=== PATIENT | male | born 1950 | race Caucasian/White ===

== ENCOUNTER 2016-04-27 12:30 | Inpatient (IN) | payer OTHER ==
[~2016-04-27] VITALS: Ht 167.6 cm; Wt 64.9 kg
[~2016-04-27 12:30] MED LIST: B COCAP10 PO; BSP15 PO; DIPH50CA PO; DOCU100T7 PO; FLM4 PO; FOLI1TAB7 PO; LBR25 PO; METO25TA3 PO; ROPI5TAB9 PO; THM100 PO; ZNTT/150 PO
[2016-04-27] MEDS ORDERED: LORAZEPAM 2 MG/ML 1 ML VIAL IV STA (13:16)
[2016-04-27] MEDS ORDERED: SODIUM CHLORIDE 0.9% 500ML 500 ML IV STA (13:16)
[2016-04-27 13:23] LABS: HEMATOCRIT 40.9 % (42-52); MEAN CELL VOLUME 100.7 fL (80-100); MEAN CORPUSCULAR HGB CONC 34.7 g/dl (32-36); RED BLOOD COUNT 4.06 M/uL (4.7-6.1); WHITE BLOOD COUNT 4.15 K/uL (4.8-10.8)
[2016-04-27 13:29] LABS: MEAN PLATELET VOLUME 10.8 fL (7.4-10.4); PLATELET COUNT 72 K/uL (130-400)
[2016-04-27] MEDS ORDERED: MULTI-VITAMIN INFUSION INJ 10 ML, THIAMINE HCL INJ 100 MG, FoLIC ACID INJ 1 MG in SODIU... IV ONE (13:30)
[2016-04-27 13:41] LABS: BUN/CREATININE RATIO 10.8 (10-20); CALCIUM 9.8 mg/dl (8.5-10.1); CREATININE 1.7 mg/dl (0.60-1.40); POTASSIUM 3.4 mmol/L (3.5-5.1)
[2016-04-27 13:47] LABS: ALB/GLOB RATIO 1.2 (0.9-2)
[2016-04-27 13:55] LABS: BETA-HYDROXYBUTYRATE 1.11 mg/dL (0.2-2.81); THYROID STIMULATING HORMONE 1.58 uIu/ml (0.300-4.500)
[2016-04-27 13:58] LABS: ACETAMINOPHEN < 2 ug/ml (10-30)
[2016-04-27 14:06] LABS: BASO % 0.5 %; BASO ABS # 0.02 K/uL (0-0.2); COMPLETE YES; EOS % 1.4 %; IG% 0.2 %; LYMPH % 29.6 %; LYMPH ABS # 1.23 K/uL (1.2-3.4); MONO % 5.3 %; PLT ESTIMATE DECREASED; STOMATOCYTE 1+
[2016-04-27 14:16] LABS: URINE APPEARANCE CLEAR (CLEAR); URINE BILIRUBIN NEG (NEG); URINE COLOR DK YELLOW; URINE NITRITE NEG (NEG); URINE PH 7.5 (4.5-7.5); URINE SPECIFIC GRAVITY 1.017 (1.000-1.030); UROBILINOGEN NEG (NEG); ZZUR CULT IF INDIC CLEAN CATCH NO
[2016-04-27 14:23] LABS: MANUAL MICROSCOPIC REQUIRED? NO; REVIEW REQ? NO
--- NOTE | 2016-04-27 14:28 | DIAGNOSTIC IMAGING REPORT ---
HEAD CT NONCONTRAST CT DOSE: 823.94 mGycm HISTORY: HEADACHE TECHNIQUE: Multiaxial CT images of the head were performed without the use of intravenous contrast. Automated exposure control was utilized for this study. Comparison: Head CT 04/10/2016. Findings: There are stable retention cysts within the bilateral maxilla sinuses. The mastoid air cells are clear. The calvarium and skull base are intact. There is no mass, hematoma, midline shift, acute infarct. White matter hypodensity is nonspecific but suggestive of microvascular ischemic change. The ventricles and sulci demonstrate mild age-related involutional changes. Impression: No significant change compared to the prior study. No acute intracranial abnormality. Electronically signed by: Ruben Waller M.D. 04/27/2016 2:26 PM Dictated Date/Time: 04/27/2016 2:20 PM
[2016-04-27 14:48] LABS: BENZODIAZEPINE, URINE NEG (NEG); COCAINE,URINE NEG (NEG); PHENCYCLIDINE, URINE NEG (NEG)
--- NOTE | 2016-04-27 15:42 | History and Physical ---
History & Physical Date & Time of Service: Apr 27, 2016 at 15:06 Chief Complaint: hallucinating Primary Care Physician: Doug Aguirre D.O.Int.Med. History of Present Illness Source: patient, friend (Vern (echocardiograph technician)) Mr Kahn is a 65 year old male with multiple admissions for alcohol intoxication and withdrawal with hallucinations. He came to the ER today by taxi on advice of his as he was having visual hallucination after stopping alcohol since Saturday (day 5 sober). He usually drinks 30-40oz vodka/day. He has tried giving up multiple times previously unsuccessfully and gone through withdrawal. Sometimes he will go back to drinking the following day, sometimes he remains sober for weeks. He has been drinking large quantities of alcohol since at least his 's. x2 inpatient rehab stays previously. No current outpatient treatment for alcohol. Previous AA meetings but not or many years. No current outpatient treatment or counselling. He reports compliance with outpatient medications (although the vitamins taste bad). This week after quitting alcohol he has felt more hyperactive, heart racing, muscles deyanira and shaking. Visual hallucinations started 2 days previously including spaghetti coming at him from the refrigerator, pears and other fruit moving up an down and while passenger in a car the road appeared to be swaying. He denies any acute vision problems but needs thick lenses on his right eye because his vision is deteriorating. He notes his short and chcf memory are getting much worse. He is orientated to place, person but not time. By permission from the patient I discussed with Vern his business integration manager. He confirms the patient's longstanding problems with alcohol. Mr Kahn was working up until 1.5 weeks ago. 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 He notes the patient has had balance issues over the last year but it has been especially noticeable in the last few weeks. 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 History of Pneumococcal: No History of Hepatitis B Vaccine: No Multi-Drug Resistant Organisms History of MDRO: No Allergies Coded Allergies: Cephalosporins (Verified Allergy, Unknown, SUPRAX, 04/27/16) Penicillins (Verified Allergy, Unknown, RASH, 04/27/16) Sulfa Antibiotics (Verified Allergy, Unknown, RASH, 04/27/16) Home Medications Scheduled B Complex W/ C (Super B With C), 1 CAP PO DAILY Buspirone HCl (Buspirone HCl), 30 MG PO HS Folic Acid (Folvite), 1 MG PO QPM Metoprolol Succinate (Toprol Xl), 1 TAB PO DAILY Ranitidine (Zantac), 150 MG PO UD Tamsulosin HCl (Tamsulosin HCl), 0.4 MG PO HS Thiamine HCl (Vitamin B-1), 100 MG PO DAILY Scheduled PRN Chlordiazepoxide (Chlordiazepoxide HCl), 25 MG PO BID PRN for Anxiety/Agitation Diphenhydramine Hcl (Diphenhydramine Hcl), 1 CAP PO HS PRN for Sleep Ropinirole HCl (Ropinirole HCl), 5-10 MG PO HS PRN for Restless Legs Review of Systems Constitutional: No chills, No fever Eyes: + worsening of vision Respiratory: + cough (chronically), + shortness of breath (chronically at rest and on exertion, stable for years), + sputum (chronically, little worse), No hemoptysis Cardiovascular: + chest pain (heartburn helped with tums, chronic, none at present), + claudication (sometimes), No PND, No edema, No orthopnea, No palpitations Abdomen: + pain (sometimes after eatin, chronic), No GI bleeding, No constipation, No diarrhea, No nausea, No vomiting Musculoskeletal: No joint pain, No muscle pain Genitourinary - Male: No dysuria, No hematuria, No urinary frequency, No urinary urgency Neurologic: + balance problems, + memory loss (short term and solomon term memory loss), No numbness/tingling Psychiatric: + substance abuse (alcohol), No anxiety, No depression symptoms Endocrine: No excessive thirst, No excessive urination, No fatigue Hematologic / Lymphatic: No abnormal bleeding/bruising Integumentary: No itch, No rash Physical Exam Vital Signs Date Time Temp Pulse Resp B/P Pulse Ox O2 Delivery O2 Flow Rate FiO2 04/27/16 14:15 82 14 121/85 97 Room Air 04/27/16 13:00 85 04/27/16 12:41 37.0 98 17 147/95 100 Room Air General Appearance: no apparent distress, + pertinent finding (malnourished) Head: normocephalic, atraumatic Eyes: normal inspection, PERRL, EOMI (no double vision) ENT: hearing grossly normal, pharynx normal Neck: no adenopathy, trachea midline Respiratory/Chest: chest non-tender, lungs clear, normal breath sounds, no respiratory distress, no accessory muscle use Cardiovascular: regular rate, rhythm, no murmur, normal peripheral pulses Abdomen/GI: normal bowel sounds, non tender, soft Back: no CVA tenderness Extremities/Musculoskelatal: no calf tenderness, normal capillary refill ( fingers), no pedal edema Neurologic/Psych: supervisor paste mixing II-XII nml as tested, no motor/sensory deficits (lower and upper limb power and sensation intact, no numbness or pain noted), alert, oriented x 3, + pertinent finding (wide based gait ataxic gait, intention tremor and past pointing, no resting tremor, confused multiple times throughout H&P trying to get up from bed and leave and not understanding questions) Skin: normal color, warm/dry, no rash Diagnostics Laboratory Results Results Past 24 Hours Test 04/27/16 12:42 04/27/16 13:28 Range/Units White Blood Count 4.15 4.8-10.8 K/uL Red Blood Count 4.06 4.7-6.1 M/uL Hemoglobin 14.2 14.0-18.0 g/dL Hematocrit 40.9 42-52 % Mean Corpuscular Volume 100.7 80-100 fL Mean Corpuscular Hemoglobin 35.0 25-34 pg Mean Corpuscular Hemoglobin Concent 34.7 32-36 g/dl Platelet Count 72 130-400 K/uL Mean Platelet Volume 10.8 7.4-10.4 fL Neutrophils (%) (Auto) 63.0 % Lymphocytes (%) (Auto) 29.6 % Monocytes (%) (Auto) 5.3 % Eosinophils (%) (Auto) 1.4 % Basophils (%) (Auto) 0.5 % Neutrophils # (Auto) 2.61 1.4-6.5 K/uL Lymphocytes # (Auto) 1.23 1.2-3.4 K/uL Monocytes # (Auto) 0.22 0.11-0.59 K/uL Eosinophils # (Auto) 0.06 0-0.5 K/uL Basophils # (Auto) 0.02 0-0.2 K/uL RDW Standard Deviation 49.0 36.4-46.3 fL RDW Coefficient of Variation 13.2 11.5-14.5 % Immature Granulocyte % (Auto) 0.2 % Immature Granulocyte # (Auto) 0.01 0.00-0.02 K/uL Platelet Estimate DECREASED Stomatocytes 1+ Sodium Level 140 136-145 mmol/L Potassium Level 3.4 3.5-5.1 mmol/L Chloride Level 98 98-107 mmol/L Carbon Dioxide Level 28 21-32 mmol/L Anion Gap 14.0 3-11 mmol/L Blood Urea Nitrogen 18 7-18 mg/dl Creatinine 1.70 0.60-1.40 mg/dl Est Creatinine Clear Calc Drug Dose 39.6 ml/min Estimated GFR () 48.3 Estimated GFR (Non- 41.7 BUN/Creatinine Ratio 10.8 10-20 Random Glucose 323 70-99 mg/dl Calcium Level 9.8 8.5-10.1 mg/dl Total Bilirubin 1.2 0.2-1 mg/dl Aspartate Amino Transf (AST/SGOT) 80 15-37 U/L Alanine Aminotransferase (ALT/SGPT) 65 12-78 U/L Alkaline Phosphatase 66 45-117 U/L Total Protein 7.1 6.4-8.2 gm/dl Albumin 3.9 3.4-5.0 gm/dl Globulin 3.2 2.5-4.0 gm/dl Albumin/Globulin Ratio 1.2 0.9-2 Beta-Hydroxybutyric Acid 1.11 0.2-2.81 mg/dL Thyroid Stimulating Hormone (TSH) 1.580 0.300-4.500 uIu/ml Salicylates Level < 1.7 2.8-20 mg/dl Acetaminophen Level < 2 10-30 ug/ml Ethyl Alcohol mg/dL < 3.0 0-3 mg/dl Urine Color DK YELLOW Urine Appearance CLEAR CLEAR Urine pH 7.5 4.5-7.5 Urine Specific [place] 1.017 1.000-1.030 Urine Protein NEG NEG Urine Glucose (UA) 3+ NEG Urine Ketones NEG NEG Urine Occult Blood NEG NEG Urine Nitrite NEG NEG Urine Bilirubin NEG NEG Urine Urobilinogen NEG NEG Urine Leukocyte Esterase NEG NEG Urine Opiates Screen NEG NEG Urine Methadone, Qualitative NEG NEG Urine Barbiturates NEG NEG Urine Phencyclidine (PCP) Level NEG NEG Ur Amphetamine/Methamphetamine NEG NEG MDMA (Ecstasy) Screen NEG NEG Urine Benzodiazepines Screen NEG NEG Urine Cocaine Metabolite NEG NEG Urine Marijuana (THC) NEG NEG Diagnostic Radiology HEAD CT NONCONTRAST CT DOSE: 823.94 mGycm HISTORY: HEADACHE TECHNIQUE: Multiaxial CT images of the head were performed without the use of intravenous contrast. Automated exposure control was utilized for this study. Comparison: Head CT 04/10/2016. Findings: There are stable retention cysts within the bilateral maxilla sinuses. The mastoid air cells are clear. The calvarium and skull base are intact. There is no mass, hematoma, midline shift, acute infarct. White matter hypodensity is nonspecific but suggestive of microvascular ischemic change. The ventricles and sulci demonstrate mild age-related involutional changes. Impression: No significant change compared to the prior study. No acute intracranial abnormality. Electronically signed by: Ruben Waller M.D. 04/27/2016 2:26 PM Dictated Date/Time: 04/27/2016 2:20 PM Impression Assessment and Plan 65 yo male with longstanding alcohol and tobacco abuse admission through ER for alcohol withdrawal with hallucinations. Encephalopathy and gait ataxia concerning for Wernicke's encephalopathy. Alcohol hallucinosis / delirium tremens - hallucinations with possible fever and tachycardia at home (by history from patient). Delirium, agitation with hallucinations in ER suggestive of DT - GIGI scale - Chlordiazepoxide reducing regimen Suspected Wernicke's encephalopathy - gait ataxia + encephalopathy - Thiamine level - Thiamine IV 500 mg TID for 2 days then 250mg IV daily for 5 days Alcohol abuse - PTINR and PTT to assess for liver dysfunction Macrocytosis - secondary to alcohol abuse - B12 and folate levels - continue O/P folic acid pending level Hyperglycemia - possible diabetes with pancreatic damage secondary to alcohol. Will also be causing some osmotic diuresis contributing towards JAMES and dehydration. - add HbA1C - Lipase to assess acute pancreatic damage - BSG ACHS, if continues to be raised will treat with insulin - previous admissions the random glucose has also been raised Acute Kidney Injury - likely pre-renal with dehydration - 1L NSS given in ER. Addition 1L LR bolus now. NSS with 40 meq KCl - Cr with morning labs Hypokalemia - IVF - LR and NSS+40KCl as above Tobacco abuse - 1pack/day - nicotine replacement Restless leg syndrome - continue PRN ropinirole VTE Prophylaxis - Chronically low Plt around 70. Chemical prophylaxis with Lovenox currently but will need to be reassessed if Plt drop tomorrow. - No mechanical prophylaxis as falls risk with gait ataxia Code - Full as per patient wishes Disposition - admission to med/surg. No acute cardiac problems to warrant telemetry. I agree with resident assessment and plan and have personally seen and examined pt myself Agree with ROS and PE findings GEN NAD, Alert and oriented x 3 Pt presents with alcohol withdrawal with hallucinations Pt will be admitted for CW protocol Will utilize scheduled librium Monitor for DTs Level of Care Med/Surg Resuscitation Status FULL RESUSCITATION VTE Prophylaxis Given or contraindicated: Enoxaparin (Lovenox)SQ Additional Copies To Doug Aguirre D.O.Int.Med.
--- NOTE | 2016-04-27 15:52 | EMERGENCY ROOM VISIT NOTE ---
History Report prepared by Anna: Bambi Avina Under the Supervision of: Dr. George Devlin M.D. First contact with patient: 13:12 Chief Complaint: OTHER COMPLAINT Stated Complaint: hallucinating History of Present Illness The patient is a 65 year old male who presents to the Emergency Room with complaints of resolved visual hallucinations occurring this morning. 5 days ago , the patient started self-detox for alcohol use. His last alcoholic drink was 5 days ago. He used to drink "about half or a third of a fifth" of vodka every day. About 2 days ago, he had nausea and vomiting. The patient currently denies any pain. He has a history of alcohol detox and denies any issues. He denies any history of seizures. Today, he thought that he saw about 100-200 people at his house. He called 911 but there was no one found at his house. He denies any suicidal or homicidal ideation. He does not have any history of mental health issues or suicide attempts. He denies any recent fall or injuries. He is a current smoker. Source of History: patient Onset: this morning Position: other (global) Symptom Intensity: No pain currently Quality: other (visual hallucinations) Timing: resolved Associated Symptoms: + nausea, + vomiting Review of Systems See HPI for pertinent positives & negatives. A total of 10 systems reviewed and were otherwise negative. Past Medical & Surgical Medical Problems: (1) Acute alcoholic hallucinosis (2) Alcohol withdrawal (3) Altered mental state (4) Benign hypertension (5) Orthostatic dizziness (6) TIA (transient ischemic attack) (7) Wernickes encephalopathy Family History Diabetes mellitus FHx: gallbladder disease Hypertension Kidney disease Kidney stones Social History Smoking Status: Current Every Day Smoker Alcohol Use: heavy Drug Use: none Marital Status: Housing Status: lives with significant other Occupation Status: employed Current/Historical Medications Scheduled B Complex W/ C (Super B With C), 1 CAP PO DAILY Buspirone HCl (Buspirone HCl), 30 MG PO HS Folic Acid (Folvite), 1 MG PO QPM Metoprolol Succinate (Toprol Xl), 1 TAB PO DAILY Ranitidine (Zantac), 150 MG PO UD Tamsulosin HCl (Tamsulosin HCl), 0.4 MG PO HS Thiamine HCl (Vitamin B-1), 100 MG PO DAILY Scheduled PRN Chlordiazepoxide (Chlordiazepoxide HCl), 25 MG PO BID PRN for Anxiety/Agitation Diphenhydramine Hcl (Diphenhydramine Hcl), 1 CAP PO HS PRN for Sleep Ropinirole HCl (Ropinirole HCl), 5-10 MG PO HS PRN for Restless Legs Allergies Coded Allergies: Cephalosporins (Verified Allergy, Unknown, SUPRAX, 04/27/16) Penicillins (Verified Allergy, Unknown, RASH, 04/27/16) Sulfa Antibiotics (Verified Allergy, Unknown, RASH, 04/27/16) Physical Exam Vital Signs Date Time Temp Pulse Resp B/P Pulse Ox O2 Delivery O2 Flow Rate FiO2 04/27/16 16:05 86 18 117/77 96 Room Air 04/27/16 14:15 82 14 121/85 97 Room Air 04/27/16 13:00 85 04/27/16 12:41 37.0 98 17 147/95 100 Room Air Physical Exam GENERAL: Patient is in no acute distress. HEENT: No acute trauma, normocephalic atraumatic, mucous membranes moist, no nasal congestion, no scleral icterus. NECK: No stridor, no adenopathy, no meningismus, trachea is midline. LUNGS: Clear to auscultation bilaterally, no wheeze, no rhonchi, breath sounds equal. HEART: Without murmurs gallops or rubs, regular rate and rhythm. ABDOMEN: Soft, nontender, bowel sounds positive, no hernias, no peritonitis. EXTREMITIES: No cyanosis or edema, full range of motion of all the joints without pain or difficulty, no signs for acute trauma. NEUROLOGIC: Oriented x 3, no acute motor or sensory deficits, no focal weakness. PSYCHIATRIC: Cooperative, admits to earlier hallucinations, voluntary, not suicidal. SKIN: No rash, no jaundice, no diaphoresis. Medical Decision & Procedures ER Provider Diagnostic Interpretation: CT results as stated below per my review and radiologist interpretation: HEAD CT NONCONTRAST CT DOSE: 823.94 mGycm HISTORY: HEADACHE TECHNIQUE: Multiaxial CT images of the head were performed without the use of intravenous contrast. Automated exposure control was utilized for this study. Comparison: Head CT 04/10/2016. Findings: There are stable retention cysts within the bilateral maxilla sinuses. The mastoid air cells are clear. The calvarium and skull base are intact. There is no mass, hematoma, midline shift, acute infarct. White matter hypodensity is nonspecific but suggestive of microvascular ischemic change. The ventricles and sulci demonstrate mild age-related involutional changes. Impression: No significant change compared to the prior study. No acute intracranial abnormality. Electronically signed by: Ruben Waller M.D. 04/27/2016 2:26 PM Dictated Date/Time: 04/27/2016 2:20 PM Laboratory Results 04/27/16 12:42 Red Blood Count 4.06, Mean Corpuscular Volume 100.7, Mean Corpuscular Hemoglobin 35.0, Mean Corpuscular Hemoglobin Concent 34.7, Mean Platelet Volume 10.8, Neutrophils (%) (Auto) 63.0, Lymphocytes (%) (Auto) 29.6, Monocytes (%) ( Auto) 5.3, Eosinophils (%) (Auto) 1.4, Basophils (%) (Auto) 0.5, Neutrophils # ( Auto) 2.61, Lymphocytes # (Auto) 1.23, Monocytes # (Auto) 0.22, Eosinophils # ( Auto) 0.06, Basophils # (Auto) 0.02 04/27/16 12:42 Test 04/27/16 12:42 04/27/16 13:28 04/27/16 16:34 04/27/16 16:49 White Blood Count 4.15 K/uL (4.8-10.8) Red Blood Count 4.06 M/uL (4.7-6.1) Hemoglobin 14.2 g/dL (14.0-18.0) Hematocrit 40.9 % (42-52) Mean Corpuscular Volume 100.7 fL (80-100) Mean Corpuscular Hemoglobin 35.0 pg (25-34) Mean Corpuscular Hemoglobin Concent 34.7 g/dl (32-36) Platelet Count 72 K/uL (130-400) Mean Platelet Volume 10.8 fL (7.4-10.4) Neutrophils (%) (Auto) 63.0 % Lymphocytes (%) (Auto) 29.6 % Monocytes (%) (Auto) 5.3 % Eosinophils (%) (Auto) 1.4 % Basophils (%) (Auto) 0.5 % Neutrophils # (Auto) 2.61 K/uL (1.4-6.5) Lymphocytes # (Auto) 1.23 K/uL (1.2-3.4) Monocytes # (Auto) 0.22 K/uL (0.11-0.59) Eosinophils # (Auto) 0.06 K/uL (0-0.5) Basophils # (Auto) 0.02 K/uL (0-0.2) RDW Standard Deviation 49.0 fL (36.4-46.3) RDW Coefficient of Variation 13.2 % (11.5-14.5) Immature Granulocyte % (Auto) 0.2 % Immature Granulocyte # (Auto) 0.01 K/uL (0.00-0.02) Platelet Estimate DECREASED Stomatocytes 1+ Prothrombin Time 10.4 SECONDS (9.0-12.0) Prothromb Time International Ratio 1.0 (0.9-1.1) Activated Partial Thromboplast Time 24.5 SECONDS (21.0-31.0) Partial Thromboplastin Ratio 0.9 Anion Gap 14.0 mmol/L (3-11) Est Creatinine Clear Calc Drug Dose 39.6 ml/min Estimated GFR () 48.3 Estimated GFR (Non- 41.7 BUN/Creatinine Ratio 10.8 (10-20) Calcium Level 9.8 mg/dl (8.5-10.1) Total Bilirubin 1.2 mg/dl (0.2-1) Aspartate Amino Transf (AST/SGOT) 80 U/L (15-37) Alanine Aminotransferase (ALT/SGPT) 65 U/L (12-78) Alkaline Phosphatase 66 U/L (45-117) Total Protein 7.1 gm/dl (6.4-8.2) Albumin 3.9 gm/dl (3.4-5.0) Globulin 3.2 gm/dl (2.5-4.0) Albumin/Globulin Ratio 1.2 (0.9-2) Lipase 251 U/L (73-393) Beta-Hydroxybutyric Acid 1.11 mg/dL (0.2-2.81) Thyroid Stimulating Hormone (TSH) 1.580 uIu/ml (0.300-4.500) Salicylates Level < 1.7 mg/dl (2.8-20) Acetaminophen Level < 2 ug/ml (10-30) Ethyl Alcohol mg/dL < 3.0 mg/dl (0-3) Urine Color DK YELLOW Urine Appearance CLEAR (CLEAR) Urine pH 7.5 (4.5-7.5) Urine Specific [place] 1.017 (1.000-1.030) Urine Protein NEG (NEG) Urine Glucose (UA) 3+ (NEG) Urine Ketones NEG (NEG) Urine Occult Blood NEG (NEG) Urine Nitrite NEG (NEG) Urine Bilirubin NEG (NEG) Urine Urobilinogen NEG (NEG) Urine Leukocyte Esterase NEG (NEG) Urine Opiates Screen NEG (NEG) Urine Methadone, Qualitative NEG (NEG) Urine Barbiturates NEG (NEG) Urine Phencyclidine (PCP) Level NEG (NEG) Ur Amphetamine/Methamphetamine NEG (NEG) MDMA (Ecstasy) Screen NEG (NEG) Urine Benzodiazepines Screen NEG (NEG) Urine Cocaine Metabolite NEG (NEG) Urine Marijuana (THC) NEG (NEG) Bedside Glucose 217 mg/dl (70-99) Laboratory results reviewed by me. Medications Administered Medications (Trade) Dose Ordered Sig/Sameer Route Start Time Stop Time Status Last Admin Dose Admin Sodium Chloride 500 ml @ 999 mls/hr Q31M STAT IV 04/27/16 13:16 04/27/16 13:46 DC 04/27/16 13:44 999 MLS/HR Multivitamins/ Thiamine HCl/ Folic Acid/Sodium Chloride (Mvi Infusion Inj/Vitamin B-1 Inj/Folvite Inj/ Nss 1000ml) 1,011.2 ml @ 500 mls/ hr Q2H2M ONCE IV 04/27/16 13:30 04/27/16 15:31 DC 04/27/16 13:44 500 MLS/HR Lorazepam 1 mg 1 mg NOW STAT IV 04/27/16 13:16 04/27/16 13:21 DC 04/27/16 13:43 1 MG Thiamine HCl 500 mg/Sodium Chloride 55 ml @ 110 mls/hr 1615 ONCE IV 04/27/16 16:15 04/27/16 16:44 DC 04/27/16 16:37 110 MLS/HR Lactated Ringer's (Lr 1000ml) 1,000 ml @ 999 mls/hr Q1H1M STAT IV 04/27/16 16:05 04/27/16 17:05 DC 04/27/16 16:37 999 MLS/HR ECG Indication: other (Hallucinations) Rate (beats per minute): 85 Rhythm: normal sinus Findings: no acute ischemic change, no ectopy ED Course 1312: The patient was evaluated in room A08. A complete history and physical exam was performed. 1316: Ativan Inj 1 mg IV, Sodium Chloride 500 ml @ 999 mls/hr IV 1330: Multivitamins 10 ml/Thiamine HCl 100 mg/Folic Acid 1 mg/Sodium Chloride 1, 011.2 ml @ 500 mls/hr IV 1450: I discussed the patient's case with Dr. Liao, from [facility]. 1458: Upon reexamination the patient is doing well. He is eating a meal. I discussed results and treatment plan with the patient. He verbalizes agreement and understanding. The patient will be evaluated for further management. Medical Decision Differential diagnosis includes but is not limited to alcohol withdrawal, hallucinations, delirium, electrolyte imbalance, anemia, drug abuse, alcohol abuse, intracranial bleed. The patient's white count and platelet count are slightly low, this appears chronic looking back at previous testing. No anemia. Sugar is elevated at over 300, creatinine slightly elevated, no hepatitis. The patient appears to be in a euthyroid state. There is no coagulopathy. Urinalysis does not show infection, glucose was seen. Urine tox is negative. Aspirin and Tylenol levels are undetectable, alcohol level is undetectable. EKG shows a normal sinus rhythm, no acute ischemia. Brain CT shows no acute bleed or mass effect. The patient received IV saline, IV Ativan. He was given IV saline with multivitamins, thiamine and folate. The patient seems to be doing well. I think his hallucinations are secondary to alcohol withdrawal. He does seem somewhat dehydrated by exam and workup. I do think admission/observation is warranted. I spoke to the patient and case fitter. The on-call hospitalist was consulted. Consults Time Called: 1445 Consulting Physician: Dr. Liao, from [facility] Returned Call: 1450 I discussed the patient's case with Dr. Liao, from [facility]. Impression Primary Impression: Hallucinations Additional Impressions: Alcohol withdrawal Dehydration Scribe Attestation The scribe's documentation has been prepared under my direction and personally reviewed by me in its entirety. I confirm that the note above accurately reflects all work, treatment, procedures, and medical decision making performed by me. Departure Information Dispostion Being Evaluated By Hospitalist Referrals Doug Aguirre D.Kiley.Int.Med. (PCP) Patient Instructions My [facility] Problem Qualifiers
[2016-04-27] MEDS ORDERED: MAGNESIUM HYDROXIDE SUSP 30 ML UDC PO PRN (16:00)
[2016-04-27] MEDS ORDERED: ROPINIROLE HCL 5 MG TAB PO PRN (16:00)
[2016-04-27] MEDS ORDERED: ACETAMINOPHEN 325 MG TAB PO PRN (16:00)
[2016-04-27] MEDS ORDERED: ALUMINUM/MAGNESIUM/SIMETH (MAALOX MAX) 30 ML UDC PO PRN (16:00)
[2016-04-27] MEDS ORDERED: POLYETHYLENE (MIRALAX) 17 GM PACK PO PRN (16:00)
[2016-04-27] MEDS ORDERED: ONDANSETRON INJ 2 MG/ML 2 ML VIAL IV PRN (16:00)
[2016-04-27] MEDS ORDERED: LACTATED RINGER'S 1000ML 1,000 ML IV STA (16:05)
[2016-04-27] MEDS ORDERED: THIAMINE HCL INJ 500 MG in SODIUM CHLORIDE 0.9% 50ML 50 ML IV ONE (16:15)
[2016-04-27] MEDS ORDERED: CHLORDIAZEPOXIDE 25 MG CAP PO SCH (16:15)
[2016-04-27] MEDS ORDERED: NICOTINE 21 MG/24 HR TDSY TD ONE (16:34)
[2016-04-27 16:42] LABS: PARTIAL THROMBOPLASTIN RATIO 0.9; PROTHROMBIN TIME (PATIENT) 10.4 SECONDS (9.0-12.0)
[2016-04-27] MEDS ORDERED: LORAZEPAM 2 MG/ML 1 ML VIAL ONE (17:44)
[2016-04-27 18:00] VITALS: BP 102/100; PULSE 90; TEMP 36.9; O2SAT 97
[2016-04-27 19:03] LABS: ESTIMATED AVERAGE GLUCOSE 100 mg/dl; HA1C FLAG Normal (Normal)
[2016-04-27] MEDS: CHLORDIAZEPOXIDE 25MG 1ST DOSE PO SCH (19:11)
[2016-04-27] MEDS: POTASSIUM CHLORIDE INJ 40 MEQ in SODIUM CHLORIDE 0.9% 1000ML 1,000 ML IV SCH (19:12)
[2016-04-27 20:19] VITALS: BP 102/100; PULSE 90; TEMP 36.9; O2SAT 97; Ht 167.6 cm; Wt 64.9 kg
[2016-04-27 21:12] VITALS: BP 148/91; PULSE 78; TEMP 37.2; O2SAT 97
[2016-04-27] MEDS: THIAMINE HCL INJ 500 MG in SODIUM CHLORIDE 0.9% 50ML 50 ML IV SCH (21:18)
[2016-04-27] MEDS: BusPIRone 15 MG TAB PO SCH (21:21)
[2016-04-27] MEDS: TAMSULOSIN HCL 0.4 MG CAP PO SCH (21:21)
[2016-04-27] MEDS: RANITIDINE HCL 150 MG TAB PO SCH (21:22)
[2016-04-28] MEDS: POTASSIUM CHLORIDE INJ 40 MEQ in SODIUM CHLORIDE 0.9% 1000ML 1,000 ML IV SCH ×5 (01:24→21:15)
[2016-04-28 01:42] VITALS: BP 162/88; PULSE 82; TEMP 37; O2SAT 97
[2016-04-28] MEDS ORDERED: NURSING VERBAL MED ORDER ONE (04:00)
[2016-04-28] MEDS ORDERED: LORAZEPAM INJ 1 MG in SYRINGE 0.5 ML IV STA (04:03)
[2016-04-28] MEDS: CHLORDIAZEPOXIDE 25MG 1ST DOSE PO SCH ×3 (06:12→17:21)
[2016-04-28 06:57] VITALS: BP 134/88; PULSE 87; TEMP 36.4; O2SAT 95
[2016-04-28] MEDS: METOPROLOL SUCC 25MG EXT REL TAB PO SCH (07:54)
[2016-04-28] MEDS: RANITIDINE HCL 150 MG TAB PO SCH ×2 (07:54→21:19)
[2016-04-28] MEDS: NICOTINE 21 MG/24 HR TDSY TD SCH (07:55)
[2016-04-28 08:00] VITALS: O2SAT 95
[2016-04-28] MEDS ORDERED: THIAMINE HCL INJ 500 MG in SODIUM CHLORIDE 0.9% 50ML 50 ML IV SCH (09:00)
[2016-04-28] MEDS: THIAMINE HCL INJ 500 MG in SODIUM CHLORIDE 0.9% 50ML 50 ML IV SCH ×3 (09:14→21:15)
--- NOTE | 2016-04-28 12:15 | Progress Note ---
Subjective Date of Service: Apr 28, 2016. Subjective pt has had no further hallucinations, still shaky, is not interested in in patient rehab and states AA is not for him, I told him he needs to find something that is for him as he has a problem with alcohol abuse Problem List Medical Problems: (1) Acute renal failure Status: Acute (2) Alcohol abuse Status: Acute (3) Alcohol withdrawal Status: Acute (4) Altered mental status Status: Acute (5) Altered mental status Status: Acute (6) Altered mental status Status: Acute (7) Dehydration Status: Acute (8) Hallucinations Status: Acute (9) Hyperbilirubinemia Status: Acute (10) Hyperglycemia Status: Acute (11) Orthostatic hypotension Status: Acute (12) Sinusitis Status: Acute (13) Syncope Status: Acute (14) Thrombocytopenia Status: Acute Review of Systems Constitutional: + fatigue, + weakness, No chills, No fever Respiratory: No cough, No shortness of breath Cardiac: No chest pain, No edema Abdomen: No nausea, No pain Neurologic: + problem reported (tremor), + weakness Objective Vital Signs Date Time Temp Pulse Resp B/P Pulse Ox O2 Delivery O2 Flow Rate FiO2 04/28/16 06:57 36.4 87 18 134/88 95 Room Air 04/28/16 01:42 37.0 82 18 162/88 97 Room Air 04/28/16 01:00 Room Air 04/27/16 21:12 37.2 78 18 148/91 97 Room Air 04/27/16 20:19 36.9 90 20 102/100 97 Room Air 04/27/16 18:00 36.9 90 20 102/100 97 Room Air 04/27/16 17:57 94 20 113/74 96 04/27/16 16:05 86 18 117/77 96 Room Air 04/27/16 14:15 82 14 121/85 97 Room Air 04/27/16 13:00 85 04/27/16 12:41 37.0 98 17 147/95 100 Room Air Physical Exam General Appearance: WD/WN, + mild distress Neck: supple, no JVD Respiratory/Chest: chest non-tender, lungs clear, normal breath sounds Cardiovascular: regular rate, rhythm, no murmur Abdomen: normal bowel sounds, non tender, soft Extremities: no pedal edema, no calf tenderness Neurologic/Psychiatric: alert, + disoriented, + pertinent finding (anxious) Laboratory Results Last 24 Hours Test 04/27/16 12:42 04/27/16 13:28 04/27/16 16:34 04/27/16 16:49 White Blood Count 4.15 K/uL Red Blood Count 4.06 M/uL Hemoglobin 14.2 g/dL Hematocrit 40.9 % Mean Corpuscular Volume 100.7 fL Mean Corpuscular Hemoglobin 35.0 pg Mean Corpuscular Hemoglobin Concent 34.7 g/dl Platelet Count 72 K/uL Mean Platelet Volume 10.8 fL Neutrophils (%) (Auto) 63.0 % Lymphocytes (%) (Auto) 29.6 % Monocytes (%) (Auto) 5.3 % Eosinophils (%) (Auto) 1.4 % Basophils (%) (Auto) 0.5 % Neutrophils # (Auto) 2.61 K/uL Lymphocytes # (Auto) 1.23 K/uL Monocytes # (Auto) 0.22 K/uL Eosinophils # (Auto) 0.06 K/uL Basophils # (Auto) 0.02 K/uL RDW Standard Deviation 49.0 fL RDW Coefficient of Variation 13.2 % Immature Granulocyte % (Auto) 0.2 % Immature Granulocyte # (Auto) 0.01 K/uL Platelet Estimate DECREASED Stomatocytes 1+ Prothrombin Time 10.4 SECONDS Prothromb Time International Ratio 1.0 Activated Partial Thromboplast Time 24.5 SECONDS Partial Thromboplastin Ratio 0.9 Sodium Level 140 mmol/L Potassium Level 3.4 mmol/L Chloride Level 98 mmol/L Carbon Dioxide Level 28 mmol/L Anion Gap 14.0 mmol/L Blood Urea Nitrogen 18 mg/dl Creatinine 1.70 mg/dl Est Creatinine Clear Calc Drug Dose 39.6 ml/min Estimated GFR () 48.3 Estimated GFR (Non- 41.7 BUN/Creatinine Ratio 10.8 Random Glucose 323 mg/dl Estimated Average Glucose 100 mg/dl Hemoglobin A1c 5.1 % Calcium Level 9.8 mg/dl Total Bilirubin 1.2 mg/dl Aspartate Amino Transf (AST/SGOT) 80 U/L Alanine Aminotransferase (ALT/SGPT) 65 U/L Alkaline Phosphatase 66 U/L Total Protein 7.1 gm/dl Albumin 3.9 gm/dl Globulin 3.2 gm/dl Albumin/Globulin Ratio 1.2 Lipase 251 U/L Beta-Hydroxybutyric Acid 1.11 mg/dL Thyroid Stimulating Hormone (TSH) 1.580 uIu/ml Salicylates Level < 1.7 mg/dl Acetaminophen Level < 2 ug/ml Ethyl Alcohol mg/dL < 3.0 mg/dl Urine Color DK YELLOW Urine Appearance CLEAR Urine pH 7.5 Urine Specific [place] 1.017 Urine Protein NEG Urine Glucose (UA) 3+ Urine Ketones NEG Urine Occult Blood NEG Urine Nitrite NEG Urine Bilirubin NEG Urine Urobilinogen NEG Urine Leukocyte Esterase NEG Urine Opiates Screen NEG Urine Methadone, Qualitative NEG Urine Barbiturates NEG Urine Phencyclidine (PCP) Level NEG Ur Amphetamine/Methamphetamine NEG MDMA (Ecstasy) Screen NEG Urine Benzodiazepines Screen NEG Urine Cocaine Metabolite NEG Urine Marijuana (THC) NEG Vitamin B12 Level 667 pg/mL Folate > 24.00 ng/mL Bedside Glucose 217 mg/dl Test 04/27/16 20:03 04/28/16 07:00 04/28/16 07:47 Bedside Glucose 145 mg/dl 225 mg/dl Assessment and Plan 65 yo male with longstanding alcohol and tobacco abuse admission through ER for alcohol withdrawal with hallucinations. Encephalopathy and gait ataxia concerning for Wernicke's encephalopathy. Alcohol hallucinosis / delirium tremens - thiamine, dextrose - Chlordiazepoxide reducing regimen Suspected Wernicke's encephalopathy - gait ataxia + encephalopathy - Thiamine level - Thiamine IV 500 mg TID for 2 days then 250mg IV daily for 5 days Macrocytosis - secondary to alcohol abuse - Acute Kidney Injury - likely pre-renal with dehydration - 1L NSS given in ER. Addition 1L LR bolus now. NSS with 40 meq KCl Tobacco abuse- nicotine replacement VTE Prophylaxis low Plt around 70. Lovenox with platelet surveilence Full code
[2016-04-28 15:16] VITALS: BP 116/78; PULSE 79; TEMP 37; O2SAT 98
[2016-04-28] MEDS: BusPIRone 15 MG TAB PO SCH (21:18)
[2016-04-28] MEDS: TAMSULOSIN HCL 0.4 MG CAP PO SCH (21:19)
[2016-04-28 23:07] VITALS: BP 102/69; PULSE 78; TEMP 37; O2SAT 96
[2016-04-28] MEDS: CHLORDIAZEPOXIDE 25MG Q8H DOSE PO SCH (23:55)
[2016-04-29] MEDS: POTASSIUM CHLORIDE INJ 40 MEQ in SODIUM CHLORIDE 0.9% 1000ML 1,000 ML IV SCH ×2 (01:48→08:45)
[2016-04-29 07:28] LABS: HEMATOCRIT 35.1 % (42-52); MEAN CELL VOLUME 100.9 fL (80-100); MEAN CORPUSCULAR HEMOGLOBIN 34.8 pg (25-34); MEAN CORPUSCULAR HGB CONC 34.5 g/dl (32-36); RED BLOOD COUNT 3.48 M/uL (4.7-6.1); WHITE BLOOD COUNT 3.36 K/uL (4.8-10.8)
[2016-04-29 07:57] LABS: MEAN PLATELET VOLUME 10.3 fL (7.4-10.4); PLATELET COUNT 61 K/uL (130-400)
[2016-04-29 07:59] VITALS: BP 129/76; PULSE 65; TEMP 36.9; O2SAT 94
[2016-04-29 08:07] LABS: BUN/CREATININE RATIO 9.4 (10-20); CALCIUM 8.5 mg/dl (8.5-10.1); CREATININE 1.2 mg/dl (0.60-1.40); POTASSIUM 5.1 mmol/L (3.5-5.1)
[2016-04-29] MEDS: CHLORDIAZEPOXIDE 25MG Q8H DOSE PO SCH (08:45)
[2016-04-29] MEDS: RANITIDINE HCL 150 MG TAB PO SCH ×2 (08:47→20:16)
[2016-04-29] MEDS: METOPROLOL SUCC 25MG EXT REL TAB PO SCH (08:47)
[2016-04-29] MEDS: THIAMINE HCL INJ 500 MG in SODIUM CHLORIDE 0.9% 50ML 50 ML IV SCH (08:47)
--- NOTE | 2016-04-29 10:56 | Progress Note ---
Subjective Date of Service: Apr 29, 2016. Subjective pt is clearing from withdrawal but seems to need increased doses of librium Problem List Medical Problems: (1) Acute renal failure Status: Acute (2) Alcohol abuse Status: Acute (3) Alcohol withdrawal Status: Acute (4) Altered mental status Status: Acute (5) Altered mental status Status: Acute (6) Altered mental status Status: Acute (7) Dehydration Status: Acute (8) Hallucinations Status: Acute (9) Hyperbilirubinemia Status: Acute (10) Hyperglycemia Status: Acute (11) Orthostatic hypotension Status: Acute (12) Sinusitis Status: Acute (13) Syncope Status: Acute (14) Thrombocytopenia Status: Acute Review of Systems Constitutional: No chills, No fever Respiratory: No cough, No sputum Cardiac: No chest pain, No orthopnea Abdomen: No nausea, No pain Psychiatric: + anxiety, + depression symptoms Objective Vital Signs Date Time Temp Pulse Resp B/P Pulse Ox O2 Delivery O2 Flow Rate FiO2 04/29/16 07:59 36.9 65 16 129/76 94 04/28/16 23:07 37.0 78 18 102/69 96 Room Air 04/28/16 19:40 Room Air 04/28/16 16:00 Room Air 04/28/16 15:16 37.0 79 18 116/78 98 Room Air Physical Exam General Appearance: WD/WN, + mild distress Eyes: PERRL, EOMI Respiratory/Chest: chest non-tender, lungs clear, normal breath sounds Cardiovascular: regular rate, rhythm, no murmur Abdomen: normal bowel sounds, non tender, soft Extremities: + pertinent finding (tremulous) Neurologic/Psychiatric: alert, oriented x 3 Laboratory Results Last 24 Hours Test 04/28/16 16:08 04/28/16 20:20 04/29/16 06:30 04/29/16 07:33 Bedside Glucose 120 mg/dl 184 mg/dl 116 mg/dl White Blood Count 3.36 K/uL Red Blood Count 3.48 M/uL Hemoglobin 12.1 g/dL Hematocrit 35.1 % Mean Corpuscular Volume 100.9 fL Mean Corpuscular Hemoglobin 34.8 pg Mean Corpuscular Hemoglobin Concent 34.5 g/dl RDW Standard Deviation 48.4 fL RDW Coefficient of Variation 13.3 % Platelet Count 61 K/uL Mean Platelet Volume 10.3 fL Sodium Level 144 mmol/L Potassium Level 5.1 mmol/L Chloride Level 117 mmol/L Carbon Dioxide Level 20 mmol/L Anion Gap 7.0 mmol/L Blood Urea Nitrogen 11 mg/dl Creatinine 1.20 mg/dl Est Creatinine Clear Calc Drug Dose 56.1 ml/min Estimated GFR () 73.6 Estimated GFR (Non- 63.5 BUN/Creatinine Ratio 9.4 Random Glucose 107 mg/dl Calcium Level 8.5 mg/dl Assessment and Plan 65 yo male with longstanding alcohol and tobacco abuse admission through ER for alcohol withdrawal with hallucinations. Encephalopathy and gait ataxia concerning for Wernicke's encephalopathy. Alcohol hallucinosis / delirium tremens - thiamine, dextrose - Chlordiazepoxide increase to qid 04/29 Suspected Wernicke's encephalopathy - gait ataxia + encephalopathy - Thiamine replacement Macrocytosis - secondary to alcohol abuse - Acute Kidney Injury - likely pre-renal with dehydration, improved Tobacco abuse- nicotine replacement VTE Prophylaxis low Plt around 70. Lovenox with platelet surveilence Full code
[2016-04-29] MEDS: CHLORDIAZEPOXIDE 10 MG CAP PO SCH ×2 (12:12→17:53)
[2016-04-29] MEDS: NICOTINE 21 MG/24 HR TDSY TD SCH (12:24)
[2016-04-29 15:39] VITALS: BP 121/83; PULSE 74; TEMP 36.6; O2SAT 98
[2016-04-29] MEDS: TAMSULOSIN HCL 0.4 MG CAP PO SCH (20:16)
[2016-04-29] MEDS: BusPIRone 15 MG TAB PO SCH (20:17)
[2016-04-29 23:04] VITALS: BP 123/81; PULSE 66; TEMP 36.3; O2SAT 95
[2016-04-30] MEDS ORDERED: CHLORDIAZEPOXIDE 10MG Q8H DOSE PO SCH
[2016-04-30] MEDS: CHLORDIAZEPOXIDE 10 MG CAP PO SCH ×4 (00:05→20:17)
[2016-04-30 07:46] VITALS: BP 114/57; PULSE 70; TEMP 36.4; O2SAT 97
[2016-04-30] MEDS: THIAMINE HCL INJ 250 MG in SODIUM CHLORIDE 0.9% 50ML 50 ML IV SCH (09:06)
[2016-04-30] MEDS: RANITIDINE HCL 150 MG TAB PO SCH ×2 (09:07→20:14)
[2016-04-30] MEDS: METOPROLOL SUCC 25MG EXT REL TAB PO SCH (09:07)
[2016-04-30] MEDS: NICOTINE 21 MG/24 HR TDSY TD SCH (09:07)
--- NOTE | 2016-04-30 15:02 | Hospitalist Progress Note ---
Hospitalist Progress Note Date of Service Apr 30, 2016. (Brii Pulliam ., PAHaydenC) Subjective Pt evaluation today including: conversation w/ patient, physical exam, chart review, lab review, review of inpatient medication list Voiding: no voiding problems, no incontinence Patient states he is feeling OK. +anxiousness, but improving. No hallucinations or visual changes. He is eating and drinking OK. Patient denies any fever, chills, sweats, lightheadedness, dizziness, vision changes, CP, palpitations, edema, SOB, wheezing, cough, abdominal pain, nausea, vomiting, diarrhea, urinary symptoms, melena, numbness/tingling, weakness, muscle/joint pain, depression, active bleeding, or new skin discoloration/changes. (Brii Pulliam ., MAULIKC) Medications Current Inpatient Medications Medications (Trade) Dose Ordered Sig/Sameer Route Start Time Stop Time Status Last Admin Dose Admin Acetaminophen (Tylenol Tab) 650 mg Q4H PRN PO 04/27/16 16:00 05/27/16 15:59 Al Hydrox/Mg Hydrox/Simethicone (Maalox Max Susp) 15 ml Q4H PRN PO 04/27/16 16:00 05/27/16 15:59 Magnesium Hydroxide (Milk Of Magnesia Susp) 30 ml Q6H PRN PO 04/27/16 16:00 05/27/16 15:59 Polyethylene (Miralax Powder Packet) 17 gm DAILY PRN PO 04/27/16 16:00 05/27/16 15:59 Ondansetron HCl (Zofran Inj) 4 mg Q6H PRN IV 04/27/16 16:00 05/27/16 15:59 Buspirone HCl (BusPAR TAB) 30 mg HS PO 04/27/16 21:00 05/27/16 20:59 04/29/16 20:17 30 MG Folic Acid (Folvite Tab) 1 mg QPM PO 04/27/16 21:00 05/27/16 20:59 04/29/16 20:16 1 MG Metoprolol Succinate (Toprol Xl Tab) 25 mg DAILY PO 04/28/16 09:00 05/28/16 08:59 04/30/16 09:07 25 MG Ranitidine HCl (zANTac TAB) 150 mg BID PO 04/27/16 21:00 05/27/16 20:59 04/30/16 09:07 150 MG Ropinirole HCl (Requip Tab) 5 mg HS PRN PO 04/27/16 16:00 05/27/16 15:59 Tamsulosin HCl (Flomax Cap) 0.4 mg HS PO 04/27/16 21:00 05/27/16 20:59 04/29/16 20:16 0.4 MG Diphenhydramine HCl (Benadryl Cap) 25 mg HS PRN PO 04/27/16 16:00 05/27/16 15:59 Nicotine (Nicoderm Cq 21MG Patch) 1 patch QAM TD 04/28/16 09:00 05/28/16 08:59 04/30/16 09:07 1 PATCH Miscellaneous 1 ea 1 ea HS N/A 04/28/16 21:00 05/28/16 20:59 04/29/16 20:16 1 EA Thiamine HCl/ Sodium Chloride (Vitamin B-1 Inj/ Nss 50ml) 52.5 ml @ 210 mls/hr DAILY@0900 IV 04/30/16 09:00 05/04/16 09:14 04/30/16 09:06 210 MLS/HR Chlordiazepoxide (Librium Cap) 10 mg Q8H PO 04/30/16 20:00 05/30/16 19:59 (Brii Pulliam ., PA-C) Objective Vital Signs Date Time Temp Pulse Resp B/P Pulse Ox O2 Delivery O2 Flow Rate FiO2 04/30/16 07:46 36.4 70 18 114/57 97 Room Air 04/30/16 07:40 Room Air 04/30/16 00:14 Room Air 04/29/16 23:04 36.3 66 21 123/81 95 Room Air 04/29/16 20:15 Room Air 04/29/16 16:00 Room Air 04/29/16 15:39 36.6 74 16 121/83 98 Room Air (Brii Pulliam ., PA-C) Physical Exam General Appearance: + mild distress Eyes: PERRL ENT: hearing grossly normal Neck: supple Respiratory/Chest: lungs clear, no respiratory distress, no accessory muscle use Cardiovascular: regular rate, rhythm, no edema Abdomen: normal bowel sounds, non tender, soft Extremities: normal range of motion, no pedal edema, no calf tenderness Neurologic/Psychiatric: alert, oriented x 3 Skin: normal color, warm/dry, no rash (Brii Pulliam PA-C) Laboratory Results Last 24 Hours Test 04/29/16 16:01 04/29/16 20:03 04/30/16 07:32 04/30/16 11:20 Bedside Glucose 128 mg/dl 192 mg/dl 155 mg/dl 133 mg/dl (Brii Pulliam PA-C) Assessment and Plan 65 yo male with longstanding alcohol and tobacco abuse admission through ER for alcohol withdrawal with hallucinations. Encephalopathy and gait ataxia concerning for Wernicke's encephalopathy. Alcohol hallucinosis / delirium tremens - hallucinations with possible fever and tachycardia at home (by history from patient). Delirium, agitation with hallucinations in ER suggestive of DT - GIGI scale - Chlordiazepoxide decreased from 10 mg q6 hrs to q8 hrs on 04/30 Thrombocytopenia: - ?Lovenox vs bone marrow suppression from alcohol abuse vs cirrhosis from alcohol abuse - d/c Lovenox. Monitor. - Follow CBC Suspected Wernicke's encephalopathy - gait ataxia + encephalopathy - Thiamine level - Thiamine IV 500 mg TID for 2 days then 250mg IV daily for 5 days Alcohol abuse - PT, INR and PTT to assess for liver dysfunction, unremarkable Macrocytosis - secondary to alcohol abuse - B12 and folate levels, WNL Hyperglycemia - HbA1C of 5.1 - Lipase unremarkable - BSG ACHS Acute Kidney Injury - likely pre-renal with dehydration, resolved - Treated with 1L NSS given in ER. Addition 1L LR bolus now. NSS with 40 meq KCl - Follow PRP Hypokalemia, resolved - Treated with IVF - LR and NSS+40KCl as above Tobacco abuse - 1pack/day - nicotine replacement Restless leg syndrome - continue PRN ropinirole DVT prophylaxis: - Lovenox 40 mg SQ q24 hrs- d/c on 04/30 due to thrombocytopenia - CORAZON and SCDs Code - LEVEL I, FULL Disposition - Encouraged patient to consider inpatient rehab or set-up outpatient meetings- he is considering- social media community manager on case - PT/OT evaluations (Brii Pulliam PA-C) Attending Attestation: Pt seen/examined, chart reviewed, and care plan d/w TRESA Pulliam. I agree w/ the white components of her documentation. Pt feeling much better. Denies tremor. Some generalized weakness only. Eating is better. VSS, afebrile gen - NAD eyes - 1 beat of horizontal nystagmus only, o/w EOMI mouth - MMM heart - RRR, s1, s2 lungs - CTA b/l abd - soft, NT ext - no edema neuro - no tremors psych - a/o x 3 A/P: 1. DTs - resolved 2. etoh withdrawal - appears resolved; wean librium 3. ?wernicke's encephalopathy - no clinical evidence of such on exam today but agree w/ continuing thiamine replacement thiamine level is pending we had lengthy discussion re: options for Rx of his alcoholism he is not interested in inpatient rehab prefers outpatient treatment PT, OT consults to ensure he is strong enough to go home and to ensure safety/ normal gait Arti BOWLING MD (Patric Bowling MD)
[2016-04-30 15:39] VITALS: BP 109/73; PULSE 59; TEMP 36.6; O2SAT 98
[2016-04-30 16:02] VITALS: O2SAT 98
[2016-04-30] MEDS: TAMSULOSIN HCL 0.4 MG CAP PO SCH (20:14)
[2016-04-30] MEDS: BusPIRone 15 MG TAB PO SCH (20:15)
[2016-04-30 23:16] VITALS: BP 111/72; PULSE 65; TEMP 36.6; O2SAT 94
[2016-05-01] MEDS: CHLORDIAZEPOXIDE 10 MG CAP PO SCH ×2 (03:31→12:35)
[2016-05-01 05:38] LABS: HEMATOCRIT 33.4 % (42-52); MEAN CELL VOLUME 98.8 fL (80-100); MEAN CORPUSCULAR HEMOGLOBIN 34.9 pg (25-34); MEAN CORPUSCULAR HGB CONC 35.3 g/dl (32-36); RED BLOOD COUNT 3.38 M/uL (4.7-6.1); WHITE BLOOD COUNT 3.65 K/uL (4.8-10.8)
[2016-05-01 05:45] LABS: MEAN PLATELET VOLUME 10.2 fL (7.4-10.4); PLATELET COUNT 88 K/uL (130-400)
[2016-05-01] MEDS ORDERED: CHLORDIAZEPOXIDE 5MG Q12H DOSE PO SCH (06:00)
[2016-05-01 06:30] LABS: BUN/CREATININE RATIO 13.7 (10-20); CALCIUM 8.9 mg/dl (8.5-10.1); CREATININE 1.3 mg/dl (0.60-1.40); MAGNESIUM 1.8 mg/dl (1.8-2.4)
[2016-05-01 06:47] VITALS: BP 119/78; PULSE 72; TEMP 36.3; O2SAT 95
[2016-05-01] MEDS: RANITIDINE HCL 150 MG TAB PO SCH (08:13)
[2016-05-01] MEDS: METOPROLOL SUCC 25MG EXT REL TAB PO SCH (08:13)
[2016-05-01] MEDS: NICOTINE 21 MG/24 HR TDSY TD SCH (08:13)
[2016-05-01] MEDS: THIAMINE HCL INJ 250 MG in SODIUM CHLORIDE 0.9% 50ML 50 ML IV SCH (08:20)
[2016-05-01 15:57] VITALS: BP 105/68; PULSE 66; TEMP 36.7; O2SAT 94
[2016-05-01] MEDS ORDERED: ZNTT/150 PO (16:41)
[2016-05-01] MEDS ORDERED: THM100 PO (16:41)
[2016-05-01] MEDS ORDERED: CHLO10CA7 PO (16:41)
--- NOTE | 2016-05-01 16:45 | Discharge Instructions ---
Discharge Instructions Admission Reason for Admission: Acute Alcoholic Hallucinosis, Alcohol Withdrawl Discharge Discharge Diagnosis / Problem: alcohol withdrawal - resolved. Discharge Goals Goal(s): Learn about illness, Diagnostic testing, Therapeutic intervention Activity Recommendations Activity Limitations: as noted below Driving or Machine Use: may resume driving after your follow-up appointment with your family doctor Recommend "light" activity for the next 3-4 days (walks at home are fine, short trips in the car with your family, etc) then can resume normal activity thereafter. . Instructions / Follow-Up Instructions / Follow-Up From Dr. Amin - 1. Physical therapy is recommending that you use a walker at your home. 2. Physical therapy is also recommending that you continue with outpatient physical therapy. This can be arranged so it takes place at your house. We will set this up for you. 3. Please abstain from ALL ALCOHOL. 4. Take librium taper for the next few days. First dose is TONIGHT. DO NOT DRINK ALCOHOL WHILE TAKING LIBRIUM. 5. Take thiamine for 1 month. Take 2 tablets every morning and 2 tablets every evening during that time period. 6. Keep your appointment with Dr. Aguirre as scheduled. At your next appointment please speak with Dr. Aguirre about having a "glucose tolerance test" to exclude diabetes. Current Hospital Diet Patient's current hospital diet: Regular Diet Discharge Diet Recommended Diet: Regular Diet Procedures Procedures Performed: CAT scan of the brain - normal in appearance. Pending Studies Studies pending at discharge: no Laboratory Results Hemoglobin A1c Test 04/27/16 12:42 Range/Units Estimated Average Glucose 100 mg/dl Hemoglobin A1c 5.1 4.5-5.6 % Lipid Panel Test 03/06/16 05:59 Range/Units Triglycerides Level 159 H 0-150 mg/dl Cholesterol Level 196 0-200 mg/dl HDL Cholesterol 76 mg/dl Cholesterol/HDL Ratio 2.6 LDL Cholesterol, Calculated 88 mg/dl Medical Emergencies . Who to Call and When: Medical Emergencies: If at any time you feel your situation is an emergency, please call 911 immediately. . Non-Emergent Contact Non-Emergency issues call your: Primary Care Provider Call Non-Emergent contact if: temperature is above 100.5, you have any medication questions . . "Provider Documentation" section prepared by Patric Amin. VTE Core Measure Inpt VTE Proph given/why not?: Enoxaparin (Lovenox)SQ
[2016-05-01] MEDS ORDERED: MISC-573 (16:48)
[2016-05-01 17:08] VITALS: BP 105/68; PULSE 66; TEMP 36.7; O2SAT 94
[2016-05-03 13:33] LABS: SYNTHETIC CANNABINOIDS QL URIN NEGATIVE (Negative)
--- NOTE | 2016-05-07 23:51 | Discharge Summary ---
Discharge Summary Admission Date: Apr 27, 2016 at 16:01 Discharge Date: May 01, 2016 Discharge Disposition: Home with services Principal Diagnosis: alcohol withdrawal / delirium tremens - resolved Problems/Secondary Diagnoses: 1. pancytopenia likely 2nd to heavy alcohol abuse 2. hypokalemia - resolved 3. chronic gait disturbance / ambulatory dysfunction - suspect cerebellar damage from alcoholism 4. acute kidney injury - resolved 5. HTN 6. restless legs syndrome Immunizations: Have You Had Influenza Vaccine: No History of Tetanus Vaccine?: Very long ago. History of Pneumococcal: No History of Hepatitis B Vaccine: No Procedures: CT head negative for ICH or stroke Consultations: PT, OT Medication Reconciliation New Medications: Misc. Devices (Roller Walker) 1 Mis Mis EA, #1 Changed Medications: Chlordiazepoxide (Librium) 10 Mg Cap 10 MG PO DIRECTED, #7 CAP 0 Refills (Changed from: Chlordiazepoxide ( Chlordiazepoxide HCl) 25 Mg Cap 25 Mg PO BID PRN Anxiety/Agitation #20 TABS) 05/01/16 - take 1 tablet at bedtime 05/02/16 and 05/03/16 - take 1 tablet twice daily 05/04/16 and 05/05/16 - take 1 tablet daily Ranitidine (Zantac) 150 Mg Tab 150 MG PO BID, #60 TAB 1 Refill (Changed from: UD; Refills: ) Thiamine HCl (Vitamin B-1) 100 Mg Tab 200 MG PO BID, #120 TABS 0 Refills (Changed from: 100 MG; DAILY; 90; Refills: 3) Continued Medications: B Complex W/ C (Super B With C) 1 Cap Cap 1 CAP PO DAILY Buspirone HCl (Buspirone HCl) 15 Mg Tab 30 MG PO HS Diphenhydramine Hcl (Diphenhydramine Hcl) 50 Mg Cap 1 CAP PO HS PRN for Sleep, CAP Folic Acid (Folvite) 1 Mg Tab 1 MG PO QPM, TAB Metoprolol Succinate (Toprol Xl) 25 Mg Tabcr 1 TAB PO DAILY for 30 Days, #30 TAB 0 Refills Ropinirole HCl (Ropinirole HCl) 5 Mg Tab 5-10 MG PO HS PRN for Restless Legs Tamsulosin HCl (Tamsulosin HCl) 0.4 Mg Cap 0.4 MG PO HS, #30 CAP Discharge Exam Physical Exam: General Appearance: no apparent distress Eyes: + pertinent finding (no nystagmus) ENT: pharynx normal Neck: no JVD Respiratory/Chest: lungs clear, no respiratory distress, no accessory muscle use Cardiovascular: regular rate, rhythm, no gallop, no murmur, normal peripheral pulses Abdomen / GI: normal bowel sounds, non tender, soft, no organomegaly Extremities: no pedal edema Neurologic/Psychiatric: alert, normal reflexes, oriented x 3 Hospital Course HISTORY OF PRESENT ILLNESS: Mr Kahn is a 65 year old male with multiple admissions for alcohol intoxication and withdrawal with hallucinations. He came to the ER today by taxi on advice of his as he was having visual hallucination after stopping alcohol since Saturday (day 5 sober). He usually drinks 30-40oz vodka/day. He has tried giving up multiple times previously unsuccessfully and gone through withdrawal. Sometimes he will go back to drinking the following day, sometimes he remains sober for weeks. He has been drinking large quantities of alcohol since at least his 20's. x2 inpatient rehab stays previously. No current outpatient treatment for alcohol. Previous AA meetings but not or many years. No current outpatient treatment or counselling. He reports compliance with outpatient medications (although the vitamins taste bad). This week after quitting alcohol he has felt more hyperactive, heart racing, muscles deyanira and shaking. Visual hallucinations started 2 days previously including spaghetti coming at him from the refrigerator, pears and other fruit moving up an down and while passenger in a car the road appeared to be swaying. He denies any acute vision problems but needs thick lenses on his right eye because his vision is deteriorating. 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 He is orientated to place, person but not time. By permission from the patient I discussed with Vern his business center representative. He confirms the patient's longstanding problems with alcohol. Mr Kahn was working up until 1.5 weeks ago. 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 He notes the patient has had balance issues over the last year but it has been especially noticeable in the last few weeks. HOSPITAL COURSE: The patient was treated for alcohol withdrawal / delirium tremens with traditional measures including benzodiazepines, IVF, vitamin supplementation, and other supportive care. His mentation improved over the course of several days. Labs and vitals remained stable while here. There was some concern for Wernicke's encephalopathy early on in his hospitalization but ultimately there was no clinical evidence of such on exam. Furthermore his thiamine level returned normal. For the 48 hours prior to discharge the patient was awake, alert, and oriented x 3. Multiple discussions were held with the patient regarding his wishes for alcohol rehabilitation as well as help with abstinence. He declined any inpatient treatment option, instead desiring to return home and secure outpatient services. He was provided a list of outpatient treatment centers. Finally, he was seen in consult by PT/OT who felt he could return home. However , a rolling walker was recommended as well as home PT/OT by the therapy department. At discharge he will complete a librium taper and continue with thiamine supplementation. Total Time Spent: Greater than 30 minutes This includes examination of the patient, discharge planning, medication reconciliation, and communication with other providers. Discharge Instructions Please refer to the electronic Patient Visit Report (Discharge Instructions) for additional information. Follow-Up see Dr. Doug Aguirre, PCP, within 1 week Additional Copies To Doug Aguirre, D.O.Int.Med.
--- NOTE | 2016-05-11 10:20 | EDITING REQUIRED CODING QUERY ---
CODING QUERY Dear Dr. Amin, To promote full compliance with coding requirements relating to patient care, provider participation is requested in all cases of home stager uncertainty. Please assist us with the question(s) below: In responding to this query, please exercise your independent professional judgement. The fact that a question is asked does not imply that any particular answer is desired or expected. We appreciate your clarification on this issue. Coding Question(s Possible Diabetes ( ) Possible Diabetes due to alcohol ( x ) Diabetes was ruled out ( ) Hyperglycemia - Diabetes ruled out ( ) Other: Please explain Medical documentation Hyperglycemia - possible diabetes with pancreatic damage secondary to alcohol. Will also be causing some osmotic diuresis contributing towards JAMES and dehydration. - add HbA1C - Lipase to assess acute pancreatic damage - BSG ACHS, if continues to be raised will treat with insulin - previous admissions the random glucose has also been raised Physician's Response(s): Thank you for your time. Mary Shaikh [facility] Principal Diagnosis: "_that condition established after study, to be chiefly responsible for occasioning the admission of the patient to the hospital for care." Co-Existing Principal Diagnosis: "_when two or more diagnoses equally meet the criteria for principal diagnosis as determined by the circumstances of admission, diagnostic work up, and/or therapy provided, and the Alphabetic Index, Tabular List, or another coding guideline does not provide sequencing direction, any one of the diagnoses may be sequenced first." "When the physician has documented what appears to be a current diagnosis in the body of the record, but has not included the diagnosis in the final diagnostic statement, the physician should be asked whether the diagnosis should be added." (Source Coding [facility] 2 QTR90. p3-4)
== END 2016-05-01 17:42 | disposition home health service (06) | DRG 897 ==
LOC: ENRESERVTM → ENRESERVDT → C.EDA 12:30 → EDBD 12:30 → C.MS2W 16:01
PROVIDERS: ADMIT Hospitalist; ATTEND Internal Medicine
DX: F10.231 Alcohol dependence with withdrawal delirium (principal); E51.2 Wernicke's encephalopathy; N17.9 Acute kidney failure, unspecified; D61.818 Other pancytopenia; F10.151 Alcohol abuse with alcohol-induced psychotic disorder with hallucinations; R26.0 Ataxic gait; E86.0 Dehydration; E87.6 Hypokalemia; I10 Essential (primary) hypertension; G25.81 Restless legs syndrome; F17.210 Nicotine dependence, cigarettes, uncomplicated; D69.6 Thrombocytopenia, unspecified; R00.0 Tachycardia, unspecified; R50.9 Fever, unspecified; D75.89 Other specified diseases of blood and blood-forming organs; K74.60 Unspecified cirrhosis of liver; T45.515A Adverse effect of anticoagulants, initial encounter; Y92.239 Unspecified place in hospital as the place of occurrence of the external cause; R73.9 Hyperglycemia, unspecified; Z86.73 Personal history of transient ischemic attack (TIA), and cerebral infarction without residual deficits; Z79.899 Other long term (current) drug therapy; Z53.29 Procedure and treatment not carried out because of patient's decision for other reasons

== ENCOUNTER → 2016-05-29 | Outpatient (CLI) | payer OTHER ==
[~2016-05-29] MED LIST changes: +ATOR-22 PO; +CHLO10CA7 PO; -DOCU100T7 PO; +DOXE50CA3 PO; -LBR25 PO; +LORA-741 PO; +MISC-573; +TPRSR25 PO
--- NOTE | 2016-05-29 14:15 | DIAGNOSTIC IMAGING REPORT ---
LUMBAR SPINE 5 VIEWS HISTORY: Pain GAIT INSTABILITY COMPARISON: None. FINDINGS: There is no fracture. No subluxation. Moderate degenerative disc changes throughout. No evidence for subluxation. IMPRESSION: Moderate degenerative disc change. No acute process. Electronically signed by: Francois Rahman M.D. 05/29/2016 2:14 PM Dictated Date/Time: 05/29/2016 2:13 PM
== END | disposition home or self-care (01) ==
LOC: C.RADBC 13:49
PROVIDERS: ATTEND Family Medicine
DX: R26.81 Unsteadiness on feet (principal); M51.36 Other intervertebral disc degeneration, lumbar region

== ENCOUNTER → 2016-07-26 | Outpatient (CLI) | payer OTHER ==
--- NOTE | 2016-07-26 11:35 | DIAGNOSTIC IMAGING REPORT ---
TWO VIEW CHEST CLINICAL HISTORY: Weight loss. FINDINGS: PA and lateral chest radiographs are compared to study dated 04/10/2016. The cardiomediastinal silhouette is unremarkable. Atherosclerotic calcification is noted in the thoracic aorta. The lungs appear hyperinflated and hyperlucent with flattening the diaphragm suggesting obstructive physiology. Chronic interstitial thickening is similar to previous. There is no airspace consolidation, pleural effusion, or pneumothorax. Nipple shadows project over the lower lobes. The bony thorax appears intact. IMPRESSION: 1. Findings suggest emphysema. There is no acute cardiopulmonary abnormality 2. Note that chest x-ray is insensitive in screening for lung cancer. If there is clinical concern for pulmonary neoplasm then a chest CT should be obtained. Electronically signed by: George Stroud M.D. 07/26/2016 11:33 AM Dictated Date/Time: 07/26/2016 11:30 AM
[2016-07-26 13:30] LABS: BASO % 0.7 %; BASO ABS # 0.06 K/uL (0-0.2); COMPLETE YES; EOS % 0.8 %; HEMATOCRIT 47.3 % (42-52); IG% 0.1 %; LYMPH % 23.2 %; LYMPH ABS # 1.99 K/uL (1.2-3.4); MEAN CELL VOLUME 95.9 fL (80-100); MEAN CORPUSCULAR HEMOGLOBIN 34.5 pg (25-34); MEAN CORPUSCULAR HGB CONC 35.9 g/dl (32-36); MEAN PLATELET VOLUME 11.2 fL (7.4-10.4); MONO % 7.9 %; NEUT % 67.3 %; PLATELET COUNT 305 K/uL (130-400); RED BLOOD COUNT 4.93 M/uL (4.7-6.1); WHITE BLOOD COUNT 8.56 K/uL (4.8-10.8)
[2016-07-26 13:59] LABS: ESTIMATED AVERAGE GLUCOSE 128 mg/dl; HA1C FLAG Normal (Normal)
[2016-07-26 14:49] LABS: ALT/SGPT 27 U/L (12-78); AST/SGOT 14 U/L (15-37); BLOOD UREA NITROGEN 37 mg/dl (7-18); BUN/CREATININE RATIO 18.3 (10-20); CARBON DIOXIDE 34 mmol/L (21-32); CHLORIDE 96 mmol/L (98-107); GLUCOSE 180 mg/dl (70-99); POTASSIUM 3.4 mmol/L (3.5-5.1); SODIUM 138 mmol/L (136-145)
[2016-07-26 14:53] LABS: ALB/GLOB RATIO 1.1 (0.9-2); ALKALINE PHOSPHATASE 82 U/L (45-117); FERRITIN 569.5 ng/ml (8.0-388.0); TOTAL IRON BINDING CAPACITY 244 mcg/dl (250-450)
== END | disposition home or self-care (01) ==
LOC: C.LABBC 10:42
PROVIDERS: ATTEND Family Medicine
DX: R42 Dizziness and giddiness (principal); R63.4 Abnormal weight loss; Z00.00 Encounter for general adult medical examination without abnormal findings; N40.1 Benign prostatic hyperplasia with lower urinary tract symptoms; D64.9 Anemia, unspecified

== ENCOUNTER → 2016-09-27 | Outpatient (CLI) | payer OTHER, BC ==
[2016-09-27 14:06] LABS: BLOOD UREA NITROGEN 11 mg/dl (7-18); BUN/CREATININE RATIO 11.4 (10-20); CALCIUM 9.2 mg/dl (8.5-10.1); CARBON DIOXIDE 25 mmol/L (21-32); CHLORIDE 113 mmol/L (98-107); CREATININE 0.98 mg/dl (0.60-1.40); GLUCOSE 137 mg/dl (70-99); SODIUM 145 mmol/L (136-145)
== END | disposition home or self-care (01) ==
LOC: C.LABBC 10:13
PROVIDERS: ATTEND Physician Assistant Medical
DX: I10 Essential (primary) hypertension (principal)

== ENCOUNTER 2016-10-24 11:53 | Emergency (ER) | payer OTHER, BC ==
[~2016-10-24 11:53] MED LIST changes: -ATOR-22 PO; -DOXE50CA3 PO; -LORA-741 PO; -TPRSR25 PO
[2016-10-24 12:00] VITALS: TEMP 36.7; Ht 172.7 cm
[2016-10-24] MEDS ORDERED: ONDANSETRON INJ 2 MG/ML 2 ML VIAL IV STA (12:28)
[2016-10-24] MEDS ORDERED: SODIUM CHLORIDE 0.9% 500ML 500 ML IV STA ×2 (12:28→21:03)
[2016-10-24] MEDS ORDERED: MULTI-VITAMIN INFUSION INJ 10 ML, THIAMINE HCL INJ 100 MG, FoLIC ACID INJ 1 MG in SODIU... IV ONE (12:30)
[2016-10-24] MEDS ORDERED: LORA-741 PO (12:58)
[2016-10-24] MEDS ORDERED: DOXE50CA3 PO (12:58)
[2016-10-24] MEDS ORDERED: TPRSR25 PO (12:58)
[2016-10-24] MEDS ORDERED: ATOR-22 PO (12:58)
--- NOTE | 2016-10-24 13:02 | EMERGENCY ROOM VISIT NOTE ---
History Report prepared by Anna: Bambi Avina Under the Supervision of: Dr. George Devlin M.D. First contact with patient: 12:19 Chief Complaint: ALCOHOL OVERDOSE Stated Complaint: CONFUSION History of Present Illness The patient is a 66 year old male who presents to the Emergency Room with complaints of alcohol overdose occurring today. 3 days ago, the patient discovered that his is not going to get any better and will need to be transferred to a shelter. As per friend, the patient is being weaned off of alcohol by the web design specialist. He is now allowed a small amount of alcohol every day. His friend suspects that the patient accessed alcohol at some point in the past 3 days and drank more than he is supposed to. He admits to drinking a large amount of vodka today. He drinks alcohol every day. As per friend, the patient has been despondent for the past few days. He would not get up off of the couch. This morning, he had some labored breathing, rapid pulse, confusion, and vomiting. He told his friend that he "just wants to end this." The patient currently denies any suicidal ideation but reports some suicidal thoughts. He states that he is unsure if he can deal with his 's problems. He denies any history of suicide attempts. The patient took Lorazepam this morning as prescribed but had a vomiting episode soon after. The patient denies any recreational drug abuse. He is a current smoker. He is pre-diabetic and denies any other medical problems. Source of History: patient Onset: today Position: other (global) Quality: other (alcohol overdose) Associated Symptoms: + vomiting Review of Systems See HPI for pertinent positives & negatives. A total of 10 systems reviewed and were otherwise negative. Past Medical & Surgical Medical Problems: (1) Acute alcoholic hallucinosis (2) Alcohol withdrawal (3) Altered mental state (4) Benign hypertension (5) Orthostatic dizziness (6) TIA (transient ischemic attack) (7) Wernickes encephalopathy Family History Diabetes mellitus FHx: gallbladder disease Hypertension Kidney disease Kidney stones Social History Smoking Status: Current Every Day Smoker Alcohol Use: heavy Drug Use: none Marital Status: Housing Status: lives with significant other Occupation Status: employed Current/Historical Medications Scheduled Atorvastatin (Lipitor), 20 MG PO DAILY B Complex W/ C (Super B With C), 1 CAP PO DAILY Doxepin (Sinequan), 50-100 MG PO HS Lorazepam (Ativan), 0.5-1 MG PO DAILY Metoprolol Succinate (Metoprolol Succinate ER), 12.5 MG PO DAILY Scheduled PRN Ropinirole HCl (Ropinirole HCl), 5-10 MG PO HS PRN for Restless Legs Allergies Coded Allergies: Cephalosporins (Verified Allergy, Unknown, SUPRAX, 10/24/16) Penicillins (Verified Allergy, Unknown, RASH, 10/24/16) Sulfa Antibiotics (Verified Allergy, Unknown, RASH, 10/24/16) Physical Exam Vital Signs Date Time Temp Pulse Resp B/P (MAP) Pulse Ox O2 Delivery O2 Flow Rate FiO2 10/24/16 19:53 88 18 151/97 94 Room Air 10/24/16 15:00 92 20 130/82 93 10/24/16 14:55 94 18 140/80 95 Room Air 10/24/16 13:10 81 18 126/79 93 Room Air 10/24/16 12:45 84 10/24/16 12:00 36.7 58 17 145/87 96 Room Air Physical Exam GENERAL: Patient is in no acute distress. Alcohol on his breath. HEENT: No acute trauma, normocephalic atraumatic, mucous membranes moist, no nasal congestion, no scleral icterus. NECK: No stridor, no adenopathy, no meningismus, trachea is midline. LUNGS: Clear to auscultation bilaterally, no wheeze, no rhonchi, breath sounds equal. HEART: Without murmurs gallops or rubs, regular rate and rhythm. ABDOMEN: Soft, nontender, bowel sounds positive, no hernias, no peritonitis. EXTREMITIES: No cyanosis or edema, full range of motion of all the joints without pain or difficulty, no signs for acute trauma. NEUROLOGIC: Oriented x 3, no acute motor or sensory deficits, no focal weakness. Appears intoxicated with alcohol, slightly slurring words. PSYCHIATRIC: Intoxicated with alcohol, denies active suicidal intent but admits to thoughts of his life ending, voluntary. SKIN: No rash, no jaundice, no diaphoresis. Medical Decision & Procedures Laboratory Results 10/24/16 12:34 10/24/16 12:34 Test 10/24/16 12:34 10/24/16 15:10 10/24/16 18:11 Red Blood Count 4.55 M/uL (4.7-6.1) Mean Corpuscular Volume 99.6 fL (80-100) Mean Corpuscular Hemoglobin 33.8 pg (25-34) Mean Corpuscular Hemoglobin Concent 34.0 g/dl (32-36) RDW Standard Deviation 53.1 fL (36.4-46.3) RDW Coefficient of Variation 14.6 % (11.5-14.5) Mean Platelet Volume 8.9 fL (7.4-10.4) Anion Gap 16.0 mmol/L (3-11) Estimated GFR () 81.2 Estimated GFR (Non- 70.1 BUN/Creatinine Ratio 22.2 (10-20) Calcium Level 8.7 mg/dl (8.5-10.1) Magnesium Level 2.1 mg/dl (1.8-2.4) Total Bilirubin 0.8 mg/dl (0.2-1) Aspartate Amino Transf (AST/SGOT) 22 U/L (15-37) Alanine Aminotransferase (ALT/SGPT) 20 U/L (12-78) Alkaline Phosphatase 66 U/L (45-117) Total Protein 6.9 gm/dl (6.4-8.2) Albumin 3.8 gm/dl (3.4-5.0) Globulin 3.1 gm/dl (2.5-4.0) Albumin/Globulin Ratio 1.2 (0.9-2) Thyroid Stimulating Hormone (TSH) 0.299 uIu/ml (0.300-4.500) Free Thyroxine 0.87 ng/dl (0.80-1.60) Salicylates Level 2.1 mg/dl (2.8-20) Acetaminophen Level < 2 ug/ml (10-30) Urine Color DK YELLOW Urine Appearance CLEAR (CLEAR) Urine pH 5.5 (4.5-7.5) Urine Specific [place] 1.019 (1.000-1.030) Urine Protein TRACE (NEG) Urine Glucose (UA) NEG (NEG) Urine Ketones 1+ (NEG) Urine Occult Blood NEG (NEG) Urine Nitrite NEG (NEG) Urine Bilirubin NEG (NEG) Urine Urobilinogen NEG (NEG) Urine Leukocyte Esterase NEG (NEG) Urine WBC (Auto) 1-5 /hpf (0-5) Urine RBC (Auto) 0-4 /hpf (0-4) Urine Hyaline Casts (Auto) 1-5 /lpf (0-5) Urine Epithelial Cells (Auto) 5-10 /lpf (0-5) Urine Bacteria (Auto) NEG (NEG) Urine Opiates Screen NEG (NEG) Urine Methadone, Qualitative NEG (NEG) Urine Barbiturates NEG (NEG) Urine Phencyclidine (PCP) Level NEG (NEG) Ur Amphetamine/Methamphetamine NEG (NEG) MDMA (Ecstasy) Screen NEG (NEG) Urine Benzodiazepines Screen NEG (NEG) Urine Cocaine Metabolite NEG (NEG) Urine Marijuana (THC) NEG (NEG) Ethyl Alcohol mg/dL 176.0 mg/dl (0-3) Laboratory results reviewed by me. Medications Administered Medications (Trade) Dose Ordered Sig/Sameer Route Start Time Stop Time Status Last Admin Dose Admin Ondansetron HCl (Zofran Inj) 4 mg NOW STAT IV 10/24/16 12:28 10/24/16 12:30 DC 10/24/16 12:42 4 MG Multivitamins 10 ml/Thiamine HCl 100 mg/Folic Acid 1 mg/Sodium Chloride 1,011.2 ml @ 500 mls/ hr Q2H2M ONCE IV 10/24/16 12:30 10/24/16 14:31 DC 10/24/16 12:50 500 MLS/HR Sodium Chloride 500 ml @ 999 mls/hr Q31M STAT IV 10/24/16 12:28 10/24/16 12:58 DC 10/24/16 12:42 999 MLS/HR ECG Indication: other (Alcohol overdose) Rate (beats per minute): 86 Rhythm: normal sinus Findings: no acute ischemic change, no ectopy ED Course 1219: The patient was evaluated in room A11B. A complete history and physical exam was performed. 1228: Sodium Chloride 500 ml @ 999 mls/hr IV, Zofran Inj 4 mg IV 1230: Multivitamins 10 ml/Thiamine HCl 100 mg/Folic Acid 1 mg/Sodium Chloride 1, 011.2 ml @ 500 mls/hr IV 1425: I discussed the patient's case with the psych case liner, who will evaluate the patient once he becomes sober. 1443: I updated the patient and his friend. They are in agreement with the treatment plan. The patient is doing well upon reevaluation. 2030: The patient is signed out to Dr. Rachel at [id number]. Medical Decision Medication Reconciliation: I attest that I have personally reviewed the patient' s current medication list. Blood pressure screening: Patient was found to have a slightly elevated blood pressure due to circumstances. I do not believe that the patient requires hypertension monitoring. Differential diagnosis includes but is not limited to drug and alcohol abuse, suicidal ideation, electrolyte imbalance, anemia, cardiac ischemia, liver failure, situational depression/anxiety. There is no leukocytosis or concerning anemia. No significant electrolyte abnormality, kidney failure or hepatitis. TSH is low but the T4 level is normal. EKG shows a normal sinus rhythm, no acute ischemia. Alcohol level is elevated at just over 300 consistent with his alcohol abuse. Aspirin and Tylenol levels are basically undetectable, urine tox is negative. Urinalysis does not show infection. Patient received IV Zofran, IV saline and IV saline with multivitamins, thiamine and folate. He has done well. A repeat alcohol level shows him clearing at about 25 points per hour. Based on this, he should be around 100 or less at around 9 PM. He will then be seen by the psychiatric case liner. The patient denies being suicidal but is overwhelmed and would like to talk to psychiatry. He has thought about dying but does not want to kill himself. He is willing to talk with someone about his problems. He is voluntary. At this point, his care is being assumed by Dr. Rachel, please see her notes for the final disposition and plan. Impression Primary Impression: Alcohol overdose Additional Impression: Suicidal ideation Scribe Attestation The scribe's documentation has been prepared under my direction and personally reviewed by me in its entirety. I confirm that the note above accurately reflects all work, treatment, procedures, and medical decision making performed by me. Departure Information Dispostion Being Evaluated By Hospitalist Doug Brown D.O.Int.Med. (PCP) Patient Instructions My [facility] Problem Qualifiers
[2016-10-24 13:14] LABS: HEMATOCRIT 45.3 % (42-52); MEAN CELL VOLUME 99.6 fL (80-100); MEAN CORPUSCULAR HEMOGLOBIN 33.8 pg (25-34); MEAN PLATELET VOLUME 8.9 fL (7.4-10.4); PLATELET COUNT 101 K/uL (130-400); RED BLOOD COUNT 4.55 M/uL (4.7-6.1); WHITE BLOOD COUNT 4.76 K/uL (4.8-10.8)
[2016-10-24 13:37] LABS: ALT/SGPT 20 U/L (12-78); AST/SGOT 22 U/L (15-37); BLOOD UREA NITROGEN 24 mg/dl (7-18); BUN/CREATININE RATIO 22.2 (10-20); CALCIUM 8.7 mg/dl (8.5-10.1); CARBON DIOXIDE 23 mmol/L (21-32); CHLORIDE 106 mmol/L (98-107); GLUCOSE 91 mg/dl (70-99); MAGNESIUM 2.1 mg/dl (1.8-2.4); POTASSIUM 4.1 mmol/L (3.5-5.1); SODIUM 145 mmol/L (136-145)
[2016-10-24 13:48] LABS: ALB/GLOB RATIO 1.2 (0.9-2); ALKALINE PHOSPHATASE 66 U/L (45-117); THYROID STIMULATING HORMONE 0.299 uIu/ml (0.300-4.500)
[2016-10-24 13:54] LABS: ACETAMINOPHEN < 2 ug/ml (10-30)
[2016-10-24 16:18] LABS: URINE APPEARANCE CLEAR (CLEAR); URINE BILIRUBIN NEG (NEG); URINE COLOR DK YELLOW; URINE NITRITE NEG (NEG); URINE PH 5.5 (4.5-7.5); URINE SPECIFIC GRAVITY 1.019 (1.000-1.030); UROBILINOGEN NEG (NEG); ZZUR CULT IF INDIC CLEAN CATCH NO
[2016-10-24 16:19] LABS: MANUAL MICROSCOPIC REQUIRED? NO; REVIEW REQ? NO
[2016-10-24 16:39] LABS: BENZODIAZEPINE, URINE NEG (NEG); COCAINE,URINE NEG (NEG); PHENCYCLIDINE, URINE NEG (NEG)
[2016-10-24] MEDS ORDERED: PROMETHAZINE HCL INJ 12.5 MG in SODIUM CHLORIDE 0.9% 50ML 50 ML IV STA (21:03)
[2016-10-24 22:27] VITALS: BP 156/93; PULSE 93; O2SAT 95
[2016-10-24] MEDS ORDERED: ONDANSETRON 4MG OD TAB PO STA (22:33)
--- NOTE | 2016-10-24 22:36 | EMERGENCY ROOM VISIT NOTE ---
ED Visit Note First contact with patient: 22:30 Pt signed out to me by Dr. Devlin. Pt now sober and was evaluated by psych caseworker. Pt denies SI/HI, no hallucinations, no evidence of active etoh withdrawal/ DT's. Pt with sober ride home, was agreeable to outpt resources/referrals provided by the caseworker.
== END 2016-10-24 23:04 | disposition home or self-care (01) ==
LOC: C.EDB 11:54 → C.EDA 23:04
DX: T51.91XA Toxic effect of unspecified alcohol, accidental (unintentional), initial encounter (principal); R41.0 Disorientation, unspecified; F17.210 Nicotine dependence, cigarettes, uncomplicated; I10 Essential (primary) hypertension; Z79.899 Other long term (current) drug therapy; R45.851 Suicidal ideations

== ENCOUNTER → 2016-12-10 | Outpatient (CLI) | payer OTHER, BC ==
[~2016-12-10] MED LIST changes: +ATOR-22 PO; -BSP15 PO; -CHLO10CA7 PO; -DIPH50CA PO; +DOXE50CA3 PO; -FLM4 PO; -FOLI1TAB7 PO; +LORA-741 PO; -METO25TA3 PO; -MISC-573; -THM100 PO; +TPRSR25 PO; -ZNTT/150 PO
[2016-12-10 14:02] LABS: MEAN CELL VOLUME 96.3 fL (80-100); MEAN CORPUSCULAR HEMOGLOBIN 34.4 pg (25-34); MEAN CORPUSCULAR HGB CONC 35.7 g/dl (32-36); MEAN PLATELET VOLUME 10.9 fL (7.4-10.4); PLATELET COUNT 195 K/uL (130-400); RED BLOOD COUNT 4.57 M/uL (4.7-6.1)
[2016-12-10 14:23] LABS: ALT/SGPT 18 U/L (12-78); AST/SGOT 11 U/L (15-37); BLOOD UREA NITROGEN 14 mg/dl (7-18); CARBON DIOXIDE 24 mmol/L (21-32); CHLORIDE 110 mmol/L (98-107); POTASSIUM 3.9 mmol/L (3.5-5.1); SODIUM 141 mmol/L (136-145)
== END | disposition home or self-care (01) ==
LOC: C.LABBC 12:03
PROVIDERS: ATTEND Emergency Medicine Emergency Medical Services
DX: R97.20 Elevated prostate specific antigen [PSA] (principal); F10.20 Alcohol dependence, uncomplicated; Z51.81 Encounter for therapeutic drug level monitoring

== ENCOUNTER → 2017-09-04 | Outpatient (CLI) | payer OTHER, BC ==
[2017-09-04 16:52] LABS: BASO % 0.3 %; BASO ABS # 0.02 K/uL (0-0.2); EOS % 1.9 %; EOS ABS # 0.13 K/uL (0-0.5); HEMATOCRIT 42.9 % (42-52); HEMOGLOBIN 15.3 g/dL (14.0-18.0); IG# 0.01 K/uL (0.00-0.02); LYMPH % 22.5 %; LYMPH ABS # 1.54 K/uL (1.2-3.4); MEAN CELL VOLUME 91.5 fL (80-100); MEAN CORPUSCULAR HEMOGLOBIN 32.6 pg (25-34); MEAN CORPUSCULAR HGB CONC 35.7 g/dl (32-36); MEAN PLATELET VOLUME 10.3 fL (7.4-10.4); MONO % 5.4 %; MONO ABS # 0.37 K/uL (0.11-0.59); NEUT % 69.8 %; NEUT ABS # 4.78 K/uL (1.4-6.5); PLATELET COUNT 173 K/uL (130-400); RED CELL DISTRIBUTION WIDTH CV 12.6 % (11.5-14.5); RED CELL DISTRIBUTION WIDTH SD 41.8 fL (36.4-46.3); WHITE BLOOD COUNT 6.85 K/uL (4.8-10.8)
[2017-09-04 17:15] LABS: ALBUMIN 3.5 gm/dl (3.4-5.0); ALKALINE PHOSPHATASE 98 U/L (45-117); ALT/SGPT 28 U/L (12-78); AST/SGOT 16 U/L (15-37); BLOOD UREA NITROGEN 14 mg/dl (7-18); CALCIUM 8.9 mg/dl (8.5-10.1); CARBON DIOXIDE 21 mmol/L (21-32); CHOLESTEROL 144 mg/dl (0-200); CREATININE 1.29 mg/dl (0.60-1.40); GLUCOSE 214 mg/dl (70-99); LDL CHOLESTEROL CALCULATED 40 mg/dl; POTASSIUM 3.8 mmol/L (3.5-5.1); SODIUM 143 mmol/L (136-145); TOTAL PROTEIN 7.3 gm/dl (6.4-8.2)
[2017-09-05 08:19] LABS: HEMOGLOBIN A1C 6.1 % (4.5-5.6)
== END | disposition home or self-care (01) ==
LOC: C.LABBC 15:27
PROVIDERS: ATTEND Physician Assistant Medical
DX: Z00.00 Encounter for general adult medical examination without abnormal findings (principal); I10 Essential (primary) hypertension; E78.5 Hyperlipidemia, unspecified; D64.9 Anemia, unspecified; R73.03 Prediabetes

== ENCOUNTER 2018-07-30 13:52 | Inpatient (IN) ==
[2018-07-30] MEDS ORDERED: SODIUM CHLORIDE 0.9% 1000ML 1,000 ML IV ONE ×2 (15:02→18:17)
--- NOTE | 2018-07-30 15:04 | XRay Report ---
XR chest 1V portable CLINICAL HISTORY: Altered mental status. COMPARISON STUDY: Chest radiograph April 10, 2016. FINDINGS: Lung volumes are normal. There is no pneumothorax or pleural effusion. There is no consolid ation or evidence for pulmonary edema. Cardiac size is normal. Mediastinal contours are normal. IMPRESSION: No acute cardiopulmonary findings. Electronically signed by: Robert Cruz M.D. 07/30/2018 3:03 PM
[2018-07-30 15:56] LABS: Basophils # (auto) 0.02 K/uL (0-0.2); Basophils % (auto) 0.2 %; Hematocrit (blood only) 45.9 % (42-52); Hemoglobin 16.4 g/dL (14.0-18.0); Immature Granulocytes # (auto) 0.02 K/uL (0.00-0.02); Immature Granulocytes % (auto) 0.2 %; Lymphocytes # (auto) 0.91 K/uL (1.2-3.4); Lymphocytes % (auto) 8.3 %; Mean Corpuscular Hgb Conc 35.7 g/dL (32-36); Mean Corpuscular Volume 92.9 fL (80-100); Mean Platelet Volume 9.8 fL (7.4-10.4); Monocytes # (auto) 1.03 K/uL (0.11-0.59); Monocytes % (auto) 9.4 %; Neutrophils # (auto) 8.92 K/uL (1.4-6.5); Neutrophils % (auto) 81.9 %; Platelet Count 170 K/uL (130-400); RDW Standard Deviation 47.5 fL (36.4-46.3); Red Blood Count 4.94 M/uL (4.7-6.1)
[2018-07-30 16:13] LABS: Alanine Aminotransferase 18 U/L (12-78); Aspartate Aminotransferase 14 U/L (15-37); BUN Creatinine Ratio 12.7 (10-20); Bilirubin Direct 0.2 mg/dl (0-0.2); Blood Urea Nitrogen 39 mg/dl (7-18); Calcium 9.6 mg/dl (8.5-10.1); Carbon Dioxide 25 mmol/L (21-32); Chloride 106 mmol/L (98-107); Creatinine Clr Calc Pharmacy 21.9 ml/min; Est GFR (African American) 23.2; Est GFR (Non-African American) 20.1; Glucose 268 mg/dl (70-99); Magnesium 2.6 mg/dl (1.8-2.4); Partial Thromboplastin Ratio 0.9; Partial Thromboplastin Time 25.1 Seconds (21.0-31.0); Potassium 3.9 mmol/L (3.5-5.1); Prothrombin Time 10.5 Seconds (9.0-12.0); Sodium 139 mmol/L (136-145)
[2018-07-30 16:18] LABS: Alkaline Phosphatase 74 U/L (45-117); Bilirubin,Total 0.6 mg/dl (0.2-1); Total Protein 7.7 gm/dl (6.4-8.2); Troponin I < 0.015 ng/ml (0-0.045)
--- NOTE | 2018-07-30 17:33 | CT Scan Report ---
CT head/brain wo con CT DOSE: 614.27 mGy.cm HISTORY: Mental status change alcoholic ams TECHNIQUE: Multiaxial CT images of the head were performed without the use of intravenous contrast. A dose lowering technique was utilized adhering to the principles of ALARA. Comparison: 04/27/2016 Findings: Minimal mucosal thickening of the maxillary sinuses. The calvarium and skull base are intac t. The ventricles and sulci are within normal limits. There is no mass, hematoma, midline shift, or a cute infarct. Impression: No acute intracranial abnormality. The above report was generated using voice recognition software. It may contain grammatical, syntax or spelling errors. Electronically signed by: Francois Rahman M.D. 07/30/2018 5:31 PM
[2018-07-30 17:51] LABS: Appearance Urine Clear (Clear); Bacteria Urine Automated Negative (Negative); Bilirubin Urine Negative (Negative); Blood Urine 1+ (Negative); Color Urine Yellow; Glucose Urine UA 2+ (Negative); Ketones Urine Trace (Negative); Leukocyte Esterase Urine Negative (Negative); Nitrite Urine Negative (Negative); RBC Urine Automated 0-4 /hpf (0-4); Specific Gravity Urine 1.018 (1.000-1.030); Urobilinogen Urine Negative (Negative)
[2018-07-30 18:09] LABS: Protein Urine 1+ (Negative)
[2018-07-30] MEDS ORDERED: ONDANSETRON INJ 2 MG/ML 2 ML VIAL IV STA (18:40)
--- NOTE | 2018-07-30 19:35 | History & Physical Report ---
Date of Service July 30, 2018 Assessment & Plan (1) Toxic metabolic encephalopathy: With encephalopathy secondary to isopropyl alcohol ingestion-patient is not forthcoming with the exact amount that he ingested. He reports he drank it as he did not have any alcohol in the house and did not intend self-harm. His osmolal gap is elevated at 31. His creatinine is elevated at 3, BUN mildly elevated at 39, pH is not acidotic, his ethanol level is 0, and he does not have metabolic acidosis or anion gap. His laboratory findings do not suggest a massive ingestion as his osmolal gap is not greater than 100. Urine with ketones present ECG without QT or QRS prolongation Head CT negative Blood pressures are actually significantly elevated at this time as opposed to the vasodilatation that can be seen with isopropyl alcohol poisoning He is not hypoglycemic and in fact is hyperglycemic -Admit to PCU/telemetry -Supportive care to be given-his airway is completely protected at this time and he is mentating well enough that he does not need intubation -Continue copious IV fluids with normal saline-he already received 2 and half liters in the ER -Follow serum chemistry, osmolality now and again in the morning to ensure no development of high anion gap metabolic acidosis which would be more consistent with methanol or ethylene glycol intoxication -Should expect rapid improvement-he seemed to improve throughout our 25-minute interview actually -Keep n.p.o. for now given nausea and vomiting (2) Isopropyl alcohol poisoning: As above -For nausea and vomiting, give IV Zofran as needed (3) JAMES (acute kidney injury): Creatinine elevated to 3.0 on admission, could be falsely elevated level due to isopropyl alcohol intoxication -Follow BMP -Consult nephrology for further input -Continue IV fluids (4) Alcohol dependence: Has a history of drinking 30-40 ounces of vodka daily, denies recent drinking in the last 2 weeks, however his power of employment law attorney told me that he thinks he was drinking as recently as within the last week. -AWSS protocol in place -IV Ativan as needed -will give thiamine 200 mg IV twice daily, folic acid 1 mg IV daily -Check B1, B12, folate levels -Monitor on telemetry (5) Anxiety and depression: Normally on Lexapro but admits to significant noncompliance -Hold Lexapro for now -Hold doxepin (6) HTN (hypertension), benign: Blood pressure significantly elevated here in the ER likely due to anxiety and possibly ethanol withdrawal -Caution in the setting of isopropyl ingestion but will give IV hydralazine if needed for blood pressure greater than 185/110 -Follow closely (7) Diabetes mellitus: Type II, on no medications at home for this, diet controlled? Does not follow routinely with his PCP for this With hyperglycemia here in the 250 range -Sliding scale insulin, Accu-Cheks every 4 hours -Check hemoglobin A1c in the morning (8) Medical non-compliance: History of not following up with physicians and not taking his medications -Would benefit from regular visits with his PCP (9) Restless leg syndrome: Hold ropinirole from home (10) Hyperlipidemia: Continue statin from home (11) GERD (gastroesophageal reflux disease): With chest burning currently after nausea and vomiting, could be eso phagitis or gastritis Also is noted to have history of Dove's esophagus in his outpatient record although I cannot find a report of an EGD -Start Pepcid 20 mg IV twice daily -We will follow (12) DVT prophylaxis: Heparin SQ Disposition-admit to PCU History of Present Illness Chief Complaint: Confusion Primary Care Provider: Mara Rosas PA-C This patient is a 68-year-old male with a history of DM 2, HTN, BPH, anxiety/depression, RLS, GERD with history of Dove's esophagus, hyperlipidemia, medical noncompliance, and alcohol dependence with multiple hospitalizations for alcohol withdrawal who presents to the ER with confusion. His was found to be very sick and confused as well as himself by his niece today. His was brought in by ambulance and then the patient's friend and employee drove the patient into the ER because of altered mental status that they noticed. Eventually in the ER, the patient admitted to drinking rubbing alcohol but only quantified it as "a few swigs." His ethanol level was 0, but his serum osmolality was significantly elevated at 338. Fortunately, he was not acidotic and did not have an anion gap. His asthma low gap was elevated at 31. After this workup, he then admitted to drinking rubbing alcohol. The patient tells me that he has been trying to quit drinking ethanol, and thinks his last drink was about 2 weeks ago. He denies any withdrawal symptoms, hallucinations, or seizures. He reports today, he is quite confused and keeps apologizing, saying "I am not normally like this." He reports that he had a lot of nausea and vomiting today, and is currently feeling a burning sensation in his lower chest in the midline. Denies any shortness of breath or abdominal pain. He is moving his bowels regularly. Denies joint pains or skin rashes. He denies a headache or lightheadedness. He will be admitted for isopropyl alcohol intoxication. Allergies Allergy/AdvReac Type Severity Reaction Status Date / Time Cephalosporins Allergy Unknown SUPRAX Verified 07/30/18 16:23 Penicillins Allergy Unknown RASH Verified 07/30/18 16:23 Sulfa (Sulfonamide Allergy Unknown RASH Verified 07/30/18 16:23 Antibiotics) Home Medications Home Medications Medication Instructions Recorded Confirmed Type atorvastatin 20 mg PO DAILY 07/30/18 07/30/18 History buspirone 15 mg PO BID PRN 07/30/18 07/30/18 History doxepin 1 - 2 cap PO HS PRN 07/30/18 07/30/18 History escitalopram oxalate 10 mg PO DAILY 07/30/18 07/30/18 History folic acid 1 mg PO DAILY 07/30/18 07/30/18 History lisinopril 5 mg PO DAILY 07/30/18 07/30/18 History lorazepam 0.5 mg PO BID PRN 07/30/18 07/30/18 History melatonin 5 mg PO HS 07/30/18 07/30/18 History metoprolol succinate 25 mg PO DAILY 07/30/18 07/30/18 History ranitidine HCl 150 mg PO Q12 07/30/18 07/30/18 History ropinirole 1 - 2 tab PO HS PRN 07/30/18 07/30/18 History tamsulosin 0.4 mg PO HS 07/30/18 07/30/18 History vit B1 [id number] [B 1 tab PO DAILY 07/30/18 07/30/18 History Complex w-Vit C] Past Med/Surg History Medical History Acute alcoholic hallucinosis (Resolved) TIA (transient ischemic attack) Wernickes encephalopathy (Resolved) Alcohol dependence Anxiety and depression Diabetes mellitus GERD (gastroesophageal reflux disease) HTN (hypertension), benign Hyperlipidemia Medical non-compliance Restless leg syndrome Surgical History No significant past surgical history Social History Preferred Language: Irish Communication Ability: Effective Big Data Engineer Required: No Beliefs That Will Affect Care: None marital status: Current Living Situation: Spouse current occupational status: employed 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 [employer] Other Information That Helps Us Care for You: No Feels Safe at Home: Yes Safety Concerns: Feels Safe At This Time Smoking Status: Current every day smoker Tobacco Type: cigarettes Years Smoked: 50 Cigarettes Per Day: 20 Do You Dip or Chew Tobacco: No Second Hand Exposure: No Tobacco Cessation Education Requested by Patient: No Hx Alcohol Use: Yes Alcohol type: hard liquor Hx Substance Use: No Review of Systems Review of Systems: All systems reviewed & are unremarkable except as noted in HPI & below Physical Exam Vital Signs (Past 24 Hours): Last Vital Signs Temp 36.8 C 07/30/18 14:12 Pulse 93 H 07/30/18 18:56 Resp 18 07/30/18 18:56 BP 179/104 H 07/30/18 18:56 Pulse Ox 97 07/30/18 18:56 Constitutional: + intoxicated appearing, + thin (Appears very anxious, tremulous at times), + altered mental status, + disheveled and cooperative; no acute distress Eyes: PERRL, conjunctivae normal, anicteric sclerae EOM intact bilaterally (No nystagmus) ENMT: external ear and nose normal, oropharynx normal Neck: trachea midline, no thyromegaly Respiratory: normal respiratory effort, lungs clear to auscultation Cardiovascular: RRR, no murmur, no edema Gastrointestinal (Abdomen): normal bowel sounds, soft, nontender, no hepatosplenomegaly Musculoskeletal: Extremities: extremities normal to inspection; no cyanosis and no clubbing Skin: no rashes, warm and dry Neurologic: normal touch/pain/proprioception, CN's II-XI intact bilaterally, moves all extremities, awake and + confused; no focal motor deficits and no meningeal signs Speech / Cognition: normal speech and no expressive aphasia Motor/Sensory: + abnormal movement (With some mild psychomotor agitation at times); no tremor Psychiatric: Orientation: alert, oriented to person, oriented to place and cooperative; + not oriented to time Eye Contact: good eye contact Speech: normal rate/rhythm/volume of speech Affect: euthymic affect Results & Data Laboratory Results 07/30/18 07/30/18 07/30/18 Range/Units 22:13 22:13 17:10 WBC (4.8-10.8) K/uL RBC (4.7-6.1) M/uL Hgb (14.0-18.0) g/dL Hct (42-52) % MCV (80-100) fL MCH (25-34) pg MCHC (32-36) g/dL RDW Std Deviation (36.4-46.3) fL RDW Coeff of Nadege (11.5-14.5) % Plt Count (130-400) K/uL MPV (7.4-10.4) fL Immature Gran % (Auto) % Neut % (Auto) % Lymph % (Auto) % [place] % (Auto) % Eos % (Auto) % Baso % (Auto) % Immature Gran # (Auto) (0.00-0.02) K/uL Neut # (Auto) (1.4-6.5) K/uL Lymph # (Auto) (1.2-3.4) K/uL [place] # (Auto) (0.11-0.59) K/uL Eos # (Auto) (0-0.5) K/uL Baso # (Auto) (0-0.2) K/uL PT (9.0-12.0) Seconds INR (0.9-1.1) APTT (21.0-31.0) Seconds PTT Ratio ABG pH 7.49 H (7.35-7.45) ABG pCO2 29 L (35-46) mmHg ABG pO2 87 (80-95) mm/Hg ABG HCO3 22 (19-24) mmol/L ABG O2 Saturation 97.2 H (90-95) % ABG Base Excess -0.2 (-9-1.8) mEq/L Marc Test POS (Pos) Barometric Pressure 732.9 mm/Hg Oxygen Given ROOM AIR Sodium (136-145) mmol/L Potassium (3.5-5.1) mmol/L Chloride (98-107) mmol/L Carbon Dioxide (21-32) mmol/L Anion Gap (3-11) BUN (7-18) mg/dl Creatinine (0.6-1.4) mg/dl Est Cr Clr Drug Dosing ml/min Est GFR ( Amer) Est GFR (Non-Af Amer) BUN/Creatinine Ratio (10-20) Glucose (70-99) mg/dl Osmolality (280-300) mOsm/kg Lactate (0.4-2.0) mmol/L Calcium (8.5-10.1) mg/dl Magnesium (1.8-2.4) mg/dl Total Bilirubin (0.2-1) mg/dl Direct Bilirubin (0-0.2) mg/dl AST (15-37) U/L ALT (12-78) U/L Alkaline Phosphatase (45-117) U/L Ammonia (11-32) umol/L Troponin I < 0.015 (0-0.045) ng/ml Total Protein (6.4-8.2) gm/dl Albumin (3.4-5.0) gm/dl Lipase (73-393) U/L Urine Color Yellow Urine Appearance Clear (Clear) Urine pH 8.0 H (4.5-7.5) Ur Specific [place] 1.018 (1.000-1.030) Urine Protein 1+ H (Negative) Urine Glucose (UA) 2+ H (Negative) Urine Ketones Trace H (Negative) Urine Blood 1+ H (Negative) Urine Nitrite Negative (Negative) Urine Bilirubin Negative (Negative) Urine Urobilinogen Negative (Negative) Ur Leukocyte Esterase Negative (Negative) Urine WBC (Auto) 1-5 (0-5) /hpf Urine RBC (Auto) 0-4 (0-4) /hpf U Hyaline Cast (Auto) 1-5 (0-5) /lpf U Epithel Cells (Auto) 5-10 H (0-5) /lpf Urine Bacteria (Auto) Negative (Negative) Ethyl Alcohol mg/dL (0-3) mg/dl 07/30/18 07/30/18 07/30/18 Range/Units 16:54 15:40 15:40 WBC (4.8-10.8) K/uL RBC (4.7-6.1) M/uL Hgb (14.0-18.0) g/dL Hct (42-52) % MCV (80-100) fL MCH (25-34) pg MCHC (32-36) g/dL RDW Std Deviation (36.4-46.3) fL RDW Coeff of Nadege (11.5-14.5) % Plt Count (130-400) K/uL MPV (7.4-10.4) fL Immature Gran % (Auto) % Neut % (Auto) % Lymph % (Auto) % [place] % (Auto) % Eos % (Auto) % Baso % (Auto) % Immature Gran # (Auto) (0.00-0.02) K/uL Neut # (Auto) (1.4-6.5) K/uL Lymph # (Auto) (1.2-3.4) K/uL [place] # (Auto) (0.11-0.59) K/uL Eos # (Auto) (0-0.5) K/uL Baso # (Auto) (0-0.2) K/uL PT (9.0-12.0) Seconds INR (0.9-1.1) APTT (21.0-31.0) Seconds PTT Ratio ABG pH (7.35-7.45) ABG pCO2 (35-46) mmHg ABG pO2 (80-95) mm/Hg ABG HCO3 (19-24) mmol/L ABG O2 Saturation (90-95) % ABG Base Excess (-9-1.8) mEq/L Marc Test (Pos) Barometric Pressure mm/Hg Oxygen Given Sodium (136-145) mmol/L Potassium (3.5-5.1) mmol/L Chloride (98-107) mmol/L Carbon Dioxide (21-32) mmol/L Anion Gap (3-11) BUN (7-18) mg/dl Creatinine (0.6-1.4) mg/dl Est Cr Clr Drug Dosing ml/min Est GFR ( Amer) Est GFR (Non-Af Amer) BUN/Creatinine Ratio (10-20) Glucose (70-99) mg/dl Osmolality 338 H (280-300) mOsm/kg Lactate (0.4-2.0) mmol/L Calcium (8.5-10.1) mg/dl Magnesium (1.8-2.4) mg/dl Total Bilirubin (0.2-1) mg/dl Direct Bilirubin (0-0.2) mg/dl AST (15-37) U/L ALT (12-78) U/L Alkaline Phosphatase (45-117) U/L Ammonia 18.5 (11-32) umol/L Troponin I (0-0.045) ng/ml Total Protein (6.4-8.2) gm/dl Albumin (3.4-5.0) gm/dl Lipase (73-393) U/L Urine Color Urine Appearance (Clear) Urine pH (4.5-7.5) Ur Specific [place] (1.000-1.030) Urine Protein (Negative) Urine Glucose (UA) (Negative) Urine Ketones (Negative) Urine Blood (Negative) Urine Nitrite (Negative) Urine Bilirubin (Negative) Urine Urobilinogen (Negative) Ur Leukocyte Esterase (Negative) Urine WBC (Auto) (0-5) /hpf Urine RBC (Auto) (0-4) /hpf U Hyaline Cast (Auto) (0-5) /lpf U Epithel Cells (Auto) (0-5) /lpf Urine Bacteria (Auto) (Negative) Ethyl Alcohol mg/dL < 3.0 (0-3) mg/dl 07/30/18 07/30/18 07/30/18 Range/Units 15:40 15:40 15:40 WBC (4.8-10.8) K/uL RBC (4.7-6.1) M/uL Hgb (14.0-18.0) g/dL Hct (42-52) % MCV (80-100) fL MCH (25-34) pg MCHC (32-36) g/dL RDW Std Deviation (36.4-46.3) fL RDW Coeff of Nadege (11.5-14.5) % Plt Count (130-400) K/uL MPV (7.4-10.4) fL Immature Gran % (Auto) % Neut % (Auto) % Lymph % (Auto) % [place] % (Auto) % Eos % (Auto) % Baso % (Auto) % Immature Gran # (Auto) (0.00-0.02) K/uL Neut # (Auto) (1.4-6.5) K/uL Lymph # (Auto) (1.2-3.4) K/uL [place] # (Auto) (0.11-0.59) K/uL Eos # (Auto) (0-0.5) K/uL Baso # (Auto) (0-0.2) K/uL PT 10.5 (9.0-12.0) Seconds INR 1.0 (0.9-1.1) APTT 25.1 (21.0-31.0) Seconds PTT Ratio 0.9 ABG pH (7.35-7.45) ABG pCO2 (35-46) mmHg ABG pO2 (80-95) mm/Hg ABG HCO3 (19-24) mmol/L ABG O2 Saturation (90-95) % ABG Base Excess (-9-1.8) mEq/L Marc Test (Pos) Barometric Pressure mm/Hg Oxygen Given Sodium 139 (136-145) mmol/L Potassium 3.9 (3.5-5.1) mmol/L Chloride 106 (98-107) mmol/L Carbon Dioxide 25 (21-32) mmol/L Anion Gap 8.0 (3-11) BUN 39 H (7-18) mg/dl Creatinine 3.06 H (0.6-1.4) mg/dl Est Cr Clr Drug Dosing 21.9 ml/min Est GFR ( Amer) 23.2 Est GFR (Non-Af Amer) 20.1 BUN/Creatinine Ratio 12.7 (10-20) Glucose 268 H (70-99) mg/dl Osmolality (280-300) mOsm/kg Lactate 1.4 (0.4-2.0) mmol/L Calcium 9.6 (8.5-10.1) mg/dl Magnesium 2.6 H (1.8-2.4) mg/dl Total Bilirubin 0.6 (0.2-1) mg/dl Direct Bilirubin 0.2 (0-0.2) mg/dl AST 14 L (15-37) U/L ALT 18 (12-78) U/L Alkaline Phosphatase 74 (45-117) U/L Ammonia (11-32) umol/L Troponin I < 0.015 (0-0.045) ng/ml Total Protein 7.7 (6.4-8.2) gm/dl Albumin 4.0 (3.4-5.0) gm/dl Lipase 415 H (73-393) U/L Urine Color Urine Appearance (Clear) Urine pH (4.5-7.5) Ur Specific [place] (1.000-1.030) Urine Protein (Negative) Urine Glucose (UA) (Negative) Urine Ketones (Negative) Urine Blood (Negative) Urine Nitrite (Negative) Urine Bilirubin (Negative) Urine Urobilinogen (Negative) Ur Leukocyte Esterase (Negative) Urine WBC (Auto) (0-5) /hpf Urine RBC (Auto) (0-4) /hpf U Hyaline Cast (Auto) (0-5) /lpf U Epithel Cells (Auto) (0-5) /lpf Urine Bacteria (Auto) (Negative) Ethyl Alcohol mg/dL (0-3) mg/dl 07/30/18 Range/Units 15:40 WBC 10.90 H (4.8-10.8) K/uL RBC 4.94 (4.7-6.1) M/uL Hgb 16.4 (14.0-18.0) g/dL Hct 45.9 (42-52) % MCV 92.9 (80-100) fL MCH 33.2 (25-34) pg MCHC 35.7 (32-36) g/dL RDW Std Deviation 47.5 H (36.4-46.3) fL RDW Coeff of Nadege 14.0 (11.5-14.5) % Plt Count 170 (130-400) K/uL MPV 9.8 (7.4-10.4) fL Immature Gran % (Auto) 0.2 % Neut % (Auto) 81.9 % Lymph % (Auto) 8.3 % [place] % (Auto) 9.4 % Eos % (Auto) 0.0 % Baso % (Auto) 0.2 % Immature Gran # (Auto) 0.02 (0.00-0.02) K/uL Neut # (Auto) 8.92 H (1.4-6.5) K/uL Lymph # (Auto) 0.91 L (1.2-3.4) K/uL [place] # (Auto) 1.03 H (0.11-0.59) K/uL Eos # (Auto) 0.00 (0-0.5) K/uL Baso # (Auto) 0.02 (0-0.2) K/uL PT (9.0-12.0) Seconds INR (0.9-1.1) APTT (21.0-31.0) Seconds PTT Ratio ABG pH (7.35-7.45) ABG pCO2 (35-46) mmHg ABG pO2 (80-95) mm/Hg ABG HCO3 (19-24) mmol/L ABG O2 Saturation (90-95) % ABG Base Excess (-9-1.8) mEq/L Marc Test (Pos) Barometric Pressure mm/Hg Oxygen Given Sodium (136-145) mmol/L Potassium (3.5-5.1) mmol/L Chloride (98-107) mmol/L Carbon Dioxide (21-32) mmol/L Anion Gap (3-11) BUN (7-18) mg/dl Creatinine (0.6-1.4) mg/dl Est Cr Clr Drug Dosing ml/min Est GFR ( Amer) Est GFR (Non-Af Amer) BUN/Creatinine Ratio (10-20) Glucose (70-99) mg/dl Osmolality (280-300) mOsm/kg Lactate (0.4-2.0) mmol/L Calcium (8.5-10.1) mg/dl Magnesium (1.8-2.4) mg/dl Total Bilirubin (0.2-1) mg/dl Direct Bilirubin (0-0.2) mg/dl AST (15-37) U/L ALT (12-78) U/L Alkaline Phosphatase (45-117) U/L Ammonia (11-32) umol/L Troponin I (0-0.045) ng/ml Total Protein (6.4-8.2) gm/dl Albumin (3.4-5.0) gm/dl Lipase (73-393) U/L Urine Color Urine Appearance (Clear) Urine pH (4.5-7.5) Ur Specific [place] (1.000-1.030) Urine Protein (Negative) Urine Glucose (UA) (Negative) Urine Ketones (Negative) Urine Blood (Negative) Urine Nitrite (Negative) Urine Bilirubin (Negative) Urine Urobilinogen (Negative) Ur Leukocyte Esterase (Negative) Urine WBC (Auto) (0-5) /hpf Urine RBC (Auto) (0-4) /hpf U Hyaline Cast (Auto) (0-5) /lpf U Epithel Cells (Auto) (0-5) /lpf Urine Bacteria (Auto) (Negative) Ethyl Alcohol mg/dL (0-3) mg/dl Diagnostic Findings Chest x-ray image personally reviewed by me and agree with the following report: XR chest 1V portable CLINICAL HISTORY: Altered mental status. COMPARISON STUDY: Chest radiograph April 10, 2016. FINDINGS: Lung volumes are normal. There is no pneumothorax or pleural effusion. There is no consolidation or evidence for pulmonary edema. Cardiac size is normal. Mediastinal contours are normal. IMPRESSION: No acute cardiopulmonary findings. CT head/brain wo con CT DOSE: 614.27 mGy.cm HISTORY: Mental status change alcoholic ams TECHNIQUE: Multiaxial CT images of the head were performed without the use of intravenous contrast. A dose lowering technique was utilized adhering to the principles of ALARA. Comparison: 04/27/2016 Findings: Minimal mucosal thickening of the maxillary sinuses. The calvarium and skull base are intact. The ventricles and sulci are within normal limits. There is no mass, hematoma, midline shift, or acute infarct. Impression: No acute intracranial abnormality. ECG Additional Comments: Initial ECG with a lot of interference Second ECG with normal sinus rhythm, rate 86, normal axis and intervals, no ischemic changes Code Status & VTE Plan Code Status When asked about CODE STATUS, patient says "yeah, just let me go; is that right?" Discussed his care with his power of employment law attorney and business mail entry clerk on the phone- he reports that he and the patient had not had a discussion about his wishes for resuscitation in the past, but does suspect that the patient has a long history of depression and mentions that there have been times in the past were the melisa escobar questioned if he would be better off . Power of employment law attorney in agreement that the patient is certainly altered in his mentation today and would like him to continue to be a full code Full code
[2018-07-30] MEDS ORDERED: FAMOTIDINE 20MG/5ML IV PUSH ONE (20:03)
[2018-07-30] MEDS ORDERED: LORazepam 1 MG/2 ML VIAL IV PRN (21:44)
[2018-07-30] MEDS ORDERED: ONDANSETRON INJ 2 MG/ML 2 ML VIAL IV PRN (21:44)
[2018-07-30] MEDS ORDERED: HydrALAZINE HCL 20 MG/ML VIAL IV PRN (21:44)
[2018-07-30] MEDS ORDERED: FOLIC ACID 1 MG in SYRINGE 9.8 ML IV SCH (21:45)
[2018-07-30] MEDS: FAMOTIDINE 20 MG in SYRINGE 3 ML IV SCH (22:02)
[2018-07-30] MEDS: THIAMINE HCL 200 MG in SODIUM CHLORIDE 0.9% 50 ML IV SCH (22:19)
[2018-07-30] MEDS: SODIUM CHLORIDE 0.9% 1000ML 1,000 ML IV SCH (22:19)
[2018-07-30 22:29] LABS: HCO3 ABG 22 mmol/L (19-24); Oxygen Saturation ABG 97.2 % (90-95); PCO2 ABG 29 mmHg (35-46); PO2 ABG 87 mm/Hg (80-95); pH ABG 7.49 (7.35-7.45)
[2018-07-30 22:31] LABS: Allen Test POS (Pos)
[2018-07-30] MEDS ORDERED: CARBOHYDRATES FOR HYPOGLYCEMIA PO PRN (22:43)
[2018-07-30] MEDS ORDERED: GLUCOSE 40% GEL 15 GM TUBE PO PRN (22:43)
[2018-07-30] MEDS ORDERED: GLUCAGON FOR INJ 1 MG VIAL SQ PRN (22:43)
[2018-07-30] MEDS ORDERED: DEXTROSE 50% 50 ML SYRINGE IV PRN (22:43)
[2018-07-30] MEDS ORDERED: GLUCOSE 10 TABS/TUBE PO PRN (22:43)
[2018-07-30] MEDS: HEPARIN SOD 5,000 UNIT/0.5 ML VIAL SQ SCH (22:58)
[2018-07-30 23:49] LABS: BUN Creatinine Ratio 14.4 (10-20); Calcium 8.6 mg/dl (8.5-10.1); Creatinine Clr Calc Pharmacy 30.4 ml/min; Est GFR (African American) 33.7; Est GFR (Non-African American) 29.1
--- NOTE | 2018-07-31 00:02 | Emergency Department Note ---
Entered by Steven Sanchez acting as a scribe for Andrey Mathews History of Present Illness General Chief complaint: Confusion Stated complaint: VERY CONFUSED,NOT EATING Time Seen by Provider: 07/30/18 14:34 Source: patient and family Limitations: altered mental status History of Present Illness Provider complaint: Confusion Location: head (Confusion) Quality: + other (Altered Mental Status) Associated symptoms: + denies other symptoms Treatments prior to arrival: none The patient is a 68 year old male who presents to the Emergency Room with complaints of worsening confusion. The patient's niece is at bedside and notes that the patient is an alcoholic, but insists that he has not been drinking. He adds that his last drink was "a while ago." He denies any recent falls. The niece adds that she does not believe that the patient has been taking his daily medications, and notes that he is a diabetic but he does not take Insulin. When she went to see the patient today he seemed more confused than usual and did not know what day it was. Nursing staff states that when EMS arrived to the patient's house, it was full of dog feces. The patient was covered in dog feces as well. It appeared as though the patient was not taking care of herself. Of note the patient's was brought to the ED by EMS as well and is currently in the next room. She is also covered in dog feces and does not appear to be taking care of herself as well. She is also being evaluated for altered mental status. Home Medications Home Medications Medication Instructions Recorded Confirmed Type atorvastatin 20 mg PO DAILY 07/30/18 07/30/18 History buspirone 15 mg PO BID PRN 07/30/18 07/30/18 History doxepin 1 - 2 cap PO HS PRN 07/30/18 07/30/18 History escitalopram oxalate 10 mg PO DAILY 07/30/18 07/30/18 History folic acid 1 mg PO DAILY 07/30/18 07/30/18 History lisinopril 5 mg PO DAILY 07/30/18 07/30/18 History lorazepam 0.5 mg PO BID PRN 07/30/18 07/30/18 History melatonin 5 mg PO HS 07/30/18 07/30/18 History metoprolol succinate 25 mg PO DAILY 07/30/18 07/30/18 History ranitidine HCl 150 mg PO Q12 07/30/18 07/30/18 History ropinirole 1 - 2 tab PO HS PRN 07/30/18 07/30/18 History tamsulosin 0.4 mg PO HS 07/30/18 07/30/18 History vit B1 [id number] [B 1 tab PO DAILY 07/30/18 07/30/18 History Complex w-Vit C] Allergies Allergy/AdvReac Type Severity Reaction Status Date / Time Cephalosporins Allergy Unknown SUPRAX Verified 07/30/18 16:23 Penicillins Allergy Unknown RASH Verified 07/30/18 16:23 Sulfa (Sulfonamide Allergy Unknown RASH Verified 07/30/18 16:23 Antibiotics) Past Med/Surg History Medical History Acute alcoholic hallucinosis (Resolved) TIA (transient ischemic attack) Wernickes encephalopathy (Resolved) Alcohol dependence Anxiety and depression Diabetes mellitus GERD (gastroesophageal reflux disease) HTN (hypertension), benign Hyperlipidemia Medical non-compliance Restless leg syndrome Surgical History No significant past surgical history Social History Preferred Language: [place]ian Communication Ability: Effective Product Analyst Required: No Beliefs That Will Affect Care: None marital status: Current Living Situation: Spouse current occupational status: employed 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 Other Information That Helps Us Care for You: No Feels Safe at Home: Yes Safety Concerns: Feels Safe At This Time Smoking Status: Current every day smoker Tobacco Type: cigarettes Years Smoked: 50 Cigarettes Per Day: 20 Do You Dip or Chew Tobacco: No Second Hand Exposure: No Tobacco Cessation Education Requested by Patient: No Hx Alcohol Use: Yes Alcohol type: hard liquor Hx Substance Use: No Review of Systems See HPI for pertinent positives & negatives. and A total of 10 systems reviewed and were otherwise negative Physical Exam Vital Signs Vital Signs - 24 hr 07/30/18 14:12 07/30/18 15:05 07/30/18 15:14 Temperature 36.8 C Temperature Source Oral Sepsis Recent Fever Within 48 Hours No Sepsis Action Taken by Nursing No Action Required Pulse Rate 96 H Pulse Rate [Left Finger] 87 Pulse Rhythm [Left Finger] Respiratory Rate 16 22 Respiratory Effort / Characteristics Respiratory Depth Respiratory Pattern Blood Pressure 152/94 H Blood Pressure [Left Arm] 139/91 Blood Pressure Mean 113 Blood Pressure Mean [Left Arm] 107 Blood Pressure Position [Left Arm] Pulse Oximetry 96 96 96 Oxygen Delivery Method Room Air Room Air Room Air 07/30/18 16:48 07/30/18 17:38 07/30/18 18:32 Temperature Temperature Source Sepsis Recent Fever Within 48 Hours Sepsis Action Taken by Nursing Pulse Rate Pulse Rate [Left Finger] 103 H 90 102 H Pulse Rhythm [Left Finger] Respiratory Rate 18 13 20 Respiratory Effort / Characteristics Non-Labored Non-Labored Non-Labored Respiratory Depth Normal Normal Normal Respiratory Pattern Regular Regular Blood Pressure Blood Pressure [Left Arm] 168/103 H 170/97 H 186/104 H Blood Pressure Mean Blood Pressure Mean [Left Arm] 124 121 131 Blood Pressure Position [Left Arm] Pulse Oximetry 93 98 97 Oxygen Delivery Method Room Air Room Air Room Air 07/30/18 18:56 07/30/18 20:11 07/30/18 21:07 Temperature Temperature Source Sepsis Recent Fever Within 48 Hours Sepsis Action Taken by Nursing Pulse Rate 90 Pulse Rate [Left Finger] 93 H 92 H Pulse Rhythm [Left Finger] Respiratory Rate 18 15 12 Respiratory Effort / Characteristics Non-Labored Non-Labored Respiratory Depth Normal Normal Respiratory Pattern Regular Regular Blood Pressure 157/91 H Blood Pressure [Left Arm] 179/104 H 161/96 H Blood Pressure Mean Blood Pressure Mean [Left Arm] 129 117 Blood Pressure Position [Left Arm] Pulse Oximetry 97 95 93 Oxygen Delivery Method Room Air Room Air Room Air 07/30/18 21:16 07/30/18 21:25 Temperature 37 C Temperature Source Oral Sepsis Recent Fever Within 48 Hours Sepsis Action Taken by Nursing Pulse Rate 91 H Pulse Rate [Left Finger] 90 Pulse Rhythm [Left Finger] Regular Respiratory Rate 22 Respiratory Effort / Characteristics Non-Labored Spontaneous Respiratory Depth Normal Respiratory Pattern Regular Blood Pressure Blood Pressure [Left Arm] 180/95 H Blood Pressure Mean Blood Pressure Mean [Left Arm] 123 Blood Pressure Position [Left Arm] Lying Pulse Oximetry 97 Oxygen Delivery Method Room Air Physical Exam GENERAL: Mild tremor noted ___ HENT: Exam performed. - Head: Normocephalic and atraumatic. - Right Ear: External ear normal. No mastoid tenderness. - Left Ear: External ear normal. No mastoid tenderness. - Mouth/Throat: The oropharynx is clear and moist. No trismus in the jaw. No dental abscesses or uvula swelling. No oropharyngeal exudate or tonsillar abscesses. ____ EYES: Conjunctivae and EOM are normal. Pupils are equal, round, and reactive to light. Right eye exhibits no discharge. Left eye exhibits no discharge. No scleral icterus. ____ NECK: Normal range of motion. Neck supple. No JVD present. No spinous process tenderness present. No carotid bruit present. No rigidity. No tracheal deviation and normal range of motion present. No Brudzinski's sign and no Kernig's sign noted. ____ CV: Tachycardic rate, regular rhythm, normal heart sounds and intact distal pulses. There is no peripheral edema. Palpable radial pulses bue. ____ PULM/CHEST: Effort normal. Rhonchi bilaterally. No respiratory distress. No stridor. He has no wheezes. He has no rales. - Chest Wall: He exhibits no tenderness. ____ ABD: The abdomen is soft. Bowel sounds are normal. He has no distension. No mass is present. There is no tenderness. There is no rebound, no guarding, no Tristan's sign and no tenderness at McBurney's point. Rovsig negative MUSC/SKEL: Asterixis Noted. Normal range of motion. There is no peripheral edema, tenderness or deformity. LYMPH: No cervical adenopathy. ____ NEURO: He is alert and oriented to person, place, and time. He has normal strength. No cranial nerve deficit or sensory deficit. Coordination and gait normal. GCS eye subscore is 4. GCS verbal subscore is 5. GCS motor subscore is 6. cerbellar tests wnl. ____ SKIN: He is covered in dog feces. He is not diaphoretic. ____ Course 1450: The patient was evaluated in room C4, and a complete history and physical examination were performed. 1610: The patient's business center representative has arrived to the ED. He states that he believes that the patient started drinking again last week. 1753: Vital signs stable. Labs show no leukocytosis. Labs show an elevated creatinine level of 3.06, increased from previous creatinine of 1.29 one year ago. The patient's serum osmolality is 338, he has a calculated osmolar gap of approximately 306 the patient has an Osmolar bertha of 32. The patient has no anion gap gap. Given the extremely large osmolar gap and no anion gap, there was significant concern for isopropyl alcohol poisoning. When I directly questioned the patient about drinking Rubbing Alcohol he does admit to drinking Rubbing Alcohol yesterday. He does not know how much he drank. He last drank rubbing alcohol last night. He thinks it was less than an ounce, he is unsure at what time he did this. His business center representative and family member who is at bedside stated that they have removed all of the ethanol from his house, he states since there is no regular alcohol to drink he drank rubbing alcohol last night. The patient denies drinking any rubbing alcohol today. We will continue to hydrate the patient to see if his osmolar gap and creatinine level improved. We will continue the supportive treatment. I reviewed the patient's case with Dr. Willard Blake [facility] Hospitalist. He will evaluate the patient for further management. Administered Medications Heparin Sodium (Porcine) (Heparin Sodium (Porcine)) 5,000 units SQ Q12 JASWANT Stop: 08/29/18 21:43 Last Admin: 07/30/18 22:58 Dose: 5,000 units Documented by: [id number] Cosigned by: [id number] Famotidine 20 mg/ Syringe 5 mls @ 2.5 mls/min IV BID JASWANT Stop: 08/29/18 20:59 Last Admin: 07/30/18 22:02 Dose: Not Given Documented by: [id number] Thiamine HCl 200 mg/ Sodium (Chloride) 52 mls @ 208 mls/hr IV BID JASWANT Stop: 08/29/18 21:43 Last Infusion: 07/30/18 23:01 Dose: 0 mls/hr Documented by: [id number] Admin: 07/30/18 22:19 Dose: 208 mls/hr Documented by: [id number] Sodium Chloride (Nss 1000ml) 1,000 mls @ 100 mls/hr IV .Q10H JASWANT Stop: 08/29/18 21:43 Last Admin: 07/30/18 22:19 Dose: 100 mls/hr Documented by: [id number] Discontinued Medications Famotidine (Pepcid 20mg Iv Push) Confirm Administered Dose 20 mg .ROUTE .STK-MED ONE Stop: 07/30/18 20:04 Last Admin: 07/30/18 20:08 Dose: 20 mg Documented by: [id number] Sodium Chloride (Nss 1000ml) 1,000 mls @ 999 mls/hr IV .Q1H1M ONE Stop: 07/30/18 16:02 Last Infusion: 07/30/18 16:54 Dose: 0 mls/hr Documented by: [id number] Admin: 07/30/18 16:01 Dose: 999 mls/hr Documented by: [id number] Sodium Chloride (Nss 1000ml) 1,000 mls @ 999 mls/hr IV .Q1H1M ONE Stop: 07/30/18 19:17 Last Infusion: 07/30/18 19:57 Dose: 0 mls/hr Documented by: [id number] Admin: 07/30/18 18:50 Dose: 999 mls/hr Documented by: [id number] Folic Acid 1 mg/ Syringe 10 mls @ 5 mls/min IV TODAY@2145 JASWANT Stop: 07/30/18 22:30 Last Admin: 07/30/18 22:19 Dose: 5 mls/min Documented by: [id number] Ondansetron HCl (Zofran) 4 mg IV NOW STA Stop: 07/30/18 18:41 Last Admin: 07/30/18 18:50 Dose: 4 mg Documented by: [id number] Medical Decision Making Medical Records Attestation: I reviewed the patient's medical records. Home Medications Current Medication List: was personally reviewed by me Laboratory Data Attestation: I reviewed the patient's lab results. Result diagrams: 07/30/18 15:40 07/30/18 23:21 Lab Results 07/30/18 07/30/18 07/30/18 Range/Units 15:40 15:40 15:40 WBC 10.90 H (4.8-10.8) K/uL RBC 4.94 (4.7-6.1) M/uL Hgb 16.4 (14.0-18.0) g/dL Hct 45.9 (42-52) % MCV 92.9 (80-100) fL MCH 33.2 (25-34) pg MCHC 35.7 (32-36) g/dL RDW Std Deviation 47.5 H (36.4-46.3) fL RDW Coeff of Nadege 14.0 (11.5-14.5) % Plt Count 170 (130-400) K/uL MPV 9.8 (7.4-10.4) fL Immature Gran % (Auto) 0.2 % Neut % (Auto) 81.9 % Lymph % (Auto) 8.3 % Bent % (Auto) 9.4 % Eos % (Auto) 0.0 % Baso % (Auto) 0.2 % Immature Gran # (Auto) 0.02 (0.00-0.02) K/uL Neut # (Auto) 8.92 H (1.4-6.5) K/uL Lymph # (Auto) 0.91 L (1.2-3.4) K/uL Bent # (Auto) 1.03 H (0.11-0.59) K/uL Eos # (Auto) 0.00 (0-0.5) K/uL Baso # (Auto) 0.02 (0-0.2) K/uL PT (9.0-12.0) Seconds INR (0.9-1.1) APTT (21.0-31.0) Seconds PTT Ratio ABG pH (7.35-7.45) ABG pCO2 (35-46) mmHg ABG pO2 (80-95) mm/Hg ABG HCO3 (19-24) mmol/L ABG O2 Saturation (90-95) % ABG Base Excess (-9-1.8) mEq/L Marc Test (Pos) Barometric Pressure mm/Hg Oxygen Given Sodium 139 (136-145) mmol/L Potassium 3.9 (3.5-5.1) mmol/L Chloride 106 (98-107) mmol/L Carbon Dioxide 25 (21-32) mmol/L Anion Gap 8.0 (3-11) BUN 39 H (7-18) mg/dl Creatinine 3.06 H (0.6-1.4) mg/dl Est Cr Clr Drug Dosing 21.9 ml/min Est GFR ( Amer) 23.2 Est GFR (Non-Af Amer) 20.1 BUN/Creatinine Ratio 12.7 (10-20) Glucose 268 H (70-99) mg/dl Osmolality (280-300) mOsm/kg Lactate 1.4 (0.4-2.0) mmol/L Calcium 9.6 (8.5-10.1) mg/dl Magnesium 2.6 H (1.8-2.4) mg/dl Total Bilirubin 0.6 (0.2-1) mg/dl Direct Bilirubin 0.2 (0-0.2) mg/dl AST 14 L (15-37) U/L ALT 18 (12-78) U/L Alkaline Phosphatase 74 (45-117) U/L Ammonia (11-32) umol/L Troponin I < 0.015 (0-0.045) ng/ml Total Protein 7.7 (6.4-8.2) gm/dl Albumin 4.0 (3.4-5.0) gm/dl Lipase 415 H (73-393) U/L Urine Color Urine Appearance (Clear) Urine pH (4.5-7.5) Ur Specific [place] (1.000-1.030) Urine Protein (Negative) Urine Glucose (UA) (Negative) Urine Ketones (Negative) Urine Blood (Negative) Urine Nitrite (Negative) Urine Bilirubin (Negative) Urine Urobilinogen (Negative) Ur Leukocyte Esterase (Negative) Urine WBC (Auto) (0-5) /hpf Urine RBC (Auto) (0-4) /hpf U Hyaline Cast (Auto) (0-5) /lpf U Epithel Cells (Auto) (0-5) /lpf Urine Bacteria (Auto) (Negative) Ethyl Alcohol mg/dL (0-3) mg/dl 07/30/18 07/30/18 07/30/18 Range/Units 15:40 15:40 15:40 WBC (4.8-10.8) K/uL RBC (4.7-6.1) M/uL Hgb (14.0-18.0) g/dL Hct (42-52) % MCV (80-100) fL MCH (25-34) pg MCHC (32-36) g/dL RDW Std Deviation (36.4-46.3) fL RDW Coeff of Nadege (11.5-14.5) % Plt Count (130-400) K/uL MPV (7.4-10.4) fL Immature Gran % (Auto) % Neut % (Auto) % Lymph % (Auto) % Bent % (Auto) % Eos % (Auto) % Baso % (Auto) % Immature Gran # (Auto) (0.00-0.02) K/uL Neut # (Auto) (1.4-6.5) K/uL Lymph # (Auto) (1.2-3.4) K/uL Bent # (Auto) (0.11-0.59) K/uL Eos # (Auto) (0-0.5) K/uL Baso # (Auto) (0-0.2) K/uL PT 10.5 (9.0-12.0) Seconds INR 1.0 (0.9-1.1) APTT 25.1 (21.0-31.0) Seconds PTT Ratio 0.9 ABG pH (7.35-7.45) ABG pCO2 (35-46) mmHg ABG pO2 (80-95) mm/Hg ABG HCO3 (19-24) mmol/L ABG O2 Saturation (90-95) % ABG Base Excess (-9-1.8) mEq/L Marc Test (Pos) Barometric Pressure mm/Hg Oxygen Given Sodium (136-145) mmol/L Potassium (3.5-5.1) mmol/L Chloride (98-107) mmol/L Carbon Dioxide (21-32) mmol/L Anion Gap (3-11) BUN (7-18) mg/dl Creatinine (0.6-1.4) mg/dl Est Cr Clr Drug Dosing ml/min Est GFR ( Amer) Est GFR (Non-Af Amer) BUN/Creatinine Ratio (10-20) Glucose (70-99) mg/dl Osmolality 338 H (280-300) mOsm/kg Lactate (0.4-2.0) mmol/L Calcium (8.5-10.1) mg/dl Magnesium (1.8-2.4) mg/dl Total Bilirubin (0.2-1) mg/dl Direct Bilirubin (0-0.2) mg/dl AST (15-37) U/L ALT (12-78) U/L Alkaline Phosphatase (45-117) U/L Ammonia 18.5 (11-32) umol/L Troponin I (0-0.045) ng/ml Total Protein (6.4-8.2) gm/dl Albumin (3.4-5.0) gm/dl Lipase (73-393) U/L Urine Color Urine Appearance (Clear) Urine pH (4.5-7.5) Ur Specific [place] (1.000-1.030) Urine Protein (Negative) Urine Glucose (UA) (Negative) Urine Ketones (Negative) Urine Blood (Negative) Urine Nitrite (Negative) Urine Bilirubin (Negative) Urine Urobilinogen (Negative) Ur Leukocyte Esterase (Negative) Urine WBC (Auto) (0-5) /hpf Urine RBC (Auto) (0-4) /hpf U Hyaline Cast (Auto) (0-5) /lpf U Epithel Cells (Auto) (0-5) /lpf Urine Bacteria (Auto) (Negative) Ethyl Alcohol mg/dL (0-3) mg/dl 07/30/18 07/30/18 07/30/18 Range/Units 16:54 17:10 22:13 WBC (4.8-10.8) K/uL RBC (4.7-6.1) M/uL Hgb (14.0-18.0) g/dL Hct (42-52) % MCV (80-100) fL MCH (25-34) pg MCHC (32-36) g/dL RDW Std Deviation (36.4-46.3) fL RDW Coeff of Nadege (11.5-14.5) % Plt Count (130-400) K/uL MPV (7.4-10.4) fL Immature Gran % (Auto) % Neut % (Auto) % Lymph % (Auto) % Bent % (Auto) % Eos % (Auto) % Baso % (Auto) % Immature Gran # (Auto) (0.00-0.02) K/uL Neut # (Auto) (1.4-6.5) K/uL Lymph # (Auto) (1.2-3.4) K/uL Bent # (Auto) (0.11-0.59) K/uL Eos # (Auto) (0-0.5) K/uL Baso # (Auto) (0-0.2) K/uL PT (9.0-12.0) Seconds INR (0.9-1.1) APTT (21.0-31.0) Seconds PTT Ratio ABG pH 7.49 H (7.35-7.45) ABG pCO2 29 L (35-46) mmHg ABG pO2 87 (80-95) mm/Hg ABG HCO3 22 (19-24) mmol/L ABG O2 Saturation 97.2 H (90-95) % ABG Base Excess -0.2 (-9-1.8) mEq/L Marc Test POS (Pos) Barometric Pressure 732.9 mm/Hg Oxygen Given ROOM AIR Sodium (136-145) mmol/L Potassium (3.5-5.1) mmol/L Chloride (98-107) mmol/L Carbon Dioxide (21-32) mmol/L Anion Gap (3-11) BUN (7-18) mg/dl Creatinine (0.6-1.4) mg/dl Est Cr Clr Drug Dosing ml/min Est GFR ( Amer) Est GFR (Non-Af Amer) BUN/Creatinine Ratio (10-20) Glucose (70-99) mg/dl Osmolality (280-300) mOsm/kg Lactate (0.4-2.0) mmol/L Calcium (8.5-10.1) mg/dl Magnesium (1.8-2.4) mg/dl Total Bilirubin (0.2-1) mg/dl Direct Bilirubin (0-0.2) mg/dl AST (15-37) U/L ALT (12-78) U/L Alkaline Phosphatase (45-117) U/L Ammonia (11-32) umol/L Troponin I (0-0.045) ng/ml Total Protein (6.4-8.2) gm/dl Albumin (3.4-5.0) gm/dl Lipase (73-393) U/L Urine Color Yellow Urine Appearance Clear (Clear) Urine pH 8.0 H (4.5-7.5) Ur Specific [place] 1.018 (1.000-1.030) Urine Protein 1+ H (Negative) Urine Glucose (UA) 2+ H (Negative) Urine Ketones Trace H (Negative) Urine Blood 1+ H (Negative) Urine Nitrite Negative (Negative) Urine Bilirubin Negative (Negative) Urine Urobilinogen Negative (Negative) Ur Leukocyte Esterase Negative (Negative) Urine WBC (Auto) 1-5 (0-5) /hpf Urine RBC (Auto) 0-4 (0-4) /hpf U Hyaline Cast (Auto) 1-5 (0-5) /lpf U Epithel Cells (Auto) 5-10 H (0-5) /lpf Urine Bacteria (Auto) Negative (Negative) Ethyl Alcohol mg/dL < 3.0 (0-3) mg/dl 07/30/18 07/30/18 07/30/18 Range/Units 22:13 23:21 23:21 WBC (4.8-10.8) K/uL RBC (4.7-6.1) M/uL Hgb (14.0-18.0) g/dL Hct (42-52) % MCV (80-100) fL MCH (25-34) pg MCHC (32-36) g/dL RDW Std Deviation (36.4-46.3) fL RDW Coeff of Nadege (11.5-14.5) % Plt Count (130-400) K/uL MPV (7.4-10.4) fL Immature Gran % (Auto) % Neut % (Auto) % Lymph % (Auto) % Bent % (Auto) % Eos % (Auto) % Baso % (Auto) % Immature Gran # (Auto) (0.00-0.02) K/uL Neut # (Auto) (1.4-6.5) K/uL Lymph # (Auto) (1.2-3.4) K/uL Bent # (Auto) (0.11-0.59) K/uL Eos # (Auto) (0-0.5) K/uL Baso # (Auto) (0-0.2) K/uL PT (9.0-12.0) Seconds INR (0.9-1.1) APTT (21.0-31.0) Seconds PTT Ratio ABG pH (7.35-7.45) ABG pCO2 (35-46) mmHg ABG pO2 (80-95) mm/Hg ABG HCO3 (19-24) mmol/L ABG O2 Saturation (90-95) % ABG Base Excess (-9-1.8) mEq/L Marc Test (Pos) Barometric Pressure mm/Hg Oxygen Given Sodium 145 (136-145) mmol/L Potassium 4.0 (3.5-5.1) mmol/L Chloride 115 H (98-107) mmol/L Carbon Dioxide 23 (21-32) mmol/L Anion Gap 7.0 (3-11) BUN 32 H (7-18) mg/dl Creatinine 2.25 H D (0.6-1.4) mg/dl Est Cr Clr Drug Dosing 30.4 ml/min Est GFR ( Amer) 33.7 Est GFR (Non-Af Amer) 29.1 BUN/Creatinine Ratio 14.4 (10-20) Glucose 171 H (70-99) mg/dl Osmolality 323 H (280-300) mOsm/kg Lactate (0.4-2.0) mmol/L Calcium 8.6 (8.5-10.1) mg/dl Magnesium (1.8-2.4) mg/dl Total Bilirubin (0.2-1) mg/dl Direct Bilirubin (0-0.2) mg/dl AST (15-37) U/L ALT (12-78) U/L Alkaline Phosphatase (45-117) U/L Ammonia (11-32) umol/L Troponin I < 0.015 (0-0.045) ng/ml Total Protein (6.4-8.2) gm/dl Albumin (3.4-5.0) gm/dl Lipase (73-393) U/L Urine Color Urine Appearance (Clear) Urine pH (4.5-7.5) Ur Specific [place] (1.000-1.030) Urine Protein (Negative) Urine Glucose (UA) (Negative) Urine Ketones (Negative) Urine Blood (Negative) Urine Nitrite (Negative) Urine Bilirubin (Negative) Urine Urobilinogen (Negative) Ur Leukocyte Esterase (Negative) Urine WBC (Auto) (0-5) /hpf Urine RBC (Auto) (0-4) /hpf U Hyaline Cast (Auto) (0-5) /lpf U Epithel Cells (Auto) (0-5) /lpf Urine Bacteria (Auto) (Negative) Ethyl Alcohol mg/dL (0-3) mg/dl Imaging Data Attestation: I personally reviewed and interpreted this imaging study as follows: Radiologist's Impression: CT head/brain wo con CT DOSE: 614.27 mGy.cm HISTORY: Mental status change alcoholic ams TECHNIQUE: Multiaxial CT images of the head were performed without the use of intravenous contrast. A dose lowering technique was utilized adhering to the principles of ALA. Comparison: 04/27/2016 Findings: Minimal mucosal thickening of the maxillary sinuses. The calvarium and skull base are intact. The ventricles and sulci are within normal limits. There is no mass, hematoma, midline shift, or acute infarct. Impression: No acute intracranial abnormality. The above report was generated using voice recognition software. It may contain grammatical, syntax or spelling errors. Electronically signed by: Francois Rahman M.D. 07/30/2018 5:31 PM XR chest 1V portable CLINICAL HISTORY: Altered mental status. COMPARISON STUDY: Chest radiograph April 10, 2016. FINDINGS: Lung volumes are normal. There is no pneumothorax or pleural effusion. There is no consolidation or evidence for pulmonary edema. Cardiac size is normal. Mediastinal contours are normal. IMPRESSION: No acute cardiopulmonary findings. Electronically signed by: Robert Cruz M.D. 07/30/2018 3:03 PM ECG Data Attestation: I personally reviewed and interpreted this ECG as follows: Indication: altered mental status Rate (beats per minute): 84 Rhythm: sinus rhythm Findings: + other (MO/QRS/QTC WNL); no ST depression and no ST elevation Blood Pressure Blood Pressure Findings: Elevated blood pressure Blood Pressure Disposition: further management by hospitalist [facility] Narrative Vital signs stable. Labs show no leukocytosis. Labs show an elevated creatinine level of 3.06, increased from previous creatinine of 1.29 one year ago. The patient's serum osmolality is 338, he has a calculated osmolar gap of approximately 306 the patient has an Osmolar bertha of 32. The patient has no anion gap gap. Given the extremely large osmolar gap and no anion gap, there was significant concern for isopropyl alcohol poisoning. When I directly questioned the patient about drinking Rubbing Alcohol he does admit to drinking Rubbing Alcohol yesterday. He does not know how much he drank. He last drank rubbing alcohol last night. He thinks it was less than an ounce, he is unsure at what time he did this. His business center representative and family member who is at bedside stated that they have removed all of the ethanol from his house, he states since there is no regular alcohol to drink he drank rubbing alcohol last night. The patient denies drinking any rubbing alcohol today. We will continue to hydrate the patient to see if his osmolar gap and creatinine level improved. We will continue the supportive treatment. I reviewed the patient's case with Dr. Lamar - [facility] Hospitalist. He will evaluate the patient for further management. Impression & Plan JAMES (acute kidney injury), Isopropyl alcohol poisoning Discharge Plan Visit Data *Final* Discharge Date/Time: 07/30/18 21:07 Chief Complaint: Confusion Stated Complaint: VERY CONFUSED,NOT EATING ED Provider: Andrey Mathews Discharge Problem: JAMES (acute kidney injury), Isopropyl alcohol poisoning Patient Disposition: Admitted As Inpatient Discharge Instructions Interventions: ED Discharge Assessment Last Done: 07/30/18 21:07 The scribe's documentation has been prepared under my direction and personally reviewed by me in its entirety. I confirm that the note above accurately reflects all work, treatment, procedures, and medical decision making performed by me.
[2018-07-31 00:38] LABS: Amphetamines+Metham, Urine Neg (Neg); Barbiturates, Urine Neg (Neg); Benzodiazepine, Urine Neg (Neg); Cocaine, Urine Neg (Neg); MDMA (Ecstacy), Urine Neg (Neg); Methadone, Urine Neg (Neg); Opiate, Urine Neg (Neg); Phencyclidine, Urine Neg (Neg)
[2018-07-31 06:41] LABS: Basophils # (auto) 0.02 K/uL (0-0.2); Basophils % (auto) 0.2 %; Eosinophils # (auto) 0.01 K/uL (0-0.5); Eosinophils % (auto) 0.1 %; Hematocrit (blood only) 41.7 % (42-52); Hemoglobin 14.1 g/dL (14.0-18.0); Immature Granulocytes # (auto) 0.02 K/uL (0.00-0.02); Immature Granulocytes % (auto) 0.2 %; Lymphocytes # (auto) 1.18 K/uL (1.2-3.4); Lymphocytes % (auto) 10.2 %; Mean Corpuscular Hgb Conc 33.8 g/dL (32-36); Mean Corpuscular Volume 94.3 fL (80-100); Mean Platelet Volume 9.8 fL (7.4-10.4); Monocytes # (auto) 1.08 K/uL (0.11-0.59); Monocytes % (auto) 9.4 %; Neutrophils # (auto) 9.22 K/uL (1.4-6.5); Neutrophils % (auto) 79.9 %; Platelet Count 133 K/uL (130-400); RDW Coefficient of Variation 14.2 % (11.5-14.5); RDW Standard Deviation 48.7 fL (36.4-46.3); Red Blood Count 4.42 M/uL (4.7-6.1); White Blood Count 11.53 K/uL (4.8-10.8)
[2018-07-31 07:11] LABS: Albumin Level 3.5 gm/dl (3.4-5.0); BUN Creatinine Ratio 12.7 (10-20); Bilirubin Direct 0.1 mg/dl (0-0.2); Creatinine Clr Calc Pharmacy 32.6 ml/min; Est GFR (African American) 38.4; Est GFR (Non-African American) 33.1; Potassium 3.8 mmol/L (3.5-5.1)
[2018-07-31 07:14] LABS: Bilirubin,Total 0.7 mg/dl (0.2-1); Total Protein 6.7 gm/dl (6.4-8.2)
[2018-07-31] MEDS: SODIUM CHLORIDE 0.9% 1000ML 1,000 ML IV SCH (08:05)
[2018-07-31] MEDS: INSULIN ASPART 100 UNITS/ML 3 ML PEN SC SCH ×4 (08:05→20:49)
[2018-07-31] MEDS: FOLIC ACID 1 MG TAB PO SCH (08:11)
[2018-07-31] MEDS: HEPARIN SOD 5,000 UNIT/0.5 ML VIAL SQ SCH ×2 (08:11→20:49)
[2018-07-31] MEDS: METOPROLOL SUCC 25MG EXT REL TAB PO SCH (08:11)
[2018-07-31] MEDS: ATORVASTATIN 20 MG TAB PO SCH (08:11)
[2018-07-31 08:25] LABS: Estimated Average Glucose 146 mg/dl; Hemoglobin A1C 6.7 % (4.5-5.6)
[2018-07-31 09:18] LABS: iSTAT Hemoglobin 15.6 g/dl (14.0-18.0); iSTAT Ionized Calcium 1.11 mmol/l (1.12-1.32); iSTAT Potassium 3.9 mEq/L (3.3-5.0)
[2018-07-31 09:56] LABS: Folate (Folic Acid) 19.73 ng/ml (>5.38)
--- NOTE | 2018-07-31 10:04 | Nephrology Consultation ---
Date of Consultation July 31, 2018 Assessment & Plan (1) JAMES (acute kidney injury): -- Clinically consistent with prerenal azotemia and ATN -- No acidotic -- No AGMA -- Electrolytes appropriate -- Monitor metabolic profile with Mg+ and phosphorus -- Continue IVF, suggest switching NSS to normosol -- Maintain positive fluid balance -- Document I/O's -- Medications are acceptable for kidney function -- Urine microscopy acellular -- Hold lisinopril (2) Toxic metabolic encephalopathy: -- Clinically appears to be improving -- Maintained on thiamine, folate, and MVI -- CT head negative -- Some signs of isopropyl alcohol ingestion including elevated osmolar gap and ketonuria which are improving along with kidney function -- Continue close monitoring and supportive care (3) Isopropyl alcohol poisoning: -- Supportive care -- No role for dialysis (4) Alcohol dependence: -- Ethanol negative -- Monitor closely -- Thiamine, folate, and MVI (5) HTN (hypertension), benign: -- BP acceptable at this time -- Hold lisinopril History of Present Illness Reason for Consultation: JAMES Requesting Physician: Christal Goldstein MD Attending Physician: Christal Goldstein MD History of Present Illness Mr. Erick Kahn is a 68-year-old who presented to [facility] yesterday evening with confusion. The patient was accompanied by his . She was also admitted. The patient has a significant history of alcohol abuse and dependence. They had both been consuming rubbing alcohol at home. His had become significantly agitated. Mr. Kahn's medical history is notable for diabetes mellitus II, hypertension, RLS, depression and anxiety. He admits to poor compliance with treatment. He has not had regular follow up with his PCP. In August 2017, creatinine was documented at 1.29 mg/dL. Laboratory studies obtained in the ED were notable for a creatinine of 3.0 mg/dL. Erick was found to be volume depleted and started on IVF. Erick was resting comfortably in his hospital bed this morning and admitted to some burning in his throat but otherwise feels well. Urine output is appropriate. Allergies Allergy/AdvReac Type Severity Reaction Status Date / Time Cephalosporins Allergy Unknown SUPRAX Verified 07/30/18 16:23 Penicillins Allergy Unknown RASH Verified 07/30/18 16:23 Sulfa (Sulfonamide Allergy Unknown RASH Verified 07/30/18 16:23 Antibiotics) Home Medications Home Medications Medication Instructions Recorded Confirmed Type atorvastatin 20 mg PO DAILY 07/30/18 07/30/18 History buspirone 15 mg PO BID PRN 07/30/18 07/30/18 History doxepin 1 - 2 cap PO HS PRN 07/30/18 07/30/18 History escitalopram oxalate 10 mg PO DAILY 07/30/18 07/30/18 History folic acid 1 mg PO DAILY 07/30/18 07/30/18 History lisinopril 5 mg PO DAILY 07/30/18 07/30/18 History lorazepam 0.5 mg PO BID PRN 07/30/18 07/30/18 History melatonin 5 mg PO HS 07/30/18 07/30/18 History metoprolol succinate 25 mg PO DAILY 07/30/18 07/30/18 History ranitidine HCl 150 mg PO Q12 07/30/18 07/30/18 History ropinirole 1 - 2 tab PO HS PRN 07/30/18 07/30/18 History tamsulosin 0.4 mg PO HS 07/30/18 07/30/18 History vit B1 [id number] [B 1 tab PO DAILY 07/30/18 07/30/18 History Complex w-Vit C] Patient History Medical History Acute alcoholic hallucinosis (Resolved) TIA (transient ischemic attack) [place] encephalopathy (Resolved) Alcohol dependence Anxiety and depression Diabetes mellitus GERD (gastroesophageal reflux disease) HTN (hypertension), benign Hyperlipidemia Medical non-compliance Restless leg syndrome Surgical History No significant past surgical history Family History Father , In his 30s Heart disease Mother Cancer Lung cancer Sister Anorexia Social History Preferred Language: Georgian Communication Ability: Effective Coil Winder Hand Required: No Beliefs That Will Affect Care: None marital status: Current Living Situation: Spouse current occupational status: employed 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 Other Information That Helps Us Care for You: No Feels Safe at Home: Yes Safety Concerns: Feels Safe At This Time Smoking Status: Current every day smoker Tobacco Type: cigarettes Years Smoked: 50 Cigarettes Per Day: 20 Do You Dip or Chew Tobacco: No Second Hand Exposure: No Tobacco Cessation Education Requested by Patient: No Hx Alcohol Use: Yes Alcohol type: hard liquor Hx Substance Use: No Review of Systems Constitutional: no fever, no chills and no anorexia Eyes: no blind spots no loss of vision reported Ear, Nose, Mouth, Throat: + hoarseness; no dysphagia Respiratory: no dyspnea and no problem reported Cardiovascular: no chest pain, no palpitations and no problem reported Gastrointestinal: + heartburn; no abdominal pain, no dysphagia and no problem reported Genitourinary: no problem reported Musculoskeletal: no problem reported Integumentary: no problem reported Neurologic: + confusion; no gait abnormality, no localized weakness, no dizzi ness and no memory loss Psychiatric: + depression and + anxiety Hematologic / Lymphatic: no problem reported Physical Exam Constitutional: + ill appearing and + thin Eyes: no scleral abnormality and no corneal abnormality ENMT: Mouth: no oral mucosal abnormality and oral mucous membranes not dry Neck: normal visual inspection and trachea midline Respiratory: normal respiratory effort Auscultation: lungs clear to auscultation bilaterally Cardiovascular: Rate/Rhythm: regular rate Heart Sounds: normal S1 and normal S2 Gastrointestinal (Abdomen): Percussion/Palpation: abdomen soft; abdomen nontender Musculoskeletal: Extremities: no cyanosis, no clubbing and no petechiae Skin: normal turgor; no rashes Neurologic: Motor/Sensory: no tremor and no asterixis Psychiatric: Orientation: alert and oriented x 3 Eye Contact: + fair eye contact Motor Behavior: n tremor Results & Data Vital Signs (Past 12 Hours) Vital Signs Temp Pulse Pulse Resp BP Pulse Ox 07/31/18 08:00 85 07/31/18 07:57 36.8 C 83 18 163/80 H 94 07/31/18 03:17 36.6 C 83 17 159/82 H 95 07/30/18 23:59 85 07/30/18 23:58 37.0 C 86 17 171/90 H 95 Laboratory Results Laboratory Results - last 24 hr 07/30/18 07/30/18 07/30/18 14:56 15:40 15:40 WBC 10.90 H RBC 4.94 Hgb 16.4 POC Hgb Hct 45.9 POC Hct MCV 92.9 MCH 33.2 MCHC 35.7 RDW Std Deviation 47.5 H RDW Coeff of Nadege 14.0 Plt Count 170 MPV 9.8 Immature Gran % (Auto) 0.2 Neut % (Auto) 81.9 Lymph % (Auto) 8.3 [place] % (Auto) 9.4 Eos % (Auto) 0.0 Baso % (Auto) 0.2 Immature Gran # (Auto) 0.02 Neut # (Auto) 8.92 H Lymph # (Auto) 0.91 L [place] # (Auto) 1.03 H Eos # (Auto) 0.00 Baso # (Auto) 0.02 PT INR APTT PTT Ratio ABG pH ABG pCO2 ABG pO2 ABG HCO3 ABG O2 Saturation ABG Base Excess Marc Test Barometric Pressure Oxygen Given POC Sodium Sodium 139 POC Potassium Potassium 3.9 POC Chloride Chloride 106 Carbon Dioxide 25 POC Total CO2 Anion Gap 8.0 POC Anion Gap POC BUN BUN 39 H Creatinine 3.06 H POC Creatinine Est Cr Clr Drug Dosing 21.9 Est GFR ( Amer) 23.2 Est GFR (Non-Af Amer) 20.1 BUN/Creatinine Ratio 12.7 Glucose 268 H POC Glucose 281 H POC Glucose (other) Estimat Average Glucose Hemoglobin A1c Osmolality Lactate Calcium 9.6 POC Ioniz Calcium Lisa Magnesium 2.6 H Total Bilirubin 0.6 Direct Bilirubin 0.2 AST 14 L ALT 18 Alkaline Phosphatase 74 Ammonia Troponin I < 0.015 Total Protein 7.7 Albumin 4.0 Lipase 415 H Vitamin B12 Folate Urine Color Urine Appearance Urine pH Ur Specific [place] Urine Protein Urine Glucose (UA) Urine Ketones Urine Blood Urine Nitrite Urine Bilirubin Urine Urobilinogen Ur Leukocyte Esterase Urine WBC (Auto) Urine RBC (Auto) U Hyaline Cast (Auto) U Epithel Cells (Auto) Urine Bacteria (Auto) Urine Opiates Screen Ur Methadone, Qual Urine Barbiturates Ur Phencyclidine (PCP) U Amphetamin/Meth Scrn MDMA (Ecstasy) Screen U Benzodiazepines Scrn Ur Cocaine Metabolite U Marijuana (THC) Screen Ethyl Alcohol mg/dL 07/30/18 07/30/18 07/30/18 15:40 15:40 15:40 WBC RBC Hgb POC Hgb Hct POC Hct MCV MCH MCHC RDW Std Deviation RDW Coeff of Nadege Plt Count MPV Immature Gran % (Auto) Neut % (Auto) Lymph % (Auto) [place] % (Auto) Eos % (Auto) Baso % (Auto) Immature Gran # (Auto) Neut # (Auto) Lymph # (Auto) [place] # (Auto) Eos # (Auto) Baso # (Auto) PT 10.5 INR 1.0 APTT 25.1 PTT Ratio 0.9 ABG pH ABG pCO2 ABG pO2 ABG HCO3 ABG O2 Saturation ABG Base Excess Marc Test Barometric Pressure Oxygen Given POC Sodium Sodium POC Potassium Potassium POC Chloride Chloride Carbon Dioxide POC Total CO2 Anion Gap POC Anion Gap POC BUN BUN Creatinine POC Creatinine Est Cr Clr Drug Dosing Est GFR ( Amer) Est GFR (Non-Af Amer) BUN/Creatinine Ratio Glucose POC Glucose POC Glucose (other) Estimat Average Glucose Hemoglobin A1c Osmolality Lactate 1.4 Calcium POC Ioniz Calcium Lisa Magnesium Total Bilirubin Direct Bilirubin AST ALT Alkaline Phosphatase Ammonia 18.5 Troponin I Total Protein Albumin Lipase Vitamin B12 Folate Urine Color Urine Appearance Urine pH Ur Specific [place] Urine Protein Urine Glucose (UA) Urine Ketones Urine Blood Urine Nitrite Urine Bilirubin Urine Urobilinogen Ur Leukocyte Esterase Urine WBC (Auto) Urine RBC (Auto) U Hyaline Cast (Auto) U Epithel Cells (Auto) Urine Bacteria (Auto) Urine Opiates Screen Ur Methadone, Qual Urine Barbiturates Ur Phencyclidine (PCP) U Amphetamin/Meth Scrn MDMA (Ecstasy) Screen U Benzodiazepines Scrn Ur Cocaine Metabolite U Marijuana (THC) Screen Ethyl Alcohol mg/dL 07/30/18 07/30/18 07/30/18 15:40 15:52 16:54 WBC RBC Hgb POC Hgb 15.6 Hct POC Hct 46 MCV MCH MCHC RDW Std Deviation RDW Coeff of Nadege Plt Count MPV Immature Gran % (Auto) Neut % (Auto) Lymph % (Auto) [place] % (Auto) Eos % (Auto) Baso % (Auto) Immature Gran # (Auto) Neut # (Auto) Lymph # (Auto) [place] # (Auto) Eos # (Auto) Baso # (Auto) PT INR APTT PTT Ratio ABG pH ABG pCO2 ABG pO2 ABG HCO3 ABG O2 Saturation ABG Base Excess Marc Test Barometric Pressure Oxygen Given POC Sodium 142 Sodium POC Potassium 3.9 Potassium POC Chloride 104 Chloride Carbon Dioxide POC Total CO2 24 Anion Gap POC Anion Gap 19.0 POC BUN 35 H BUN Creatinine POC Creatinine 2.0 H Est Cr Clr Drug Dosing Est GFR ( Amer) Est GFR (Non-Af Amer) BUN/Creatinine Ratio Glucose POC Glucose POC Glucose (other) 274 H Estimat Average Glucose Hemoglobin A1c Osmolality 338 H Lactate Calcium POC Ioniz Calcium Lisa 1.11 L Magnesium Total Bilirubin Direct Bilirubin AST ALT Alkaline Phosphatase Ammonia Troponin I Total Protein Albumin Lipase Vitamin B12 Folate Urine Color Urine Appearance Urine pH Ur Specific [place] Urine Protein Urine Glucose (UA) Urine Ketones Urine Blood Urine Nitrite Urine Bilirubin Urine Urobilinogen Ur Leukocyte Esterase Urine WBC (Auto) Urine RBC (Auto) U Hyaline Cast (Auto) U Epithel Cells (Auto) Urine Bacteria (Auto) Urine Opiates Screen Ur Methadone, Qual Urine Barbiturates Ur Phencyclidine (PCP) U Amphetamin/Meth Scrn MDMA (Ecstasy) Screen U Benzodiazepines Scrn Ur Cocaine Metabolite U Marijuana (THC) Screen Ethyl Alcohol mg/dL < 3.0 07/30/18 07/30/18 07/30/18 17:10 22:13 22:13 WBC RBC Hgb POC Hgb Hct POC Hct MCV MCH MCHC RDW Std Deviation RDW Coeff of Nadege Plt Count MPV Immature Gran % (Auto) Neut % (Auto) Lymph % (Auto) [place] % (Auto) Eos % (Auto) Baso % (Auto) Immature Gran # (Auto) Neut # (Auto) Lymph # (Auto) [place] # (Auto) Eos # (Auto) Baso # (Auto) PT INR APTT PTT Ratio ABG pH 7.49 H ABG pCO2 29 L ABG pO2 87 ABG HCO3 22 ABG O2 Saturation 97.2 H ABG Base Excess -0.2 Marc Test POS Barometric Pressure 732.9 Oxygen Given ROOM AIR POC Sodium Sodium POC Potassium Potassium POC Chloride Chloride Carbon Dioxide POC Total CO2 Anion Gap POC Anion Gap POC BUN BUN Creatinine POC Creatinine Est Cr Clr Drug Dosing Est GFR ( Amer) Est GFR (Non-Af Amer) BUN/Creatinine Ratio Glucose POC Glucose POC Glucose (other) Estimat Average Glucose Hemoglobin A1c Osmolality Lactate Calcium POC Ioniz Calcium Lisa Magnesium Total Bilirubin Direct Bilirubin AST ALT Alkaline Phosphatase Ammonia Troponin I < 0.015 Total Protein Albumin Lipase Vitamin B12 Folate Urine Color Yellow Urine Appearance Clear Urine pH 8.0 H Ur Specific [place] 1.018 Urine Protein 1+ H Urine Glucose (UA) 2+ H Urine Ketones Trace H Urine Blood 1+ H Urine Nitrite Negative Urine Bilirubin Negative Urine Urobilinogen Negative Ur Leukocyte Esterase Negative Urine WBC (Auto) 1-5 Urine RBC (Auto) 0-4 U Hyaline Cast (Auto) 1-5 U Epithel Cells (Auto) 5-10 H Urine Bacteria (Auto) Negative Urine Opiates Screen Ur Methadone, Qual Urine Barbiturates Ur Phencyclidine (PCP) U Amphetamin/Meth Scrn MDMA (Ecstasy) Screen U Benzodiazepines Scrn Ur Cocaine Metabolite U Marijuana (THC) Screen Ethyl Alcohol mg/dL 07/30/18 07/30/18 07/30/18 22:31 23:21 23:21 WBC RBC Hgb POC Hgb Hct POC Hct MCV MCH MCHC RDW Std Deviation RDW Coeff of Nadege Plt Count MPV Immature Gran % (Auto) Neut % (Auto) Lymph % (Auto) [place] % (Auto) Eos % (Auto) Baso % (Auto) Immature Gran # (Auto) Neut # (Auto) Lymph # (Auto) [place] # (Auto) Eos # (Auto) Baso # (Auto) PT INR APTT PTT Ratio ABG pH ABG pCO2 ABG pO2 ABG HCO3 ABG O2 Saturation ABG Base Excess Marc Test Barometric Pressure Oxygen Given POC Sodium Sodium 145 POC Potassium Potassium 4.0 POC Chloride Chloride 115 H Carbon Dioxide 23 POC Total CO2 Anion Gap 7.0 POC Anion Gap POC BUN BUN 32 H Creatinine 2.25 H D POC Creatinine Est Cr Clr Drug Dosing 30.4 Est GFR ( Amer) 33.7 Est GFR (Non-Af Amer) 29.1 BUN/Creatinine Ratio 14.4 Glucose 171 H POC Glucose 171 H POC Glucose (other) Estimat Average Glucose Hemoglobin A1c Osmolality 323 H Lactate Calcium 8.6 POC Ioniz Calcium Lisa Magnesium Total Bilirubin Direct Bilirubin AST ALT Alkaline Phosphatase Ammonia Troponin I Total Protein Albumin Lipase Vitamin B12 Folate Urine Color Urine Appearance Urine pH Ur Specific [place] Urine Protein Urine Glucose (UA) Urine Ketones Urine Blood Urine Nitrite Urine Bilirubin Urine Urobilinogen Ur Leukocyte Esterase Urine WBC (Auto) Urine RBC (Auto) U Hyaline Cast (Auto) U Epithel Cells (Auto) Urine Bacteria (Auto) Urine Opiates Screen Ur Methadone, Qual Urine Barbiturates Ur Phencyclidine (PCP) U Amphetamin/Meth Scrn MDMA (Ecstasy) Screen U Benzodiazepines Scrn Ur Cocaine Metabolite U Marijuana (THC) Screen Ethyl Alcohol mg/dL 07/31/18 07/31/18 07/31/18 00:00 00:05 04:16 WBC RBC Hgb POC Hgb Hct POC Hct MCV MCH MCHC RDW Std Deviation RDW Coeff of Nadege Plt Count MPV Immature Gran % (Auto) Neut % (Auto) Lymph % (Auto) [place] % (Auto) Eos % (Auto) Baso % (Auto) Immature Gran # (Auto) Neut # (Auto) Lymph # (Auto) [place] # (Auto) Eos # (Auto) Baso # (Auto) PT INR APTT PTT Ratio ABG pH ABG pCO2 ABG pO2 ABG HCO3 ABG O2 Saturation ABG Base Excess Marc Test Barometric Pressure Oxygen Given POC Sodium Sodium POC Potassium Potassium POC Chloride Chloride Carbon Dioxide POC Total CO2 Anion Gap POC Anion Gap POC BUN BUN Creatinine POC Creatinine Est Cr Clr Drug Dosing Est GFR ( Amer) Est GFR (Non-Af Amer) BUN/Creatinine Ratio Glucose POC Glucose 155 H 129 H POC Glucose (other) Estimat Average Glucose Hemoglobin A1c Osmolality Lactate Calcium POC Ioniz Calcium Lisa Magnesium Total Bilirubin Direct Bilirubin AST ALT Alkaline Phosphatase Ammonia Troponin I Total Protein Albumin Lipase Vitamin B12 Folate Urine Color Urine Appearance Urine pH Ur Specific [place] Urine Protein Urine Glucose (UA) Urine Ketones Urine Blood Urine Nitrite Urine Bilirubin Urine Urobilinogen Ur Leukocyte Esterase Urine WBC (Auto) Urine RBC (Auto) U Hyaline Cast (Auto) U Epithel Cells (Auto) Urine Bacteria (Auto) Urine Opiates Screen Neg Ur Methadone, Qual Neg Urine Barbiturates Neg Ur Phencyclidine (PCP) Neg U Amphetamin/Meth Scrn Neg MDMA (Ecstasy) Screen Neg U Benzodiazepines Scrn Neg Ur Cocaine Metabolite Neg U Marijuana (THC) Screen Neg Ethyl Alcohol mg/dL 07/31/18 07/31/18 07/31/18 06:11 06:11 06:11 WBC 11.53 H RBC 4.42 L Hgb 14.1 POC Hgb Hct 41.7 L POC Hct MCV 94.3 MCH 31.9 MCHC 33.8 RDW Std Deviation 48.7 H RDW Coeff of Nadege 14.2 Plt Count 133 MPV 9.8 Immature Gran % (Auto) 0.2 Neut % (Auto) 79.9 Lymph % (Auto) 10.2 [place] % (Auto) 9.4 Eos % (Auto) 0.1 Baso % (Auto) 0.2 Immature Gran # (Auto) 0.02 Neut # (Auto) 9.22 H Lymph # (Auto) 1.18 L [place] # (Auto) 1.08 H Eos # (Auto) 0.01 Baso # (Auto) 0.02 PT INR APTT PTT Ratio ABG pH ABG pCO2 ABG pO2 ABG HCO3 ABG O2 Saturation ABG Base Excess Marc Test Barometric Pressure Oxygen Given POC Sodium Sodium 144 POC Potassium Potassium 3.8 POC Chloride Chloride 113 H Carbon Dioxide 22 POC Total CO2 Anion Gap 9.0 POC Anion Gap POC BUN BUN 26 H Creatinine 2.02 H POC Creatinine Est Cr Clr Drug Dosing 32.6 Est GFR ( Amer) 38.4 Est GFR (Non-Af Amer) 33.1 BUN/Creatinine Ratio 12.7 Glucose 144 H POC Glucose POC Glucose (other) Estimat Average Glucose Hemoglobin A1c Osmolality Lactate Calcium 9.0 POC Ioniz Calcium Lisa Magnesium Total Bilirubin 0.7 Direct Bilirubin 0.1 AST 17 ALT 15 Alkaline Phosphatase 64 Ammonia Troponin I Total Protein 6.7 Albumin 3.5 Lipase Vitamin B12 648 Folate 19.73 Urine Color Urine Appearance Urine pH Ur Specific [place] Urine Protein Urine Glucose (UA) Urine Ketones Urine Blood Urine Nitrite Urine Bilirubin Urine Urobilinogen Ur Leukocyte Esterase Urine WBC (Auto) Urine RBC (Auto) U Hyaline Cast (Auto) U Epithel Cells (Auto) Urine Bacteria (Auto) Urine Opiates Screen Ur Methadone, Qual Urine Barbiturates Ur Phencyclidine (PCP) U Amphetamin/Meth Scrn MDMA (Ecstasy) Screen U Benzodiazepines Scrn Ur Cocaine Metabolite U Marijuana (THC) Screen Ethyl Alcohol mg/dL 07/31/18 07/31/18 07/31/18 06:11 06:11 07:33 WBC RBC Hgb POC Hgb Hct POC Hct MCV MCH MCHC RDW Std Deviation RDW Coeff of Nadege Plt Count MPV Immature Gran % (Auto) Neut % (Auto) Lymph % (Auto) [place] % (Auto) Eos % (Auto) Baso % (Auto) Immature Gran # (Auto) Neut # (Auto) Lymph # (Auto) [place] # (Auto) Eos # (Auto) Baso # (Auto) PT INR APTT PTT Ratio ABG pH ABG pCO2 ABG pO2 ABG HCO3 ABG O2 Saturation ABG Base Excess Marc Test Barometric Pressure Oxygen Given POC Sodium Sodium POC Potassium Potassium POC Chloride Chloride Carbon Dioxide POC Total CO2 Anion Gap POC Anion Gap POC BUN BUN Creatinine POC Creatinine Est Cr Clr Drug Dosing Est GFR ( Amer) Est GFR (Non-Af Amer) BUN/Creatinine Ratio Glucose POC Glucose 137 H POC Glucose (other) Estimat Average Glucose 146 Hemoglobin A1c 6.7 H Osmolality 320 H Lactate Calcium POC Ioniz Calcium Lisa Magnesium Total Bilirubin Direct Bilirubin AST ALT Alkaline Phosphatase Ammonia Troponin I Total Protein Albumin Lipase Vitamin B12 Folate Urine Color Urine Appearance Urine pH Ur Specific [place] Urine Protein Urine Glucose (UA) Urine Ketones Urine Blood Urine Nitrite Urine Bilirubin Urine Urobilinogen Ur Leukocyte Esterase Urine WBC (Auto) Urine RBC (Auto) U Hyaline Cast (Auto) U Epithel Cells (Auto) Urine Bacteria (Auto) Urine Opiates Screen Ur Methadone, Qual Urine Barbiturates Ur Phencyclidine (PCP) U Amphetamin/Meth Scrn MDMA (Ecstasy) Screen U Benzodiazepines Scrn Ur Cocaine Metabolite U Marijuana (THC) Screen Ethyl Alcohol mg/dL
[2018-07-31] MEDS: THIAMINE HCL 200 MG in SODIUM CHLORIDE 0.9% 50 ML IV SCH ×2 (10:15→20:47)
[2018-07-31] MEDS: NORMOSOL-R 1,000 ML IV SCH ×2 (10:18→17:46)
--- NOTE | 2018-07-31 10:26 | Hospitalist Progress Note ---
Date of Service July 31, 2018 Assessment & Plan (1) Toxic metabolic encephalopathy: With encephalopathy secondary to isopropyl alcohol ingestion-patient is not forthcoming with the exact amount that he ingested, but estimates it was "a few swigs.". He reports he drank it as he did not have any alcohol in the house and did not intend self-harm. On admission, his osmolal gap was elevated at 31. His creatinine was elevated at 3, BUN mildly elevated at 39, pH is not acidotic, his ethanol level is 0, and he does not have metabolic acidosis or anion gap. His laboratory findings do not suggest a massive ingestion as his osmolal gap is not greater than 100. Urine with ketones present ECG without QT or QRS prolongation Head CT negative He did not have any hypotension consistent with the vasodilatation that can be seen with isopropyl alcohol poisoning Mental status is much improved today Remains hyperosmolar but improved down to 320, subsequent chemistries without metabolic acidosis or anion gap Improved overall -Continue telemetry monitoring -Continue IV fluids but switched to Normosol as per nephrology -Follow serum chemistry, osmolality in the morning -Okay to advance diet today (2) Isopropyl alcohol poisoning: As above -For nausea and vomiting, give IV Zofran as needed (3) JAMES (acute kidney injury): Creatinine elevated to 3.0 on admission, could be falsely elevated level due to isopropyl alcohol intoxication Is now improved in 1.87 with improvement of isopropyl alcohol poisoning and copious IV fluids -Is making plenty of urine and other electrolytes are acceptable Blood pressures remain elevated at times -Follow BMP -Consult nephrology appreciated -Continue IV fluids (4) Alcohol dependence: Has a history of drinking 30-40 ounces of vodka daily, denies recent drinking in the last 2 weeks, however his power of thermodynamics teacher told me that he thinks he was drinking as recently as within the last week. -AWSS protocol in place -IV Ativan as needed -Continue thiamine 200 mg IV twice daily, folic acid 1 mg IV daily -Check B1-pending -B12 648, folate 19-normal -Continue to monitor on telemetry -Patient has had numerous hospitalizations for alcohol withdrawal treatment and continues to relapse with his alcoholism He is currently trying to quit but is not interested in inpatient rehab (5) Anxiety and depression: Normally on Lexapro but admits to significant noncompliance. Having significant anxiety here which may be related to alcohol withdrawal -Restart Lexapro --Restart doxepin, buspirone (6) HTN (hypertension), benign: Blood pressure significantly elevated upon admission likely due to anxiety and possibly ethanol withdrawal, somewhat improved today -Restart home metoprolol, lisinopril -Ativan as needed per alcohol withdrawal protocol (7) Diabetes mellitus: Type II, on no medications at home for this, diet controlled. Does not follow routinely with his PCP for this With hyperglycemia here in the 250 range upon admission which is now improved Hemoglobin A1c is well controlled at 6.7% -Sliding scale insulin, Accu-Cheks every 4 hours (8) Medical non-compliance: History of not following up with physicians and not taking his medications -Would benefit from regular visits with his PCP (9) Restless leg syndrome: Hold ropinirole from home (10) Hyperlipidemia: Continue statin from home (11) GERD (gastroesophageal reflux disease): With chest burning persistent after nausea and vomiting on admission, could be esophagitis or gastritis Also is noted to have history of Dove's esophagus in his outpatient record although I cannot find a report of an EGD -Discontinue Pepcid 20 mg IV twice daily and convert to home ranitidine 150 mg p.o. every 12 -GI cocktail x1 now (12) Leukocytosis: Was 10.9 on admission and now up to 11.5-likely due to stress response No evidence of infection anywhere, remains afebrile -Follow CBC in the morning (13) Esotropia: Of the right eye that is intermittent, noted on examination especially with convergence, he denies diplopia -Discussed with his outpatient second steward-she notes no history of this noted on examination before -Doubt related to his intoxication and is likely a chronic issue -Can follow with optometry after discharge (14) DVT prophylaxis: Heparin SQ Disposition-continue telemetry monitoring in hospital stay PT-recommends SNF if family cannot provide 24/7 care OT-recommends return to home Subjective Patient reports feeling much better today. He is mentally clear and reports he does remember the events of yesterday. He reports he took a few swigs of the rubbing alcohol, but definitely did not drink the whole bottle. He denies that he was trying to harm himself. He reports that he was very frustrated with his being sick and his dogs were barking-there was no liquor in the house so he just grabbed that bottle and started drinking. Patient still having some burning in his chest that is constant especially with swallowing. Denies shortness of breath. Denies headache or lightheadedness. He still has some intermittent nausea but no sign denies abdominal pain. Telemetry with normal sinus rhythm with rates in the 80s to 90s I discussed the case with the radio host and his outpatient second steward on the phone Review of Systems Review of Systems: All systems reviewed & are unremarkable except as noted in HPI & below Physical Exam Constitutional: + thin (Appears less anxious today), + disheveled and cooperative; no acute distress and no altered mental status Eyes: PERRL, conjunctivae normal, anicteric sclerae EOM intact bilaterally (No nystagmus, mild esotropia of the right eye); no anisocoria and no nystagmus ENMT: external ear and nose normal, oropharynx normal Neck: trachea midline, no thyromegaly Respiratory: normal respiratory effort, lungs clear to auscultation Cardiovascular: RRR, no murmur, no edema Gastrointestinal (Abdomen): normal bowel sounds, soft, nontender, no hepatosplenomegaly Musculoskeletal: Extremities: extremities normal to inspection; no cyanosis and no clubbing Skin: no rashes, warm and dry Neurologic: moves all extremities and awake; no focal motor deficits Motor/Sensory: no tremor Psychiatric: Orientation: alert, oriented x 3 and cooperative Eye Contact: good eye contact Motor Behavior: n tremor Speech: normal rate/rhythm/volume of speech Affect: + anxious affect Results & Data Vital Signs (Past 12 Hours) Vital Signs Temp Pulse Pulse Resp BP Pulse Ox 07/31/18 08:00 85 07/31/18 07:57 36.8 C 83 18 163/80 H 94 07/31/18 03:17 36.6 C 83 17 159/82 H 95 07/30/18 23:59 85 07/30/18 23:58 37.0 C 86 17 171/90 H 95 Laboratory Results 07/31/18 07/31/18 07/31/18 Range/Units 20:17 16:16 15:02 WBC (4.8-10.8) K/uL RBC (4.7-6.1) M/uL Hgb (14.0-18.0) g/dL POC Hgb (14.0-18.0) g/dl Hct (42-52) % POC Hct (42-52) % MCV (80-100) fL MCH (25-34) pg MCHC (32-36) g/dL RDW Std Deviation (36.4-46.3) fL RDW Coeff of Nadege (11.5-14.5) % Plt Count (130-400) K/uL MPV (7.4-10.4) fL Immature Gran % (Auto) % Neut % (Auto) % Lymph % (Auto) % Bland % (Auto) % Eos % (Auto) % Baso % (Auto) % Immature Gran # (Auto) (0.00-0.02) K/uL Neut # (Auto) (1.4-6.5) K/uL Lymph # (Auto) (1.2-3.4) K/uL Bland # (Auto) (0.11-0.59) K/uL Eos # (Auto) (0-0.5) K/uL Baso # (Auto) (0-0.2) K/uL ABG pH (7.35-7.45) ABG pCO2 (35-46) mmHg ABG pO2 (80-95) mm/Hg ABG HCO3 (19-24) mmol/L ABG O2 Saturation (90-95) % ABG Base Excess (-9-1.8) mEq/L Marc Test (Pos) Barometric Pressure mm/Hg Oxygen Given POC Sodium (135-144) mEq/L Sodium 140 (136-145) mmol/L POC Potassium (3.3-5.0) mEq/L Potassium 4.0 (3.5-5.1) mmol/L POC Chloride (101-112) mEq/L Chloride 109 H (98-107) mmol/L Carbon Dioxide 25 (21-32) mmol/L POC Total CO2 (24-31) mEq/l Anion Gap 6.0 (3-11) POC Anion Gap (16-25) mmol/L POC BUN (7-18) mg/dl BUN 23 H (7-18) mg/dl Creatinine 1.87 H (0.6-1.4) mg/dl POC Creatinine (0.6-1.3) mg/dl Est Cr Clr Drug Dosing 35.2 ml/min Est GFR ( Amer) 42.2 Est GFR (Non-Af Amer) 36.4 BUN/Creatinine Ratio 12.1 (10-20) Glucose 184 H (70-99) mg/dl POC Glucose 175 H 159 H (70-99) POC Glucose (other) (70-99) mg/dl Estimat Average Glucose mg/dl Hemoglobin A1c (4.5-5.6) % Osmolality (280-300) mOsm/kg Calcium 8.7 (8.5-10.1) mg/dl POC Ioniz Calcium Lisa (1.12-1.32) mmol/l Phosphorus 2.6 (2.5-4.9) mg/dl Magnesium 2.1 (1.8-2.4) mg/dl Total Bilirubin (0.2-1) mg/dl Direct Bilirubin (0-0.2) mg/dl AST (15-37) U/L ALT (12-78) U/L Alkaline Phosphatase (45-117) U/L Troponin I (0-0.045) ng/ml Total Protein (6.4-8.2) gm/dl Albumin 3.3 L (3.4-5.0) gm/dl Vitamin B1 Vitamin B12 (211-911) pg/ml Folate (>5.38) ng/ml Urine Opiates Screen (Neg) Ur Methadone, Qual (Neg) Urine Barbiturates (Neg) Ur Phencyclidine (PCP) (Neg) U Amphetamin/Meth Scrn (Neg) MDMA (Ecstasy) Screen (Neg) U Benzodiazepines Scrn (Neg) Ur Cocaine Metabolite (Neg) U Marijuana (THC) Screen (Neg) 07/31/18 07/31/18 07/31/18 Range/Units 11:26 07:33 06:11 WBC (4.8-10.8) K/uL RBC (4.7-6.1) M/uL Hgb (14.0-18.0) g/dL POC Hgb (14.0-18.0) g/dl Hct (42-52) % POC Hct (42-52) % MCV (80-100) fL MCH (25-34) pg MCHC (32-36) g/dL RDW Std Deviation (36.4-46.3) fL RDW Coeff of Nadege (11.5-14.5) % Plt Count (130-400) K/uL MPV (7.4-10.4) fL Immature Gran % (Auto) % Neut % (Auto) % Lymph % (Auto) % Bland % (Auto) % Eos % (Auto) % Baso % (Auto) % Immature Gran # (Auto) (0.00-0.02) K/uL Neut # (Auto) (1.4-6.5) K/uL Lymph # (Auto) (1.2-3.4) K/uL Bland # (Auto) (0.11-0.59) K/uL Eos # (Auto) (0-0.5) K/uL Baso # (Auto) (0-0.2) K/uL ABG pH (7.35-7.45) ABG pCO2 (35-46) mmHg ABG pO2 (80-95) mm/Hg ABG HCO3 (19-24) mmol/L ABG O2 Saturation (90-95) % ABG Base Excess (-9-1.8) mEq/L Marc Test (Pos) Barometric Pressure mm/Hg Oxygen Given POC Sodium (135-144) mEq/L Sodium (136-145) mmol/L POC Potassium (3.3-5.0) mEq/L Potassium (3.5-5.1) mmol/L POC Chloride (101-112) mEq/L Chloride (98-107) mmol/L Carbon Dioxide (21-32) mmol/L POC Total CO2 (24-31) mEq/l Anion Gap (3-11) POC Anion Gap (16-25) mmol/L POC BUN (7-18) mg/dl BUN (7-18) mg/dl Creatinine (0.6-1.4) mg/dl POC Creatinine (0.6-1.3) mg/dl Est Cr Clr Drug Dosing ml/min Est GFR ( Amer) Est GFR (Non-Af Amer) BUN/Creatinine Ratio (10-20) Glucose (70-99) mg/dl POC Glucose 146 H 137 H (70-99) POC Glucose (other) (70-99) mg/dl Estimat Average Glucose 146 mg/dl Hemoglobin A1c 6.7 H (4.5-5.6) % Osmolality (280-300) mOsm/kg Calcium (8.5-10.1) mg/dl POC Ioniz Calcium Lisa (1.12-1.32) mmol/l Phosphorus (2.5-4.9) mg/dl Magnesium (1.8-2.4) mg/dl Total Bilirubin (0.2-1) mg/dl Direct Bilirubin (0-0.2) mg/dl AST (15-37) U/L ALT (12-78) U/L Alkaline Phosphatase (45-117) U/L Troponin I (0-0.045) ng/ml Total Protein (6.4-8.2) gm/dl Albumin (3.4-5.0) gm/dl Vitamin B1 Vitamin B12 (211-911) pg/ml Folate (>5.38) ng/ml Urine Opiates Screen (Neg) Ur Methadone, Qual (Neg) Urine Barbiturates (Neg) Ur Phencyclidine (PCP) (Neg) U Amphetamin/Meth Scrn (Neg) MDMA (Ecstasy) Screen (Neg) U Benzodiazepines Scrn (Neg) Ur Cocaine Metabolite (Neg) U Marijuana (THC) Screen (Neg) 07/31/18 07/31/18 07/31/18 Range/Units 06:11 06:11 06:11 WBC (4.8-10.8) K/uL RBC (4.7-6.1) M/uL Hgb (14.0-18.0) g/dL POC Hgb (14.0-18.0) g/dl Hct (42-52) % POC Hct (42-52) % MCV (80-100) fL MCH (25-34) pg MCHC (32-36) g/dL RDW Std Deviation (36.4-46.3) fL RDW Coeff of Nadege (11.5-14.5) % Plt Count (130-400) K/uL MPV (7.4-10.4) fL Immature Gran % (Auto) % Neut % (Auto) % Lymph % (Auto) % Bland % (Auto) % Eos % (Auto) % Baso % (Auto) % Immature Gran # (Auto) (0.00-0.02) K/uL Neut # (Auto) (1.4-6.5) K/uL Lymph # (Auto) (1.2-3.4) K/uL Bland # (Auto) (0.11-0.59) K/uL Eos # (Auto) (0-0.5) K/uL Baso # (Auto) (0-0.2) K/uL ABG pH (7.35-7.45) ABG pCO2 (35-46) mmHg ABG pO2 (80-95) mm/Hg ABG HCO3 (19-24) mmol/L ABG O2 Saturation (90-95) % ABG Base Excess (-9-1.8) mEq/L Marc Test (Pos) Barometric Pressure mm/Hg Oxygen Given POC Sodium (135-144) mEq/L Sodium (136-145) mmol/L POC Potassium (3.3-5.0) mEq/L Potassium (3.5-5.1) mmol/L POC Chloride (101-112) mEq/L Chloride (98-107) mmol/L Carbon Dioxide (21-32) mmol/L POC Total CO2 (24-31) mEq/l Anion Gap (3-11) POC Anion Gap (16-25) mmol/L POC BUN (7-18) mg/dl BUN (7-18) mg/dl Creatinine (0.6-1.4) mg/dl POC Creatinine (0.6-1.3) mg/dl Est Cr Clr Drug Dosing ml/min Est GFR ( Amer) Est GFR (Non-Af Amer) BUN/Creatinine Ratio (10-20) Glucose (70-99) mg/dl POC Glucose (70-99) POC Glucose (other) (70-99) mg/dl Estimat Average Glucose mg/dl Hemoglobin A1c (4.5-5.6) % Osmolality 320 H (280-300) mOsm/kg Calcium (8.5-10.1) mg/dl POC Ioniz Calcium Lisa (1.12-1.32) mmol/l Phosphorus (2.5-4.9) mg/dl Magnesium (1.8-2.4) mg/dl Total Bilirubin (0.2-1) mg/dl Direct Bilirubin (0-0.2) mg/dl AST (15-37) U/L ALT (12-78) U/L Alkaline Phosphatase (45-117) U/L Troponin I (0-0.045) ng/ml Total Protein (6.4-8.2) gm/dl Albumin (3.4-5.0) gm/dl Vitamin B1 Pending Vitamin B12 648 (211-911) pg/ml Folate 19.73 (>5.38) ng/ml Urine Opiates Screen (Neg) Ur Methadone, Qual (Neg) Urine Barbiturates (Neg) Ur Phencyclidine (PCP) (Neg) U Amphetamin/Meth Scrn (Neg) MDMA (Ecstasy) Screen (Neg) U Benzodiazepines Scrn (Neg) Ur Cocaine Metabolite (Neg) U Marijuana (THC) Screen (Neg) 07/31/18 07/31/18 07/31/18 Range/Units 06:11 06:11 04:16 WBC 11.53 H (4.8-10.8) K/uL RBC 4.42 L (4.7-6.1) M/uL Hgb 14.1 (14.0-18.0) g/dL POC Hgb (14.0-18.0) g/dl Hct 41.7 L (42-52) % POC Hct (42-52) % MCV 94.3 (80-100) fL MCH 31.9 (25-34) pg MCHC 33.8 (32-36) g/dL RDW Std Deviation 48.7 H (36.4-46.3) fL RDW Coeff of Nadege 14.2 (11.5-14.5) % Plt Count 133 (130-400) K/uL MPV 9.8 (7.4-10.4) fL Immature Gran % (Auto) 0.2 % Neut % (Auto) 79.9 % Lymph % (Auto) 10.2 % Bland % (Auto) 9.4 % Eos % (Auto) 0.1 % Baso % (Auto) 0.2 % Immature Gran # (Auto) 0.02 (0.00-0.02) K/uL Neut # (Auto) 9.22 H (1.4-6.5) K/uL Lymph # (Auto) 1.18 L (1.2-3.4) K/uL Bland # (Auto) 1.08 H (0.11-0.59) K/uL Eos # (Auto) 0.01 (0-0.5) K/uL Baso # (Auto) 0.02 (0-0.2) K/uL ABG pH (7.35-7.45) ABG pCO2 (35-46) mmHg ABG pO2 (80-95) mm/Hg ABG HCO3 (19-24) mmol/L ABG O2 Saturation (90-95) % ABG Base Excess (-9-1.8) mEq/L Marc Test (Pos) Barometric Pressure mm/Hg Oxygen Given POC Sodium (135-144) mEq/L Sodium 144 (136-145) mmol/L POC Potassium (3.3-5.0) mEq/L Potassium 3.8 (3.5-5.1) mmol/L POC Chloride (101-112) mEq/L Chloride 113 H (98-107) mmol/L Carbon Dioxide 22 (21-32) mmol/L POC Total CO2 (24-31) mEq/l Anion Gap 9.0 (3-11) POC Anion Gap (16-25) mmol/L POC BUN (7-18) mg/dl BUN 26 H (7-18) mg/dl Creatinine 2.02 H (0.6-1.4) mg/dl POC Creatinine (0.6-1.3) mg/dl Est Cr Clr Drug Dosing 32.6 ml/min Est GFR ( Amer) 38.4 Est GFR (Non-Af Amer) 33.1 BUN/Creatinine Ratio 12.7 (10-20) Glucose 144 H (70-99) mg/dl POC Glucose 129 H (70-99) POC Glucose (other) (70-99) mg/dl Estimat Average Glucose mg/dl Hemoglobin A1c (4.5-5.6) % Osmolality (280-300) mOsm/kg Calcium 9.0 (8.5-10.1) mg/dl POC Ioniz Calcium Lisa (1.12-1.32) mmol/l Phosphorus (2.5-4.9) mg/dl Magnesium (1.8-2.4) mg/dl Total Bilirubin 0.7 (0.2-1) mg/dl Direct Bilirubin 0.1 (0-0.2) mg/dl AST 17 (15-37) U/L ALT 15 (12-78) U/L Alkaline Phosphatase 64 (45-117) U/L Troponin I (0-0.045) ng/ml Total Protein 6.7 (6.4-8.2) gm/dl Albumin 3.5 (3.4-5.0) gm/dl Vitamin B1 Vitamin B12 (211-911) pg/ml Folate (>5.38) ng/ml Urine Opiates Screen (Neg) Ur Methadone, Qual (Neg) Urine Barbiturates (Neg) Ur Phencyclidine (PCP) (Neg) U Amphetamin/Meth Scrn (Neg) MDMA (Ecstasy) Screen (Neg) U Benzodiazepines Scrn (Neg) Ur Cocaine Metabolite (Neg) U Marijuana (THC) Screen (Neg) 07/31/18 07/31/18 07/30/18 Range/Units 00:05 00:00 23:21 WBC (4.8-10.8) K/uL RBC (4.7-6.1) M/uL Hgb (14.0-18.0) g/dL POC Hgb (14.0-18.0) g/dl Hct (42-52) % POC Hct (42-52) % MCV (80-100) fL MCH (25-34) pg MCHC (32-36) g/dL RDW Std Deviation (36.4-46.3) fL RDW Coeff of Nadege (11.5-14.5) % Plt Count (130-400) K/uL MPV (7.4-10.4) fL Immature Gran % (Auto) % Neut % (Auto) % Lymph % (Auto) % Bland % (Auto) % Eos % (Auto) % Baso % (Auto) % Immature Gran # (Auto) (0.00-0.02) K/uL Neut # (Auto) (1.4-6.5) K/uL Lymph # (Auto) (1.2-3.4) K/uL Bland # (Auto) (0.11-0.59) K/uL Eos # (Auto) (0-0.5) K/uL Baso # (Auto) (0-0.2) K/uL ABG pH (7.35-7.45) ABG pCO2 (35-46) mmHg ABG pO2 (80-95) mm/Hg ABG HCO3 (19-24) mmol/L ABG O2 Saturation (90-95) % ABG Base Excess (-9-1.8) mEq/L Marc Test (Pos) Barometric Pressure mm/Hg Oxygen Given POC Sodium (135-144) mEq/L Sodium (136-145) mmol/L POC Potassium (3.3-5.0) mEq/L Potassium (3.5-5.1) mmol/L POC Chloride (101-112) mEq/L Chloride (98-107) mmol/L Carbon Dioxide (21-32) mmol/L POC Total CO2 (24-31) mEq/l Anion Gap (3-11) POC Anion Gap (16-25) mmol/L POC BUN (7-18) mg/dl BUN (7-18) mg/dl Creatinine (0.6-1.4) mg/dl POC Creatinine (0.6-1.3) mg/dl Est Cr Clr Drug Dosing ml/min Est GFR ( Amer) Est GFR (Non-Af Amer) BUN/Creatinine Ratio (10-20) Glucose (70-99) mg/dl POC Glucose 155 H (70-99) POC Glucose (other) (70-99) mg/dl Estimat Average Glucose mg/dl Hemoglobin A1c (4.5-5.6) % Osmolality 323 H (280-300) mOsm/kg Calcium (8.5-10.1) mg/dl POC Ioniz Calcium Lisa (1.12-1.32) mmol/l Phosphorus (2.5-4.9) mg/dl Magnesium (1.8-2.4) mg/dl Total Bilirubin (0.2-1) mg/dl Direct Bilirubin (0-0.2) mg/dl AST (15-37) U/L ALT (12-78) U/L Alkaline Phosphatase (45-117) U/L Troponin I (0-0.045) ng/ml Total Protein (6.4-8.2) gm/dl Albumin (3.4-5.0) gm/dl Vitamin B1 Vitamin B12 (211-911) pg/ml Folate (>5.38) ng/ml Urine Opiates Screen Neg (Neg) Ur Methadone, Qual Neg (Neg) Urine Barbiturates Neg (Neg) Ur Phencyclidine (PCP) Neg (Neg) U Amphetamin/Meth Scrn Neg (Neg) MDMA (Ecstasy) Screen Neg (Neg) U Benzodiazepines Scrn Neg (Neg) Ur Cocaine Metabolite Neg (Neg) U Marijuana (THC) Screen Neg (Neg) 07/30/18 07/30/18 07/30/18 Range/Units 23:21 22:31 22:13 WBC (4.8-10.8) K/uL RBC (4.7-6.1) M/uL Hgb (14.0-18.0) g/dL POC Hgb (14.0-18.0) g/dl Hct (42-52) % POC Hct (42-52) % MCV (80-100) fL MCH (25-34) pg MCHC (32-36) g/dL RDW Std Deviation (36.4-46.3) fL RDW Coeff of Nadege (11.5-14.5) % Plt Count (130-400) K/uL MPV (7.4-10.4) fL Immature Gran % (Auto) % Neut % (Auto) % Lymph % (Auto) % Bland % (Auto) % Eos % (Auto) % Baso % (Auto) % Immature Gran # (Auto) (0.00-0.02) K/uL Neut # (Auto) (1.4-6.5) K/uL Lymph # (Auto) (1.2-3.4) K/uL Bland # (Auto) (0.11-0.59) K/uL Eos # (Auto) (0-0.5) K/uL Baso # (Auto) (0-0.2) K/uL ABG pH (7.35-7.45) ABG pCO2 (35-46) mmHg ABG pO2 (80-95) mm/Hg ABG HCO3 (19-24) mmol/L ABG O2 Saturation (90-95) % ABG Base Excess (-9-1.8) mEq/L Marc Test (Pos) Barometric Pressure mm/Hg Oxygen Given POC Sodium (135-144) mEq/L Sodium 145 (136-145) mmol/L POC Potassium (3.3-5.0) mEq/L Potassium 4.0 (3.5-5.1) mmol/L POC Chloride (101-112) mEq/L Chloride 115 H (98-107) mmol/L Carbon Dioxide 23 (21-32) mmol/L POC Total CO2 (24-31) mEq/l Anion Gap 7.0 (3-11) POC Anion Gap (16-25) mmol/L POC BUN (7-18) mg/dl BUN 32 H (7-18) mg/dl Creatinine 2.25 H D (0.6-1.4) mg/dl POC Creatinine (0.6-1.3) mg/dl Est Cr Clr Drug Dosing 30.4 ml/min Est GFR ( Amer) 33.7 Est GFR (Non-Af Amer) 29.1 BUN/Creatinine Ratio 14.4 (10-20) Glucose 171 H (70-99) mg/dl POC Glucose 171 H (70-99) POC Glucose (other) (70-99) mg/dl Estimat Average Glucose mg/dl Hemoglobin A1c (4.5-5.6) % Osmolality (280-300) mOsm/kg Calcium 8.6 (8.5-10.1) mg/dl POC Ioniz Calcium Lisa (1.12-1.32) mmol/l Phosphorus (2.5-4.9) mg/dl Magnesium (1.8-2.4) mg/dl Total Bilirubin (0.2-1) mg/dl Direct Bilirubin (0-0.2) mg/dl AST (15-37) U/L ALT (12-78) U/L Alkaline Phosphatase (45-117) U/L Troponin I < 0.015 (0-0.045) ng/ml Total Protein (6.4-8.2) gm/dl Albumin (3.4-5.0) gm/dl Vitamin B1 Vitamin B12 (211-911) pg/ml Folate (>5.38) ng/ml Urine Opiates Screen (Neg) Ur Methadone, Qual (Neg) Urine Barbiturates (Neg) Ur Phencyclidine (PCP) (Neg) U Amphetamin/Meth Scrn (Neg) MDMA (Ecstasy) Screen (Neg) U Benzodiazepines Scrn (Neg) Ur Cocaine Metabolite (Neg) U Marijuana (THC) Screen (Neg) 07/30/18 07/30/18 07/30/18 Range/Units 22:13 15:52 14:56 WBC (4.8-10.8) K/uL RBC (4.7-6.1) M/uL Hgb (14.0-18.0) g/dL POC Hgb 15.6 (14.0-18.0) g/dl Hct (42-52) % POC Hct 46 (42-52) % MCV (80-100) fL MCH (25-34) pg MCHC (32-36) g/dL RDW Std Deviation (36.4-46.3) fL RDW Coeff of Nadege (11.5-14.5) % Plt Count (130-400) K/uL MPV (7.4-10.4) fL Immature Gran % (Auto) % Neut % (Auto) % Lymph % (Auto) % Bland % (Auto) % Eos % (Auto) % Baso % (Auto) % Immature Gran # (Auto) (0.00-0.02) K/uL Neut # (Auto) (1.4-6.5) K/uL Lymph # (Auto) (1.2-3.4) K/uL Bland # (Auto) (0.11-0.59) K/uL Eos # (Auto) (0-0.5) K/uL Baso # (Auto) (0-0.2) K/uL ABG pH 7.49 H (7.35-7.45) ABG pCO2 29 L (35-46) mmHg ABG pO2 87 (80-95) mm/Hg ABG HCO3 22 (19-24) mmol/L ABG O2 Saturation 97.2 H (90-95) % ABG Base Excess -0.2 (-9-1.8) mEq/L Marc Test POS (Pos) Barometric Pressure 732.9 mm/Hg Oxygen Given ROOM AIR POC Sodium 142 (135-144) mEq/L Sodium (136-145) mmol/L POC Potassium 3.9 (3.3-5.0) mEq/L Potassium (3.5-5.1) mmol/L POC Chloride 104 (101-112) mEq/L Chloride (98-107) mmol/L Carbon Dioxide (21-32) mmol/L POC Total CO2 24 (24-31) mEq/l Anion Gap (3-11) POC Anion Gap 19.0 (16-25) mmol/L POC BUN 35 H (7-18) mg/dl BUN (7-18) mg/dl Creatinine (0.6-1.4) mg/dl POC Creatinine 2.0 H (0.6-1.3) mg/dl Est Cr Clr Drug Dosing ml/min Est GFR ( Amer) Est GFR (Non-Af Amer) BUN/Creatinine Ratio (10-20) Glucose (70-99) mg/dl POC Glucose 281 H (70-99) POC Glucose (other) 274 H (70-99) mg/dl Estimat Average Glucose mg/dl Hemoglobin A1c (4.5-5.6) % Osmolality (280-300) mOsm/kg Calcium (8.5-10.1) mg/dl POC Ioniz Calcium Lisa 1.11 L (1.12-1.32) mmol/l Phosphorus (2.5-4.9) mg/dl Magnesium (1.8-2.4) mg/dl Total Bilirubin (0.2-1) mg/dl Direct Bilirubin (0-0.2) mg/dl AST (15-37) U/L ALT (12-78) U/L Alkaline Phosphatase (45-117) U/L Troponin I (0-0.045) ng/ml Total Protein (6.4-8.2) gm/dl Albumin (3.4-5.0) gm/dl Vitamin B1 Vitamin B12 (211-911) pg/ml Folate (>5.38) ng/ml Urine Opiates Screen (Neg) Ur Methadone, Qual (Neg) Urine Barbiturates (Neg) Ur Phencyclidine (PCP) (Neg) U Amphetamin/Meth Scrn (Neg) MDMA (Ecstasy) Screen (Neg) U Benzodiazepines Scrn (Neg) Ur Cocaine Metabolite (Neg) U Marijuana (THC) Screen (Neg)
[2018-07-31] MEDS ORDERED: ALUMINUM/MAGNESIUM SUSP 18 ML, LIDOCAINE HCL VISCOUS 2% 6 ML, BARCODE IDENTIFIER 1 EA PO ONE (11:00)
[2018-07-31] MEDS: FAMOTIDINE 20 MG in SYRINGE 3 ML IV SCH (12:00)
[2018-07-31 15:27] LABS: Albumin Level 3.3 gm/dl (3.4-5.0); BUN Creatinine Ratio 12.1 (10-20); Calcium 8.7 mg/dl (8.5-10.1); Creatinine Clr Calc Pharmacy 35.2 ml/min; Est GFR (African American) 42.2; Est GFR (Non-African American) 36.4; Magnesium 2.1 mg/dl (1.8-2.4); Phosphorus 2.6 mg/dl (2.5-4.9)
[2018-07-31] MEDS: LORazepam 0.5 MG TAB PO PRN (16:22)
[2018-07-31] MEDS: LISINOPRIL 5 MG TAB PO SCH (17:46)
[2018-07-31] MEDS: TAMSULOSIN HCL 0.4 MG CAP PO SCH (20:49)
[2018-08-01] MEDS: DOXEPIN HCL 50 MG CAPSULE PO PRN ×2 (00:52→21:53)
[2018-08-01] MEDS: NORMOSOL-R 1,000 ML IV SCH ×3 (02:25→17:30)
[2018-08-01 06:47] LABS: Albumin Level 3.2 gm/dl (3.4-5.0); BUN Creatinine Ratio 12.4 (10-20); Calcium 8.7 mg/dl (8.5-10.1); Creatinine Clr Calc Pharmacy 41.4 ml/min; Est GFR (African American) 50.9; Est GFR (Non-African American) 43.9; Magnesium 2.1 mg/dl (1.8-2.4); Phosphorus 2.2 mg/dl (2.5-4.9); Potassium 3.7 mmol/L (3.5-5.1)
[2018-08-01] MEDS: METOPROLOL SUCC 25MG EXT REL TAB PO SCH (08:00)
[2018-08-01] MEDS: ATORVASTATIN 20 MG TAB PO SCH (08:00)
[2018-08-01] MEDS: BusPIRone 15 MG TAB PO PRN ×2 (08:00→21:53)
[2018-08-01] MEDS: FOLIC ACID 1 MG TAB PO SCH (08:00)
[2018-08-01] MEDS: LISINOPRIL 5 MG TAB PO SCH (08:00)
[2018-08-01] MEDS: HEPARIN SOD 5,000 UNIT/0.5 ML VIAL SQ SCH ×2 (08:01→20:46)
[2018-08-01] MEDS: INSULIN ASPART 100 UNITS/ML 3 ML PEN SC SCH ×4 (08:01→20:47)
[2018-08-01] MEDS: ESCITALOPRAM OXALATE 10 MG TAB PO SCH (08:01)
[2018-08-01] MEDS: THIAMINE HCL 200 MG in SODIUM CHLORIDE 0.9% 50 ML IV SCH ×2 (08:09→20:45)
[2018-08-01] MEDS ORDERED: POTASSIUM PHOS 3 MMOL/1 ML INFUSION IV STA (08:36)
[2018-08-01] MEDS ORDERED: POTASSIUM PHOSPHATE 15 MMOL in SODIUM CHLORIDE 0.9% 250 ML IV SCH (09:00)
--- NOTE | 2018-08-01 10:12 | Nephrology Progress Note ---
Date of Service August 01, 2018 Assessment & Plan (1) JAMES (acute kidney injury): -- Clinically consistent with prerenal azotemia -- Creatinine improved to 1.6 mg/dL today -- K phos 15 mmol provided this AM for hypophosphatemia -- Monitor metabolic profile with Mg+ and phosphorus daily -- Hold IVF as oral intake acceptable -- Maintain slightly positive fluid balance -- Document I/O's -- Medications are acceptable for kidney function -- Hold lisinopril (2) Toxic metabolic encephalopathy: -- Maintained on thiamine, folate, and MVI -- CT head negative (3) Isopropyl alcohol poisoning: -- Supportive care -- No role for dialysis (4) Alcohol dependence: -- No signs of active withdrawal (5) HTN (hypertension), benign: -- BP acceptable at this time -- Hold lisinopril Subjective No acute events overnight. Erick feels well this morning. Voiding urine without difficulty. Describes some persistent burning in his throat. Appetite fair. Review of Systems Review of Systems: All systems reviewed & are unremarkable except as noted in HPI & below Physical Exam Constitutional: + ill appearing and + thin Eyes: no scleral abnormality and no corneal abnormality ENMT: Mouth: no oral mucosal abnormality and oral mucous membranes not dry Neck: normal visual inspection and trachea midline Respiratory: normal respiratory effort Auscultation: lungs clear to auscultation bilaterally Cardiovascular: Rate/Rhythm: regular rate Heart Sounds: normal S1 and normal S2 Gastrointestinal (Abdomen): Percussion/Palpation: abdomen soft; abdomen nontender Musculoskeletal: Extremities: no cyanosis, no clubbing and no petechiae Skin: normal turgor; no rashes Neurologic: Motor/Sensory: no tremor and no asterixis Psychiatric: Orientation: alert and oriented x 3 Eye Contact: + fair eye contact Motor Behavior: n tremor Results & Data Vital Signs (Past 12 Hours) Vital Signs Temp Pulse Resp BP Pulse Ox 08/01/18 06:14 37 C 66 20 135/79 94 08/01/18 04:00 37.2 C 68 18 153/78 H 94 07/31/18 23:25 36.6 C 58 L 22 145/89 H 96 Laboratory Results Laboratory Results - last 24 hr 07/31/18 07/31/18 07/31/18 11:26 15:02 16:16 Sodium 140 Potassium 4.0 Chloride 109 H Carbon Dioxide 25 Anion Gap 6.0 BUN 23 H Creatinine 1.87 H Est Cr Clr Drug Dosing 35.2 Est GFR ( Amer) 42.2 Est GFR (Non-Af Amer) 36.4 BUN/Creatinine Ratio 12.1 Glucose 184 H POC Glucose 146 H 159 H Osmolality Calcium 8.7 Phosphorus 2.6 Magnesium 2.1 Albumin 3.3 L 07/31/18 08/01/18 08/01/18 20:17 05:21 05:21 Sodium 141 Potassium 3.7 Chloride 108 H Carbon Dioxide 26 Anion Gap 7.0 BUN 20 H Creatinine 1.60 H Est Cr Clr Drug Dosing 41.4 Est GFR ( Amer) 50.9 Est GFR (Non-Af Amer) 43.9 BUN/Creatinine Ratio 12.4 Glucose 140 H POC Glucose 175 H Osmolality 303 H Calcium 8.7 Phosphorus 2.2 L Magnesium 2.1 Albumin 3.2 L 08/01/18 07:32 Sodium Potassium Chloride Carbon Dioxide Anion Gap BUN Creatinine Est Cr Clr Drug Dosing Est GFR ( Amer) Est GFR (Non-Af Amer) BUN/Creatinine Ratio Glucose POC Glucose 120 H Osmolality Calcium Phosphorus Magnesium Albumin
[2018-08-01] MEDS ORDERED: PANTOprazole 40 MG TAB PO STA (12:17)
[2018-08-01] MEDS: SUCRALFATE 1 GM/10 ML UDC PO SCH ×3 (13:25→20:45)
[2018-08-01] MEDS: TAMSULOSIN HCL 0.4 MG CAP PO SCH (20:45)
--- NOTE | 2018-08-01 20:55 | Hospitalist Progress Note ---
Date of Service August 01, 2018 Assessment & Plan (1) Toxic metabolic encephalopathy: Due to isopropyl alcohol ingestion - encephalopathy resolved. His laboratory findings did not suggest a massive ingestion as his osmolal gap was not greater than 100. Head CT negative. Cont IV thiamine to avoid development of Wernicke's-Korsakoff's syndrome. Present on Admission?: Yes (2) Isopropyl alcohol poisoning: Patient is quite fortunate that he did not have additional morbidity from this. Did indeed develop JAMES but this is improving nicely. He likely has esophagitis in midst of the poisoning -- adding PPI and carafate in addition to H2 vahe. (3) JAMES (acute kidney injury): Cr 3.0 on admission. Now 1.6. Cont IVF - will cut fluid rate to 75cc/hr. Repeat BMP am. (4) Alcohol dependence: AWSS protocol in place. Cont IV ativan prn, thiamine 200mg BID, folic acid daily. No significant signs of withdrawal today during the visit. Vitamin B1 pending. Spoke with SW who will provide him with outpatient options for alcoholism, rehab, etc. (5) Anxiety and depression: restarted Lexapro, doxepin, and buspar prn. (6) HTN (hypertension), benign: Continue metoprolol, lisinopril - adjust as needed. (7) Diabetes mellitus: Type 2 DM. Hemoglobin A1c controlled at 6.7%. -Sliding scale insulin, Accu-Cheks every 4 hours. NO METFORMIN given his alcohol abuse. (8) Medical non-compliance: History of. (9) Restless leg syndrome: Consider Fe studies while here. (10) Hyperlipidemia: On statin agent. (11) GERD (gastroesophageal reflux disease): history of Dove's esophagus by report. now with active odynophagia -- suspect esophagitis from drinking and the rubbing alcohol ingesion. add carafate 1gm ac/hs. add PPI. cont H2 vahe. (12) Esotropia: Of the right eye that is intermittent - by report. Will re-eval tomorrow. (13) DVT prophylaxis: Heparin PT-recommends SNF if family cannot provide 24/7 care OT-recommends return to home Will need repeat evals tomorrow if possible to best determine disposition Subjective Only complaint is that of chest "burning" with eating/drinking. No dysphagia however. Denies shakes / tremors. Tele stable overnight. When asked if he wants to talk to anyone about etoh cessation options he stated yes. No other issues. Review of Systems Constitutional: no fever Respiratory: no dyspnea Cardiovascular: no chest pain Gastrointestinal: no nausea and no vomiting Physical Exam Constitutional: + acute distress and + thin; not ill appearing and no altered mental status ENMT: external ear and nose normal, oropharynx normal Respiratory: normal respiratory effort, lungs clear to auscultation Cardiovascular: RRR, no murmur, no edema Heart Sounds: normal S1 and normal S2 Vessels: posterior tibial pulses present and dorsalis pedis pulses present; no JVD Gastrointestinal (Abdomen): normal bowel sounds, soft, nontender, no hepatosplenomegaly Neurologic: no tremors Results & Data Vital Signs (Past 12 Hours) Vital Signs Temp Pulse Resp BP Pulse Ox 08/01/18 19:19 37.3 C 58 L 18 159/88 H 93 08/01/18 15:06 37.5 C 54 L 18 138/84 93 08/01/18 12:30 37.5 C 56 L 18 123/74 95 Laboratory Results Laboratory Results - last 24 hr 08/01/18 08/01/18 08/01/18 05:21 05:21 07:32 Sodium 141 Potassium 3.7 Chloride 108 H Carbon Dioxide 26 Anion Gap 7.0 BUN 20 H Creatinine 1.60 H Est Cr Clr Drug Dosing 41.4 Est GFR ( Amer) 50.9 Est GFR (Non-Af Amer) 43.9 BUN/Creatinine Ratio 12.4 Glucose 140 H POC Glucose 120 H Osmolality 303 H Calcium 8.7 Phosphorus 2.2 L Magnesium 2.1 Albumin 3.2 L 08/01/18 08/01/18 08/01/18 11:14 16:10 20:12 Sodium Potassium Chloride Carbon Dioxide Anion Gap BUN Creatinine Est Cr Clr Drug Dosing Est GFR ( Amer) Est GFR (Non-Af Amer) BUN/Creatinine Ratio Glucose POC Glucose 134 H 139 H 162 H Osmolality Calcium Phosphorus Magnesium Albumin (1) Alcohol dependence Substance use status: with intoxication Complication of substance-induced condition: with unspecified complication Qualified Code(s): F10.229 - Alcohol dependence with intoxication, unspecified (2) Diabetes mellitus Diabetes mellitus type: type 2 Diabetes mellitus fpc insulin use: without fpc use Diabetes mellitus complication status: without complication Qualified Code(s): E11.9 - Type 2 diabetes mellitus without complications (3) Hyperlipidemia Hyperlipidemia type: mixed hyperlipidemia Qualified Code(s): E78.2 - Mixed hyperlipidemia (4) GERD (gastroesophageal reflux disease) Esophagitis presence: with esophagitis Qualified Code(s): K21.0 - Gastro- esophageal reflux disease with esophagitis
[2018-08-02] MEDS: NORMOSOL-R 1,000 ML IV SCH (03:28)
[2018-08-02] MEDS: LORazepam 0.5 MG TAB PO PRN ×2 (06:03→15:46)
[2018-08-02] MEDS: SUCRALFATE 1 GM/10 ML UDC PO SCH ×4 (07:55→19:40)
[2018-08-02] MEDS: INSULIN ASPART 100 UNITS/ML 3 ML PEN SC SCH ×4 (07:56→21:37)
[2018-08-02] MEDS: THIAMINE HCL 200 MG in SODIUM CHLORIDE 0.9% 50 ML IV SCH (08:00)
[2018-08-02] MEDS: HEPARIN SOD 5,000 UNIT/0.5 ML VIAL SQ SCH ×2 (08:00→21:38)
[2018-08-02] MEDS: ESCITALOPRAM OXALATE 10 MG TAB PO SCH (08:01)
[2018-08-02] MEDS: FOLIC ACID 1 MG TAB PO SCH (08:01)
[2018-08-02] MEDS: METOPROLOL SUCC 25MG EXT REL TAB PO SCH (08:01)
[2018-08-02] MEDS: LISINOPRIL 5 MG TAB PO SCH (08:01)
[2018-08-02] MEDS: ATORVASTATIN 20 MG TAB PO SCH (08:01)
[2018-08-02 09:06] LABS: Albumin Level 3.2 gm/dl (3.4-5.0); BUN Creatinine Ratio 13.7 (10-20); Est GFR (African American) 56.4; Est GFR (Non-African American) 48.7; Magnesium 2.2 mg/dl (1.8-2.4); Phosphorus 2.7 mg/dl (2.5-4.9); Potassium 3.6 mmol/L (3.5-5.1)
[2018-08-02] MEDS: BusPIRone 15 MG TAB PO PRN ×2 (12:20→21:53)
[2018-08-02] MEDS: TAMSULOSIN HCL 0.4 MG CAP PO SCH (19:41)
[2018-08-02] MEDS: THIAMINE HCL 100 MG TAB PO SCH (19:42)
--- NOTE | 2018-08-02 20:47 | Hospitalist Progress Note ---
Date of Service August 02, 2018 Assessment & Plan (1) Toxic metabolic encephalopathy: Due to isopropyl alcohol ingestion - encephalopathy resolved. His laboratory findings did not suggest a massive ingestion as his osmolal gap was not greater than 100. Head CT negative. Change IV thiamine to PO thiamine today. (2) Isopropyl alcohol poisoning: resolved. labs have normalized. (3) JAMES (acute kidney injury): Resolving. Cr 3.0 on admission. Now 1.4. STOP IVF today. Repeat BMP am. (4) Alcohol dependence: AWSS protocol in place. Cont IV ativan prn, thiamine 200mg BID, folic acid daily. Again No significant signs of withdrawal today during the visit. Vitamin B1 pending. SW provided him with outpatient options for alcoholism, rehab, etc. (5) Anxiety and depression: Lexapro, doxepin, and buspar prn. (6) HTN (hypertension), benign: Continue metoprolol, lisinopril (7) Diabetes mellitus: Type 2 DM. Hemoglobin A1c controlled at 6.7%. -Sliding scale insulin, Accu-Cheks every 4 hours. NO METFORMIN given his alcohol abuse. (8) Medical non-compliance: History of. (9) Restless leg syndrome: Check Fe studies in am (10) Hyperlipidemia: On statin agent. (11) GERD (gastroesophageal reflux disease): history of Dove's esophagus by report. now with active odynophagia -- suspect esophagitis from drinking and the rubbing alcohol ingesion. symptoms improved with addition of carafate 1gm ac/hs and PPI. continue both. also on H2 vahe - this can likely be stopped. (12) Esotropia: did not appreciate that on exam today follow (13) DVT prophylaxis: Heparin needs repeat PT, OT evals to see if he can return home he will be medically ready for d/c tomorrow Subjective tele stable overnight odynophagia and esophageal burning resolved eating well no shakes or signs of DTs/withdrawal no issues per staff Review of Systems Respiratory: no cough and no dyspnea Cardiovascular: no chest pain Gastrointestinal: no abdominal pain, no nausea and no vomiting Physical Exam Constitutional: + thin; not ill appearing and no altered mental status Eyes: PERRL, conjunctivae normal, anicteric sclerae extraocular movements full ENMT: external ear and nose normal, oropharynx normal Respiratory: normal respiratory effort, lungs clear to auscultation Cardiovascular: RRR, no murmur, no edema Heart Sounds: normal S1 and normal S2 Vessels: posterior tibial pulses present and dorsalis pedis pulses present; no JVD Gastrointestinal (Abdomen): normal bowel sounds, soft, nontender, no hep atosplenomegaly Neurologic: no tremors Psychiatric: A+Ox3, euthymic affect Results & Data Vital Signs (Past 12 Hours) Vital Signs Temp Pulse Pulse Resp BP Pulse Ox 08/02/18 19:16 36.7 C 60 19 137/76 95 08/02/18 14:59 36.7 C 60 19 119/75 96 08/02/18 14:22 65 08/02/18 12:00 36.8 C 68 18 155/89 H 93 Laboratory Results Laboratory Results - last 24 hr 08/02/18 08/02/18 08/02/18 07:21 08:11 11:23 Sodium 141 Potassium 3.6 Chloride 108 H Carbon Dioxide 26 Anion Gap 8.0 BUN 20 H Creatinine 1.47 H Est Cr Clr Drug Dosing 46.0 Est GFR ( Amer) 56.4 Est GFR (Non-Af Amer) 48.7 BUN/Creatinine Ratio 13.7 Glucose 132 H POC Glucose 123 H 166 H Calcium 9.0 Phosphorus 2.7 Magnesium 2.2 Albumin 3.2 L 08/02/18 08/02/18 16:11 20:15 Sodium Potassium Chloride Carbon Dioxide Anion Gap BUN Creatinine Est Cr Clr Drug Dosing Est GFR ( Amer) Est GFR (Non-Af Amer) BUN/Creatinine Ratio Glucose POC Glucose 161 H 176 H Calcium Phosphorus Magnesium Albumin (1) Alcohol dependence Complication of substance-induced condition: with unspecified complication Substance use status: with intoxication Qualified Code(s): F10.229 - Alcohol dependence with intoxication, unspecified (2) Diabetes mellitus Diabetes mellitus complication status: without complication Diabetes mellitus jail insulin use: without terminal carman use Diabetes mellitus type: type 2 Qualified Code(s): E11.9 - Type 2 diabetes mellitus without complications (3) Hyperlipidemia Hyperlipidemia type: mixed hyperlipidemia Qualified Code(s): E78.2 - Mixed hyperlipidemia (4) GERD (gastroesophageal reflux disease) Esophagitis presence: with esophagitis Qualified Code(s): K21.0 - Gastro- esophageal reflux disease with esophagitis
[2018-08-02] MEDS: DOXEPIN HCL 50 MG CAPSULE PO PRN (21:53)
[2018-08-03] MEDS: SUCRALFATE 1 GM/10 ML UDC PO SCH ×4 (07:41→21:05)
[2018-08-03] MEDS: LORazepam 0.5 MG TAB PO PRN ×2 (07:54→16:13)
[2018-08-03] MEDS: INSULIN ASPART 100 UNITS/ML 3 ML PEN SC SCH ×4 (08:11→21:07)
[2018-08-03] MEDS: ESCITALOPRAM OXALATE 10 MG TAB PO SCH (08:14)
[2018-08-03] MEDS: METOPROLOL SUCC 25MG EXT REL TAB PO SCH (08:14)
[2018-08-03] MEDS: ATORVASTATIN 20 MG TAB PO SCH (08:14)
[2018-08-03] MEDS: THIAMINE HCL 100 MG TAB PO SCH ×2 (08:15→21:05)
[2018-08-03] MEDS: HEPARIN SOD 5,000 UNIT/0.5 ML VIAL SQ SCH ×2 (08:15→21:06)
[2018-08-03] MEDS: LISINOPRIL 5 MG TAB PO SCH (08:15)
[2018-08-03] MEDS: FOLIC ACID 1 MG TAB PO SCH (08:15)
[2018-08-03 08:33] LABS: Albumin Level 3.3 gm/dl (3.4-5.0); BUN Creatinine Ratio 16.8 (10-20); Calcium 9.3 mg/dl (8.5-10.1); Creatinine Clr Calc Pharmacy 49.6 ml/min; Est GFR (African American) 60.4; Est GFR (Non-African American) 52.1; Magnesium 2.1 mg/dl (1.8-2.4); Potassium 3.8 mmol/L (3.5-5.1)
[2018-08-03 08:40] LABS: Phosphorus 3.8 mg/dl (2.5-4.9)
[2018-08-03] MEDS ORDERED: predniSONE 20 MG TAB PO STA (14:53)
--- NOTE | 2018-08-03 15:23 | XRay Report ---
LEFT FOOT 3 VIEWS HISTORY: Left foot pain. mid-foot gout? fracture?; pain COMPARISON: None. FINDINGS: There is no fracture or dislocation. Mild vascular calcifications. Mild soft tissue swellin g at the dorsum of the midfoot. Lisfranc joint is well aligned. Incidental note is made of an os danny cularis. No radiopaque foreign bodies. No erosive changes to suggest an inflammatory arthropathy. IMPRESSION: Mild soft tissue swelling within the midfoot. No fractures. Electronically signed by: Ruben Waller M.D. 08/03/2018 3:22 PM
--- NOTE | 2018-08-03 16:13 | Hospitalist Progress Note ---
Date of Service August 03, 2018 Assessment & Plan (1) Toxic metabolic encephalopathy: Due to isopropyl alcohol ingestion - encephalopathy resolved. Head CT at admission negative. Mental status at baseline. (2) Isopropyl alcohol poisoning: resolved. labs have normalized. (3) Gout of left foot: Suspect left midfoot gouty arthritis. Risk factors - alcohol abuse, illness/stress. Check x-rays to r/o fracture. Check uric acid and sed rate. Prednisone 20mg PO x 1 now. If good response then continue prednisone for 5-7 days. Present on Admission?: No (4) JAMES (acute kidney injury): Resolved. Cr 3.0 on admission. Now 1.3. Repeat BMP am. (5) Alcohol dependence: AWSS protocol in place but no signs of withdrawal at this time. Cont IV ativan prn, thiamine 200mg BID, folic acid daily. Vitamin B1 pending. SW provided him with outpatient options for alcoholism, rehab, etc. (6) Anxiety and depression: Lexapro, doxepin, and buspar prn. (7) HTN (hypertension), benign: Continue metoprolol, lisinopril (8) Diabetes mellitus: Type 2 DM. Hemoglobin A1c controlled at 6.7%. NO METFORMIN given his alcohol abuse. (9) Restless leg syndrome: Fe studies wnl. (10) Hyperlipidemia: On statin agent. (11) GERD (gastroesophageal reflux disease): history of Dove's esophagus by report. had odynophagia a few days ago. suspect esophagitis from drinking etoh and the rubbing alcohol ingestion itself. symptoms now improved. cont carafate and H2 vahe. (12) Esotropia: still have not seen this on exam follow (13) DVT prophylaxis: Heparin PT/OT saw patient and cleared him for home patient did not have ride home today and developed acute gouty arthritis of left foot treat gout anticipate d/c home tomorrow Subjective saw patient twice today. first visit was this am on telemetry unit. he did not have complaints. tele overnight normal. no tremors or symptoms of etoh withdrawal. his is in the hospital and he admits he is anxious about her status and "what's going to happen with her." several hours later the nurse called and informed me that he began to have left foot pain with walking (during his PT evaluation). I then went and saw him a second time. Review of Systems Constitutional: no fever and no chills Respiratory: no dyspnea and no dyspnea on exertion Cardiovascular: no chest pain Gastrointestinal: no abdominal pain Musculoskeletal: + joint pain (left mid-foot) Neurologic: no numbness Physical Exam Constitutional: + thin; not ill appearing and no altered mental status Eyes: PERRL, conjunctivae normal, anicteric sclerae ENMT: external ear and nose normal, oropharynx normal Respiratory: normal respiratory effort, lungs clear to auscultation Cardiovascular: RRR, no murmur, no edema Heart Sounds: normal S1 and normal S2 Vessels: posterior tibial pulses present and dorsalis pedis pulses present; no JVD Gastrointestinal (Abdomen): normal bowel sounds, soft, nontender, no hepatosplenomegaly Musculoskeletal: left foot - midfoot swelling with scant erythema and mild warmth; very tender to palpation (minimal palpation causes pain); left ankle w/o synovitis; toes normal. Left calf muscle normal with no obvious cords, etc. 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
[2018-08-03] MEDS: TAMSULOSIN HCL 0.4 MG CAP PO SCH (21:05)
[2018-08-04 06:08] LABS: Hematocrit (blood only) 38.5 % (42-52); Hemoglobin 13.2 g/dL (14.0-18.0); Mean Corpuscular Hgb Conc 34.3 g/dL (32-36); Mean Corpuscular Volume 94.6 fL (80-100); Mean Platelet Volume 10.5 fL (7.4-10.4); Platelet Count 191 K/uL (130-400); RDW Coefficient of Variation 13.2 % (11.5-14.5); RDW Standard Deviation 45.5 fL (36.4-46.3); Red Blood Count 4.07 M/uL (4.7-6.1); White Blood Count 7.41 K/uL (4.8-10.8)
[2018-08-04 06:44] LABS: Albumin Level 3.1 gm/dl (3.4-5.0); BUN Creatinine Ratio 18.3 (10-20); Calcium 8.8 mg/dl (8.5-10.1); Creatinine Clr Calc Pharmacy 44.2 ml/min; Est GFR (African American) 52.9; Est GFR (Non-African American) 45.6; Phosphorus 4.2 mg/dl (2.5-4.9); Potassium 4.2 mmol/L (3.5-5.1)
[2018-08-04] MEDS: LISINOPRIL 5 MG TAB PO SCH (08:21)
[2018-08-04] MEDS: SUCRALFATE 1 GM/10 ML UDC PO SCH ×2 (08:21→12:36)
[2018-08-04] MEDS: THIAMINE HCL 100 MG TAB PO SCH (08:21)
[2018-08-04] MEDS: FOLIC ACID 1 MG TAB PO SCH (08:21)
[2018-08-04] MEDS: LORazepam 0.5 MG TAB PO PRN (08:21)
[2018-08-04] MEDS: ESCITALOPRAM OXALATE 10 MG TAB PO SCH (08:22)
[2018-08-04] MEDS: METOPROLOL SUCC 25MG EXT REL TAB PO SCH (08:22)
[2018-08-04] MEDS: ATORVASTATIN 20 MG TAB PO SCH (08:22)
[2018-08-04] MEDS: HEPARIN SOD 5,000 UNIT/0.5 ML VIAL SQ SCH (08:27)
[2018-08-04] MEDS: INSULIN ASPART 100 UNITS/ML 3 ML PEN SC SCH ×2 (08:27→13:27)
[2018-08-04] MEDS ORDERED: predniSONE 20 MG TAB PO SCH (09:00)
--- NOTE | 2018-08-10 16:33 | Discharge Summary ---
Date of Service date of admission - July 30, 2018 date of discharge - August 04, 2018 Admission HPI Per Admitting Provider This patient is a 68-year-old male with a history of DM 2, HTN, BPH, anxiety/depression, RLS, GERD with history of Dove's esophagus, hyperlipidemia, medical noncompliance, and alcohol dependence with multiple hospitalizations for alcohol withdrawal who presents to the ER with confusion. His was found to be very sick and confused as well as himself by his niece today. His was brought in by ambulance and then the patient's friend and employee drove the patient into the ER because of altered mental status that they noticed. Eventually in the ER, the patient admitted to drinking rubbing alcohol but only quantified it as "a few swigs." His ethanol level was 0, but his serum osmolality was significantly elevated at 338. Fortunately, he was not acidotic and did not have an anion gap. His asthma low gap was elevated at 31. After this workup, he then admitted to drinking rubbing alcohol. The patient tells me that he has been trying to quit drinking ethanol, and thinks his last drink was about 2 weeks ago. He denies any withdrawal symptoms, hallucinations, or seizures. He reports today, he is quite confused and keeps apologizing, saying "I am not normally like this." He reports that he had a lot of nausea and vomiting today, and is currently feeling a burning sensation in his lower chest in the midline. Denies any shortness of breath or abdominal pain. He is moving his bowels regularly. Denies joint pains or skin rashes. He denies a headache or lightheadedness. Principal Diagnosis isopropyl alcohol intoxication Discharge Exam Constitutional + thin; not ill appearing and no altered mental status Eyes PERRL, conjunctivae normal, anicteric sclerae ENMT external ear and nose normal, oropharynx normal Respiratory normal respiratory effort, lungs clear to auscultation Cardiovascular RRR, no murmur, no edema Heart Sounds: normal S1 and normal S2 Vessels: posterior tibial pulses present and dorsalis pedis pulses present; no JVD Gastrointestinal (Abdomen) normal bowel sounds, soft, nontender, no hepatosplenomegaly Musculoskeletal left foot --- midfoot with mild swelling but no warmth and scant tenderness to palpation Neurologic no tremors Psychiatric A+Ox3, euthymic affect Discharge Data Allergies Allergy/AdvReac Type Severity Reaction Status Date / Time Cephalosporins Allergy Unknown SUPRAX Verified 07/30/18 16:23 Penicillins Allergy Unknown RASH Verified 07/30/18 16:23 Sulfa (Sulfonamide Allergy Unknown RASH Verified 07/30/18 16:23 Antibiotics) Consultations 1. nephrology 2. PT, OT Ordered Studies CT head - no acute process. Hospital Course (1) Toxic metabolic encephalopathy: Due to isopropyl alcohol ingestion - encephalopathy resolved. Head CT at admission negative. Mental status returned to baseline quickly after admission. (2) Isopropyl alcohol poisoning: Patient had significantly elevated osmolar gap at presentation along with ketones consistent with his reported history of isopropyl alcohol intoxication. Fortunately he only needed supportive care measures. All laboratory abnormalities normalized prior to discharge. (3) Gout of left foot: Late in the patient's state he developed left midfoot gouty arthritis. Risk factors - alcohol abuse, illness/stress, acute kidney injury. Xrays were negative for fracture. Uric acid level was elevated at 7.8. He responded rapidly to low-dose prednisone and was able to bear weight/walk without difficulty on day of discharge. He was counseled on the causal relationship between alcohol consumption and gout. He will complete a prednisone taper after discharge for the left foot gout. (4) JAMES (acute kidney injury): Resolved. Cr 3.0 on admission. 1.5 on day of discharge. Baseline Cr per records is 1.2/1.3. (5) Alcohol dependence: He did not develop withdrawal symptoms while hospitalized. He received thiamine 200mg BID, folic acid daily, and MVI. Our social workers provided him with outpatient options for alcoholism, rehab, etc. but he did not seem interested. At discharge he was given prescriptions for 30 days of thiamine and MVI daily. (6) GERD (gastroesophageal reflux disease): History of Dove's esophagus by report. Had odynophagia for several days early on in his stay. Suspect he had esophagitis due to chronic etoh use and the rubbing alcohol ingestion itself. Symptoms improved with carafate and H2 vahe / PPI. He will d/c home on PPI twice daily and carafate 1gm ac/hs (latter for 10 days). He was advised to abstain from alcohol if at all possible. (7) Anxiety and depression: Lexapro, doxepin, and buspar prn will be continued. He needs intensive outpatient counseling for his anxiety/depression/alcoholism. (8) HTN (hypertension), benign: Continue metoprolol, lisinopril (9) Diabetes mellitus: Type 2 DM. Hemoglobin A1c controlled at 6.7%. NO METFORMIN given his alcohol abuse. At discharge a prescription for amaryl 1mg daily was given. (10) Restless leg syndrome: Iron studies were wnl. (11) Hyperlipidemia: On statin agent (lipitor 20mg daily). (12) Esotropia: A member of the hospitalist team felt he had an intermittent esotropia of the right eye. Outpatient follow-up recommended with his analyst food and beverage. Total Time Total Time Spent Total Time Spent (In Minutes): 45 Total Time Includes: Examination of the Patient, Discharge Planning, Medication Reconciliation and Communication With Other Providers Discharge Plan Discharge Items Patient Disposition: Home - Self-Care Reason For Visit: INGESTION OF RUBBING ALCOHOL Discharge Diagnosis: INGESTION OF RUBBING ALCOHOL; CONFUSION; DEHYDRATION -- ALL RESOLVED Discharge Goals: Diagnostic testing Activity: Resume your previous activity Non-emergency contact: Primary Care Provider and Psychiatrist Call non-emergency contact if: you have any medication questions, your symptoms worsen and your temperature is above 100.5 Follow-up/Referrals: Mara Rosas PA-C [Primary Care Provider] - 08/11/18 11:00 am (Please, follow up with Mara Rosas PA-C on SaturdayAugust 11 at 11:00 am. *If you need to change this appointment, call the office at [phone].) Diet: Carb Consistent or DM2 Addtl Provider Instructions: From Patric Amin - Hospitalist - You were treated for rubbing alcohol ingestion. This caused multiple issues including dehydration, acute kidney failure (now resolved), suspected esophagitis (burning in your esophagus with eating/drinking), and confusion. Fortunately all these issues are either improved or resolved. At this time we recommend - 1. for your esophagus irritation -- * take pantoprazole 40mg twice a day; take this for 30 days * take sucralfate 1gm 30 minutes before meals and at bedtime; take this for 10 days * NO ALCOHOL -- any form of alcohol will make this issue much worse * please avoid caffeinated beverages (soda, tea, coffee), spicy foods, hot foods, fried foods, orange juice, red sauces, etc -- these will all irritate your esophagus * bland foods, water, etc will be best 2. for anxiety - continue on all of your usual medications including doxepin at bedtime, lexapro (escitalopram), and buspar (buspirone). For extreme anxiety - and please use sparingly - may take ativan (lorazepam) up to twice a day as needed. If you have a relapse with alcohol please do NOT take the lorazepam. Best to NOT drive while taking lorazepam. 3. for your diabetes - take glimepiride 1mg daily with breakfast. Check your blood sugars at least once a day - morning or afternoon with goal of <150 most times. 4. take thiamine (vitamin B1) x 1 month. 5. take a multivitamin every day. 6. for your gout in the left foot - take prednisone 10mg once daily x 5 days beginning TOMORROW, 08/05/18. Know that alcohol can induce gout attacks. Follow-up -- See Mara Rosas within 1 week if possible. See a counselor and/or psychiatrist of your choosing [facility]. Strongly consider attending AA. Return to [facility] if - * you have persistent fevers over 100.5 degrees * you have thoughts of dying or suicidal ideation (thoughts of hurting yourself) * you have homicidal ideation (thoughts of hurting someone else) * you have severe esophagus pain not responding to your medications * you have severe abdominal pain * you see black or tarry stools * anxiety not responding to your medications * any other concerns Prescriptions: New thiamine HCl (vitamin B1) [Vitamin B-1] 100 mg Tablet 200 mg PO BID 30 Days Qty: 120 RF: 0 glimepiride [Amaryl] 1 mg tablet 1 mg PO QAM Qty: 30 RF: 1 multivitamin with minerals capsule 1 cap PO DAILY Qty: 90 RF: 3 pantoprazole 40 mg tablet,delayed release (DR/EC) 40 mg PO BID Qty: 60 RF: 1 sucralfate 1 gram tablet 1 gm PO ACHS 10 Days Qty: 40 RF: 0 Continued doxepin 50 mg Capsule 1 - 2 cap PO HS PRN (Reason: Anxiety) RF: 0 atorvastatin 20 mg Tablet 20 mg PO DAILY RF: 0 tamsulosin 0.4 mg Capsule 0.4 mg PO HS RF: 0 folic acid 1 mg Tablet 1 mg PO DAILY RF: 0 lisinopril 5 mg Tablet 5 mg PO DAILY RF: 0 metoprolol succinate 25 mg tablet extended release 24 hr 25 mg PO DAILY RF: 0 ropinirole 5 mg Tablet 1 - 2 tab PO HS PRN (Reason: Restless Leg(S)) RF: 0 buspirone 15 mg tablet 15 mg PO BID PRN (Reason: Anxiety) RF: 0 escitalopram oxalate 20 mg Tablet 10 mg PO DAILY RF: 0 melatonin 5 mg Tablet 5 mg PO HS RF: 0 B Complex w-Vit C [id number] mg Tablet 1 tab PO DAILY RF: 0 Changed lorazepam 0.5 mg Tablet 0.5 mg PO Q12H PRN (Reason: Anxiety) Qty: 10 RF: 0 Discontinued ranitidine HCl 150 mg Tablet 150 mg PO Q12 RF: 0 Stand-Alone Forms: [facility] [employer] [facility]/Other Patient Handouts: Esophagitis, Diabetes Type 2 Coping, Gout, Diet Soft Dc, Diabetes Meal Planning, ED Diet Gout Discharge Orders: Discharge Order (Routine); Ordered 08/04/18 Ordered By: Patric Amin Admission Data Admit Date/Time: 07/30/18 19:30 Attending Provider: Patric Amin Admit Provider: Christal Goldstein Primary Care Provider: Mara Rosas Other Providers: Jose Castro Service: Medical Other Interventions: Discharge Summary Assessment (RN) Last Done: 08/04/18 13:32 Pending Studies at Discharge: No DC Date/Time DO NOT enter until pt leaves facility: 08/04/18 14:08
== END 2018-08-04 14:08 | disposition home or self-care (01) | DRG 917 ==
LOC: ED 13:52 → SUATTDRO 19:30 → 2S 19:30 → 4W 08-03 13:04
DX: E11.9 Type 2 diabetes mellitus without complications; F41.8 Other specified anxiety disorders; G25.81 Restless legs syndrome; I10 Essential (primary) hypertension; M10.9 Gout, unspecified; T51.2X1A Toxic effect of 2-Propanol, accidental (unintentional), initial encounter; Z79.899 Other long term (current) drug therapy; Z91.14 Patient's other noncompliance with medication regimen; D72.829 Elevated white blood cell count, unspecified; G92 Toxic encephalopathy; E78.5 Hyperlipidemia, unspecified; H50.00 Unspecified esotropia; K21.9 Gastro-esophageal reflux disease without esophagitis; F10.20 Alcohol dependence, uncomplicated; F17.210 Nicotine dependence, cigarettes, uncomplicated; N17.0 Acute kidney failure with tubular necrosis

== ENCOUNTER 2018-08-29 22:48 | Inpatient (IN) ==
--- OUTSIDE RECORDS SUMMARY | 2018-08-29 22:50 | External Medical Summary | Continuity of Care Document ---
:1950 Author Name Lakeisha Doll, Provider Address Unavailable Unavailable , Care Team Providers Name Role Phone Mara [email or web address] [email or web address] Maame Doll, [email or web address] PA-C, [email or web address] Problems Cataracts, bilateral (366.9) (H26.9) Controlled type 2 diabetes mellitus without complication (25 0.00) (E11.9) Alcoholism (303.90) (F10.20) Dyslipidemia (272.4) (E78.5) Hypertension (401.9) (I10) Lacunar infarction (434.91) (I63.81) Depression with anxiety (300.4) (F41.8) Gait instability (781.2) (R26.81) Anemia (285.9) (D64.9) Thrombocytopenia (287.5) (D69.6) BPH with obstruction/lower urinary tract symptoms (600.01) ( N40.1) Current smoker (305.1) (F17.200) Cough (786.2) (R05) Restless legs syndrome (333.94) (G25.81) Acid reflux (530.81) (K21.9) Elevated PSA (790.93) (R97.20) Allergies and Adverse Reactions Penicillins (Allergy) Medications Tamsulosin HCl - 0.4 MG Oral Capsule; TAKE ONE CAPSULE BY MOUTH AT BEDTIME RADHA Rosas Start: 19-Nov-2014 Quantity: 30 Refills: 6 Atorvastatin Calcium 20 MG Oral Tablet; Take 1 tablet daily RADHA Rosas Start: 29-Jan-2018 Quantity: 30 Refills: 6 busPIRone HCl - 15 MG Oral Tablet; TAKE 1 TABLET TWICE DAILY NEEDED. RADHA Rosas Start: 02-Jan-2018 Quantity: 60 Refills: 3 Escitalopram Oxalate 20 MG Oral Tablet; TAKE 1 TABLET DAILY. Lavon Isabel Start: 12-Mar-2017 Quantity: 30 Refills: 3 raNITIdine HCl - 150 MG Oral Tablet; TAKE 1 TABLET ENRIQUE RY 12 HOURS DAILY. RADHA Rosas Start: 06-May-2017 Quantity: 60 Refills: 6 LORazepam 0.5 MG Oral Tablet; TAKE 1 TABLET BY MOUTH E VERY DAY NEEDED RADHA Rosas Start: 27-Sep-2016 Quantity: 20 Refills: 0 Folic Acid 1 MG Oral Tablet; TAKE 1 TABLET BY MOUTH EVERY DA Y Start: 01-Dec-2014 Refills: 1 Lisinopril 5 MG Oral Tablet; TAKE 1 TABLET BY MOUTH EVERY DA Y RADHA Rosas Start: 10-Apr-2018 Quantity: 90 Refills: 1 Doxepin HCl - 50 MG Oral Capsule; TAKE 1 OR 2 CAPSULES AT BEDTIME NEEDED. RADHA Rosas Start: 06-Aug-2018 Quantity: 30 Refills: 1 OneTouch UltraSoft Lancets; 1 daily RADHA Rosas Star t: 08-Jan-2018 Quantity: 1 100 Unit Box Refills: 3 OneTouch Ultra Blue In Vitro Strip; TEST ONCE DAILY. RADHA Rosas Start: 08-Jan-2018 Quantity: 50 Refills: 3 OneTouch Ultra Mini w/Device Kit; test once daily Aguilar Rosas Start: 08-Jan-2018 Quantity: 1 Refills: 0 CVS Super B Complex/C Oral Tablet; TAKE 1 TABLET DAILY. RADHA Crowell Start: 18-Sep-2016 Quantity: 90 Refills: 2 Melatonin 5 MG Oral Tablet; 1 tab at bedtime Start: 26-Jul-2016 Refills: 0 rOPINIRole HCl - 5 MG Oral Tablet; TAKE 1 TO 2 TABLETS BY MOUTH ONCE DAILY AT BEDTIME NEEDED Lavon Isabel Start: 19-Nov-2014 Quantity: 60 Refills: 3 Procedures Procedures not documented Immunizations Fluzone High-Dose Intramuscular Suspension On: 13-May-2017 1 5:41 Lot #: [id number], [employer] Social History - Smoking Status Smoker. current status unknown Plan of Treatment Planned Encounters Appointment; Kat Mike PA-C Start: 03-Sep-2018 13:1 5 Request Planned Observations Planned Goals not documented Results XR foot LT min 3V RTN (Pending) Laboratory: [facility] [address] [place] 03-Aug-2018 15:20 XR foot LT min 3V RTN May Carcamo [facility], [place] [phone] XRay Report Patient: LEFTY TRUJILLO Admit Date: 07/30/18 MR#: [id number] Address1: [address] ID:[id number] Address 2: Date: [address] Zip: [place] [address] Age: 68 Location: 4W Sex: M Room/Bed: [facility] Att Ph y: Patric Amin MD Diagnosis: IN GESTION,TOXIC ENCEPHALOPATHY [place] Phy: Mara Rosas PA-C Service Da te: 08/03/18 Fam Phy: I nterpreting Phy: Ruben reese MD Admit Phy: Christal Goldstein MD Orde ring Phy: Patric Amin MD cc: LEFT FOOT 3 VIEWS HISTORY: Left f oot pain. mid-foot gout? fracture?; pain COM PARISON: None. FINDINGS: There is no fractur e or dislocation. Mild vascular calcification s. Mild soft tissue swelling at the dorsum of th e midfoot. Lisfranc joint is well aligned. Incident al note is made of anos navicularis. No radiopaque foreign bodies. No erosive changes to suggest an inflammatory arthropathy. IMPRESSIO N: Mild soft tissue swelling within the midfoot. No fractures. Electronically sig radha by: Ruben Waller M.D. 08/03/2018 3:22 PM Dictated: 08/03/18 1520 Transcribed: 0 08/03/18 1520 Encounters Appointment; Fabiola Isabel M.D. 16-Apr-2018 9:00 Encounter Diagnosis: Problem not documented Appointment; Mara Rosas PA-C 12-Mar-2018 13:00 Encounter Diagnosis: Problem not documented Appointment; Mara Rosas PA-C 08-Jan-2018 14:30 Encounter Diagnosis: Problem not documented Appointment; Mara Rosas PA-C 04-Sep-2017 14:30 Encounter Diagnosis: Problem not documented Appointment; Fabiola Isabel M.D. 05-Jul-2017 14:30 Encounter Diagnosis: Problem not documented Appointment; Mara Rosas PA-C 13-May-2017 15:30 Encounter Diagnosis: Problem not documented Appointment; Mara Rosas PA-C 04-Apr-2017 15:30 Encounter Diagnosis: Problem not documented Appointment; Mara Rosas PA-C 12-Mar-2017 15:30 Encounter Diagnosis: Problem not documented Appointment; Mara Rosas PA-C 25-Jan-2017 10:30 Encounter Diagnosis: Problem not documented Appointment; Mara Rosas PA-C 06-Dec-2016 13:00 Encounter Diagnosis: Problem not documented Appointment; Mara Rosas PA-C 05-Nov-2016 13:00 Encounter Diagnosis: Problem not documented Appointment; Doug Aguirre DO 11-Oct-2016 11:30 Encounter Diagnosis: Problem not documented Appointment; Mara Rosas PA-C 27-Sep-2016 9:00 Encounter Diagnosis: Problem not documented Appointment; Kat Mike PA-C 03-Sep-2018 13:15 Encounter Diagnosis: Problem not documented
[2018-08-30 00:02] LABS: Hematocrit (blood only) 35.4 % (42-52); Hemoglobin 11.8 g/dL (14.0-18.0); Mean Corpuscular Hgb Conc 33.3 g/dL (32-36); Mean Corpuscular Volume 95.9 fL (80-100); RDW Coefficient of Variation 14.4 % (11.5-14.5); RDW Standard Deviation 50.3 fL (36.4-46.3); Red Blood Count 3.69 M/uL (4.7-6.1); White Blood Count 3.82 K/uL (4.8-10.8)
[2018-08-30 00:11] LABS: Prothrombin Time 10.3 Seconds (9.0-12.0)
[2018-08-30] MEDS: SODIUM CHLORIDE 0.9% 500 ML IV SCH ×7 (00:14→18:34)
[2018-08-30 00:25] LABS: Albumin Level 2.8 gm/dl (3.4-5.0); Aspartate Aminotransferase 12 U/L (15-37); BUN Creatinine Ratio 15.5 (10-20); Blood Urea Nitrogen 28 mg/dl (7-18); Calcium 8.5 mg/dl (8.5-10.1); Carbon Dioxide 25 mmol/L (21-32); Chloride 113 mmol/L (98-107); Creatinine Clr Calc Pharmacy 39.4 ml/min; Est GFR (African American) 43.6; Est GFR (Non-African American) 37.6; Glucose 184 mg/dl (70-99); Magnesium 1.8 mg/dl (1.8-2.4); Potassium 4.7 mmol/L (3.5-5.1); Sodium 143 mmol/L (136-145)
[2018-08-30 00:30] LABS: Alanine Aminotransferase 16 U/L (12-78); Albumin Globulin Ratio 0.9 (0.9-2); Alkaline Phosphatase 60 U/L (45-117); Bilirubin,Total 0.5 mg/dl (0.2-1); Creatine Kinase 77 U/L (39-308); Total Protein 5.8 gm/dl (6.4-8.2); Troponin I < 0.015 ng/ml (0-0.045)
[2018-08-30 00:37] LABS: Mean Platelet Volume 9.6 fL (7.4-10.4); Platelet Count 95 K/uL (130-400)
[2018-08-30 00:39] LABS: Acetaminophen < 2 ug/ml (10-30); Basophils # (auto) 0.01 K/uL (0-0.2); Basophils % (auto) 0.3 %; Eosinophils # (auto) 0.07 K/uL (0-0.5); Eosinophils % (auto) 1.8 %; Immature Granulocytes # (auto) 0.01 K/uL (0.00-0.02); Immature Granulocytes % (auto) 0.3 %; Lymphocytes # (auto) 0.96 K/uL (1.2-3.4); Lymphocytes % (auto) 25.1 %; Monocytes # (auto) 0.17 K/uL (0.11-0.59); Monocytes % (auto) 4.5 %; Platelet Estimate Decreased (Normal); RBC Morphology Unremarkable; Salicylate < 1.7 mg/dl (2.8-20)
[2018-08-30 01:23] LABS: Appearance Urine Clear (Clear); Bilirubin Urine Negative (Negative); Blood Urine Negative (Negative); Color Urine Yellow; Glucose Urine UA Negative (Negative); Ketones Urine Negative (Negative); Leukocyte Esterase Urine Negative (Negative); Nitrite Urine Negative (Negative); Protein Urine Negative (Negative); Specific Gravity Urine 1.013 (1.000-1.030); Urobilinogen Urine Negative (Negative)
[2018-08-30 01:43] LABS: Amphetamines+Metham, Urine Neg (Neg); Barbiturates, Urine Neg (Neg); Benzodiazepine, Urine Neg (Neg); Cocaine, Urine Neg (Neg); MDMA (Ecstacy), Urine Neg (Neg); Methadone, Urine Neg (Neg); Opiate, Urine Neg (Neg); Phencyclidine, Urine Neg (Neg)
[2018-08-30] MEDS ORDERED: LORazepam 3 MG/6 ML VIAL IV PRN (04:05)
[2018-08-30] MEDS ORDERED: ACETAMINOPHEN 325 MG TAB PO PRN (04:05)
[2018-08-30] MEDS ORDERED: DOXEPIN HCL 50 MG CAPSULE PO PRN (04:05)
[2018-08-30] MEDS ORDERED: LORazepam 1 MG/2 ML VIAL IV PRN (04:05)
[2018-08-30] MEDS ORDERED: ONDANSETRON INJ 2 MG/ML 2 ML VIAL IV PRN (04:05)
[2018-08-30] MEDS ORDERED: MAGNESIUM HYDROXIDE SUSP 30 ML UDC PO PRN (04:05)
[2018-08-30] MEDS ORDERED: POLYETHYLENE (MIRALAX) 17 GM PACK PO PRN (04:05)
[2018-08-30] MEDS ORDERED: ROPINIROLE HCL 5 MG TABLET PO PRN (04:05)
[2018-08-30] MEDS ORDERED: ALUMINUM/MAGNESIUM SUSP 30 ML UDC PO PRN (04:05)
[2018-08-30] MEDS ORDERED: MULTI-VITAMIN INFUSION 10 ML, THIAMINE HCL 100 MG, FOLIC ACID 1 MG in SODIUM CHLORIDE 0... IV SCH (04:05)
[2018-08-30] MEDS ORDERED: ATIVAN IV ALCOHOL WITHDRAWL IV SCH (04:05)
[2018-08-30] MEDS ORDERED: LORazepam 2 MG/4 ML VIAL IV PRN (04:05)
[2018-08-30 04:55] LABS: Partial Thromboplastin Ratio 0.9; Partial Thromboplastin Time 25.3 Seconds (21.0-31.0)
--- NOTE | 2018-08-30 04:58 | Emergency Department Note ---
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 He states that both of his dogs got out, and he was searching for them tonight with his friends named Jose and Aris. The patient reports that both Jose and Aris "vanished" when he ran into the manager inventory. He notes that he was holding a stuffed animal, because this is his dogs' toy. The patient states that he found the dogs, and they're back at his home. Per EMS, the patient's neighbor called the police. The patient states that he was having a democrat at his house tonight with people from work and clients. He reports that all of the guests left at 19:30. The patient says that he was discussing the cost of cremation at the democrat, because his 2.5 weeks ago. He notes that he's been "stressed out" about his 's burial. He has not been sleeping. The patient states that he has been sober for the past year with the exception of drinking one day 5 weeks ago. He notes that he needed new car rims, so he stole car rims. The patient states that this occurred on July 23, 2018. He reports that the police were not called on him. He did drink after this incident because he felt guilty. The patient complains of confusion and inconsistent sleep patterns. He states that he has not slept in a few days. The patient notes that he ran out of his anxiety medication, because he was only prescribed 10 pills by his PCP, Mara Rosas. He states that he only received 10, because his PCP thinks that he is drinking alcohol again. The patient notes that he has been smoking CBD oil that he bought with his niece. The patient denies abusing any other alcohol or drugs. He reports that he takes Lisinopril and Metoprolol daily. The patient notes that he smokes cigarettes daily. He reports that he has 2 nieces and a cousin in the area. The patient asked for his to be called, because he's "distraught." Home Medications Home Medications Medication Instructions Recorded Confirmed Type B Complex w-Vit C 1 tab PO DAILY 07/30/18 08/30/18 History atorvastatin 20 mg PO DAILY 07/30/18 08/30/18 History buspirone 15 mg PO BID PRN 07/30/18 08/30/18 History doxepin 1 - 2 cap PO HS PRN 07/30/18 08/30/18 History escitalopram oxalate 10 mg PO DAILY 07/30/18 08/30/18 History folic acid 1 mg PO DAILY 07/30/18 08/30/18 History lisinopril 5 mg PO DAILY 07/30/18 08/30/18 History melatonin 5 mg PO HS 07/30/18 08/30/18 History metoprolol succinate 25 mg PO DAILY 07/30/18 08/30/18 History ropinirole 1 - 2 tab PO HS PRN 07/30/18 08/30/18 History tamsulosin 0.4 mg PO HS 07/30/18 08/30/18 History glimepiride [Amaryl] 1 mg PO QAM #30 tab 08/04/18 08/30/18 Rx lorazepam 0.5 mg PO Q12H PRN #10 tab 08/04/18 08/30/18 Rx multivitamin with minerals 1 cap PO DAILY #90 cap 08/04/18 08/30/18 Rx pantoprazole 40 mg PO BID #60 tab 08/04/18 08/30/18 Rx thiamine HCl (vitamin B1) [Vitamin 200 mg PO BID 30 Days #120 tab 08/04/18 08/30/18 Rx B-1] Allergies Allergy/AdvReac Type Severity Reaction Status Date / Time Cephalosporins Allergy Unknown SUPRAX Verified 08/30/18 00:28 Penicillins Allergy Unknown RASH Verified 08/30/18 00:28 Sulfa (Sulfonamide Allergy Unknown RASH Verified 08/30/18 00:28 Antibiotics) Past Med/Surg History Medical History Acute alcoholic hallucinosis (Resolved) TIA (transient ischemic attack) Wernickes encephalopathy (Resolved) Alcohol dependence Anxiety and depression Diabetes mellitus GERD (gastroesophageal reflux disease) HTN (hypertension), benign Hyperlipidemia Medical non-compliance Restless leg syndrome Surgical History No significant past surgical history Family History Father , In his 30s Heart disease Mother Cancer Lung cancer Sister Anorexia Social History Preferred Language: Estonian Communication Ability: Effective Beliefs That Will Affect Care: None marital status: Current Living Situation: Alone current occupational status: employed 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 [employer] Other Information That Helps Us Care for You: No Feels Safe at Home: Yes Safety Concerns: Feels Safe At This Time Smoking Status: Current every day smoker Tobacco Type: cigarettes Cigarettes Per Day: 20 Second Hand Exposure: No Hx Alcohol Use: Yes Alcohol type: hard liquor Hx Substance Use: Yes Substance Use Type Other:: CBD oil Last Used Substance: Hours (ago) Review of Systems See HPI for pertinent positives & negatives. and A total of 10 systems reviewed and were otherwise negative Physical Exam Vital Signs Vital Signs - 24 hr 08/29/18 23:03 08/29/18 23:55 08/30/18 00:28 Temperature 36.8 C Temperature Source Oral Sepsis Recent Fever Within 48 Hours No Sepsis New/Unexplained Change in Mental Status No Sepsis Action Taken by Nursing No Action Required Pulse Rate 102 H Pulse Rate [Right Finger] 96 H 88 Pulse Rhythm Regular Pulse Rhythm [Right Finger] Pulse Strength Normal Pulse Strength [Right Finger] Respiratory Rate 18 18 18 Respiratory Effort / Characteristics Non-Labored Non-Labored Respiratory Depth Normal Normal Respiratory Pattern Regular Regular Blood Pressure 96/60 L Blood Pressure [Right Arm] 106/71 114/93 Blood Pressure Mean 72 Blood Pressure Mean [Right Arm] 82 100 Blood Pressure Position Lying Blood Pressure Position [Right Arm] Lying Lying Pulse Oximetry 93 99 96 Oxygen Delivery Method Room Air Room Air Room Air 08/30/18 02:00 Temperature Temperature Source Sepsis Recent Fever Within 48 Hours Sepsis New/Unexplained Change in Mental Status Sepsis Action Taken by Nursing Pulse Rate Pulse Rate [Right Finger] 88 Pulse Rhythm Pulse Rhythm [Right Finger] Regular Pulse Strength Pulse Strength [Right Finger] Normal Respiratory Rate 16 Respiratory Effort / Characteristics Non-Labored Respiratory Depth Normal Respiratory Pattern Regular Blood Pressure Blood Pressure [Right Arm] 146/75 H Blood Pressure Mean Blood Pressure Mean [Right Arm] 98 Blood Pressure Position Blood Pressure Position [Right Arm] Lying Pulse Oximetry 96 Oxygen Delivery Method Room Air General: Slightly confused. HEENT: Head - normocephalic and atraumatic Pupils are equal, round, and reactive to light. Extraocular eye muscles are intact, and sclera are anicteric. Nose - moist nasal mucosa without discharge. Mouth - moist buccal mucosa. Oropharynx is nonerythematous and there is no tonsillar exudate or edema noted. Neck: Supple; no JVD, nuchal rigidity, cervical lymphadenopathy. Heart: Tachycardic rate and regular rhythm. There is a normal S1 and S2 with no murmurs, clicks, or gallops appreciated. Lungs: Diffuse rhonchi at both lung bases. Abdomen: Soft, completely nontender, nondistended, with good bowel sounds. There are no palpable pulsatile masses or hepatosplenomegaly. There is no guarding, rigidity, or rebound noted. Extremities: No evidence of cyanosis, clubbing, or edema. There are easily palpable peripheral pulses. Skin: warm and dry with good turgor and no rashes. Course 2309: The patient was evaluated in room B07. A complete history and physical exam was performed. A saline lock was initiated and labs were drawn as above. The patient had a twelve-lead EKG as described above. He received a fluid bolus because he was hypotensive. He had a CT scan of his brain. 2330: I reviewed the patients EMR. He was admitted and then discharged the day before his for drinking rubbing alcohol. He has not seen his PCP for 8 months. 2333: I asked the patient if he has been drinking rubbing alcohol again recently. He denied drinking any type of alcohol recently. He admits to doing it in the past. 2334: NSS 999 mls/hr IV 0123: I spoke with Dr. Hensley, [facility] hospitalist, about the patients case. He will further evaluate the patient. 0132: I checked on the patient. He had blood all over his face and sheets. He used his mouth to rip out his IV in his right hand. I stopped the bleeding and asked the nurses to put in another IV. He remains confused. Consultations Consultation #1: I spoke with Dr. Hensley, [facility] hospitalist, about the patients case. He will further evaluate the patient. Time: 01:23 Administered Medications Discontinued Medications Sodium Chloride (Nss) 500 mls @ 999 mls/hr IV .Q31M JASWANT Stop: 09/09/18 10:00 Last Infusion: 08/30/18 03:35 Dose: 0 mls/hr Documented by: [id number] Admin: 08/30/18 00:14 Dose: 999 mls/hr Documented by: [id number] Medical Decision Making Differential Diagnosis The differential diagnosis includes: insomnia, psychosis, abuse of rubbing alcohol, alcohol withdrawal, wernicke's encephalopathy, and hepatic encephalopathy. Medical Records Attestation: I reviewed the patient's medical records. Home Medications Current Medication List: was personally reviewed by me Laboratory Data Attestation: I reviewed the patient's lab results. Result diagrams: 08/29/18 23:51 08/29/18 23:51 Lab Results 08/29/18 08/29/18 08/29/18 Range/Units 22:56 23:51 23:51 WBC 3.82 L (4.8-10.8) K/uL RBC 3.69 L (4.7-6.1) M/uL Hgb 11.8 L (14.0-18.0) g/dL Hct 35.4 L (42-52) % MCV 95.9 (80-100) fL MCH 32.0 (25-34) pg MCHC 33.3 (32-36) g/dL RDW Std Deviation 50.3 H (36.4-46.3) fL RDW Coeff of Nadege 14.4 (11.5-14.5) % Plt Count 95 L (130-400) K/uL MPV 9.6 (7.4-10.4) fL Immature Gran % (Auto) 0.3 % Neut % (Auto) 68.0 % Lymph % (Auto) 25.1 % [place] % (Auto) 4.5 % Eos % (Auto) 1.8 % Baso % (Auto) 0.3 % Immature Gran # (Auto) 0.01 (0.00-0.02) K/uL Neut # (Auto) 2.60 (1.4-6.5) K/uL Lymph # (Auto) 0.96 L (1.2-3.4) K/uL [place] # (Auto) 0.17 (0.11-0.59) K/uL Eos # (Auto) 0.07 (0-0.5) K/uL Baso # (Auto) 0.01 (0-0.2) K/uL Platelet Estimate Decreased L (Normal) RBC Morphology Unremarkable PT 10.3 (9.0-12.0) Seconds INR 1.0 (0.9-1.1) Sodium (136-145) mmol/L Potassium (3.5-5.1) mmol/L Chloride (98-107) mmol/L Carbon Dioxide (21-32) mmol/L Anion Gap (3-11) BUN (7-18) mg/dl Creatinine (0.6-1.4) mg/dl Est Cr Clr Drug Dosing ml/min Est GFR ( Amer) Est GFR (Non-Af Amer) BUN/Creatinine Ratio (10-20) Glucose (70-99) mg/dl POC Glucose 200 H (70-99) Osmolality (280-300) mOsm/kg Calcium (8.5-10.1) mg/dl Magnesium (1.8-2.4) mg/dl Total Bilirubin (0.2-1) mg/dl AST (15-37) U/L ALT (12-78) U/L Alkaline Phosphatase (45-117) U/L Total Creatine Kinase (39-308) U/L Troponin I (0-0.045) ng/ml Total Protein (6.4-8.2) gm/dl Albumin (3.4-5.0) gm/dl Globulin (2.5-4.0) gm/dl Albumin/Globulin Ratio (0.9-2) Urine Color Urine Appearance (Clear) Urine pH (4.5-7.5) Ur Specific [place] (1.000-1.030) Urine Protein (Negative) Urine Glucose (UA) (Negative) Urine Ketones (Negative) Urine Blood (Negative) Urine Nitrite (Negative) Urine Bilirubin (Negative) Urine Urobilinogen (Negative) Ur Leukocyte Esterase (Negative) Salicylates (2.8-20) mg/dl Urine Opiates Screen (Neg) Ur Methadone, Qual (Neg) Acetaminophen (10-30) ug/ml Urine Barbiturates (Neg) Ur Phencyclidine (PCP) (Neg) U Amphetamin/Meth Scrn (Neg) MDMA (Ecstasy) Screen (Neg) U Benzodiazepines Scrn (Neg) Ur Cocaine Metabolite (Neg) U Marijuana (THC) Screen (Neg) Ethyl Alcohol mg/dL (0-3) mg/dl 08/29/18 08/29/18 08/29/18 Range/Units 23:51 23:51 23:51 WBC (4.8-10.8) K/uL RBC (4.7-6.1) M/uL Hgb (14.0-18.0) g/dL Hct (42-52) % MCV (80-100) fL MCH (25-34) pg MCHC (32-36) g/dL RDW Std Deviation (36.4-46.3) fL RDW Coeff of Nadege (11.5-14.5) % Plt Count (130-400) K/uL MPV (7.4-10.4) fL Immature Gran % (Auto) % Neut % (Auto) % Lymph % (Auto) % [place] % (Auto) % Eos % (Auto) % Baso % (Auto) % Immature Gran # (Auto) (0.00-0.02) K/uL Neut # (Auto) (1.4-6.5) K/uL Lymph # (Auto) (1.2-3.4) K/uL [place] # (Auto) (0.11-0.59) K/uL Eos # (Auto) (0-0.5) K/uL Baso # (Auto) (0-0.2) K/uL Platelet Estimate (Normal) RBC Morphology PT (9.0-12.0) Seconds INR (0.9-1.1) Sodium 143 (136-145) mmol/L Potassium 4.7 (3.5-5.1) mmol/L Chloride 113 H (98-107) mmol/L Carbon Dioxide 25 (21-32) mmol/L Anion Gap 5.0 (3-11) BUN 28 H (7-18) mg/dl Creatinine 1.82 H (0.6-1.4) mg/dl Est Cr Clr Drug Dosing 39.4 ml/min Est GFR ( Amer) 43.6 Est GFR (Non-Af Amer) 37.6 BUN/Creatinine Ratio 15.5 (10-20) Glucose 184 H (70-99) mg/dl POC Glucose (70-99) Osmolality 309 H (280-300) mOsm/kg Calcium 8.5 (8.5-10.1) mg/dl Magnesium 1.8 (1.8-2.4) mg/dl Total Bilirubin 0.5 (0.2-1) mg/dl AST 12 L (15-37) U/L ALT 16 (12-78) U/L Alkaline Phosphatase 60 (45-117) U/L Total Creatine Kinase 77 (39-308) U/L Troponin I < 0.015 (0-0.045) ng/ml Total Protein 5.8 L (6.4-8.2) gm/dl Albumin 2.8 L (3.4-5.0) gm/dl Globulin 3.0 (2.5-4.0) gm/dl Albumin/Globulin Ratio 0.9 (0.9-2) Urine Color Urine Appearance (Clear) Urine pH (4.5-7.5) Ur Specific [place] (1.000-1.030) Urine Protein (Negative) Urine Glucose (UA) (Negative) Urine Ketones (Negative) Urine Blood (Negative) Urine Nitrite (Negative) Urine Bilirubin (Negative) Urine Urobilinogen (Negative) Ur Leukocyte Esterase (Negative) Salicylates < 1.7 L (2.8-20) mg/dl Urine Opiates Screen (Neg) Ur Methadone, Qual (Neg) Acetaminophen < 2 L (10-30) ug/ml Urine Barbiturates (Neg) Ur Phencyclidine (PCP) (Neg) U Amphetamin/Meth Scrn (Neg) MDMA (Ecstasy) Screen (Neg) U Benzodiazepines Scrn (Neg) Ur Cocaine Metabolite (Neg) U Marijuana (THC) Screen (Neg) Ethyl Alcohol mg/dL (0-3) mg/dl 08/29/18 08/30/18 08/30/18 Range/Units 23:51 01:06 01:06 WBC (4.8-10.8) K/uL RBC (4.7-6.1) M/uL Hgb (14.0-18.0) g/dL Hct (42-52) % MCV (80-100) fL MCH (25-34) pg MCHC (32-36) g/dL RDW Std Deviation (36.4-46.3) fL RDW Coeff of Nadege (11.5-14.5) % Plt Count (130-400) K/uL MPV (7.4-10.4) fL Immature Gran % (Auto) % Neut % (Auto) % Lymph % (Auto) % [place] % (Auto) % Eos % (Auto) % Baso % (Auto) % Immature Gran # (Auto) (0.00-0.02) K/uL Neut # (Auto) (1.4-6.5) K/uL Lymph # (Auto) (1.2-3.4) K/uL [place] # (Auto) (0.11-0.59) K/uL Eos # (Auto) (0-0.5) K/uL Baso # (Auto) (0-0.2) K/uL Platelet Estimate (Normal) RBC Morphology PT (9.0-12.0) Seconds INR (0.9-1.1) Sodium (136-145) mmol/L Potassium (3.5-5.1) mmol/L Chloride (98-107) mmol/L Carbon Dioxide (21-32) mmol/L Anion Gap (3-11) BUN (7-18) mg/dl Creatinine (0.6-1.4) mg/dl Est Cr Clr Drug Dosing ml/min Est GFR ( Amer) Est GFR (Non-Af Amer) BUN/Creatinine Ratio (10-20) Glucose (70-99) mg/dl POC Glucose (70-99) Osmolality (280-300) mOsm/kg Calcium (8.5-10.1) mg/dl Magnesium (1.8-2.4) mg/dl Total Bilirubin (0.2-1) mg/dl AST (15-37) U/L ALT (12-78) U/L Alkaline Phosphatase (45-117) U/L Total Creatine Kinase (39-308) U/L Troponin I (0-0.045) ng/ml Total Protein (6.4-8.2) gm/dl Albumin (3.4-5.0) gm/dl Globulin (2.5-4.0) gm/dl Albumin/Globulin Ratio (0.9-2) Urine Color Yellow Urine Appearance Clear (Clear) Urine pH 8.0 H (4.5-7.5) Ur Specific [place] 1.013 (1.000-1.030) Urine Protein Negative (Negative) Urine Glucose (UA) Negative (Negative) Urine Ketones Negative (Negative) Urine Blood Negative (Negative) Urine Nitrite Negative (Negative) Urine Bilirubin Negative (Negative) Urine Urobilinogen Negative (Negative) Ur Leukocyte Esterase Negative (Negative) Salicylates (2.8-20) mg/dl Urine Opiates Screen Neg (Neg) Ur Methadone, Qual Neg (Neg) Acetaminophen (10-30) ug/ml Urine Barbiturates Neg (Neg) Ur Phencyclidine (PCP) Neg (Neg) U Amphetamin/Meth Scrn Neg (Neg) MDMA (Ecstasy) Screen Neg (Neg) U Benzodiazepines Scrn Neg (Neg) Ur Cocaine Metabolite Neg (Neg) U Marijuana (THC) Screen Neg (Neg) Ethyl Alcohol mg/dL < 3.0 (0-3) mg/dl Imaging Data Attestation: I personally reviewed and interpreted this imaging study as follows: My Impression: XR CHEST 1V: No cardiomegaly. No pulmonary infiltrates. Radiologist's Impression: Radiology results as stated below per my review and the radiologist's interpretation: CT HEAD: Impression: No intracranial hemorrhage or other acute intracranial abnormality. No mass lesion or mass effect. Global parenchymal volume loss with chronic microvascular ischemic change and chronic right caudate nucleus lacunar infarction. Bilateral lens replacement. Retention cysts are seen in the maxillary sinuses. Radiologist: Tu Nunes MD Study ready at 00:02 and initial results transmitted at 00:07. 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 The patient denies drinking alcohol tonight. He does not smell of alcohol. A PBT was 0. In reviewing the patient's medical record, it seems that he has a history of drinking rubbing alcohol which has led to an elevated osmolar gap with encephalopathy. Tonight, the patient has increased osmolality but the osmolar gap is only 2.7. He has no anion gap or acidosis noted. The patient's blood pressure came up nicely with normal saline solution. However, the patient does remain confused. [facility]. Impression & Plan Encephalopathy, Renal insufficiency Discharge Plan Visit Data *Final* Discharge Date/Time: 08/30/18 03:33 Chief Complaint: Altered Mental Status Stated Complaint: ams ED Provider: Ailyn Epstein Discharge Problem: Encephalopathy, Renal insufficiency Patient Disposition: Admitted As Inpatient Discharge Instructions Interventions: ED Discharge Assessment Last Done: 08/30/18 03:33 The scribe's documentation has been prepared under my direction and personally reviewed by me in its entirety. I confirm that the note above accurately reflects all work, treatment, procedures, and medical decision making performed by me.
[2018-08-30 05:03] LABS: Albumin Level 2.8 gm/dl (3.4-5.0); BUN Creatinine Ratio 16.4 (10-20); Calcium 8.3 mg/dl (8.5-10.1); Creatinine Clr Calc Pharmacy 44.3 ml/min; Est GFR (African American) 51.7; Est GFR (Non-African American) 44.6; Potassium 4.3 mmol/L (3.5-5.1)
[2018-08-30 05:06] LABS: Albumin Globulin Ratio 0.9 (0.9-2); Bilirubin,Total 0.6 mg/dl (0.2-1); Globulin 3.2 gm/dl (2.5-4.0)
[2018-08-30] MEDS ORDERED: HALOPERIDOL LACTATE 5 MG/ML 1 ML VIAL IM STA (05:16)
[2018-08-30] MEDS ORDERED: LORazepam 1 MG/2 ML VIAL IV STA (05:25)
[2018-08-30] MEDS ORDERED: HALOPERIDOL LACTATE 5 MG/ML 1 ML VIAL IM PRN (05:37)
--- NOTE | 2018-08-30 06:15 | History & Physical Report ---
Date of Service August 30, 2018 Assessment & Plan (1) Wernickes encephalopathy: Warnicke's encephalopathy complicated by toxic metabolic encephalopathy and acute alcoholic hallucinosis due to alcohol withdrawal- Admit to monitored bed. Alcohol withdrawal scale with IV Ativan. Haldol 5 mg IM every 4 hours as needed anxiety agitation. Present on Admission?: Yes (2) Toxic metabolic encephalopathy: See above Present on Admission?: Yes (3) Acute alcoholic hallucinosis: See above Continue folic acid, and thiamine orally. Placed on banana bag every morning. Present on Admission?: Yes (4) Anxiety with depression: Continue buspirone, but change from 15 mg p.o. twice daily PRN to scheduled. Continue Lexapro 10 mg p.o. daily. Present on Admission?: Yes (5) Diabetes mellitus: Continue glimepiride [address] on Accu-Cheks before meals and at bedtime with NovoLog coverage for scale. Present on Admission?: Yes (6) Hypertension: Hypertension/acute kidney injury- Continue metoprolol succinate 25 mg p.o. daily. Hold lisinopril. Creatinine 1.82 upon admission, with baseline 1.29 Gentle IV fluid rehydration. Repeat laboratories every morning Present on Admission?: Yes (7) JAMES (acute kidney injury): See above Present on Admission?: Yes (8) Hyperlipidemia: Continue atorvastatin 20 mg daily Present on Admission?: Yes (9) BPH NOS w ur obs/LUTS: Continue tamsulosin 0.4 mg p.o. bedtime. Present on Admission?: Yes History of Present Illness Chief Complaint: The patient presents to the emergency department due to altered mental status with visual hallucinations that began a few days prior to arrival. Primary Care Provider: Maar Rosas PA-C The patient is a 68-year-old male most recently admitted to [facility] from 07/30-08/04/2018 for altered mental status associated with drinking isopropyl alcohol. The patient denies any isopropyl alcohol intake this visit. He reports he was drinking for 5 to 6 days in a row, and has not had alcoholic beverages to drink for the past 2 days. EMS reports that the patient's neighbor called the police, when he was outside acting erratically. He admits to having visual hallucinations, and references activities with 2 of his friends, dogs are on the list, and a libertarian at his house tonight, none of which can be substantiated. Allergies Allergy/AdvReac Type Severity Reaction Status Date / Time Cephalosporins Allergy Unknown SUPRAX Verified 08/30/18 00:28 Penicillins Allergy Unknown RASH Verified 08/30/18 00:28 Sulfa (Sulfonamide Allergy Unknown RASH Verified 08/30/18 00:28 Antibiotics) Home Medications Home Medications Medication Instructions Recorded Confirmed Type B Complex w-Vit C 1 tab PO DAILY 07/30/18 08/30/18 History atorvastatin 20 mg PO DAILY 07/30/18 08/30/18 History buspirone 15 mg PO BID PRN 07/30/18 08/30/18 History doxepin 1 - 2 cap PO HS PRN 07/30/18 08/30/18 History escitalopram oxalate 10 mg PO DAILY 07/30/18 08/30/18 History folic acid 1 mg PO DAILY 07/30/18 08/30/18 History lisinopril 5 mg PO DAILY 07/30/18 08/30/18 History melatonin 5 mg PO HS 07/30/18 08/30/18 History metoprolol succinate 25 mg PO DAILY 07/30/18 08/30/18 History ropinirole 1 - 2 tab PO HS PRN 07/30/18 08/30/18 History tamsulosin 0.4 mg PO HS 07/30/18 08/30/18 History glimepiride [Amaryl] 1 mg PO QAM #30 tab 08/04/18 08/30/18 Rx lorazepam 0.5 mg PO Q12H PRN #10 tab 08/04/18 08/30/18 Rx multivitamin with minerals 1 cap PO DAILY #90 cap 08/04/18 08/30/18 Rx pantoprazole 40 mg PO BID #60 tab 08/04/18 08/30/18 Rx thiamine HCl (vitamin B1) [Vitamin 200 mg PO BID 30 Days #120 tab 08/04/18 08/30/18 Rx B-1] Past Med/Surg History Medical History Acute alcoholic hallucinosis (Resolved) TIA (transient ischemic attack) Wernickes encephalopathy (Resolved) Alcohol dependence Anxiety and depression Diabetes mellitus GERD (gastroesophageal reflux disease) HTN (hypertension), benign Hyperlipidemia Medical non-compliance Restless leg syndrome Surgical History No significant past surgical history Family History Father , In his 30s Heart disease Mother Cancer Lung cancer Sister Anorexia Social History Preferred Language: Citizen Of The [place] Communication Ability: Effective Beliefs That Will Affect Care: None marital status: Current Living Situation: Alone current occupational status: employed 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 [employer] Other Information That Helps Us Care for You: No Feels Safe at Home: Yes Safety Concerns: Feels Safe At This Time Smoking Status: Current every day smoker Tobacco Type: cigarettes Cigarettes Per Day: 20 Second Hand Exposure: No Hx Alcohol Use: Yes Alcohol type: hard liquor Hx Substance Use: Yes Substance Use Type Other:: CBD oil Last Used Substance: Hours (ago) Review of Systems Review of Systems: The patient denies chest pain, palpitations, shortness of breath, dyspnea on exertion, cough, lower extremity swelling, sore throat, fevers, chills, sweats, weight change, fatigue, nausea, vomiting, diarrhea , constipation, abdominal pain, pelvic pain, blood in urine or stool, dysuria, urinary frequency or urgency, lightheadedness, dizziness, loss of consciousness, rash, abnormal bruising or bleeding, imbalance, focal or generalized weakness, numbness or tingling in arms or legs, generalized arthralgias or myalgias, back or neck pain, or night sweats. The review of systems is otherwise negative other than for that already noted above, and at least 10 systems have been reviewed. Physical Exam Physical Exam: The patient is awake, disoriented, normocephalic and atraumatic, lying in bed and in no acute distress. HEENT--PERRL, EOMI, mucous membranes and oropharynx dry. Neck--supple. No JVD. No bruits. Thyroid normal, trachea midline, no adenopathy. Heart--normal S1 and S2. No murmurs, rubs or gallops. Lungs--clear bilaterally, no respiratory distress, no accessory muscle use. Abdomen--normal bowel sounds and soft. Nontender. Nondistended. Extremities--no cyanosis or clubbing. No edema. There are good distal pulses b/l. Dermatologic--normal skin turgor, normal color, no abnormal lymph nodes, no rash. Neurologic--cranial nerves II through XII grossly intact. Rheumatologic--normal range of motion. Psychiatric--normal affect. Results & Data Vital Signs (Past 12 Hours) Vital Signs Temp Pulse Pulse Resp BP BP Pulse Ox 08/30/18 04:22 78 08/30/18 04:05 08/30/18 03:40 98.2 F 74 18 164/98 H 97 08/30/18 03:33 82 18 150/96 H 99 08/30/18 02:00 88 16 146/75 H 96 08/30/18 00:28 88 18 114/93 96 08/29/18 23:55 96 H 18 106/71 99 08/29/18 23:03 98.2 F 102 H 18 96/60 L 93 Pulse Ox 08/30/18 04:22 08/30/18 04:05 97 08/30/18 03:40 08/30/18 03:33 08/30/18 02:00 08/30/18 00:28 08/29/18 23:55 08/29/18 23:03 Laboratory Results Laboratory Results WBC 3.82 K/uL (4.8-10.8) L 08/29/18 23:51 RBC 3.69 M/uL (4.7-6.1) L 08/29/18 23:51 Hgb 11.8 g/dL (14.0-18.0) L 08/29/18 23:51 Hct 35.4 % (42-52) L 08/29/18 23:51 MCV 95.9 fL (80-100) 08/29/18 23:51 MCH 32.0 pg (25-34) 08/29/18 23:51 MCHC 33.3 g/dL (32-36) 08/29/18 23:51 RDW Std Deviation 50.3 fL (36.4-46.3) H 08/29/18 23:51 RDW Coeff of Nadege 14.4 % (11.5-14.5) 08/29/18 23:51 Plt Count 95 K/uL (130-400) L 08/29/18 23:51 MPV 9.6 fL (7.4-10.4) 08/29/18 23:51 Immature Gran % (Auto) 0.3 % 08/29/18 23:51 Neut % (Auto) 68.0 % 08/29/18 23:51 Lymph % (Auto) 25.1 % 08/29/18 23:51 [place] % (Auto) 4.5 % 08/29/18 23:51 Eos % (Auto) 1.8 % 08/29/18 23:51 Baso % (Auto) 0.3 % 08/29/18 23:51 Immature Gran # (Auto) 0.01 K/uL (0.00-0.02) 08/29/18 23:51 Neut # (Auto) 2.60 K/uL (1.4-6.5) 08/29/18 23:51 Lymph # (Auto) 0.96 K/uL (1.2-3.4) L 08/29/18 23:51 [place] # (Auto) 0.17 K/uL (0.11-0.59) 08/29/18 23:51 Eos # (Auto) 0.07 K/uL (0-0.5) 08/29/18 23:51 Baso # (Auto) 0.01 K/uL (0-0.2) 08/29/18 23:51 Decreased (Normal) L 08/29/18 23:51 RBC Morphology Unremarkable 08/29/18 23:51 PT 10.0 Seconds (9.0-12.0) 08/30/18 04:22 INR 1.0 (0.9-1.1) 08/30/18 04:22 APTT 25.3 Seconds (21.0-31.0) 08/30/18 04:22 PTT Ratio 0.9 08/30/18 04:22 Sodium 144 mmol/L (136-145) 08/30/18 04:22 Potassium 4.3 mmol/L (3.5-5.1) 08/30/18 04:22 Chloride 113 mmol/L (98-107) H 08/30/18 04:22 Carbon Dioxide 26 mmol/L (21-32) 08/30/18 04:22 5.0 (3-11) 08/30/18 04:22 BUN 26 mg/dl (7-18) H 08/30/18 04:22 1.58 mg/dl (0.6-1.4) H 08/30/18 04:22 Est Cr Clr Drug Dosing 44.3 ml/min 08/30/18 04:22 Est GFR ( Amer) 51.7 08/30/18 04:22 Est GFR (Non-Af Amer) 44.6 08/30/18 04:22 16.4 (10-20) 08/30/18 04:22 Glucose 112 mg/dl (70-99) H 08/30/18 04:22 POC Glucose 200 (70-99) H 08/29/18 22:56 309 mOsm/kg (280-300) H 08/29/18 23:51 Calcium 8.3 mg/dl (8.5-10.1) L 08/30/18 04:22 Magnesium 1.8 mg/dl (1.8-2.4) 08/29/18 23:51 0.6 mg/dl (0.2-1) 08/30/18 04:22 AST 12 U/L (15-37) L 08/30/18 04:22 ALT 15 U/L (12-78) 08/30/18 04:22 66 U/L (45-117) 08/30/18 04:22 77 U/L (39-308) 08/29/18 23:51 < 0.015 ng/ml (0-0.045) 08/29/18 23:51 6.0 gm/dl (6.4-8.2) L 08/30/18 04:22 2.8 gm/dl (3.4-5.0) L 08/30/18 04:22 3.2 gm/dl (2.5-4.0) 08/30/18 04:22 0.9 (0.9-2) 08/30/18 04:22 Yellow 08/30/18 01:06 Clear (Clear) 08/30/18 01:06 8.0 (4.5-7.5) H 08/30/18 01:06 Ur Specific [place] 1.013 (1.000-1.030) 08/30/18 01:06 Negative (Negative) 08/30/18 01:06 Negative (Negative) 08/30/18 01:06 Negative (Negative) 08/30/18 01:06 Negative (Negative) 08/30/18 01:06 Negative (Negative) 08/30/18 01:06 Negative (Negative) 08/30/18 01:06 Negative (Negative) 08/30/18 01:06 Ur Leukocyte Esterase Negative (Negative) 08/30/18 01:06 Salicylates < 1.7 mg/dl (2.8-20) L 08/29/18 23:51 Neg (Neg) 08/30/18 01:06 Ur Methadone, Qual Neg (Neg) 08/30/18 01:06 Acetaminophen < 2 ug/ml (10-30) L 08/29/18 23:51 Neg (Neg) 08/30/18 01:06 Ur Phencyclidine (PCP) Neg (Neg) 08/30/18 01:06 U Amphetamin/Meth Scrn Neg (Neg) 08/30/18 01:06 Neg (Neg) 08/30/18 01:06 U Benzodiazepines Scrn Neg (Neg) 08/30/18 01:06 Ur Cocaine Metabolite Neg (Neg) 08/30/18 01:06 U Marijuana (THC) Screen Neg (Neg) 08/30/18 01:06 < 3.0 mg/dl (0-3) 08/29/18 23:51 Code Status & VTE Plan Code Status Full code VTE Prophylaxis Plan VTE Prophylaxis will be ordered: Yes
--- NOTE | 2018-08-30 06:42 | CT Scan Report ---
HEAD CT NONCONTRAST CT DOSE: 614.27 mGy.cm HISTORY: Altered mental status. TECHNIQUE: Multiaxial CT images of the head were performed without the use of intravenous contrast. A utomated exposure control was utilized for this study. A dose lowering technique was utilized adheri ng to the principles of ALARA. Comparison: Head CT 07/30/2018. Findings: Retention cysts within the maxillary sinuses, unchanged. The mastoid air cells are clear. T he calvarium and skull base are intact. There is no mass, hematoma, midline shift, acute infarct. Whi te matter hypodensity is nonspecific but suggestive of microvascular ischemic change. The ventricles and sulci demonstrate mild age-related involutional changes. Impression: No significant change compared to the prior study. No acute intracranial abnormality. Electronically signed by: Ruben Waller M.D. 08/30/2018 6:40 AM
[2018-08-30] MEDS: SODIUM CHLORIDE 0.9% 1000ML 1,000 ML IV SCH ×3 (07:35→21:05)
[2018-08-30] MEDS: HEPARIN SOD 5,000 UNIT/0.5 ML VIAL SQ SCH ×2 (07:36→21:05)
--- NOTE | 2018-08-30 07:42 | XRay Report ---
XR chest 1V portable HISTORY: cough COMPARISON: Chest 07/30/2018. FINDINGS: The lungs are clear. Cardiac silhouette is normal in size. No pleural effusions. No pneumot horax. IMPRESSION: No acute process. Electronically signed by: Ruben Waller M.D. 08/30/2018 7:41 AM
[2018-08-30] MEDS: FOLIC ACID 1 MG TAB PO SCH (11:47)
[2018-08-30] MEDS: CEROVITE ADV FORMULA TAB PO SCH (11:47)
[2018-08-30] MEDS: GLIMEPIRIDE 2 MG TAB PO SCH (11:47)
[2018-08-30] MEDS: ATORVASTATIN 20 MG TAB PO SCH (11:47)
[2018-08-30] MEDS: BusPIRone 15 MG TAB PO SCH ×2 (11:48→21:05)
[2018-08-30] MEDS: VITAMIN B COMPLEX TAB PO SCH (11:48)
[2018-08-30] MEDS: THIAMINE HCL 100 MG TAB PO SCH ×2 (11:48→21:05)
[2018-08-30] MEDS: PANTOprazole 40 MG TAB PO SCH ×2 (11:49→21:05)
[2018-08-30] MEDS: ESCITALOPRAM OXALATE 20 MG TAB PO SCH (11:49)
[2018-08-30] MEDS: METOPROLOL SUCC 25MG EXT REL TAB PO SCH (11:50)
--- NOTE | 2018-08-30 12:14 | Family Medicine Progress Note ---
Date of Service August 30, 2018 Assessment & Plan (1) Hypertension: Erick Khan is a 68 year old man who presented with altered mental status and has a history of alcoholism. Friend and POA says he's been drinking quite a bit before admission Confusion * Sounds like confusion, tremulousness, and hallucinations * Tox screen negative * Treating like alcohol withdrawal with PRN ativan, banana bag qdaily, and with supportive care for now * Also considering grief, depression with psychotic features, sleep deprivation, Wernicke's from lifetime of alcohol abuse Depression/Anxiety * Continuing home lexapro and Buspirone * Possible depression with psychotic features as tox screen was negative. DMII * Continuing home glimepiride BPH, HTN, HLD *Well controlled, continuing on home meds Diet: Regular DVT PPx: SubQ heparin Dispo: Probably will move to med/surg (2) Diabetes mellitus: (3) Anxiety with depression: (4) Wernickes encephalopathy: (5) Alcoholism /alcohol abuse: (6) Grief: Supervising Physician Co-Signing Physician Notes I personally examined the patient and verified all white points of history and exam, discussed case, and agree with decision making with Dr Leon. Subjective Erick Kahn is resting comfortably this morning. He tells me he was very confused and doesn't remember all the details about coming into hospital. He denies any alcohol or substance use since his past away, but his best friend, junior business analyst and power of regulatory attorney who is present tells me that he has been drinking since then. He tells me his dog ran away and he was out looking for it, but he was confused and shaking. Tells me he has a history of alcoholism and that he has been suffering from anxiety and depression since his . Review of Systems Constitutional: no fever and no chills Respiratory: no cough and no dyspnea Cardiovascular: no chest pain, no dyspnea and no dyspnea on exertion Gastrointestinal: no abdominal pain, no nausea and no vomiting Psychiatric: + depression, + abnormal sleep pattern and + anxiety; no suicidal ideation and no homicidal ideation Confusion Physical Exam Constitutional: WD/WN, vitals as above Respiratory: normal respiratory effort, lungs clear to auscultation Cardiovascular: RRR, no murmur, no edema Heart Sounds: no click, no gallop and no cardiac rub Gastrointestinal (Abdomen): normal bowel sounds, soft, nontender, no he patosplenomegaly Psychiatric: A+Ox3, euthymic affect Speech: normal rate/rhythm/volume of speech Affect: + anxious affect Insight: + poor insight Results & Data Vital Signs (Past 12 Hours) Vital Signs Temp Pulse Pulse Resp BP BP Pulse Ox 08/30/18 11:09 36.3 C L 63 20 124/76 95 08/30/18 06:57 36.4 C L 68 19 104/66 93 08/30/18 05:05 36.7 C 71 16 155/88 H 92 08/30/18 04:22 78 08/30/18 04:05 36.5 C 77 20 125/80 95 08/30/18 03:40 36.8 C 74 18 164/98 H 97 08/30/18 03:33 82 18 150/96 H 99 08/30/18 02:00 88 16 146/75 H 96 08/30/18 00:28 88 18 114/93 96 Pulse Ox 08/30/18 11:09 08/30/18 06:57 08/30/18 05:05 08/30/18 04:22 08/30/18 04:05 97 08/30/18 03:40 08/30/18 03:33 08/30/18 02:00 08/30/18 00:28 Resident Activity Tracking Resident Involvement: Resident Care Provided Care Provided: Adult Hospital Medicine
[2018-08-30] MEDS ORDERED: Nursing to Pharmacy Communication ONE (18:13)
[2018-08-30] MEDS ORDERED: TAMSULOSIN HCL 0.4 MG CAP PO SCH (21:00)
[2018-08-30] MEDS ORDERED: NON-FORMULARY MEDICATION (Melatonin 5 MG) PO SCH (21:00)
[2018-08-31] MEDS: SODIUM CHLORIDE 0.9% 1000ML 1,000 ML IV SCH ×2 (03:44→10:26)
[2018-08-31 07:08] LABS: Prothrombin Time 10.2 Seconds (9.0-12.0)
[2018-08-31 07:29] LABS: Albumin Level 2.5 gm/dl (3.4-5.0); BUN Creatinine Ratio 12.2 (10-20); Calcium 8.4 mg/dl (8.5-10.1); Creatinine Clr Calc Pharmacy 47.6 ml/min; Est GFR (African American) 56.4; Est GFR (Non-African American) 48.7; Potassium 4.4 mmol/L (3.5-5.1)
[2018-08-31 07:32] LABS: Albumin Globulin Ratio 0.8 (0.9-2); Bilirubin,Total 0.5 mg/dl (0.2-1); Total Protein 5.5 gm/dl (6.4-8.2)
[2018-08-31] MEDS: ATORVASTATIN 20 MG TAB PO SCH (08:54)
[2018-08-31] MEDS: GLIMEPIRIDE 2 MG TAB PO SCH (08:56)
[2018-08-31] MEDS: ESCITALOPRAM OXALATE 20 MG TAB PO SCH (08:56)
[2018-08-31] MEDS: FOLIC ACID 1 MG TAB PO SCH (08:57)
[2018-08-31] MEDS: CEROVITE ADV FORMULA TAB PO SCH (08:57)
[2018-08-31] MEDS: METOPROLOL SUCC 25MG EXT REL TAB PO SCH (08:57)
[2018-08-31] MEDS: PANTOprazole 40 MG TAB PO SCH (08:57)
[2018-08-31] MEDS: THIAMINE HCL 100 MG TAB PO SCH (08:57)
[2018-08-31] MEDS: BusPIRone 15 MG TAB PO SCH (08:58)
[2018-08-31] MEDS: VITAMIN B COMPLEX TAB PO SCH (09:00)
[2018-08-31] MEDS: HEPARIN SOD 5,000 UNIT/0.5 ML VIAL SQ SCH (09:01)
[2018-08-31 15:28] VITALS: BP 149/90; TEMP 98.2; O2SAT 95
[2018-08-31 16:23] VITALS: PULSE 64
--- NOTE | 2018-08-31 16:52 | Discharge Summary ---
Date of Service August 31, 2018 Admission HPI Per Admitting Provider The patient is a 68-year-old male most recently admitted to [facility] from 07/30-08/04/2018 for altered mental status associated with drinking isopropyl alcohol. The patient denies any isopropyl alcohol intake this visit. He reports he was drinking for 5 to 6 days in a row, and has not had alcoholic beverages to drink for the past 2 days. EMS reports that the patient's neighbor called the police, when he was outside acting erratically. He admits to having visual hallucinations, and references activities with 2 of his friends, dogs are on the list, and a libertarian at his house tonight, none of which can be substa ntiated. Admission Exam Per Admitting Provider The patient is awake, disoriented, normocephalic and atraumatic, lying in bed and in no acute distress. HEENT--PERRL, EOMI, mucous membranes and oropharynx dry. Neck--supple. No JVD. No bruits. Thyroid normal, trachea midline, no adenopathy. Heart--normal S1 and S2. No murmurs, rubs or gallops. Lungs--clear bilaterally, no respiratory distress, no accessory muscle use. Abdomen--normal bowel sounds and soft. Nontender. Nondistended. Extremities--no cyanosis or clubbing. No edema. There are good distal pulses b/l. Dermatologic--normal skin turgor, normal color, no abnormal lymph nodes, no rash. Neurologic--cranial nerves II through XII grossly intact. Rheumatologic--normal range of motion. Psychiatric--normal affect. Principal Diagnosis Alcoholism Discharge Exam Constitutional WD/WN, vitals as above Respiratory normal respiratory effort, lungs clear to auscultation Cardiovascular RRR, no murmur, no edema Heart Sounds: no click, no gallop and no cardiac rub Gastrointestinal (Abdomen) normal bowel sounds, soft, nontender, no hepatosplenomegaly Psychiatric A+Ox3, euthymic affect Speech: normal rate/rhythm/volume of speech Affect: + anxious affect Insight: good insight Judgement: + limited judgement Discharge Data Allergies Allergy/AdvReac Type Severity Reaction Status Date / Time Cephalosporins Allergy Unknown SUPRAX Verified 08/30/18 00:28 Penicillins Allergy Unknown RASH Verified 08/30/18 00:28 Sulfa (Sulfonamide Allergy Unknown RASH Verified 08/30/18 00:28 Antibiotics) Consultations 08/30/18 01:23 ED Decision to Admit Stat 08/30/18 04:05 Consult Case Management - Discharge Planning Routine Consult Case Management - Discharge Planning Routine Ordered Studies 08/29/18 23:35 CT head/brain wo con Urgent Hospital Course (1) Hypertension: Erick Kahn is a 68 year old man who presented with altered mental status and has a history of alcoholism. Friend and POA says he's been drinking quite a bit before admission Patient tells me he's unsure when his last drink was but that he was feeling very confused and seeing things that weren't there. He became confused and agitated and wandered outside until his neighbors called the police. Collateral history gathered from best friend and business project manager make it sound like he has been drinking heavily since his 's untimely two weeks ago. He has dealt with alcoholism frequently in the past and the grief of his 's passing has further sent him over the edge. He required one dose of ativan per AWSS but quickly regained his faculties. Mental status on day of discharge appears back to baseline. Patient showing good insight in wanting to seek out AA and a counselor to discuss and find better ways of coping with his grief. (2) Diabetes mellitus: (3) Anxiety with depression: (4) Wernickes encephalopathy: (5) Alcoholism /alcohol abuse: (6) Grief: Total Time Total Time Spent Total Time Spent (In Minutes): <30 Discharge Plan Discharge Items Patient Disposition: Home - Self-Care Reason For Visit: ENCEPHALOPATHY, ALCOHOL WITHDRAWAL Discharge Diagnosis: Alcoholism, withdrawal Condition: Good Discharge Goals: Improve disease control Activity: Resume your previous activity Non-emergency contact: Primary Care Provider Call non-emergency contact if: your symptoms worsen Follow-up/Referrals: Mara Rosas PA-C [Primary Care Provider] - Diet: Regular Addtl Provider Instructions: Mr. Kahn, it has been a pleasure to meet you and treat you for your confusion and hallucinations that were likely secondary to alchohol withdrawal. I think you have good insight into your affliction and are on the right track as far as seeking help. Your ideas of going to AA meetings and finding a counselor to talk about the grief of losing your are both excellent ideas that I implore you to follow through on. It sounds like you have a good friend and support system in your business project manager that I met and I hope you can lean on him while you are struggling right now. I sincerely wish you all the best with the next chapter of your life and have all the hamlet in the world that you can kick this habit with good effort and good support. I recommend you follow up with your primary care doctor within the next week and that you follow up with a counselor as soon as possible as well. If you have any more confusion, hallucinations, or tremulousness please return to medical care. Prescriptions: Continued doxepin 50 mg Capsule 1 - 2 cap PO HS PRN (Reason: Anxiety) RF: 0 atorvastatin 20 mg Tablet 20 mg PO DAILY RF: 0 tamsulosin 0.4 mg Capsule 0.4 mg PO HS RF: 0 folic acid 1 mg Tablet 1 mg PO DAILY RF: 0 lisinopril 5 mg Tablet 5 mg PO DAILY RF: 0 metoprolol succinate 25 mg tablet extended release 24 hr 25 mg PO DAILY RF: 0 ropinirole 5 mg Tablet 1 - 2 tab PO HS PRN (Reason: Restless Leg(S)) RF: 0 buspirone 15 mg tablet 15 mg PO BID PRN (Reason: Anxiety) RF: 0 escitalopram oxalate 20 mg Tablet 10 mg PO DAILY RF: 0 melatonin 5 mg Tablet 5 mg PO HS RF: 0 B Complex w-Vit C 22-82-82-5-250 mg Tablet 1 tab PO DAILY RF: 0 thiamine HCl (vitamin B1) [Vitamin B-1] 100 mg Tablet 200 mg PO BID 30 Days Qty: 120 RF: 0 glimepiride [Amaryl] 1 mg tablet 1 mg PO QAM Qty: 30 RF: 1 multivitamin with minerals capsule 1 cap PO DAILY Qty: 90 RF: 3 lorazepam 0.5 mg Tablet 0.5 mg PO Q12H PRN (Reason: Anxiety) Qty: 10 RF: 0 pantoprazole 40 mg tablet,delayed release (DR/EC) 40 mg PO BID Qty: 60 RF: 1 Visit Report Forms: Smoking Cessation Stand-Alone Forms: My [facility] CheckInPage Kr[place]/Other Patient Handouts: Grief and Loss, Grief Loss Self Help, Alcoholism, Addiction Alcohol, Addiction Recovery, Addiction Recovery [place] W Relapse Discharge Orders: Discharge Order (Routine); Ordered 08/31/18 Ordered By: Cruzito Leon Admission Data Admit Date/Time: 08/30/18 03:05 Attending Provider: Bipin Smalls Admit Provider: Rasheed Hensley Primary Care Provider: Mara Rosas Other Providers: Rasheed Hensley Service: Medical Other Interventions: Discharge Summary Assessment (RN) Last Done: 08/31/18 16:22 DC Date/Time DO NOT enter until pt leaves facility: 08/31/18 17:50 Supervising Physician Co-Signing Physician Notes I personally examined the patient and verified all white points of history and exam, discussed case, and agree with decision making with Dr Loen. Feeling better, much more like himself. He actually expresses good insight in conversations with Dr. Leon. Vitals noted, in general he is awake and alert as well as oriented, pleasant no distress. HEENT normal cephalic atraumatic mucous members moist. Breathing unlabored no accessory muscle use good effort. Skin shows no rashes no pallor or icterus. No focal neuro deficits. Altered mental statusseems most consistent with alcohol withdrawal, he had noted this would be plausible. It seems like he is improved, definitely appears stable for home. Close outpatient follow-up, agreed wholeheartedly with his thought for counseling in regards to grief. For clarification sake, doubt that he has a chronic alcoholic encephalopathy of true clinical significance given his mental status today. Resident Activity Tracking Resident Involvement: Resident Care Provided Care Provided: [facility] Medicine
== END 2018-08-31 17:50 | disposition home or self-care (01) | DRG 897 ==
LOC: ED 22:48 → SUATTDRO 08-30 03:05 → 2S 08-30 03:05 → 4W 08-30 14:59

== ENCOUNTER 2019-01-25 20:40 | Inpatient (IN) ==
[2019-01-25] MEDS ORDERED: SODIUM CHLORIDE 0.9% 1000ML 1,000 ML IV ONE (20:58)
[2019-01-25] MEDS ORDERED: FOLIC ACID 1 MG in SYRINGE 9.8 ML IV STA ×2 (20:58→23:22)
[2019-01-25] MEDS ORDERED: THIAMINE HCL 200 MG in SODIUM CHLORIDE 0.9% 50 ML IV STA ×2 (20:58→23:22)
[2019-01-25] MEDS ORDERED: SODIUM CHLORIDE 0.9% 1000ML 1,000 ML IV SCH (21:00)
[2019-01-25 21:40] LABS: Basophils # (auto) 0.02 K/uL (0-0.2); Basophils % (auto) 0.3 %; Eosinophils # (auto) 0.12 K/uL (0-0.5); Eosinophils % (auto) 1.9 %; Hematocrit (blood only) 39.8 % (42-52); Hemoglobin 13.2 g/dL (14.0-18.0); Immature Granulocytes # (auto) 0.01 K/uL (0.00-0.02); Immature Granulocytes % (auto) 0.2 %; Lymphocytes # (auto) 1.35 K/uL (1.2-3.4); Lymphocytes % (auto) 21.3 %; Mean Corpuscular Hemoglobin 32.4 pg (25-34); Mean Corpuscular Hgb Conc 33.2 g/dL (32-36); Mean Corpuscular Volume 97.8 fL (80-100); Mean Platelet Volume 10.4 fL (7.4-10.4); Monocytes % (auto) 7.9 %; Neutrophils # (auto) 4.33 K/uL (1.4-6.5); Neutrophils % (auto) 68.4 %; Platelet Count 124 K/uL (130-400); RDW Coefficient of Variation 14.8 % (11.5-14.5); RDW Standard Deviation 52.9 fL (36.4-46.3); Red Blood Count 4.07 M/uL (4.7-6.1); White Blood Count 6.33 K/uL (4.8-10.8)
--- NOTE | 2019-01-25 21:53 | XRay Report ---
XR chest 1V portable CLINICAL HISTORY: weakness COMPARISON STUDY: 08/30/2018 FINDINGS: The cardiac and mediastinal contours are normal. There is no evidence of focal pulmonary co nsolidation. There is no evidence of failure. No pleural effusions are visualized.[ IMPRESSION: No active disease in the chest. Electronically signed by: Ilya Sifuentes M.D. 01/25/2019 9:51 PM
[2019-01-25 22:03] LABS: Prothrombin Time 10.7 Seconds (9.0-12.0)
[2019-01-25 22:08] LABS: Alanine Aminotransferase 42 U/L (12-78); Albumin Level 3.8 gm/dl (3.4-5.0); Aspartate Aminotransferase 30 U/L (15-37); BUN Creatinine Ratio 11.4 (10-20); Blood Urea Nitrogen 28 mg/dl (7-18); Calcium 9.2 mg/dl (8.5-10.1); Carbon Dioxide 24 mmol/L (21-32); Chloride 106 mmol/L (98-107); Creatinine Clr Calc Pharmacy 24.8 ml/min; Est GFR (African American) 30.9; Est GFR (Non-African American) 26.6; Glucose 196 mg/dl (70-99); Magnesium 1.9 mg/dl (1.8-2.4); Potassium 4.1 mmol/L (3.5-5.1); Sodium 140 mmol/L (136-145)
[2019-01-25 22:18] LABS: Albumin Globulin Ratio 1.2 (0.9-2); Alkaline Phosphatase 76 U/L (45-117); Bilirubin,Total 0.7 mg/dl (0.2-1); Globulin 3.1 gm/dl (2.5-4.0); Total Protein 6.9 gm/dl (6.4-8.2); Troponin I < 0.015 ng/ml (0-0.045)
[2019-01-25] MEDS: D5W AND 1/2NSS 1,000 ML IV SCH (23:56)
[2019-01-26 00:57] LABS: Appearance Urine Clear (Clear); Bacteria Urine Automated Negative (Negative); Bilirubin Urine Negative (Negative); Blood Urine Negative (Negative); Color Urine Dark Yellow; Glucose Urine UA Negative (Negative); Ketones Urine Negative (Negative); Leukocyte Esterase Urine Negative (Negative); Nitrite Urine Negative (Negative); Protein Urine Trace (Negative); RBC Urine Automated 0-4 /hpf (0-4); Specific Gravity Urine 1.014 (1.000-1.030); Urobilinogen Urine Negative (Negative); pH Urine 6.5 (4.5-7.5)
--- NOTE | 2019-01-26 01:25 | Emergency Department Note ---
Entered by Nory Ro acting as a scribe for History of Present Illness General Chief complaint: Altered Mental Status Stated complaint: HALLUCINATING Time Seen by Provider: 01/25/19 20:57 Source: patient History of Present Illness Onset (ago): unknown Severity: similar to prior episodes Pain Consistency: + constant Relieved By: + none Associated symptoms: + confusion, + cough, + nausea/vomiting and + other (diz ziness) Treatments prior to arrival: none The patient is a 68 year old male w/ PMHx of diabetes, alcohol abuse, hypertension, depression, and Wernickes encephalopathy who presents to the ED w/ CC of altered mental status with unknown onset. The patient reports that he is seeing people that are not really there. He states that he has had hallucinations before, but has not had them in a long time. His daughter reports that he has been getting dizzy and confused. He has not drank alcohol recently, with his last drink being about 5 days ago. His daughter reports that he has not been taking his medications as prescribed. He denies fevers, chills, and urinary or bowel problems. He reports that he did fall recently and may have hit his head, but did not pass out. He complains of cough and vomiting as well. The patient notes that he is a smoker. Home Medications Home Medications Medication Instructions Recorded Confirmed Type escitalopram oxalate [Lexapro] 10 mg PO DAILY 07/30/18 01/25/19 History folic acid 1 mg PO DAILY 07/30/18 01/25/19 History lisinopril 5 mg PO DAILY 07/30/18 01/25/19 History melatonin 5 mg PO HS 07/30/18 01/25/19 History ropinirole 1 - 2 tab PO HS PRN 07/30/18 01/25/19 History tamsulosin 0.4 mg PO HS 07/30/18 01/25/19 History multivitamin with minerals 1 cap PO DAILY #90 cap 08/04/18 01/25/19 Rx [id number] 1 tab PO DAILY #90 tab 09/24/18 01/25/19 Rx 18 mg-10 mg-45 mg-5 mg-250 mg tablet ranitidine 150 mg tablet 150 mg PO BID #60 tab 09/30/18 01/25/19 History buspirone 30 mg tablet 15 mg PO BID #30 tab 12/01/18 01/25/19 Rx lorazepam 0.5 mg tablet 0.5 mg PO DAILY PRN #30 tab 01/14/19 01/25/19 Rx doxepin 50 - 100 mg PO HS PRN 01/25/19 01/25/19 History pantoprazole [Protonix] 40 mg PO BID 01/25/19 01/25/19 History Allergies Allergy/AdvReac Type Severity Reaction Status Date / Time Cephalosporins Allergy Unknown SUPRAX Verified 01/25/19 21:16 Penicillins Allergy Unknown RASH Verified 01/25/19 21:16 Sulfa (Sulfonamide Allergy Unknown RASH Verified 01/25/19 21:16 Antibiotics) Past Med/Surg History Medical History Anemia BPH with obstruction/lower urinary tract symptoms Cataracts, bilateral Controlled type 2 diabetes mellitus without complication Cough Current smoker Dyslipidemia Elevated PSA Gait instability Lacunar infarction Thrombocytopenia Acute alcoholic hallucinosis (Resolved) TIA (transient ischemic attack) Wernickes encephalopathy (Resolved) Alcohol dependence Anxiety and depression Diabetes mellitus GERD (gastroesophageal reflux disease) HTN (hypertension), benign Hyperlipidemia Medical non-compliance Restless leg syndrome Surgical History No significant past surgical history Family History Father , In his 30s Heart disease Mother Cancer Lung cancer Sister Anorexia Social History Preferred Language: Pashto Communication Ability: Effective Auto Phone Installer Required: No Beliefs That Will Affect Care: None marital status: / Current Living Situation: Alone current occupational status: employed 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 and A total of 10 systems reviewed and were otherwise negative Physical Exam Vital Signs Vital Signs - 24 hr 01/25/19 20:42 01/25/19 21:46 01/25/19 22:00 Temperature 36.6 C Temperature Source Oral Sepsis Recent Fever Within 48 Hours No Sepsis Action Taken by Nursing No Action Required Pulse Rate 110 H 85 80 Pulse Rate from SpO2 Sensor 82 80 Respiratory Rate 18 22 21 Respiratory Effort / Characteristics Non-Labored Spontaneous Respiratory Depth Normal Respiratory Pattern Regular Blood Pressure 88/58 L 84/56 L 95/61 L Blood Pressure Mean 68 65 72 Blood Pressure Position Sitting Pulse Oximetry 94 92 95 Oxygen Delivery Method Room Air Room Air Room Air 01/25/19 22:15 01/25/19 22:30 01/25/19 22:45 Temperature Temperature Source Sepsis Recent Fever Within 48 Hours Sepsis Action Taken by Nursing Pulse Rate 78 77 78 Pulse Rate from SpO2 Sensor 82 76 Respiratory Rate 20 15 21 Respiratory Effort / Characteristics Respiratory Depth Respiratory Pattern Blood Pressure 102/62 116/75 107/67 Blood Pressure Mean 75 88 80 Blood Pressure Position Pulse Oximetry 97 97 Oxygen Delivery Method Room Air 01/25/19 23:00 01/25/19 23:01 01/25/19 23:15 Temperature Temperature Source Sepsis Recent Fever Within 48 Hours Sepsis Action Taken by Nursing Pulse Rate 86 80 83 Pulse Rate from SpO2 Sensor Respiratory Rate 21 21 22 Respiratory Effort / Characteristics Respiratory Depth Respiratory Pattern Blood Pressure 118/71 133/85 Blood Pressure Mean 86 101 Blood Pressure Position Pulse Oximetry 95 Oxygen Delivery Method Room Air 01/25/19 23:30 01/25/19 23:45 01/26/19 00:00 Temperature Temperature Source Sepsis Recent Fever Within 48 Hours Sepsis Action Taken by Nursing Pulse Rate 81 83 78 Pulse Rate from SpO2 Sensor Respiratory Rate 20 18 17 Respiratory Effort / Characteristics Respiratory Depth Respiratory Pattern Blood Pressure 122/81 126/74 109/72 Blood Pressure Mean 94 91 84 Blood Pressure Position Pulse Oximetry 98 98 Oxygen Delivery Method Room Air Room Air 01/26/19 00:15 01/26/19 00:30 01/26/19 00:52 Temperature Temperature Source Sepsis Recent Fever Within 48 Hours Sepsis Action Taken by Nursing Pulse Rate 80 74 79 Pulse Rate from SpO2 Sensor Respiratory Rate 21 20 17 Respiratory Effort / Characteristics Respiratory Depth Respiratory Pattern Blood Pressure 119/75 124/80 133/83 Blood Pressure Mean 89 94 99 Blood Pressure Position Pulse Oximetry 96 Oxygen Delivery Method Room Air 01/26/19 01:00 Temperature Temperature Source Sepsis Recent Fever Within 48 Hours Sepsis Action Taken by Nursing Pulse Rate 74 Pulse Rate from SpO2 Sensor Respiratory Rate 16 Respiratory Effort / Characteristics Respiratory Depth Respiratory Pattern Blood Pressure 129/81 Blood Pressure Mean 97 Blood Pressure Position Pulse Oximetry 98 Oxygen Delivery Method Room Air GENERAL: Well nourished, NAD, non-toxic. EYE EXAM: Ophthalmoplegia. Nystagmus noted. Normal conjunctiva. PERRL, no anisocoria and EOM's grossly intact w/o pain. OROPHARYNX: Moist mucous membranes. Grossly normal dentition. NECK: Supple, no nuchal rigidity, no adenopathy, non-tender. No signs of meningismus. LUNGS: Clear to auscultation. Normal chest wall mechanics. HEART: NSR, no MRG. ABDOMEN: Abdomen soft, non-tender, normo-active bowel sounds, no masses, no rebound or guarding. BACK: No CVA TTP. SKIN: No rashes and no bruising. UPPER EXTREMITIES: Ataxia of the left upper extremity. Difficulty of differentiating right upper extremity to touch, but only when eyes are closed. Sensation is normal with eyes open. LOWER EXTREMITIES: No pitting edema. No calf pain. NEURO EXAM: A&O x3, cranial nerves II-XII grossly intact, normal speech, 5/5 strength throughout, no sensory deficits, good finger to nose, no pronator drift, moves all 4 extremities on command w/o issue. Course 2214: Past medical records reviewed. The patient was evaluated in room A12B. A complete history and physical exam was performed. 2238: I spoke to Dr. Hernandez, [facility] hospitalist, regarding the patient. He agreed to take over care of the patient. The patient verbally expressed understanding and agreement of the treatment plan. The patient will be evaluated for further treatment. Administered Medications Dextrose/Sodium Chloride (D5w And 1/2nss) 1,000 mls @ 125 mls/hr IV .Q8H JASWANT Stop: 02/24/19 23:29 Last Admin: 01/25/19 23:56 Dose: 125 mls/hr Documented by: [id number] Discontinued Medications Folic Acid 1 mg/ Syringe 10 mls @ 5 mls/min IV NOW STA Stop: 01/25/19 20:59 Last Admin: 01/25/19 21:47 Dose: 5 mls/min Documented by: [id number] Sodium Chloride (Nss 1000ml) 1,000 mls @ 999 mls/hr IV .Q1H1M ONE Stop: 01/25/19 21:58 Last Infusion: 01/25/19 22:43 Dose: 0 mls/hr Documented by: [id number] Admin: 01/25/19 21:45 Dose: 999 mls/hr Documented by: [id number] Sodium Chloride (Nss 1000ml) 1,000 mls @ 999 mls/hr IV .Q1H1M JASWANT Stop: 01/25/19 22:00 Last Infusion: 01/25/19 22:43 Dose: 0 mls/hr Documented by: [id number] Admin: 01/25/19 21:45 Dose: 999 mls/hr Documented by: [id number] Thiamine HCl 200 mg/ Sodium (Chloride) 52 mls @ 208 mls/hr IV NOW STA Stop: 01/25/19 21:12 Last Infusion: 01/25/19 22:14 Dose: 0 mls/hr Documented by: [id number] Admin: 01/25/19 21:45 Dose: 208 mls/hr Documented by: [id number] Thiamine HCl 200 mg/ Sodium (Chloride) 52 mls @ 208 mls/hr IV NOW STA Stop: 01/25/19 23:36 Last Infusion: 01/26/19 00:32 Dose: 0 mls/hr Documented by: [id number] Admin: 01/26/19 00:10 Dose: 208 mls/hr Documented by: [id number] Folic Acid 1 mg/ Syringe 10 mls @ 5 mls/min IV NOW STA Stop: 01/25/19 23:23 Last Admin: 01/26/19 00:10 Dose: 5 mls/min Documented by: [id number] Medical Decision Making Differential Diagnosis Differential diagnosis includes: metabolic, infection, hypoglycemia, el ectrolyte abnormalities, cardiac sources, intracerebral event, toxicologic, neurologic, as well as others were entertained. Medical Records Attestation: I reviewed the patient's medical records. The patient has a past medical history of diabetes, alcohol abuse, hypertension, depression, and Wernickes encephalopathy. Home Medications Current Medication List: was personally reviewed by me Laboratory Data Attestation: I reviewed the patient's lab results. Result diagrams: 01/25/19 21:20 01/25/19 21:20 Lab Results 01/25/19 01/25/19 01/25/19 Range/Units 21:12 21:20 21:20 WBC 6.33 (4.8-10.8) K/uL RBC 4.07 L (4.7-6.1) M/uL Hgb 13.2 L (14.0-18.0) g/dL Hct 39.8 L (42-52) % MCV 97.8 (80-100) fL MCH 32.4 (25-34) pg MCHC 33.2 (32-36) g/dL RDW Std Deviation 52.9 H (36.4-46.3) fL RDW Coeff of Nadege 14.8 H (11.5-14.5) % Plt Count 124 L (130-400) K/uL MPV 10.4 (7.4-10.4) fL Immature Gran % (Auto) 0.2 % Neut % (Auto) 68.4 % Lymph % (Auto) 21.3 % Walsh % (Auto) 7.9 % Eos % (Auto) 1.9 % Baso % (Auto) 0.3 % Immature Gran # (Auto) 0.01 (0.00-0.02) K/uL Neut # (Auto) 4.33 (1.4-6.5) K/uL Lymph # (Auto) 1.35 (1.2-3.4) K/uL Walsh # (Auto) 0.50 (0.11-0.59) K/uL Eos # (Auto) 0.12 (0-0.5) K/uL Baso # (Auto) 0.02 (0-0.2) K/uL PT 10.7 (9.0-12.0) Seconds INR 1.0 (0.9-1.1) Sodium (136-145) mmol/L Potassium (3.5-5.1) mmol/L Chloride (98-107) mmol/L Carbon Dioxide (21-32) mmol/L Anion Gap (3-11) BUN (7-18) mg/dl Creatinine (0.6-1.4) mg/dl Est Cr Clr Drug Dosing ml/min Est GFR ( Amer) Est GFR (Non-Af Amer) BUN/Creatinine Ratio (10-20) Glucose (70-99) mg/dl POC Glucose 190 H (70-99) Calcium (8.5-10.1) mg/dl Magnesium (1.8-2.4) mg/dl Total Bilirubin (0.2-1) mg/dl AST (15-37) U/L ALT (12-78) U/L Alkaline Phosphatase (45-117) U/L Troponin I (0-0.045) ng/ml Total Protein (6.4-8.2) gm/dl Albumin (3.4-5.0) gm/dl Globulin (2.5-4.0) gm/dl Albumin/Globulin Ratio (0.9-2) TSH (0.300-4.500) uIu/ml Urine Color Urine Appearance (Clear) Urine pH (4.5-7.5) Ur Specific [place] (1.000-1.030) Urine Protein (Negative) Urine Glucose (UA) (Negative) Urine Ketones (Negative) Urine Blood (Negative) Urine Nitrite (Negative) Urine Bilirubin (Negative) Urine Urobilinogen (Negative) Ur Leukocyte Esterase (Negative) Urine WBC (Auto) (0-5) /hpf Urine RBC (Auto) (0-4) /hpf U Hyaline Cast (Auto) (0-5) /lpf U Epithel Cells (Auto) (0-5) /lpf Urine Bacteria (Auto) (Negative) Ethyl Alcohol mg/dL (0-3) mg/dl 01/25/19 01/25/19 01/26/19 Range/Units 21:20 21:20 00:40 WBC (4.8-10.8) K/uL RBC (4.7-6.1) M/uL Hgb (14.0-18.0) g/dL Hct (42-52) % MCV (80-100) fL MCH (25-34) pg MCHC (32-36) g/dL RDW Std Deviation (36.4-46.3) fL RDW Coeff of Nadege (11.5-14.5) % Plt Count (130-400) K/uL MPV (7.4-10.4) fL Immature Gran % (Auto) % Neut % (Auto) % Lymph % (Auto) % Walsh % (Auto) % Eos % (Auto) % Baso % (Auto) % Immature Gran # (Auto) (0.00-0.02) K/uL Neut # (Auto) (1.4-6.5) K/uL Lymph # (Auto) (1.2-3.4) K/uL Walsh # (Auto) (0.11-0.59) K/uL Eos # (Auto) (0-0.5) K/uL Baso # (Auto) (0-0.2) K/uL PT (9.0-12.0) Seconds INR (0.9-1.1) Sodium 140 (136-145) mmol/L Potassium 4.1 (3.5-5.1) mmol/L Chloride 106 (98-107) mmol/L Carbon Dioxide 24 (21-32) mmol/L Anion Gap 10.0 (3-11) BUN 28 H (7-18) mg/dl Creatinine 2.42 H (0.6-1.4) mg/dl Est Cr Clr Drug Dosing 24.8 ml/min Est GFR ( Amer) 30.9 Est GFR (Non-Af Amer) 26.6 BUN/Creatinine Ratio 11.4 (10-20) Glucose 196 H (70-99) mg/dl POC Glucose (70-99) Calcium 9.2 (8.5-10.1) mg/dl Magnesium 1.9 (1.8-2.4) mg/dl Total Bilirubin 0.7 (0.2-1) mg/dl AST 30 (15-37) U/L ALT 42 (12-78) U/L Alkaline Phosphatase 76 (45-117) U/L Troponin I < 0.015 (0-0.045) ng/ml Total Protein 6.9 (6.4-8.2) gm/dl Albumin 3.8 (3.4-5.0) gm/dl Globulin 3.1 (2.5-4.0) gm/dl Albumin/Globulin Ratio 1.2 (0.9-2) TSH 1.500 (0.300-4.500) uIu/ml Urine Color Dark Yellow Urine Appearance Clear (Clear) Urine pH 6.5 (4.5-7.5) Ur Specific [place] 1.014 (1.000-1.030) Urine Protein Trace H (Negative) Urine Glucose (UA) Negative (Negative) Urine Ketones Negative (Negative) Urine Blood Negative (Negative) Urine Nitrite Negative (Negative) Urine Bilirubin Negative (Negative) Urine Urobilinogen Negative (Negative) Ur Leukocyte Esterase Negative (Negative) Urine WBC (Auto) 1-5 (0-5) /hpf Urine RBC (Auto) 0-4 (0-4) /hpf U Hyaline Cast (Auto) 5-10 H (0-5) /lpf U Epithel Cells (Auto) 5-10 H (0-5) /lpf Urine Bacteria (Auto) Negative (Negative) Ethyl Alcohol mg/dL < 3.0 (0-3) mg/dl Imaging Data Radiologist's Impression: Radiology results as stated below per my review and the radiologist's interpretation: XR chest 1V portable CLINICAL HISTORY: weakness COMPARISON STUDY: 08/30/2018 FINDINGS: The cardiac and mediastinal contours are normal. There is no evidence of focal pulmonary consolidation. There is no evidence of failure. No pleural effusions are visualized.[ IMPRESSION: No active disease in the chest. Electronically signed by: Ilya Sifuentes M.D. 01/25/2019 9:[address] HEAD: Comparison 08/29/18 No evidence for acute intracranial hemorrhage, cortical edema, or mass effect. No hydrocephalus. Global cortical involutional changes. Radiologist: Ruben Kohler MD Study ready at 00:21 and initial results transmitted at 00:34 ECG Data Attestation: I personally reviewed and interpreted this ECG as follows: Indication: altered mental status Rhythm: normal sinus Findings: + other (normal intervals, normal axis); no acute ischemic change Blood Pressure Blood Pressure Findings: Elevated blood pressure Blood Pressure Disposition: further management by hospitalist [facility] Narrative The patient is a 68 year old male w/ PMHx of diabetes, alcohol abuse, hypertension, depression, and Wernickes encephalopathy who presents to the ED w/ CC of altered mental status with unknown onset. Patient was seen and evaluated the bedside. The patient was presenting with hallucinations as well as some altered mental status. The patient is awake alert and follows commands. The patient does have evidence of ataxia and ophthalmoplegia which may be consistent with the patient's prior history of diagnosed Warnicke's encephalopathy. The patient also could be confabulating or could actually be having hallucinations. Patient's last drink was about a week prior. The patient did a blood work completed. The patient's blood work is fairly unremarkable. EtOH is undetectable. The patient does not appear to be in withdrawal acutely. Given the patient's likely encephalopathy thiamine and folic acid will order in addition to D5 half-normal saline. I did speak with the on-call hospitalist. CT the head was ordered was unremarkable. Patient was given strict follow-up, discharge, and return precautions. All questions were answered. Patient was deemed suitable for outpatient follow-up at this time. Patient agreed with the plan of care and was safely discharged home. Impression & Plan Hallucinations, visual, Ophthalmoplegia, Ataxia, Auditory hallucination, Wernicke's encephalopathy Discharge Plan Visit Data Chief Complaint: Altered Mental Status Stated Complaint: HALLUCINATING ED Provider: Dk Scott Discharge Problem: Hallucinations, visual, Ophthalmoplegia, Ataxia, Auditory hallucination, Wernicke's encephalopathy Forms Stand Alone Forms: My [facility] Prescriptions Prescriptions: No Action B Complex w-Vit C [id number] mg tablet 1 tab PO DAILY Qty: 90 RF: 2 buspirone 30 mg tablet 15 mg PO BID Qty: 30 RF: 5 lorazepam 0.5 mg tablet 0.5 mg PO DAILY PRN (Reason: Anxiety) Qty: 30 RF: 0 ranitidine HCl 150 mg tablet 150 mg PO BID Qty: 60 RF: 0 doxepin 50 mg capsule 50 - 100 mg PO HS PRN (Reason: Sleep) RF: 0 pantoprazole [Protonix] 40 mg tablet,delayed release (DR/EC) 40 mg PO BID RF: 0 tamsulosin 0.4 mg Capsule 0.4 mg PO HS RF: 0 folic acid 1 mg Tablet 1 mg PO DAILY RF: 0 lisinopril 5 mg Tablet 5 mg PO DAILY RF: 0 ropinirole 5 mg Tablet 1 - 2 tab PO HS PRN (Reason: Restless Leg(S)) RF: 0 escitalopram oxalate [Lexapro] 20 mg Tablet 10 mg PO DAILY RF: 0 melatonin 5 mg Tablet 5 mg PO HS RF: 0 multivitamin with minerals capsule 1 cap PO DAILY Qty: 90 RF: 3 The scribe's documentation has been prepared under my direction and personally reviewed by me in its entirety. I confirm that the note above accurately reflects all work, treatment, procedures, and medical decision making performed by me.
[2019-01-26] MEDS ORDERED: LORazepam 1 MG/2 ML VIAL IV ONE (01:40)
--- NOTE | 2019-01-26 01:54 | History & Physical Report ---
Date of Service January 26, 2019 Assessment & Plan (1) Wernicke's encephalopathy: Admit PCU I feel this is the most likely diagnosis, although he may have alcoholic dementia. I doubt that this is a primary psychiatric disorder such as schizophrenia High dose Thiamine 500mg IV q8 continue folic acid. DVT prophylaxis = SCDs and sub-q heparin q12. MRI brain I do note history of lacunar infarct. (2) Alcoholism /alcohol abuse: The patient does not appear to be having DTs or withdrawals at this time. This would make sense if indeed he has not had ETOH in 5 days. However, I do not know for certain. Thus he is placed on CIWA scale with Ativan coverage. (3) Diabetes mellitus: Apparently diet controlled. His sugar was 196 I covered him with sliding scale and ordered Lantus 5mg BID for basal. (4) Hypertension: continue lisinopril (5) JAMES (acute kidney injury): IVF recheck BMP in am. (6) GERD (gastroesophageal reflux disease): Continue pantoprazole and ranitidine. (7) BPH with obstruction/lower urinary tract symptoms: Continue tamsulosin History of Present Illness 68 y/o male presented to the ED with hallucinations both visual and auditory in which he sees people (often) sitting in his house. He reports that he has called law enforcement a couple times and there is no one in his house. Patient tells me that last night he felt he was seeing double or rather each eye was seeing something different. This symptom has resolved and he has no double vision. Earlier his daughter reported that the patient has had dizziness and confusional episodes. He is known to be a heavy ETOH user for 40 years, but reports that he has not had a drink in 5 days. No F/C, SOB, chest pain, N/V/D. He reports that he did fall recently and may have hit his head, but did not pass out. CT head was negative for bleed. Primary Care Provider: Mara Rosas PA-C Allergies Allergy/AdvReac Type Severity Reaction Status Date / Time Cephalosporins Allergy Unknown SUPRAX Verified 02/09/19 10:52 Penicillins Allergy Unknown RASH Verified 02/09/19 10:52 Sulfa (Sulfonamide Allergy Unknown RASH Verified 02/09/19 10:52 Antibiotics) Home Medications Home Medications Medication Instructions Recorded Confirmed Type folic acid 1 mg PO DAILY 07/30/18 02/09/19 History melatonin 5 mg PO HS 07/30/18 02/09/19 History tamsulosin 0.4 mg PO HS 07/30/18 02/09/19 History multivitamin with minerals 1 cap PO DAILY #90 cap 08/04/18 02/09/19 Rx [id number] 1 tab PO DAILY #90 tab 09/24/18 02/09/19 Rx 18 mg-10 mg-45 mg-5 mg-250 mg tablet buspirone 30 mg tablet 15 mg PO BID #30 tab 12/01/18 02/09/19 Rx thiamine HCl (vitamin B1) 250 mg PO BID #60 tab 02/01/19 02/09/19 Rx lorazepam 0.5 mg tablet 0.5 mg PO DAILY PRN #30 tab 02/03/19 02/09/19 Rx atorvastatin 20 mg tablet 20 mg PO DAILY 02/04/19 02/09/19 History escitalopram 20 mg tablet 20 mg PO DAILY tab 02/05/19 02/09/19 History naltrexone ER 380 mg intramuscular 380 mg IM MONTHLY ea 02/05/19 02/09/19 History suspension,extended release doxepin 50 mg capsule 50 - 100 mg PO HS PRN #30 cap 02/09/19 02/09/19 Rx ranitidine 150 mg tablet 150 mg PO BID PRN #60 tab 02/09/19 02/09/19 Rx ropinirole 1 mg tablet 1 mg PO HS PRN #60 tab 02/09/19 02/09/19 Rx Past Med/Surg History Medical History Anemia BPH with obstruction/lower urinary tract symptoms Cataracts, bilateral Controlled type 2 diabetes mellitus without complication Cough Current smoker Dyslipidemia Elevated PSA Gait instability Lacunar infarction Thrombocytopenia Acute alcoholic hallucinosis (Resolved) TIA (transient ischemic attack) Wernickes encephalopathy (Resolved) Alcohol dependence Anxiety and depression Diabetes mellitus GERD (gastroesophageal reflux disease) HTN (hypertension), benign Hyperlipidemia Medical non-compliance Restless leg syndrome Surgical History No significant past surgical history Family History Father , In his 30s Heart disease Mother Cancer Lung cancer Sister Anorexia Social History Preferred Language: Mongolian Communication Ability: Impaired Prosthetic Makeup Designer Required: No Beliefs That Will Affect Care: None marital status: / Current Living Situation: Alone current occupational status: employed 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 [employer] Feels Safe at Home: Yes Smoking Status: Current every day smoker Tobacco Type: cigarettes ; Cigarettes Per Day: 20 ; Second Hand Exposure: Yes ; Hx Alcohol Use: Yes Alcohol type: hard liquor Alcohol type Comment: Previous records indicate 30-40 ounces of vodka daily Alcohol Intake Frequency: Daily Hx Substance Use: No Review of Systems Review of Systems: Constitutional- no fever; no weight loss Eyes- no acute visual changes ENT- no sinus drainage; no pharyngitis Pulmonary- + dry cough (he is a smoker) no wheezing, no shortness of breath Cardiac- no chest pain, no palpitations, no orthopnea, no dependent edema GI- no nausea, no vomiting, no diarrhea, no melena, no hematochezia - no dysuria, no hematuria Musculoskeletal- no arthralgias, no myalgias Derm- no rashes, no new skin lesions, no changing skin lesions Hematologic- no unusual bruising, no unusual bleeding Lymphatics- no adenopathy Endocrine- no polyuria or polydipsia; no heat or cold intolerance Neuro- no headaches, no focal neurologic symptoms Psych- As in HPI Physical Exam Physical Exam: General- adult male, NAD Head- atraumatic Eyes- PERRL, EOMI, anicteric ENT- oropharynx clear Neck- supple, no JVD, no adenopathy, no thyromegaly. Lungs- A few scattered rhonchi, otherwise clear. Heart- regular rhythm; no murmur, no gallop, no rub appreciated Abdomen- normal bowel sounds, soft, nontender. Extremities- no pretibial edema, no calf tenderness; peripheral pulses intact Neuro- alert, oriented x 3; PERRL, EOMI; no facial palsy; no dysarthria. 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 [id number] slightly clumsy. Skin- warm & dry Results & Data Vital Signs (Past 12 Hours) Vital Signs Temp Pulse Resp BP Pulse Ox 01/26/19 01:38 82 18 129/81 98 01/26/19 01:00 74 16 129/81 98 01/26/19 00:52 79 17 133/83 96 01/26/19 00:30 74 20 124/80 01/26/19 00:15 80 21 119/75 01/26/19 00:00 78 17 109/72 98 01/25/19 23:45 83 18 126/74 01/25/19 23:30 81 20 122/81 98 01/25/19 23:15 83 22 133/85 01/25/19 23:01 80 21 118/71 95 01/25/19 23:00 86 21 01/25/19 22:45 78 21 107/67 01/25/19 22:30 77 15 116/75 97 01/25/19 22:15 78 20 102/62 97 01/25/19 22:00 80 21 95/61 L 95 01/25/19 21:46 85 22 84/56 L 92 01/25/19 20:42 36.6 C 110 H 18 88/58 L 94 Laboratory Results Laboratory Results WBC 6.33 K/uL (4.8-10.8) 01/25/19 21:20 RBC 4.07 M/uL (4.7-6.1) L 01/25/19 21:20 Hgb 13.2 g/dL (14.0-18.0) L 01/25/19 21:20 Hct 39.8 % (42-52) L 01/25/19 21:20 MCV 97.8 fL (80-100) 01/25/19 21:20 MCH 32.4 pg (25-34) 01/25/19 21:20 MCHC 33.2 g/dL (32-36) 01/25/19 21:20 RDW Std Deviation 52.9 fL (36.4-46.3) H 01/25/19 21:20 RDW Coeff of Nadege 14.8 % (11.5-14.5) H 01/25/19 21:20 Plt Count 124 K/uL (130-400) L 01/25/19 21:20 MPV 10.4 fL (7.4-10.4) 01/25/19 21:20 Immature Gran % (Auto) 0.2 % 01/25/19 21:20 Neut % (Auto) 68.4 % 01/25/19 21:20 Lymph % (Auto) 21.3 % 01/25/19 21:20 [place] % (Auto) 7.9 % 01/25/19 21:20 Eos % (Auto) 1.9 % 01/25/19 21:20 Baso % (Auto) 0.3 % 01/25/19 21:20 Immature Gran # (Auto) 0.01 K/uL (0.00-0.02) 01/25/19 21:20 Neut # (Auto) 4.33 K/uL (1.4-6.5) 01/25/19 21:20 Lymph # (Auto) 1.35 K/uL (1.2-3.4) 01/25/19 21:20 [place] # (Auto) 0.50 K/uL (0.11-0.59) 01/25/19 21:20 Eos # (Auto) 0.12 K/uL (0-0.5) 01/25/19 21:20 Baso # (Auto) 0.02 K/uL (0-0.2) 01/25/19 21:20 PT 10.7 Seconds (9.0-12.0) 01/25/19 21:20 INR 1.0 (0.9-1.1) 01/25/19 21:20 Sodium 140 mmol/L (136-145) 01/25/19 21:20 Potassium 4.1 mmol/L (3.5-5.1) 01/25/19 21:20 Chloride 106 mmol/L (98-107) 01/25/19 21:20 Carbon Dioxide 24 mmol/L (21-32) 01/25/19 21:20 Anion Gap 10.0 (3-11) 01/25/19 21:20 BUN 28 mg/dl (7-18) H 01/25/19 21:20 Creatinine 2.42 mg/dl (0.6-1.4) H 01/25/19 21:20 Est Cr Clr Drug Dosing 24.8 ml/min 01/25/19 21:20 Est GFR ( Amer) 30.9 01/25/19 21:20 Est GFR (Non-Af Amer) 26.6 01/25/19 21:20 BUN/Creatinine Ratio 11.4 (10-20) 01/25/19 21:20 Glucose 196 mg/dl (70-99) H 01/25/19 21:20 POC Glucose 190 (70-99) H 01/25/19 21:12 Calcium 9.2 mg/dl (8.5-10.1) 01/25/19 21:20 Magnesium 1.9 mg/dl (1.8-2.4) 01/25/19 21:20 Total Bilirubin 0.7 mg/dl (0.2-1) 01/25/19 21:20 AST 30 U/L (15-37) 01/25/19 21:20 ALT 42 U/L (12-78) 01/25/19 21:20 Alkaline Phosphatase 76 U/L (45-117) 01/25/19 21:20 Troponin I < 0.015 ng/ml (0-0.045) 01/25/19 21:20 Total Protein 6.9 gm/dl (6.4-8.2) 01/25/19 21:20 Albumin 3.8 gm/dl (3.4-5.0) 01/25/19 21:20 Globulin 3.1 gm/dl (2.5-4.0) 01/25/19 21:20 Albumin/Globulin Ratio 1.2 (0.9-2) 01/25/19 21:20 TSH 1.500 uIu/ml (0.300-4.500) 01/25/19 21:20 Urine Color Dark Yellow 01/26/19 00:40 Urine Appearance Clear (Clear) 01/26/19 00:40 Urine pH 6.5 (4.5-7.5) 01/26/19 00:40 Ur Specific [place] 1.014 (1.000-1.030) 01/26/19 00:40 Urine Protein Trace (Negative) H 01/26/19 00:40 Urine Glucose (UA) Negative (Negative) 01/26/19 00:40 Urine Ketones Negative (Negative) 01/26/19 00:40 Urine Blood Negative (Negative) 01/26/19 00:40 Urine Nitrite Negative (Negative) 01/26/19 00:40 Urine Bilirubin Negative (Negative) 01/26/19 00:40 Urine Urobilinogen Negative (Negative) 01/26/19 00:40 Ur Leukocyte Esterase Negative (Negative) 01/26/19 00:40 Urine WBC (Auto) 1-5 /hpf (0-5) 01/26/19 00:40 Urine RBC (Auto) 0-4 /hpf (0-4) 01/26/19 00:40 U Hyaline Cast (Auto) 5-10 /lpf (0-5) H 01/26/19 00:40 U Epithel Cells (Auto) 5-10 /lpf (0-5) H 01/26/19 00:40 Urine Bacteria (Auto) Negative (Negative) 01/26/19 00:40 Ethyl Alcohol mg/dL < 3.0 mg/dl (0-3) 01/25/19 21:20 Diagnostic Findings [place], [place] [phone] XRay Report Patient: LEFTY FITCHAdmit Date: 01/25/19 MR#: [id number]: [address] Acct ID:[id number]: Date: 1950[facility] Zip[facility] [place] [address] Age: 68Location: ED Sex: M Room/Bed: Att Phy:Diagnosis: HALLUCINATING [place] Phy: Mara Rosas PA-CService Date: 01/25/19 Fam Phy:Interpreting Phy: Ilya Sifuentes MD Admit Phy: Ordering Phy: Dk Scott M.D. cc: ~ XR chest 1V portable CLINICAL HISTORY: weakness COMPARISON STUDY: 08/30/2018 FINDINGS: The cardiac and mediastinal contours are normal. There is no evidence of focal pulmonary consolidation. There is no evidence of failure. No pleural effusions are visualized.[ IMPRESSION: No active disease in the chest. Electronically signed by: Ilya Sifuentes M.D. 01/25/2019 9:51 PM Dictated: 01/25/192150 Transcribed: 01/25/192150 CT HEAD: Comparison 08/29/18 No evidence for acute intracranial hemorrhage, cortical edema, or mass effect. No hydrocephalus. Global cortical involutional changes. Radiologist: Ruben Kohler MD Study ready at 00:21 and initial results transmitted at 00:34 Code Status & VTE Plan VTE Prophylaxis Plan VTE Prophylaxis will be ordered: Yes PG Care Time/CCT Total # of Minutes Spent Total Time Spent: 55 Total Time Spent with Patient: Total time spent is greater than 50% in coordination of care (as documented) at patient's floor/unit and/or counseling patient:
[2019-01-26] MEDS ORDERED: ROPINIROLE HCL 5 MG TABLET PO PRN (02:05)
[2019-01-26] MEDS ORDERED: GLUCOSE 10 TABS/TUBE PO PRN (02:05)
[2019-01-26] MEDS ORDERED: DEXTROSE 50% 50 ML SYRINGE IV PRN (02:05)
[2019-01-26] MEDS ORDERED: LORazepam 1 MG/2 ML VIAL IV PRN (02:05)
[2019-01-26] MEDS ORDERED: ONDANSETRON INJ 2 MG/ML 2 ML VIAL IV PRN (02:05)
[2019-01-26] MEDS ORDERED: GLUCOSE 40% GEL 15 GM TUBE PO PRN (02:05)
[2019-01-26] MEDS ORDERED: GLUCAGON FOR INJ 1 MG VIAL SQ PRN (02:05)
[2019-01-26] MEDS ORDERED: ACETAMINOPHEN 325 MG TAB PO PRN (02:05)
[2019-01-26] MEDS ORDERED: CARBOHYDRATES FOR HYPOGLYCEMIA PO PRN (02:05)
[2019-01-26] MEDS: D5W AND 1/2NSS 1,000 ML IV SCH ×2 (02:25→10:50)
[2019-01-26] MEDS ORDERED: HydrALAZINE HCL 20 MG/ML VIAL IV PRN ×2 (02:34→19:42)
[2019-01-26] MEDS: INSULIN ASPART 100 UNITS/ML 3 ML PEN SC SCH ×5 (04:53→20:52)
[2019-01-26 05:59] LABS: Hematocrit (blood only) 38.2 % (42-52); Hemoglobin 12.8 g/dL (14.0-18.0); Mean Corpuscular Hemoglobin 32.7 pg (25-34); Mean Corpuscular Hgb Conc 33.5 g/dL (32-36); Mean Corpuscular Volume 97.7 fL (80-100); Platelet Count 111 K/uL (130-400); RDW Coefficient of Variation 14.8 % (11.5-14.5); RDW Standard Deviation 52.9 fL (36.4-46.3); Red Blood Count 3.91 M/uL (4.7-6.1); White Blood Count 5.66 K/uL (4.8-10.8)
[2019-01-26 06:31] LABS: Albumin Level 3.3 gm/dl (3.4-5.0); BUN Creatinine Ratio 11.8 (10-20); Bilirubin Direct 0.2 mg/dl (0-0.2); Calcium 8.4 mg/dl (8.5-10.1); Creatinine Clr Calc Pharmacy 32.2 ml/min; Est GFR (African American) 38.6; Est GFR (Non-African American) 33.3; Potassium 4.1 mmol/L (3.5-5.1)
[2019-01-26 06:34] LABS: Albumin Globulin Ratio 1.1 (0.9-2); Bilirubin,Total 0.5 mg/dl (0.2-1); Globulin 2.9 gm/dl (2.5-4.0); Total Protein 6.2 gm/dl (6.4-8.2)
--- NOTE | 2019-01-26 06:41 | CT Scan Report ---
CT OF THE HEAD WITHOUT CONTRAST CLINICAL HISTORY: hallucinations, chronic alcohol use, now sober COMPARISON STUDY: Head CT August 29, 2018. MRI brain March 05, 2016. CT DOSE: 691.05 mGy.cm TECHNIQUE: Helical axial images of the head were obtained without IV contrast. Automated exposure con trol was utilized for the study. A dose lowering technique was utilized adhering to the principles o f ALARA. FINDINGS: No acute intracranial hemorrhage, midline shift or mass effect is present. The ventricular system is unremarkable. The basilar cisterns are patent. No extra-axial collections are present. Ther e are no findings to suggest acute dural sinus thrombosis or acute territorial infarct. No significan t calvarial abnormalities are present. Visualized portions of the sinuses and mastoid air cells are c lear. IMPRESSION: No acute intracranial findings. Electronically signed by: Rboert Cruz M.D. 01/26/2019 6:40 AM
[2019-01-26] MEDS ORDERED: THIAMINE HCL 500 MG in SYRINGE 9 ML IV SCH (07:30)
[2019-01-26] MEDS: HEPARIN SOD 5,000 UNIT/0.5 ML VIAL SQ SCH ×2 (09:16→20:52)
[2019-01-26] MEDS: INSULIN GLARGINE SOLOSTAR 100 UNITS/ML 3 ML PEN SC SCH ×2 (09:16→20:53)
[2019-01-26] MEDS: THIAMINE HCL 500 MG in 0.9 % SODIUM CHLORIDE 100 ML IV SCH ×3 (09:18→23:13)
[2019-01-26] MEDS: FOLIC ACID 1 MG TAB PO SCH (09:25)
[2019-01-26] MEDS: BusPIRone 15 MG TAB PO SCH ×2 (09:25→20:53)
[2019-01-26] MEDS: ESCITALOPRAM OXALATE 10 MG TAB PO SCH (09:25)
[2019-01-26] MEDS: VITAMIN B COMPLEX TAB PO SCH (09:26)
[2019-01-26] MEDS: CEROVITE ADV FORMULA TAB PO SCH (09:26)
[2019-01-26] MEDS: lisinopriL 5 MG TAB PO SCH (09:26)
[2019-01-26] MEDS: PANTOprazole 40 MG TAB PO SCH ×2 (09:26→20:52)
--- NOTE | 2019-01-26 09:37 | Hospitalist Progress Note ---
Date of Service January 26, 2019 Assessment & Plan (1) Hallucinations, visual: Complex visual hallucinations with associated prior history. 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 Patient reports last alcoholic drink different to other providers from 5 days to months ago, this remains the most likely diagnosis. No tachycardia, delirium, fever or hypertension to suggest delirium tremens. Alternatively benzodiazepine withdrawal, doxepin or ropinirole use, less likely but will discontinue doxepin and ropinirole nevertheless. Appears to be resolved after 1mg Ativan given last night which caused a lot of sedation suggestive not tolerant (2) Wernicke's encephalopathy: Ophthalmoplegia and gait abnormalities by history. No profound encephalopathy. No CT or MRI findings to support diagnosis however would recommend continuing IV treatment for x3 days then switching to PO. (3) Alcoholism /alcohol abuse: Continue AWSS to monitor for additional withdrawal symptoms rather than just hallucinations as not clear these are due to withdrawal. Cover with at risk treatment with lower dose of Ativan due to prior sedation for scores > 6. Can continue Vivitrol as outpatient (4) Diabetes mellitus: Apparently diet controlled. Prior HbA1C 6.0 (will repeat). Continue lantus coverage with 5 units BID (5) Hypertension: continue lisinopril (6) JAMES (acute kidney injury): Will d/c IV fluids now eating and drinking well. Continue to monitor Cr back to baseline approx. 1.3. Unclear cause - UA shows no infection. Possibly reduced oral fluid intake due to alcohol use. (7) GERD (gastroesophageal reflux disease): Continue pantoprazole and ranitidine. (8) BPH with obstruction/lower urinary tract symptoms: Continue tamsulosin (9) Generalized anxiety disorder: Suspect due to chronic alcohol use Continue lexapro (10) DVT prophylaxis: Heparin Q12H 5000 units Subjective Patient lying in bed. No complaints. Drowsy but wakes to voice. Re-examined in afternoon after waking from lorazepam 1mg IV dose. He remembers seeing people in the room but was unsure whether they were hallucinations and ended up calling the police who recommended he goes to the ER. However this is different from talking to his niece earlier in the day who reported the patient told his work colleagues that he was having visual hallucinations and they recommended he goes home. At home he continued to have visual hallucinations so called his niece who took him to the ER. Reported previously to other providers last alcoholic drink was 5 days prior to admission however to me he thought it was more like 2 weeks. He is concerned as other admissions for visual lund ucinations were in the setting of withdrawal but he doesn't think he is currently withdrawing at this time. He denies any tremors or agitation. He reports ongoing anxiety which is normal for him every morning where he clenches his fists and finds it hard to relax without ativan use. Review of Systems Review of Systems: All systems reviewed & are unremarkable except as noted in HPI & below Physical Exam Physical Exam: in afternoon Constitutional: well developed, + ill appearing and + disheveled; + not well nourished and no acute distress Eyes: PERRL and + nystagmus (left sided horizontal nystagmus > right) Neurologic: awake; no focal motor deficits (grossly normal UE/LE strength) and not confused Motor/Sensory: + tremor (b/l equal intention); no pronator drift and no asterixis Cranial Nerves: PERRL, tongue midline, able to elevate shoulders bilaterally and symmetric palate elevation; + EOM not intact (see below) and + nystagmus Coordination: + abnormal [id number] test Nystagmus left > right with double vision most pronounced left lateral gaze Psychiatric: A+Ox3, euthymic affect Eye Contact: + fair eye contact Affect: euthymic affect Mood: + anxious mood Results & Data Vital Signs (Past 12 Hours) Vital Signs Temp Pulse Pulse Resp BP BP BP 01/26/19 07:34 97.7 F 70 18 153/90 H 01/26/19 02:00 78 01/26/19 01:50 97.7 F 78 18 161/92 H 01/26/19 01:38 82 18 129/81 01/26/19 01:00 74 16 129/81 01/26/19 00:52 79 17 133/83 01/26/19 00:30 74 20 124/80 01/26/19 00:15 80 21 119/75 01/26/19 00:00 78 17 109/72 01/25/19 23:45 83 18 126/74 01/25/19 23:30 81 20 122/81 01/25/19 23:15 83 22 133/85 01/25/19 23:01 80 21 118/71 01/25/19 23:00 86 21 01/25/19 22:45 78 21 107/67 01/25/19 22:30 77 15 116/75 01/25/19 22:15 78 20 102/62 01/25/19 22:00 80 21 95/61 L 01/25/19 21:46 85 22 84/56 L Pulse Ox 01/26/19 07:34 92 01/26/19 02:00 01/26/19 01:50 97 01/26/19 01:38 98 01/26/19 01:00 98 01/26/19 00:52 96 01/26/19 00:30 01/26/19 00:15 01/26/19 00:00 98 01/25/19 23:45 01/25/19 23:30 98 01/25/19 23:15 01/25/19 23:01 95 01/25/19 23:00 01/25/19 22:45 01/25/19 22:30 97 01/25/19 22:15 97 01/25/19 22:00 95 01/25/19 21:46 92 PG Care Time/CCT Total # of Minutes Spent Total Time Spent with Patient: Total time spent is greater than 50% in coordination of care (as documented) at patient's floor/unit and/or counseling patient: (1) Diabetes mellitus Diabetes mellitus complication status: without complication Diabetes mellitus die barber insulin use: without die barber use Diabetes mellitus type: type 2 Qualified Code(s): E11.9 - Type 2 diabetes mellitus without complications (2) GERD (gastroesophageal reflux disease) Esophagitis presence: esophagitis presence not specified Qualified Code(s): K21.9 - Gastro-esophageal reflux disease without esophagitis (3) Hypertension Hypertension type: essential hypertension Qualified Code(s): I10 - Essential (primary) hypertension
[2019-01-26] MEDS ORDERED: PNEUMOCOCCAL ADMINISTRATION CHARGE ONE (10:15)
[2019-01-26] MEDS ORDERED: PNEUMOCOCCAL POLYSACCHARIDES 25 MCG/0.5 ML VIAL/SYR IM ONE (10:15)
--- NOTE | 2019-01-26 14:49 | Magnetic Resonance Report ---
MR brain wo con HISTORY: 68 years-old Male Confusion, Hallucinations acute visual hallucinations with altered mental status COMPARISON: MRA of the head and CTA head of same day TECHNIQUE: Multiplanar multisequence MRI of the brain was obtained without the use of IV contrast. FINDINGS: No restricted diffusion to suggest acute or subacute infarction. Midline structures including the cor pus callosum, brainstem, optic chiasm, pituitary and pineal glands appear unremarkable on the sagitta l T1 series. No cerebellar tonsillar herniation. Degenerative changes noted about the cervical spine. Motion degraded exam. Age-related involutional changes. No significant T2/FLAIR signal abnormalities of the brain parenchym a. Only minimal areas of T2/FLAIR prolongation noted within the periventricular white matter, likely of no clinical significance. No acute intracranial hemorrhage, midline shift, abnormal extra axial co llection, hydrocephalus or intracranial mass. There are a few subcentimeter remote lacunar infarction s noted about the bilateral cerebellar hemispheres. No pathologic blooming artifact on the T2 star se maurizio. No evidence of mesial temporal sclerosis, acute seizure focus or coats matter heterotopia. Major flow voids at the level of the skull base appear patent. Trace right mastoid effusion. Polypoid mucosal thickening of the maxillary sinuses measures up to 1.9 cm on the left. Mild mucosal thickeni ng of the ethmoid air cells. Prior bilateral cataract repair. Skull and soft tissues are unremarkable . IMPRESSION: 1. Motion degraded exam without acute intracranial abnormality, specifically no acute or subacute inf arction. 2. Mild paranasal sinus disease. The above report was generated using voice recognition software. It may contain grammatical, syntax o r spelling errors. Electronically signed by: Chente Andersen M.D. 01/26/2019 2:48 PM
--- NOTE | 2019-01-26 14:52 | Magnetic Resonance Report ---
MR ANGIOGRAPHY OF THE [place] NO CONTRAST CLINICAL HISTORY: Confusion, Hallucinations COMPARISON STUDY: March 05, 2016 A 3-D [id number] MR angiographic sequence of the [place] was performed. Both the source and projection images were reviewed. There is no evidence of major intracranial branch occlusion. There is no evidence of intracranial arianna nosis. There are no lesions suspicious for aneurysm. IMPRESSION: Unremarkable MR angiography of the [place]. Electronically signed by: Ilya Sifuentes M.D. 01/26/2019 2:51 PM
[2019-01-26] MEDS ORDERED: GADOBUTROL 65ML VIAL IV PRN (15:01)
--- NOTE | 2019-01-26 15:09 | Magnetic Resonance Report ---
MR angio neck wo/w con HISTORY: 68 years-old Male Confusion, Hallucinations acute confusion with hallucinations COMPARISON: Brain MRI and MRA of the head of same day TECHNIQUE: MRI of the neck was obtained with and without the use of 6.8 mL Gadavist utilizing 3-D gudelia e-of-flight sequencing with MIP reformats. All measurements were obtained according to NASCET criteri a. FINDINGS: No gross extra vascular abnormality identified on the large [id number]-[id number] bonding supervisor localizer images. Joy ged bilateral subclavian arteries appear unremarkable. Patent bilateral common and internal carotid a rteries. Study is mildly motion degraded. Codominant vertebral arteries. The bilateral vertebral doroteo maurizio appear patent. Mild tortuosity about the mid V2 segment right vertebral artery. No aneurysm, dis section, high-grade stenosis or proximal branch occlusion. There is mild to moderate luminal narrowin g about the proximal portions of the bilateral external carotid arteries. IMPRESSION: Unremarkable MRA of the neck. The above report was generated using voice recognition software. It may contain grammatical, syntax o r spelling errors. Electronically signed by: Chente Andersen M.D. 01/26/2019 3:08 PM
[2019-01-26] MEDS ORDERED: LORazepam 0.5 MG TAB PO PRN (18:39)
[2019-01-26] MEDS ORDERED: LORazepam 1 MG TAB PO PRN (20:01)
[2019-01-26] MEDS: TAMSULOSIN HCL 0.4 MG CAP PO SCH (20:53)
[2019-01-27 07:00] LABS: Hematocrit (blood only) 39.8 % (42-52); Hemoglobin 12.9 g/dL (14.0-18.0); Mean Corpuscular Hemoglobin 32.3 pg (25-34); Mean Corpuscular Hgb Conc 32.4 g/dL (32-36); Mean Corpuscular Volume 99.7 fL (80-100); Mean Platelet Volume 10.4 fL (7.4-10.4); Platelet Count 102 K/uL (130-400); RDW Coefficient of Variation 14.6 % (11.5-14.5); RDW Standard Deviation 53.1 fL (36.4-46.3); Red Blood Count 3.99 M/uL (4.7-6.1); White Blood Count 4.06 K/uL (4.8-10.8)
[2019-01-27 07:34] LABS: BUN Creatinine Ratio 11.5 (10-20); Bilirubin Direct 0.2 mg/dl (0-0.2); Calcium 8.4 mg/dl (8.5-10.1); Creatinine Clr Calc Pharmacy 35.7 ml/min; Est GFR (African American) 43.9; Est GFR (Non-African American) 37.8; Potassium 4.3 mmol/L (3.5-5.1)
[2019-01-27 07:36] LABS: Bilirubin,Total 0.5 mg/dl (0.2-1); Globulin 2.9 gm/dl (2.5-4.0); Total Protein 5.9 gm/dl (6.4-8.2)
[2019-01-27 07:50] LABS: Estimated Average Glucose 131 mg/dl; Hemoglobin A1C 6.2 % (4.5-5.6)
[2019-01-27] MEDS: INSULIN ASPART 100 UNITS/ML 3 ML PEN SC SCH ×4 (08:16→20:48)
[2019-01-27] MEDS: THIAMINE HCL 500 MG in 0.9 % SODIUM CHLORIDE 100 ML IV SCH ×3 (08:16→23:35)
[2019-01-27] MEDS: INSULIN GLARGINE SOLOSTAR 100 UNITS/ML 3 ML PEN SC SCH (08:19)
[2019-01-27] MEDS: HEPARIN SOD 5,000 UNIT/0.5 ML VIAL SQ SCH ×2 (08:19→20:48)
[2019-01-27] MEDS: lisinopriL 5 MG TAB PO SCH (08:19)
[2019-01-27] MEDS: CEROVITE ADV FORMULA TAB PO SCH (08:19)
[2019-01-27] MEDS: FOLIC ACID 1 MG TAB PO SCH (08:19)
[2019-01-27] MEDS: ESCITALOPRAM OXALATE 10 MG TAB PO SCH (08:19)
[2019-01-27] MEDS: VITAMIN B COMPLEX TAB PO SCH (08:19)
[2019-01-27] MEDS: PANTOprazole 40 MG TAB PO SCH ×2 (08:20→20:28)
[2019-01-27] MEDS: BusPIRone 15 MG TAB PO SCH ×2 (08:20→20:28)
[2019-01-27] MEDS: LORazepam 0.5 MG TAB PO PRN (08:24)
--- NOTE | 2019-01-27 16:19 | Hospitalist Progress Note ---
Date of Service January 27, 2019 Assessment & Plan (1) Hallucinations, visual: Complex visual hallucinations with associated prior history. 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 Patient reports last alcoholic drink 5 days prior to admission but possibly exacerbated in setting of thiamine deficiency. No tachycardia, delirium, fever or hypertension to suggest delirium tremens. Can be transferred off telemetry. Alternative diagnoses benzodiazepine withdrawal (however takes only small doses of ativan), doxepin or ropinirole use. Confirmed ropinirole dosing of 5-10mg HS PRN with pharmacy and possibly at this high dose could be contributing. Re- prescribed doxepin at usual dose and ropinirole at reduced dose to see if reoccurrence of hallucinations. (2) Wernicke's encephalopathy: Ophthalmoplegia with significant horizontal and vertical nystagmus and associated diplopia, possible internuclear ophthalmoplegia. Diplopia resolves with closing either eye but returns even if I cover one eye. No significant improvement from yesterday with high doses of IV thiamine. MRI reported motion artifact but discussed over the phone with Dr Cruz who reports adequate to rule out brainstem stroke. Discussed with Dr Kramer (neurology) over the phone and will place consult for AM to r/o alterative causes given lack of gait or encephalopathy or improvement with ophthalmoplegia with thiamine. Continue IV thiamine 500mg Q8H for 3 days then switch to oral 100mg BID. B complex as outpatient but he admits to missing multiple doses (3) Subcutaneous cyst: Suspected on exam. Given rapid enlargement over 2 week period recommend US while inpatient to confirm benign then f/u O/P (4) Alcoholism /alcohol abuse: Continue AWSS to monitor for additional withdrawal symptoms rather than just hallucinations as not clear these are due to withdrawal. Cover with at risk treatment with lower dose of Ativan due to prior sedation for scores > 6. Can continue Vivitrol as outpatient (5) Diabetes mellitus: Diet-controlled. HbA1C 6.1 Will discontinue lantus at this time (6) Hypertension: continue lisinopril. Monitor for hypotension (7) JAMES (acute kidney injury): Secondary to dehydration. Continue to monitor Cr back to baseline approx. 1.3. (8) GERD (gastroesophageal reflux disease): Continue pantoprazole and ranitidine. (9) BPH with obstruction/lower urinary tract symptoms: No current symptoms noted by patient Continue tamsulosin (10) Generalized anxiety disorder: Suspect due to chronic alcohol use Continue lexapro (11) DVT prophylaxis: Heparin Q12H 5000 units At baseline from PT/OT assessments Subjective Continue vision problems. He reports this is the first time he has had vision issues. Recently had cataracts done in both eyes in the last 12 months. No problems with monocular vision. Up walking around with physical therapy today without balance issues. Review of Systems Review of Systems: All systems reviewed & are unremarkable except as noted in HPI & below Physical Exam Constitutional: well developed and + disheveled; + not well nourished and no acute distress Eyes: PERRL and + nystagmus (left sided horizontal nystagmus > right) Respiratory: normal respiratory effort, lungs clear to auscultation Cardiovascular: RRR, no murmur, no edema Gastrointestinal (Abdomen): normal bowel sounds, soft, nontender, no hepatosplenomegaly Skin: no rashes, warm and dry 2cm round lump on right side of neck, mobile to deep tissue structures and thyroid, non tender, firm, no overlying skin changes Neurologic: awake; no focal motor deficits and not confused Motor/Sensory: no tremor, no pronator drift and no asterixis Cranial Nerves: PERRL, tongue midline, able to elevate shoulders bilaterally and symmetric palate elevation; + EOM not intact (see below) and + nystagmus Gait: no staggering gait and no wide-based gait Coordination: + abnormal [id number] test Suspect adduction weakness on right eye > left leading to increased nystagmus on contralateral eye consistent with TRAVIS. Vertical nystagmus also present b/l, worse on downward gaze. Resolution of diplopia with monocular vision (closing one eye) although returns even if I cover one eye. Psychiatric: A+Ox3, euthymic affect Eye Contact: good eye contact Affect: euthymic affect Mood: no anxious mood Results & Data Vital Signs (Past 12 Hours) Vital Signs Temp Pulse Pulse Resp BP BP Pulse Ox 01/27/19 15:16 98.8 F 78 17 120/73 94 01/27/19 12:08 98.1 F 80 16 122/74 95 01/27/19 11:40 98.1 F 80 18 107/70 96 01/27/19 09:07 79 PG Care Time/CCT Total # of Minutes Spent Total Time Spent with Patient: Total time spent is greater than 50% in coordination of care (as documented) at patient's floor/unit and/or counseling patient: (1) Diabetes mellitus Diabetes mellitus complication status: without complication Diabetes mellitus supervisor long goods insulin use: without supervisor long goods use Diabetes mellitus type: type 2 Qualified Code(s): E11.9 - Type 2 diabetes mellitus without complications (2) GERD (gastroesophageal reflux disease) Esophagitis presence: esophagitis presence not specified Qualified Code(s): K21.9 - Gastro-esophageal reflux disease without esophagitis (3) Hypertension Hypertension type: essential hypertension Qualified Code(s): I10 - Essential (primary) hypertension
[2019-01-27] MEDS ORDERED: ROPINIROLE HCL 1 MG TABLET PO PRN (17:54)
[2019-01-27] MEDS: TAMSULOSIN HCL 0.4 MG CAP PO SCH (20:27)
[2019-01-27] MEDS: DOXEPIN HCL 50 MG CAPSULE PO SCH (20:27)
[2019-01-27] MEDS: THIAMINE HCL 100 MG TAB PO SCH (20:45)
[2019-01-27] MEDS ORDERED: ROPINIROLE HCL 5 MG TABLET PO SCH (21:00)
[2019-01-28 06:45] LABS: BUN Creatinine Ratio 10.2 (10-20); Calcium 8.9 mg/dl (8.5-10.1); Creatinine Clr Calc Pharmacy 26.7 ml/min; Est GFR (African American) 30.9; Est GFR (Non-African American) 26.6; Potassium 4.3 mmol/L (3.5-5.1)
--- NOTE | 2019-01-28 08:46 | Ultrasound Report ---
US soft tissue head and neck CLINICAL HISTORY: 68 years-old Male presenting with soft tissue swelling on right neck, suspect SC cy s. TECHNIQUE: Real-time grayscale ultrasound imaging of the neck was performed for a focused evaluation at the site of clinical concern. Color and spectral Doppler ultrasound imaging was also performed. COMPARISON: None. FINDINGS: At the site of clinical concern in the right neck, at the site of the tender palpable abnormality, a hypoechoic to anechoic complex collection measuring 1.4 x 1.1 x 0.7 cm is noted. There is hyperechoge gonzalo thickened subcutaneous fat surrounding this collection with hyperemia. Associated skin thickening may also be present. The collection is avascular. This does not involve the subjacent musculature or vasculature. IMPRESSION: 1. Findings suspicious for a 1.4 cm abscess at the site of clinical concern within the subcutaneous fat with surrounding cellulitis. Electronically signed by: Grady Lacey M.D. 01/28/2019 8:45 AM
[2019-01-28] MEDS: THIAMINE HCL 500 MG in 0.9 % SODIUM CHLORIDE 100 ML IV SCH ×3 (09:01→23:52)
[2019-01-28] MEDS: LACTATED RINGER'S 1,000 ML IV SCH ×2 (09:02→17:13)
[2019-01-28] MEDS: CEROVITE ADV FORMULA TAB PO SCH (09:03)
[2019-01-28] MEDS: BusPIRone 15 MG TAB PO SCH ×2 (09:03→20:50)
[2019-01-28] MEDS: VITAMIN B COMPLEX TAB PO SCH (09:03)
[2019-01-28] MEDS: THIAMINE HCL 100 MG TAB PO SCH ×3 (09:03→20:50)
[2019-01-28] MEDS: FOLIC ACID 1 MG TAB PO SCH (09:03)
[2019-01-28] MEDS: ESCITALOPRAM OXALATE 10 MG TAB PO SCH (09:03)
[2019-01-28] MEDS: PANTOprazole 40 MG TAB PO SCH ×2 (09:03→20:50)
[2019-01-28] MEDS: HEPARIN SOD 5,000 UNIT/0.5 ML VIAL SQ SCH ×2 (09:09→21:23)
[2019-01-28] MEDS: INSULIN ASPART 100 UNITS/ML 3 ML PEN SC SCH ×3 (09:10→18:37)
[2019-01-28] MEDS ORDERED: VANCOMYCIN CONSULT ACTIVE PRN (11:17)
[2019-01-28 11:48] LABS: Basophils # (auto) 0.01 K/uL (0-0.2); Basophils % (auto) 0.3 %; Eosinophils # (auto) 0.08 K/uL (0-0.5); Eosinophils % (auto) 2.1 %; Hematocrit (blood only) 38.8 % (42-52); Hemoglobin 13.1 g/dL (14.0-18.0); Lymphocytes # (auto) 0.96 K/uL (1.2-3.4); Lymphocytes % (auto) 25.1 %; Mean Corpuscular Hemoglobin 32.9 pg (25-34); Mean Corpuscular Hgb Conc 33.8 g/dL (32-36); Mean Corpuscular Volume 97.5 fL (80-100); Mean Platelet Volume 10.4 fL (7.4-10.4); Monocytes # (auto) 0.37 K/uL (0.11-0.59); Monocytes % (auto) 9.7 %; Neutrophils # (auto) 2.41 K/uL (1.4-6.5); Neutrophils % (auto) 62.8 %; Platelet Count 126 K/uL (130-400); RDW Coefficient of Variation 14.4 % (11.5-14.5); RDW Standard Deviation 51.3 fL (36.4-46.3); Red Blood Count 3.98 M/uL (4.7-6.1); White Blood Count 3.83 K/uL (4.8-10.8)
--- NOTE | 2019-01-28 11:57 | Surgery Consultation ---
Date of Consultation January 28, 2019 Assessment & Plan (1) Subcutaneous mass of neck: This is a 68y M who was admitted to [facility] on 01/26/19 with hallucinations and found to have a right anterior neck mass. Workup included a US neck which shows concern for a 1.4cm abscess with subcutaneous fat and cellulitis. WBC has been between 3-6 range and patient has been afebrile. On examination mass does not appear to be infected and has no sign of drainage. Blood cultures have been drawn to rule out bacteremia. Medicine started IV vanco in the interim. I will discuss this case with Dr. Meneses to see if patient requires intervention in-house vs. follow patient for this as an outpatient. Dr Meneses- I was examining patient's right neck mass and I discovered a small amount of purulent fluid I suspect this is an infected epidermoid cyst Using 1% plain lidocaine incision was made and a small amount of purulent fluid sebaceous material recovered A gauze wick was placed in a dressing applied Fluid tissue were cultured Normally I would place the patient on Keflex 500 mg p.o. 4 times daily for 10 days and check on him in our office we will arrange follow-up History of Present Illness Attending Physician: Patric Ivan MD History of Present Illness This is a 68y M with a PMH of wernicke's encephalopathy, alcohol abuse, DM, HTN, and depression who was admitted to [facility] on 01/26/19 with auditory/visual hallucinations and confusion. Medicine has been working patient up with head/neck imaging and supplementing him with thiamine. On examination patient was found to have a lump on his neck prompting an ultrasound for further evaluation. Neck US shows concern for a 1.4cm abscess with subcutaneous fat and cellulitis. General surgery was consulted for further evaluation. Upon history taking patient reports that the lump has been present for at least a year, but over the past 1-2 weeks it has grown in size. The lump is sore for him. He den ies fevers, chills, any drainage, itchiness, trouble eating, shortness of breath, chest pain. He said his friend thought it was more red in appearance at one point, but otherwise he did not notice much change in color surrounding it. Allergies Allergy/AdvReac Type Severity Reaction Status Date / Time Cephalosporins Allergy Unknown SUPRAX Verified 01/25/19 21:16 Penicillins Allergy Unknown RASH Verified 01/25/19 21:16 Sulfa (Sulfonamide Allergy Unknown RASH Verified 01/25/19 21:16 Antibiotics) Home Medications Home Medications Medication Instructions Recorded Confirmed Type escitalopram oxalate [Lexapro] 10 mg PO DAILY 07/30/18 01/25/19 History folic acid 1 mg PO DAILY 07/30/18 01/25/19 History lisinopril 5 mg PO DAILY 07/30/18 01/25/19 History melatonin 5 mg PO HS 07/30/18 01/25/19 History ropinirole 1 - 2 tab PO HS PRN 07/30/18 01/25/19 History tamsulosin 0.4 mg PO HS 07/30/18 01/25/19 History multivitamin with minerals 1 cap PO DAILY #90 cap 08/04/18 01/25/19 Rx [id number] 1 tab PO DAILY #90 tab 09/24/18 01/25/19 Rx 18 mg-10 mg-45 mg-5 mg-250 mg tablet ranitidine 150 mg tablet 150 mg PO BID #60 tab 09/30/18 01/25/19 History buspirone 30 mg tablet 15 mg PO BID #30 tab 12/01/18 01/25/19 Rx lorazepam 0.5 mg tablet 0.5 mg PO DAILY PRN #30 tab 01/14/19 01/25/19 Rx doxepin 50 - 100 mg PO HS PRN 01/25/19 01/25/19 History pantoprazole [Protonix] 40 mg PO BID 01/25/19 01/25/19 History Patient History Medical History Anemia BPH with obstruction/lower urinary tract symptoms Cataracts, bilateral Controlled type 2 diabetes mellitus without complication Cough Current smoker Dyslipidemia Elevated PSA Gait instability Lacunar infarction Thrombocytopenia Acute alcoholic hallucinosis (Resolved) TIA (transient ischemic attack) Wernickes encephalopathy (Resolved) Alcohol dependence Anxiety and depression Diabetes mellitus GERD (gastroesophageal reflux disease) HTN (hypertension), benign Hyperlipidemia Medical non-compliance Restless leg syndrome Surgical History No significant past surgical history Family History Father , In his 30s Heart disease Mother Cancer Lung cancer Sister Anorexia Social History Preferred Language: Danish Communication Ability: Impaired Sequins Spooler Required: No Beliefs That Will Affect Care: None marital status: / Current Living Situation: Alone current occupational status: employed 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 [employer] Other Information That Helps Us Care for You: No Feels Safe at Home: Yes Safety Concerns: Feels Safe At This Time Smoking Status: Current every day smoker Tobacco Type: cigarettes ; Cigarettes Per Day: 20 ; Do You Dip or Chew Tobacco: No ; Second Hand Exposure: Yes ; Tobac co Cessation Education Requested by Patient: Yes Hx Alcohol Use: Yes Alcohol type: hard liquor Alcohol type Comment: Previous records indicate 30-40 ounces of vodka daily Alcohol Intake Frequency: Daily Hx Substance Use: No Review of Systems Constitutional: no fever and no chills Respiratory: no shortness of breath Cardiovascular: no chest pain Gastrointestinal: no abdominal pain Integumentary: + lump on neck, sore to touch, otherwise no drainage or skin changes. grown in size over past 1-2 weeks Physical Exam Physical Exam: awake/alert/sitting up in bed on laptop Constitutional: no acute distress Neck: + neck mass on R side of neck lateral to trachea. Firm, about ~2-3cm in size, mobile, no drainage, or sign of infection. Respiratory: normal respiratory effort Cardiovascular: Rate/Rhythm: regular rate Results & Data Vital Signs (Past 12 Hours) Vital Signs Temp Pulse Pulse Resp BP Pulse Ox 01/28/19 07:23 36.7 C 66 16 133/81 92 01/28/19 04:20 36.7 C 72 16 94/58 L 94 01/28/19 02:00 36.4 C L 63 16 133/84 94 US soft tissue head and neck CLINICAL HISTORY: 68 years-old Male presenting with soft tissue swelling on right neck, suspect SC cys. TECHNIQUE: Real-time grayscale ultrasound imaging of the neck was performed for a focused evaluation at the site of clinical concern. Color and spectral Doppler ultrasound imaging was also performed. COMPARISON: None. FINDINGS: At the site of clinical concern in the right neck, at the site of the tender palpable abnormality, a hypoechoic to anechoic complex collection measuring 1.4 x 1.1 x 0.7 cm is noted. There is hyperechogenic thickened subcutaneous fat surrounding this collection with hyperemia. Associated skin thickening may also be present. The collection is avascular. This does not involve the subjacent musculature or vasculature. IMPRESSION: 1. Findings suspicious for a 1.4 cm abscess at the site of clinical concern within the subcutaneous fat with surrounding cellulitis. Electronically signed by: Grady Lacey M.D. 01/28/2019 8:45 AM Dictated: 01/28/19 0843 Transcribed: 01/28/19 0843 PG Care Time/CCT Total # of Minutes Spent Total Time Spent with Patient: Total time spent is greater than 50% in coordination of care (as documented) at patient's floor/unit and/or counseling patient:
[2019-01-28] MEDS ORDERED: VANCOMYCIN HCL 1,750 MG in SODIUM CHLORIDE 0.9% 500 ML IV ONE (12:00)
--- NOTE | 2019-01-28 12:32 | Pharmacy Report ---
Pharmacy Abx Initial Consult - Date of Service January 28, 2019 - Pharmacy Dosing Scope Date of Consult: 01/28/19 Consultation requested by: Dr. Ivan Pharmacy is consulted to initiate Vancomycin IV dosing therapy, order appropriate labs and adjust drug dose/frequency. - Subjective The patient is a 68 year old M admitted on 01/26/19 01:15 with soft tissue swelling on right neck, abscess and cellulitis of soft tissue, and auditory/visual hallucinations and confusion. PMH of wernicke's encephalopathy, alcohol abuse, DM, HTN, and depression. - Objective Height: 5 ft 6 in Weight: 69 kg Vital Signs (Past 12hrs): Vital Signs Temp Pulse Pulse Resp BP Pulse Ox 01/28/19 07:23 36.7 C 66 16 133/81 92 01/28/19 04:20 36.7 C 72 16 94/58 L 94 01/28/19 02:00 36.4 C L 63 16 133/84 94 Lab Results (24hrs): Laboratory Tests (24 Hours) 01/28/19 01/28/19 11:32 05:48 WBC 3.83 L Neut # (Auto) 2.41 Creatinine 2.42 H D Est Cr Clr Drug Dosing 26.7 Micro Results: 01/28/19 11:36 Aerobic Blood Culture - Pending Blood Anaerobic Blood Culture - Pending 01/28/19 11:32 Aerobic Blood Culture - Pending Blood Anaerobic Blood Culture - Pending - Assessment & Plan Assessment 68 year old M with abscess and cellulitis of neck soft tissue. Pt with JAMES. Baseline Scr 1.3mg/dl, currently 2.42mg/dl Plan Vancomycin for treatment of cellulitis/abscess of neck. Vancomycin IV * Estimated PK Parameters: Vd 0.7 L/kg, Dariel 0.026hr-1, t1/2 26hr * Loading dose: 1750 mg (25 mg/kg) * Maintenance dose: 1000 mg IV (15 mg/kg) every 24 hours * Goal trough level for cellulitis & abscess : 15 to 20 mcg/mL * Trough level ordered for 01/31/19 * Will place 0900 dose on hold on 01/31 so that trough level can be evaluated prior to proceeding with therapy at that time. * Patient with JAMES so may need to make adjustments prior to then if patient has great changes in Scr. Pharmacy will continue to follow and will adjust dose/frequency as necessary. Thank you.
[2019-01-28] MEDS ORDERED: LIDOCAINE HCL 1% 20 ML VIAL INFIL ONE (12:43)
[2019-01-28] MEDS ORDERED: LIDOCAINE HCL 1% 20 ML VIAL ONE (12:44)
--- NOTE | 2019-01-28 13:04 | Procedure Note ---
Procedure Note Date of Service January 28, 2019 Patient has what appears to be an infected cyst of the right neck Incision and drainage culture were performed 1% plain lidocaine #11 blade scalpel gauze wick placed Dressing was applied-patient tolerated seizure very well Coding
--- NOTE | 2019-01-28 17:20 | Neurology Consultation ---
Date of Consultation January 28, 2019 Assessment & Plan (1) Nystagmus: Erick Fitch is a 68-year-old man with past medical history of diabetes, hypertension, hyperlipidemia, restless leg syndrome, BPH, alcohol abuse complicated by DTs in the past, and anxiety depression who initially presented to the hospital with visual and auditory hallucinations, diplopia, nystagmus and symptoms of alcohol withdrawal. Neurology is consulted for persistent nystagmus after administration of thiamine. #Wernicke's encephalopathy: His initial nystagmus and eye movement abnormalities which sounded like ophthalmoplegia have started to improve per patient and primary team following supplementation with thiamine. Patient denies having any further diplopia at this time but continues to have very mild left beating nystagmus with horizontal and mild horizontal component to it he also is unable to completely bury the sclera on left gaze. This will be consistent with a Werneke encephalopathy from his history of heavy alcohol abuse. Discussed with patient's the importance of reducing his alcohol intake to prevent further injury to his nerves and brain At the moment he appears to be improving with thiamine supplementation, if for some reason he continues to have any eye movement abnormalities at the end of the week, would recommend repeating the MRI of the brain with coronal cuts through the brainstem as well as thin cuts through the brainstem to rule out any vascular lesion. No further work-up needed at this time otherwise. He would benefit from seeing an supervisor benzene refining on discharge who could offer eye patch and or prism glasses should he still have any residual diplopia. Thank you for this consult. We will continue to follow peripherally. Please call with any questions. Present on Admission?: Yes History of Present Illness Attending Physician: Patric Ivan MD Erick Fitch is a 68-year-old man with past medical history of diabetes, hypertension, hyperlipidemia, restless leg syndrome, BPH, alcohol abuse complicated by DTs in the past, and anxiety depression who initially presented to the hospital with visual and auditory hallucinations, diplopia, nystagmus and symptoms of alcohol withdrawal. Neurology is consulted for persistent nystagmus after administration of thiamine. Erick reports he has a long history of drinking up to 1/5 daily. He has had multiple DTs in the past including hallucinations, hypertensive episodes, and episodes of confusion related to alcohol withdrawal. He denies ever having any visual complaints in the past with a withdrawal or independent of her withdrawal. He recalls that prior to coming to the hospital his last drink was approximately 5 days prior to presentation. When he came to the hospital he reports that he was seeing people who were not actually there and they were interacting with him. He also noted that he had horizontal diplopia that was worse with left gaze at admission he was noted to have significant nystagmus both horizontally and torsional components. He received thiamine supplementation and had an MRI of the brain which per my read showed no stroke or hemorrhage just generalized atrophy. He also had a CT head that was unremarkable per my read. MRA of the head and neck showed no large vessel occlusion or high-grade stenosis. His labs are notable for leukopenia with most recent white blood cell count of 3.83, hemoglobin 13.1, platelets 126. INR is 1.0 electrolytes most notable for a creatinine of 2.42. His A1c was 6.2, TSH was within normal limits and there is no sign of infection on urinalysis. Allergies Allergy/AdvReac Type Severity Reaction Status Date / Time Cephalosporins Allergy Unknown SUPRAX Verified 01/25/19 21:16 Penicillins Allergy Unknown RASH Verified 01/25/19 21:16 Sulfa (Sulfonamide Allergy Unknown RASH Verified 01/25/19 21:16 Antibiotics) Home Medications Home Medications Medication Instructions Recorded Confirmed Type escitalopram oxalate [Lexapro] 10 mg PO DAILY 07/30/18 01/25/19 History folic acid 1 mg PO DAILY 07/30/18 01/25/19 History lisinopril 5 mg PO DAILY 07/30/18 01/25/19 History melatonin 5 mg PO HS 07/30/18 01/25/19 History ropinirole 1 - 2 tab PO HS PRN 07/30/18 01/25/19 History tamsulosin 0.4 mg PO HS 07/30/18 01/25/19 History multivitamin with minerals 1 cap PO DAILY #90 cap 08/04/18 01/25/19 Rx [id number] 1 tab PO DAILY #90 tab 09/24/18 01/25/19 Rx 18 mg-10 mg-45 mg-5 mg-250 mg tablet ranitidine 150 mg tablet 150 mg PO BID #60 tab 09/30/18 01/25/19 History buspirone 30 mg tablet 15 mg PO BID #30 tab 12/01/18 01/25/19 Rx lorazepam 0.5 mg tablet 0.5 mg PO DAILY PRN #30 tab 01/14/19 01/25/19 Rx doxepin 50 - 100 mg PO HS PRN 01/25/19 01/25/19 History pantoprazole [Protonix] 40 mg PO BID 01/25/19 01/25/19 History Patient History Medical History Anemia BPH with obstruction/lower urinary tract symptoms Cataracts, bilateral Controlled type 2 diabetes mellitus without complication Cough Current smoker Dyslipidemia Elevated PSA Gait instability Lacunar infarction Thrombocytopenia Acute alcoholic hallucinosis (Resolved) TIA (transient ischemic attack) Wernickes encephalopathy (Resolved) Alcohol dependence Anxiety and depression Diabetes mellitus GERD (gastroesophageal reflux disease) HTN (hypertension), benign Hyperlipidemia Medical non-compliance Restless leg syndrome Surgical History No significant past surgical history Family History Father , In his 30s Heart disease Mother Cancer Lung cancer Sister Anorexia Social History Preferred Language: Turkmen Communication Ability: Impaired [employer] Router Required: No Beliefs That Will Affect Care: None marital status: / Current Living Situation: Alone current occupational status: employed 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 HEENT: No conjunctival injection, no rhinorrhea, moist mucus membranes. CV: RRR, no peripheral edema PULM: Nonlabored respirations on room air. Neuro Exam: MS: Awake and Alert. Oriented to person, place, and date. Speech fluent and appropriate without dysarthria or paraphasic errors. Language intact including naming, comprehension, repetition. Cognition and memory grossly intact. Attention intact. No neglect. CN: Visual figueroa full. No extinction to double simultaneous stimuli. Unable to visualize fundi. PERRLA OU. EOMI with left-beating nystagmus on left gaze (mainly horizontal with subtle torsional component), inability to bury the sclera completely on left gaze. Facial sensation intact to LT. Facial muscles full and symmetric. Hearing intact to conversation. Uvula midline with symmetric palatal elevation. Shoulder shrug normal. Tongue midline. MOTOR: Normal bulk and tone. No pronator drift. BUE strength 5/5 at deltoids, biceps, triceps, wrist flexors and extensors, and finger flexors bilaterally. BLE strength 5/5 at iliopsoas, hamstrings, quadriceps, tibialis anterior, and gastrocnemius bilaterally. REFLEXES: 2+ and brisk at biceps, triceps, brachioradialis, patella and Achilles bilaterally. Toes upgoing bilaterally (L>R) SENSORY: Intact to LT, vibration and temperature throughout. No extinction to double simultaneous stimuli. COORDINATION: No dysmetria or ataxia on fwvpav-ca-ibil and eomc-yn-tics bilaterally. Normal Faraz bilaterally. GAIT: did not walk patient due to fall risk Results & Data Vital Signs (Past 12 Hours) Vital Signs Temp Pulse Resp BP Pulse Ox 01/28/19 15:05 37.4 C 63 16 138/79 95 01/28/19 07:23 36.7 C 66 16 133/81 92 Laboratory Results Laboratory Results WBC 6.33 K/uL (4.8-10.8) 01/25/19 21:20 RBC 4.07 M/uL (4.7-6.1) L 01/25/19 21:20 Hgb 13.2 g/dL (14.0-18.0) L 01/25/19 21:20 Hct 39.8 % (42-52) L 01/25/19 21:20 MCV 97.8 fL (80-100) 01/25/19 21:20 MCH 32.4 pg (25-34) 01/25/19 21:20 MCHC 33.2 g/dL (32-36) 01/25/19 21:20 RDW Std Deviation 52.9 fL (36.4-46.3) H 01/25/19 21:20 RDW Coeff of Nadege 14.8 % (11.5-14.5) H 01/25/19 21:20 Plt Count 124 K/uL (130-400) L 01/25/19 21:20 MPV 10.4 fL (7.4-10.4) 01/25/19 21:20 Immature Gran % (Auto) 0.2 % 01/25/19 21:20 Neut % (Auto) 68.4 % 01/25/19 21:20 Lymph % (Auto) 21.3 % 01/25/19 21:20 [place] % (Auto) 7.9 % 01/25/19 21:20 Eos % (Auto) 1.9 % 01/25/19 21:20 Baso % (Auto) 0.3 % 01/25/19 21:20 Immature Gran # (Auto) 0.01 K/uL (0.00-0.02) 01/25/19 21:20 Neut # (Auto) 4.33 K/uL (1.4-6.5) 01/25/19 21:20 Lymph # (Auto) 1.35 K/uL (1.2-3.4) 01/25/19 21:20 [place] # (Auto) 0.50 K/uL (0.11-0.59) 01/25/19 21:20 Eos # (Auto) 0.12 K/uL (0-0.5) 01/25/19 21:20 Baso # (Auto) 0.02 K/uL (0-0.2) 01/25/19 21:20 PT 10.7 Seconds (9.0-12.0) 01/25/19 21:20 INR 1.0 (0.9-1.1) 01/25/19 21:20 Sodium 140 mmol/L (136-145) 01/25/19 21:20 Potassium 4.1 mmol/L (3.5-5.1) 01/25/19 21:20 Chloride 106 mmol/L (98-107) 01/25/19 21:20 Carbon Dioxide 24 mmol/L (21-32) 01/25/19 21:20 Anion Gap 10.0 (3-11) 01/25/19 21:20 BUN 28 mg/dl (7-18) H 01/25/19 21:20 Creatinine 2.42 mg/dl (0.6-1.4) H 01/25/19 21:20 Est Cr Clr Drug Dosing 24.8 ml/min 01/25/19 21:20 Est GFR ( Amer) 30.9 01/25/19 21:20 Est GFR (Non-Af Amer) 26.6 01/25/19 21:20 BUN/Creatinine Ratio 11.4 (10-20) 01/25/19 21:20 Glucose 196 mg/dl (70-99) H 01/25/19 21:20 POC Glucose 190 (70-99) H 01/25/19 21:12 Calcium 9.2 mg/dl (8.5-10.1) 01/25/19 21:20 Magnesium 1.9 mg/dl (1.8-2.4) 01/25/19 21:20 Total Bilirubin 0.7 mg/dl (0.2-1) 01/25/19 21:20 AST 30 U/L (15-37) 01/25/19 21:20 ALT 42 U/L (12-78) 01/25/19 21:20 Alkaline Phosphatase 76 U/L (45-117) 01/25/19 21:20 Troponin I < 0.015 ng/ml (0-0.045) 01/25/19 21:20 Total Protein 6.9 gm/dl (6.4-8.2) 01/25/19 21:20 Albumin 3.8 gm/dl (3.4-5.0) 01/25/19 21:20 Globulin 3.1 gm/dl (2.5-4.0) 01/25/19 21:20 Albumin/Globulin Ratio 1.2 (0.9-2) 01/25/19 21:20 TSH 1.500 uIu/ml (0.300-4.500) 01/25/19 21:20 Urine Color Dark Yellow 01/26/19 00:40 Urine Appearance Clear (Clear) 01/26/19 00:40 Urine pH 6.5 (4.5-7.5) 01/26/19 00:40 Ur Specific [place] 1.014 (1.000-1.030) 01/26/19 00:40 Urine Protein Trace (Negative) H 01/26/19 00:40 Urine Glucose (UA) Negative (Negative) 01/26/19 00:40 Urine Ketones Negative (Negative) 01/26/19 00:40 Urine Blood Negative (Negative) 01/26/19 00:40 Urine Nitrite Negative (Negative) 01/26/19 00:40 Urine Bilirubin Negative (Negative) 01/26/19 00:40 Urine Urobilinogen Negative (Negative) 01/26/19 00:40 Ur Leukocyte Esterase Negative (Negative) 01/26/19 00:40 Urine WBC (Auto) 1-5 /hpf (0-5) 01/26/19 00:40 Urine RBC (Auto) 0-4 /hpf (0-4) 01/26/19 00:40 U Hyaline Cast (Auto) 5-10 /lpf (0-5) H 01/26/19 00:40 U Epithel Cells (Auto) 5-10 /lpf (0-5) H 01/26/19 00:40 Urine Bacteria (Auto) Negative (Negative) 01/26/19 00:40 Ethyl Alcohol mg/dL < 3.0 mg/dl (0-3) 01/25/19 21:20 Diagnostic Findings [place] [phone] XRay Report Patient: ERICK FITCHAdmit Date: 01/25/19 MR#: [id number]: [address] Acct ID:[id number]: [facility]: 1950[facility] Zip[facility] [place] [address] Age: 68Location: ED Sex: M Room/Bed: Att Phy:Diagnosis: HALLUCINATING [place] Phy: Mara Rosas PA-CService Date: 01/25/19 Fam Phy:Interpreting Phy: Ilya Sifuentes MD Admit Phy: Ordering Phy: Dk Scott M.D. cc: ~ XR chest 1V portable CLINICAL HISTORY: weakness COMPARISON STUDY: 08/30/2018 FINDINGS: The cardiac and mediastinal contours are normal. There is no evidence of focal pulmonary consolidation. There is no evidence of failure. No pleural effusions are visualized.[ IMPRESSION: No active disease in the chest. Electronically signed by: Ilya Sifuentes M.D. 01/25/2019 9:51 PM Dictated: 01/25/192150 Transcribed: 01/25/192150 CT HEAD: Comparison 08/29/18 No evidence for acute intracranial hemorrhage, cortical edema, or mass effect. No hydrocephalus. Global cortical involutional changes. Radiologist: Ruben Kohler MD Study ready at 00:21 and initial results transmitted at 00:34 PG Care Time/CCT Total # of Minutes Spent Total Time Spent with Patient: Total time spent is greater than 50% in coordination of care (as documented) at patient's floor/unit and/or counseling patient:
--- NOTE | 2019-01-28 20:13 | Hospitalist Progress Note ---
Date of Service January 28, 2019 Assessment & Plan (1) Abscess: US concerning for cellulitis and abscess of epidermoid cyst. Appears more erythematous today (probably due to examining yesterday). Consult surgery placed and discussed with Dr Meneses. Given acute Wernicke's encephalopathy although improving would delay sedation for procedure for full excision to outpatient clinic. Initially given x1 dose vancomycin prior to surgical consult however now drained will switch to doxycycline as patient is not septic and minimal cellulitis surrounding after abscess drained. (2) Hallucinations, visual: Complex visual hallucinations with associated prior history. Appreciate neurology consult No tachycardia, delirium, fever or hypertension to suggest delirium tremens. Can be transferred off telemetry. Alternative diagnoses benzodiazepine withdrawal (however takes only small doses of ativan), doxepin or ropinirole use. Confirmed ropinirole dosing of 5-10mg HS PRN with pharmacy and possibly at this high dose could be contributing. Re- prescribed doxepin at usual dose and ropinirole at reduced dose to see if reoccurrence of hallucinations. (3) Wernicke's encephalopathy: Ophthalmoplegia appears vastly improved on todays exam. Associated diplopia also improved supporting diagnosis of Wernicke's encephalopathy. Day 3 IV thiamine and will continue PO thiamine after discharge. (4) Alcoholism /alcohol abuse: No current alcohol withdrawal symptoms Can continue Vivitrol as outpatient (5) Diabetes mellitus: Diet-controlled. HbA1C 6.1 Will discontinue all insulin and accucheks given minimal correction required. (6) Hypertension: continue lisinopril. Monitor for hypotension (7) JAMES (acute kidney injury): Acutely worse today suspect due to lisinopril restarted yesterday. Placed back on IV fluids overnight and will recheck in AM. (8) GERD (gastroesophageal reflux disease): Continue pantoprazole and ranitidine. (9) BPH with obstruction/lower urinary tract symptoms: No current symptoms noted by patient Continue tamsulosin (10) Generalized anxiety disorder: Suspect due to chronic alcohol use Continue lexapro (11) DVT prophylaxis: Heparin Q12H 5000 units At baseline from PT/OT assessments Suspect can be discharged home tomorrow if Cr and cellulitis improving. Subjective Feels generally well. No fevers/sweating. Lump on neck more tender today than yesterday. Diplopia and balance improving. No further hallucinations or signs/symptoms of alcohol withdrawal. Review of Systems Review of Systems: All systems reviewed & are unremarkable except as noted in HPI & below Physical Exam Constitutional: well developed and + disheveled; + not well nourished and no acute distress Eyes: PERRL and + nystagmus (left sided horizontal nystagmus > right, improving); + EOM not intact (diplopia still present but improving) ENMT: external ear and nose normal, oropharynx normal Neck: trachea midline Respiratory: normal respiratory effort, lungs clear to auscultation Cardiovascular: RRR, no murmur, no edema Gastrointestinal (Abdomen): normal bowel sounds, soft, nontender, no hepatosplenomegaly Musculoskeletal: no cyanosis or clubbing, extremities motor strength 5/5 Skin: Erythema and warmth around suspected cyst on left side of neck after US and examination yesterday, no definitive border Neurologic: awake; no focal motor deficits and not confused Motor/Sensory: no tremor and no pronator drift Cranial Nerves: + EOM not intact (as above) Coordination: + abnormal cuhjvy-pl-lvid test (R > L) Psychiatric: A+Ox3, euthymic affect Results & Data Vital Signs (Past 12 Hours) Vital Signs Temp Pulse Resp BP Pulse Ox 01/28/19 15:05 99.3 F 63 16 138/79 95 PG Care Time/CCT Total # of Minutes Spent Total Time Spent with Patient: Total time spent is greater than 50% in coor dination of care (as documented) at patient's floor/unit and/or counseling patient: (1) Diabetes mellitus Diabetes mellitus complication status: without complication Diabetes mellitus residential insulin use: without residential use Diabetes mellitus type: type 2 Qualified Code(s): E11.9 - Type 2 diabetes mellitus without complications (2) GERD (gastroesophageal reflux disease) Esophagitis presence: esophagitis presence not specified Qualified Code(s): K21.9 - Gastro-esophageal reflux disease without esophagitis (3) Hypertension Hypertension type: essential hypertension Qualified Code(s): I10 - Essential (primary) hypertension
[2019-01-28] MEDS: DOXEPIN HCL 50 MG CAPSULE PO SCH (20:50)
[2019-01-28] MEDS: TAMSULOSIN HCL 0.4 MG CAP PO SCH (20:50)
[2019-01-28] MEDS ORDERED: DOXYCYCLINE HYCLATE 100 MG CAP PO SCH (21:00)
[2019-01-28] MEDS: LORazepam 0.5 MG TAB PO PRN (21:31)
[2019-01-29] MEDS: LACTATED RINGER'S 1,000 ML IV SCH ×3 (01:15→19:27)
[2019-01-29 07:04] LABS: Creatinine Clr Calc Pharmacy 36.3 ml/min; Est GFR (African American) 44.8; Est GFR (Non-African American) 38.6
[2019-01-29] MEDS ORDERED: VANCOMYCIN CONSULT ACTIVE PRN (08:10)
[2019-01-29] MEDS: PANTOprazole 40 MG TAB PO SCH ×2 (08:40→20:33)
[2019-01-29] MEDS: FOLIC ACID 1 MG TAB PO SCH (08:40)
[2019-01-29] MEDS: VITAMIN B COMPLEX TAB PO SCH (08:40)
[2019-01-29] MEDS: CEROVITE ADV FORMULA TAB PO SCH (08:40)
[2019-01-29] MEDS: ESCITALOPRAM OXALATE 10 MG TAB PO SCH (08:40)
[2019-01-29] MEDS: THIAMINE HCL 100 MG TAB PO SCH ×3 (08:40→20:32)
[2019-01-29] MEDS: BusPIRone 15 MG TAB PO SCH ×2 (08:40→20:32)
[2019-01-29] MEDS: HEPARIN SOD 5,000 UNIT/0.5 ML VIAL SQ SCH ×2 (08:41→20:34)
[2019-01-29] MEDS ORDERED: VANCOMYCIN HCL 1,500 MG in SODIUM CHLORIDE 0.9% 500 ML IV ONE (08:45)
[2019-01-29] MEDS ORDERED: VANCOMYCIN HCL 1,000 MG in SODIUM CHLORIDE 0.9% 500 ML IV SCH (09:00)
--- NOTE | 2019-01-29 09:21 | Pharmacy Report ---
Pharmacy Abx Dose Short Note - Date of Service January 29, 2019 - Assessment & Plan Assessment * 68 year old M receiving VANCOMYCIN IV for treatment of cellulitis + infected cyst of R neck, now with GPC in blood cultures * GPC growing in both the aerobic and anaerobic bottle of 1 set of BLCXs. MSSA/MRSA PCR testing pending * Patient did have I+D performed, gram stain of drainage reveals moderate GPC * Currently afebrile, non-tachycardic, and non-hypotensive * Renal fxn appears to be improving (SCr 2.42-->1.78); baseline ~1.4-1.6? based upon review of prior labs Plan Vancomycin * Pt received a single loading dose of Vancomycin 1750mg at 1137 yesterday. It is likely that there is still some vancomycin on board today however a loading dose is still warranted at this time. Will give 1500mg IV x 1 (~22mg/kg) * Maint dose: 1000mg (~14.5mg/kg) IV Q 24 hrs * Goal trough level for bacteremia : 15 to 20 mcg/mL * Will check trough level with 3rd dose of this regimen. * P'kinetic estimates: Vd 0.7L/kg, half-life ~19-20 hrs Pharmacy will continue to follow and will adjust dose/frequency as necessary. Thank you.
--- NOTE | 2019-01-29 16:12 | Neurology Progress Note ---
Date of Service January 29, 2019 Assessment & Plan (1) Nystagmus: Erick Kahn is a 68-year-old man with past medical history of diabetes, hypertension, hyperlipidemia, restless leg syndrome, BPH, alcohol abuse complicated by DTs in the past, and anxiety depression who initially presented to the hospital with visual and auditory hallucinations, diplopia, nystagmus and symptoms of alcohol withdrawal. Neurology is consulted for persistent nystagmus after administration of thiamine. #Wernicke's encephalopathy: His initial nystagmus and eye movement abnormalities which sounded like ophthalmoplegia have almost resolved per patient and primary team following supplementation with thiamine. Patient denies having any further diplopia at this time but continues to have very mild left beating nystagmus with horizontal gaze. This would be consistent with a Wernicke's encephalopathy from his history of heavy alcohol abuse. Discussed with patient's the importance of reducing his alcohol intake to prevent further injury to his nerves and brain No need for further testing at this time this patient has improved significantly with thiamine supplementation Thank you for this consult. We will sign off. Please call with any questions. Subjective No acute events overnight. This morning he was noted to have increased swelling on the wound on his right neck and abnormal blood cultures. He reports having some pain around his right neck wound but otherwise denies any problems with diplopia, headaches, numbness, tingling, weakness. Feels closer to his baseline at this time. Review of Systems Review of Systems: All systems reviewed & are unremarkable except as noted in HPI & below Physical Exam Physical Exam: General Exam: GEN: NAD, sitting in bed. HEENT: No conjunctival injection, no rhinorrhea, moist mucus membranes. CV: RRR, no peripheral edema PULM: Nonlabored respirations on room air. Neuro Exam: MS: Awake and Alert. Oriented to person, place, and date. Speech fluent and appropriate without dysarthria or paraphasic errors. Language intact including naming, comprehension, repetition. Cognition and memory grossly intact. Attention intact. No neglect. CN: Visual figueroa full. No extinction to double simultaneous stimuli. Unable to visualize fundi. PERRLA OU. EOMI with left-beating nystagmus on left gaze (mainly horizontal with subtle torsional component), inability to bury the sclera completely on left gaze improved since yesterday. Facial sensation intact to LT. Facial muscles full and symmetric. Hearing intact to conversation. Uvula midline with symmetric palatal elevation. Shoulder shrug normal. Tongue midline. MOTOR: Normal bulk and tone. No pronator drift. BUE strength 5/5 at deltoids, biceps, triceps, wrist flexors and extensors, and finger flexors bilaterally. BLE strength 5/5 at iliopsoas, hamstrings, quadriceps, tibialis anterior, and gastrocnemius bilaterally. REFLEXES: 2+ and brisk at biceps, triceps, brachioradialis, patella and Achilles bilaterally. Toes upgoing bilaterally (L>R) SENSORY: Intact to LT, vibration and temperature throughout. No extinction to double simultaneous stimuli. COORDINATION: No dysmetria or ataxia on [id number]-hz-tacq and qxsj-io-aehl bilaterally. Normal Faraz bilaterally. GAIT: did not walk patient due to fall risk Results & Data Vital Signs (Past 12 Hours) Vital Signs Temp Pulse Resp BP BP Pulse Ox 01/29/19 15:28 36.3 C L 72 18 143/81 H 94 01/29/19 07:28 36.8 C 60 16 160/89 H 96 PG Care Time/CCT Total # of Minutes Spent Total Time Spent with Patient: Total time spent is greater than 50% in coordination of care (as documented) at patient's floor/unit and/or counseling patient:
[2019-01-29] MEDS: DOXEPIN HCL 50 MG CAPSULE PO SCH (20:32)
[2019-01-29] MEDS: TAMSULOSIN HCL 0.4 MG CAP PO SCH (20:33)
--- NOTE | 2019-01-29 23:27 | Hospitalist Progress Note ---
Date of Service January 29, 2019 Assessment & Plan (1) Bacteremia: Gram positive cocci 1 out of 2 blood cultures. Restarted on IV vancomycin. Patient does not appear septic but given alcohol use would be prudent to treat. No murmur or peripheral stigmata of infective endocarditis. (2) Abscess: US concerning for cellulitis and abscess of epidermoid cyst yesterday. Initially planned on discharge but blood culture subsequently positive therefore switched back to IV vancomycin (3) Hallucinations, visual: Secondary to alcoholic hallucinosis. Resolved (4) Wernicke's encephalopathy: Ophthalmoplegia much improved with IV thiamine. Now switch to PO thiamine 250 mg replacement for 1 month. (5) Alcoholism /alcohol abuse: No current alcohol withdrawal symptoms Can continue Vivitrol as outpatient (6) Diabetes mellitus: Diet-controlled. HbA1C 6.1 (7) Hypertension: Cr worse on lisinopril therefore stopped. (8) JAMES (acute kidney injury): Improved with IV fluids and stopping lisinopril (9) GERD (gastroesophageal reflux disease): Continue pantoprazole and ranitidine. (10) BPH with obstruction/lower urinary tract symptoms: No current symptoms noted by patient Continue tamsulosin (11) Generalized anxiety disorder: Suspect due to chronic alcohol use Continue lexapro (12) DVT prophylaxis: Heparin Q12H 5000 units At baseline from PT/OT assessments Continued inpatient stay due to bacteremia Subjective Patient feels well. No acute issues overnight. Afebrile and patient feels well at baseline physical deconditioning. Review of Systems Review of Systems: All systems reviewed & are unremarkable except as noted in HPI & below Physical Exam Constitutional: well developed; + not well nourished and no acute distress Eyes: PERRL and + nystagmus (left sided horizontal nystagmus > right, improving); + EOM not intact (diplopia still present but much improved) ENMT: external ear and nose normal, oropharynx normal Neck: trachea midline Respiratory: normal respiratory effort, lungs clear to auscultation Cardiovascular: RRR, no murmur, no edema Gastrointestinal (Abdomen): normal bowel sounds, soft, nontender, no hepatosplenomegaly Musculoskeletal: no cyanosis or clubbing, extremities motor strength 5/5 Skin: No cellulitis (warmth or erythema) surrounding abscess which is now drained Neurologic: awake; no focal motor deficits and not confused Motor/Sensory: no tremor and no pronator drift Coordination: normal [id number] test Psychiatric: A+Ox3, euthymic affect Lymphatic: no cervical or axillary lymphadenopathy Results & Data Vital Signs (Past 12 Hours) Vital Signs Temp Pulse Resp BP Pulse Ox 01/29/19 15:28 97.3 F L 72 18 143/81 H 94 PG Care Time/CCT Total # of Minutes Spent Total Time Spent with Patient: Total time spent is greater than 50% in coordination of care (as documented) at patient's floor/unit and/or counseling patient: (1) Diabetes mellitus Diabetes mellitus complication status: without complication Diabetes mellitus buttermaker continuous churn insulin use: without buttermaker continuous churn use Diabetes mellitus type: type 2 Qualified Code(s): E11.9 - Type 2 diabetes mellitus without complications (2) GERD (gastroesophageal reflux disease) Esophagitis presence: esophagitis presence not specified Qualified Code(s): K21.9 - Gastro-esophageal reflux disease without esophagitis (3) Hypertension Hypertension type: essential hypertension Qualified Code(s): I10 - Essential (primary) hypertension
[2019-01-30] MEDS: LACTATED RINGER'S 1,000 ML IV SCH ×2 (02:27→10:35)
[2019-01-30 06:46] LABS: Creatinine Clr Calc Pharmacy 39.9 ml/min; Est GFR (African American) 50.2; Est GFR (Non-African American) 43.3
--- NOTE | 2019-01-30 07:16 | Progress Note ---
Date of Service January 30, 2019 Assessment & Plan (1) Abscess: Rt neck abscess improved with drainage cont wound care see in office Tue next week- cont atbx Results & Data Vital Signs (Past 12 Hours) Vital Signs Temp Pulse Resp BP Pulse Ox Pulse Ox 01/30/19 02:08 94 01/29/19 23:41 37.1 C 60 17 144/80 H 94 PG Care Time/CCT Total # of Minutes Spent Total Time Spent with Patient: Total time spent is greater than 50% in coordination of care (as documented) at patient's floor/unit and/or counseling patient:
[2019-01-30] MEDS: VITAMIN B COMPLEX TAB PO SCH (08:06)
[2019-01-30] MEDS: CEROVITE ADV FORMULA TAB PO SCH (08:06)
[2019-01-30] MEDS: FOLIC ACID 1 MG TAB PO SCH (08:06)
[2019-01-30] MEDS: ESCITALOPRAM OXALATE 10 MG TAB PO SCH (08:07)
[2019-01-30] MEDS: BusPIRone 15 MG TAB PO SCH ×2 (08:07→20:19)
[2019-01-30] MEDS: HEPARIN SOD 5,000 UNIT/0.5 ML VIAL SQ SCH ×2 (08:07→20:20)
[2019-01-30] MEDS: THIAMINE HCL 100 MG TAB PO SCH ×3 (08:07→20:19)
[2019-01-30] MEDS: PANTOprazole 40 MG TAB PO SCH ×2 (08:07→20:19)
[2019-01-30] MEDS: VANCOMYCIN HCL 1,000 MG in SODIUM CHLORIDE 0.9% 250 ML IV SCH (08:08)
[2019-01-30] MEDS: LORazepam 0.5 MG TAB PO PRN (08:16)
[2019-01-30] MEDS: TAMSULOSIN HCL 0.4 MG CAP PO SCH (20:19)
[2019-01-30] MEDS: DOXEPIN HCL 50 MG CAPSULE PO SCH (20:19)
--- NOTE | 2019-01-30 23:48 | Hospitalist Progress Note ---
Date of Service January 30, 2019 Assessment & Plan (1) Bacteremia: Coag neg staph in 1/2 blood cultures but also from abscess therefore recommend continuing to treat as if truly bacteremia and repeating blood culture. Given immunosuppressed state with alcohol use I cannot be sure this is not a true bacteremia and not contaminant, probabilities would favor the latter. Although the patient appears relatively well. If blood culture negative in 48 hours can be switched to doxycycline and discharged with surgery f/u. Will eventually need complete removal of cyst. (2) Abscess: as above for bacteremia. coag neg staph from culture. Continue IV vanco mycin pending repeat blood cultures. (3) Hallucinations, visual: Secondary to alcoholic hallucinosis, now resolved. Reduced dose of ropinirole in addition. (4) Wernicke's encephalopathy: Ophthalmoplegia negligable currently. Continue higher dose PO thiamine for 1 month, then 100mg indefinitely (5) Alcoholism /alcohol abuse: No current alcohol withdrawal symptoms Can continue Vivitrol as outpatient (6) Hypertension: Stopped lisinopril. Monitor for hypertension. (7) JAMES (acute kidney injury): Stopped IV fluids. JAMES due to restarting lisinopril, possibly in setting of bacteremia (8) GERD (gastroesophageal reflux disease): Continue pantoprazole and ranitidine. (9) BPH with obstruction/lower urinary tract symptoms: No current symptoms noted by patient Continue tamsulosin (10) Generalized anxiety disorder: Suspect due to chronic alcohol use Continue lexapro (11) DVT prophylaxis: Heparin Q12H 5000 units At baseline from PT/OT assessments Plan for discharge home on Saturday if blood cultures negative Subjective Patient feels well. No acute issues overnight. Afebrile and patient feels well at baseline physical deconditioning. Diplopia still present but vastly improved from admission. Review of Systems Review of Systems: All systems reviewed & are unremarkable except as noted in HPI & below Physical Exam Constitutional: well developed; + not well nourished and no acute distress Eyes: PERRL and + nystagmus (very minimal horizontal nystagmus); + EOM not intact (diplopia still present but much improved) ENMT: external ear and nose normal, oropharynx normal Neck: trachea midline no cellulitis surrounding abscess Respiratory: normal respiratory effort, lungs clear to auscultation Cardiovascular: RRR, no murmur, no edema Neurologic: awake; not confused Lymphatic: no cervical or axillary lymphadenopathy Results & Data Vital Signs (Past 12 Hours) Vital Signs Temp Pulse Resp BP BP Pulse Ox 01/30/19 23:26 98.2 F 63 18 145/79 H 96 01/30/19 16:02 97.2 F L 71 18 158/85 H 94 PG Care Time/CCT Total # of Minutes Spent Total Time Spent with Patient: Total time spent is greater than 50% in coordination of care (as documented) at patient's floor/unit and/or counseling patient: (1) GERD (gastroesophageal reflux disease) Esophagitis presence: esophagitis presence not specified Qualified Code(s): K21.9 - Gastro-esophageal reflux disease without esophagitis (2) Hypertension Hypertension type: essential hypertension Qualified Code(s): I10 - Essential (primary) hypertension
[2019-01-31 07:22] LABS: Basophils # (auto) 0.02 K/uL (0-0.2); Basophils % (auto) 0.5 %; Eosinophils # (auto) 0.15 K/uL (0-0.5); Eosinophils % (auto) 3.7 %; Hematocrit (blood only) 35.8 % (42-52); Hemoglobin 12.3 g/dL (14.0-18.0); Immature Granulocytes # (auto) 0.01 K/uL (0.00-0.02); Immature Granulocytes % (auto) 0.2 %; Lymphocytes # (auto) 1.39 K/uL (1.2-3.4); Lymphocytes % (auto) 34.1 %; Mean Corpuscular Hemoglobin 33.2 pg (25-34); Mean Corpuscular Hgb Conc 34.4 g/dL (32-36); Mean Corpuscular Volume 96.8 fL (80-100); Mean Platelet Volume 10.1 fL (7.4-10.4); Monocytes # (auto) 0.47 K/uL (0.11-0.59); Monocytes % (auto) 11.5 %; Neutrophils # (auto) 2.04 K/uL (1.4-6.5); Platelet Count 166 K/uL (130-400); RDW Coefficient of Variation 14.4 % (11.5-14.5); RDW Standard Deviation 51.3 fL (36.4-46.3); White Blood Count 4.08 K/uL (4.8-10.8)
[2019-01-31 07:53] LABS: BUN Creatinine Ratio 12.4 (10-20); Blood Urea Nitrogen 20 mg/dl (7-18); Calcium 8.5 mg/dl (8.5-10.1); Carbon Dioxide 24 mmol/L (21-32); Chloride 111 mmol/L (98-107); Creatinine Clr Calc Pharmacy 39.9 ml/min; Est GFR (African American) 50.2; Est GFR (Non-African American) 43.3; Glucose 162 mg/dl (70-99); Potassium 4.2 mmol/L (3.5-5.1); Sodium 141 mmol/L (136-145)
[2019-01-31 07:54] LABS: C Reactive Protein < 0.29 mg/dl (0-0.29)
[2019-01-31] MEDS ORDERED: VANCOMYCIN TROUGH ONE (08:30)
[2019-01-31] MEDS: THIAMINE HCL 100 MG TAB PO SCH ×3 (08:38→20:31)
[2019-01-31] MEDS: BusPIRone 15 MG TAB PO SCH ×2 (08:38→20:30)
[2019-01-31] MEDS: FOLIC ACID 1 MG TAB PO SCH (08:38)
[2019-01-31] MEDS: LORazepam 0.5 MG TAB PO PRN (08:38)
[2019-01-31] MEDS: VITAMIN B COMPLEX TAB PO SCH (08:38)
[2019-01-31] MEDS: CEROVITE ADV FORMULA TAB PO SCH (08:38)
[2019-01-31] MEDS: PANTOprazole 40 MG TAB PO SCH ×2 (08:38→20:28)
[2019-01-31] MEDS: ESCITALOPRAM OXALATE 10 MG TAB PO SCH (08:38)
[2019-01-31] MEDS: VANCOMYCIN HCL 1,000 MG in SODIUM CHLORIDE 0.9% 250 ML IV SCH (08:39)
[2019-01-31] MEDS: HEPARIN SOD 5,000 UNIT/0.5 ML VIAL SQ SCH ×2 (08:39→20:30)
[2019-01-31] MEDS: TAMSULOSIN HCL 0.4 MG CAP PO SCH (20:28)
[2019-01-31] MEDS: DOXEPIN HCL 50 MG CAPSULE PO SCH (20:31)
--- NOTE | 2019-01-31 23:56 | Hospitalist Progress Note ---
Date of Service January 31, 2019 Assessment & Plan (1) Bacteremia: Continue IV vancomycin pending repeat cultures, 48 hours tomorrow (2) Abscess: as above for bacteremia. coag neg staph from culture. Continue IV vancomycin pending repeat blood cultures, back tomorrow for 48 hours. (3) Hallucinations, visual: Secondary to alcoholic hallucinosis, now resolved. Reduced dose of ropinirole in addition. (4) Wernicke's encephalopathy: Ophthalmoplegia negligable currently. Continue higher dose PO thiamine for 1 month, then 100mg indefinitely (5) Alcoholism /alcohol abuse: No current alcohol withdrawal symptoms Can continue Vivitrol as outpatient (6) Hypertension: Stopped lisinopril. Monitor for hypertension. (7) JAMES (acute kidney injury): Stopped IV fluids. JAMES due to restarting lisinopril, possibly in setting of bacteremia (8) GERD (gastroesophageal reflux disease): Continue pantoprazole and ranitidine. (9) BPH with obstruction/lower urinary tract symptoms: No current symptoms noted by patient Continue tamsulosin (10) Generalized anxiety disorder: Suspect due to chronic alcohol use Continue lexapro (11) DVT prophylaxis: Heparin Q12H 5000 units At baseline from PT/OT assessments Plan for discharge home on tomorrow if blood cultures negative Subjective No acute events overnight. Remains at baseline. No concerns or complaints. Awaiting blood cultures back tomorrow to be able to switch antibiotics and discharge Review of Systems Review of Systems: All systems reviewed & are unremarkable except as noted in HPI & below Physical Exam Constitutional: well developed; no acute distress and not ill appearing Respiratory: normal respiratory effort, lungs clear to auscultation Cardiovascular: Rate/Rhythm: regular rate and regular rhythm Heart Sounds: no murmur Vessels: no JVD Extremities: no edema no peripheral stigmata of infective endocarditis Neurologic: awake; not confused Results & Data Vital Signs (Past 12 Hours) Vital Signs Temp Pulse Pulse Resp BP Pulse Ox 01/31/19 23:27 99.0 F 64 18 146/82 H 96 01/31/19 15:00 99.0 F 69 18 135/77 96 PG Care Time/CCT Total # of Minutes Spent Total Time Spent with Patient: Total time spent is greater than 50% in coordination of care (as documented) at patient's floor/unit and/or counseling patient: (1) GERD (gastroesophageal reflux disease) Esophagitis presence: esophagitis presence not specified Qualified Code(s): K21.9 - Gastro-esophageal reflux disease without esophagitis (2) Hypertension Hypertension type: essential hypertension Qualified Code(s): I10 - Essential (primary) hypertension
[2019-02-01 06:45] LABS: Creatinine Clr Calc Pharmacy 40.2 ml/min; Est GFR (African American) 50.5; Est GFR (Non-African American) 43.6
[2019-02-01] MEDS ORDERED: VANCOMYCIN TROUGH ONE (08:30)
[2019-02-01] MEDS: VITAMIN B COMPLEX TAB PO SCH (09:31)
[2019-02-01] MEDS: FOLIC ACID 1 MG TAB PO SCH (09:31)
[2019-02-01] MEDS: CEROVITE ADV FORMULA TAB PO SCH (09:31)
[2019-02-01] MEDS: PANTOprazole 40 MG TAB PO SCH (09:31)
[2019-02-01] MEDS: ESCITALOPRAM OXALATE 10 MG TAB PO SCH (09:31)
[2019-02-01] MEDS: LORazepam 0.5 MG TAB PO PRN (09:31)
[2019-02-01] MEDS: THIAMINE HCL 100 MG TAB PO SCH ×2 (09:31→14:36)
[2019-02-01] MEDS: BusPIRone 15 MG TAB PO SCH (09:31)
[2019-02-01] MEDS: HEPARIN SOD 5,000 UNIT/0.5 ML VIAL SQ SCH (09:32)
[2019-02-01] MEDS: VANCOMYCIN HCL 1,000 MG in SODIUM CHLORIDE 0.9% 250 ML IV SCH (09:32)
--- NOTE | 2019-02-01 12:35 | XRay Report ---
XR chest 2V PA/lateral HISTORY: right side mid zone crackles COMPARISON: Chest 01/25/2019. FINDINGS: The lungs are clear. Cardiac silhouette is normal in size. No pleural effusions. No pneumot horax. IMPRESSION: No acute process. Electronically signed by: Ruben Waller M.D. 02/01/2019 12:34 PM
--- NOTE | 2019-02-01 13:41 | Discharge Summary ---
Date of Service February 01, 2019 Admission HPI Per Admitting Provider 68 y/o male presented to the ED with hallucinations both visual and auditory in which he sees people (often) sitting in his house. He reports that he has called law enforcement a couple times and there is no one in his house. Patient tells me that last night he felt he was seeing double or rather each eye was seeing something different. This symptom has resolved and he has no double vision. Earlier his daughter reported that the patient has had dizziness and confusional episodes. He is known to be a heavy ETOH user for 40 years, but reports that he has not had a drink in 5 days. No F/C, SOB, chest pain, N/V/D. He reports that he did fall recently and may have hit his head, but did not pass out. CT head was negative for bleed. Admission Exam Per Admitting Provider General- adult male, NAD Head- atraumatic Eyes- PERRL, EOMI, anicteric ENT- oropharynx clear Neck- supple, no JVD, no adenopathy, no thyromegaly. Lungs- A few scattered rhonchi, otherwise clear. Heart- regular rhythm; no murmur, no gallop, no rub appreciated Abdomen- normal bowel sounds, soft, nontender. Extremities- no pretibial edema, no calf tenderness; peripheral pulses intact Neuro- alert, oriented x 3; PERRL, EOMI; no facial palsy; no dysarthria. blood tester II- XII grossly intact, No focal weakness. [id number] slightly clumsy. Skin- warm & dry Principal Diagnosis Wernicke's encephalopathy Alcoholic hallucinosis Subcutaneous abscess Bacteremia - suspected contamination Discharge Exam Constitutional well developed; + not well nourished, no acute distress and not ill appearing Eyes PERRL and EOM intact bilaterally (no appreciable diplopia); no nystagmus ENMT external ear and nose normal, oropharynx normal Neck trachea midline no cellulitis surrounding drained abscess, no pus from abscess Respiratory normal respiratory effort, lungs clear to auscultation Cardiovascular Rate/Rhythm: regular rate and regular rhythm Heart Sounds: no murmur Vessels: no JVD Extremities: no edema Gastrointestinal (Abdomen) normal bowel sounds, soft, nontender, no hepatosplenomegaly Musculoskeletal no cyanosis or clubbing, extremities motor strength 5/5 Skin no rashes, warm and dry Neurologic awake; not confused Motor/Sensory: no tremor and no pronator drift Gait: no staggering gait and no wide-based gait Coordination: normal [id number] test Psychiatric A+Ox3, euthymic affect Lymphatic no cervical lymphadenopathy Discharge Data Allergies Allergy/AdvReac Type Severity Reaction Status Date / Time Cephalosporins Allergy Unknown SUPRAX Verified 02/09/19 10:52 Penicillins Allergy Unknown RASH Verified 02/09/19 10:52 Sulfa (Sulfonamide Allergy Unknown RASH Verified 02/09/19 10:52 Antibiotics) Consultations 01/25/19 23:39 ED Decision to Admit Stat 01/26/19 02:05 Consult Case Management - Discharge Planning Routine 01/27/19 18:13 Consult Neurology Routine 01/28/19 11:17 Consult General Surgery Routine Ordered Studies 01/25/19 23:39 CT head/brain wo con Stat 01/26/19 02:30 MR angio head wo con Routine MR angio neck wo/w con Routine MR brain wo con Routine 01/28/19 07:00 US soft tissue head and neck Routine Hospital Course (1) Hallucinations, visual: 68yo male with known alcohol use disorder and prior alcohol hallucinosis and Wernicke's encephalopathy admission due to visual hallucinations. Suspect this was due to alcohol withdrawal with associated thiamine deficiency. This resolved with treatment for alcohol withdrawal. Recommend continuing outpatient management for your alcohol use using Vivitrol. He also developed significant diplopia with horizontal and vertical nystagmus on exam. Diagnosed with Wernicke's encephalopathy treated with high doses of IV thiamine followed by high doses of oral thiamine and should continue thiamine supplementation as prescribed for a month then can be reduced to 100mg daily after that. Recommend following up with an rubber cutter and shape carver in case of any subtle residual deficit. Also had a subcutaneous abscess from likely epidermoid cyst. This was drained and treated with IV antibiotics due to surrounding cellulitis. Blood cultures taken showed possibility of bacteremia with coag negative staph however repeat cultures were negative and suspect contamination. Doxycyline prescribed to complete treatment for cellulitis and will follow up with surgery for abscess follow up. At a future date the whole cyst will likely have to be removed surgical to avoid reoccurrence. Lisinopril has discontinued due to hypotension and worsening renal function. Recommend alternative antihypertensive if he requires one in the future. (2) Wernicke's encephalopathy: (3) Bacteremia: (4) Abscess: (5) Alcoholism /alcohol abuse: (6) Hypertension: (7) JAMES (acute kidney injury): (8) GERD (gastroesophageal reflux disease): (9) BPH with obstruction/lower urinary tract symptoms: (10) Generalized anxiety disorder: Total Time Total Time Spent Total Time Spent (In Minutes): 35 Total Time Includes: Examination of the Patient, Discharge Planning and Medication Reconciliation Discharge Plan Discharge Items Patient Disposition: Home - Self-Care Reason For Visit: WERNICKES ENCEPHALOPATHY Discharge Diagnosis: Wernicke's encephalopathy - thiamine deficiency Visual hallucinations - alcoholic hallucinosis Subcutaneous abscess Bacteremia - suspected contamination Activity: Resume your previous activity Non-emergency contact: Primary Care Provider Call non-emergency contact if: you have any medication questions and your symptoms worsen Follow-up/Referrals: Mara Rosas PA-C [Primary Care Provider] - Javid Meneses MD, FACS [Physician] - Diet: Regular Addtl Attending Provider Instructions: You were admitted due to visual hallucinations. Suspect this was due to alcohol withdrawal with associated thiamine deficiency. This resolved with treatment for alcohol withdrawal. Recommend continuing outpatient management for your alcohol use. You also developed significant ophthalmoplegia (vision disturbance). This is a condition called Wernicke's encephalopathy due to severe thiamine deficiency. You were treated with high doses of IV thiamine followed by high doses of oral thiamine and should continue thiamine supplementation as prescribed for a month then can be reduced to 100mg daily after that. Recommend following up with an rubber cutter and shape carver in case of any subtle residual deficit. You also had a subcutaneous abscess. This was drained and treated with IV antibiotics due to surrounding cellulitis. Blood cultures taken showed possibility of bacteremia (bacteria in the blood) however given further cultures negative and only in 1 out of 2 bottles this was later suspected to be contamination from skin bacteria. Please continue on antibiotics as prescribed and follow up in the surgery office for the abscess follow up. At a future date the whole cyst will likely have to be removed surgical to avoid reoccurrence. You have been scheduled an appointment with outpatient general surgery for a wound check on Saturday02/02/19 at 9:00AM. Please call [phone] if you have any questions concerns. The office is located at [address] [place] [address]. Lisinopril has discontinued due to hypotension and worsening renal function. Please follow up with your PCP regarding this. Pending Studies at Discharge: No Stand-Alone Forms: My [facility] Medications and DC Order Prescriptions: New thiamine HCl (vitamin B1) 250 mg tablet 250 mg PO BID Qty: 60 RF: 0 Continued B Complex w-Vit C 48-58-46-5-250 mg tablet 1 tab PO DAILY Qty: 90 RF: 2 buspirone 30 mg tablet 15 mg PO BID Qty: 30 RF: 5 tamsulosin 0.4 mg Capsule 0.4 mg PO HS RF: 0 folic acid 1 mg Tablet 1 mg PO DAILY RF: 0 melatonin 5 mg Tablet 5 mg PO HS RF: 0 multivitamin with minerals capsule 1 cap PO DAILY Qty: 90 RF: 3 Discontinued lisinopril 5 mg Tablet 5 mg PO DAILY RF: 0 No Action lorazepam 0.5 mg tablet 0.5 mg PO DAILY PRN (Reason: Anxiety) Qty: 30 RF: 0 ranitidine HCl 150 mg tablet 150 mg PO BID PRN (Reason: heartburn) Qty: 60 RF: 0 ropinirole 1 mg tablet 1 mg PO HS PRN (Reason: Restless Leg(S)) Qty: 60 RF: 0 doxepin 50 mg capsule 50 - 100 mg PO HS PRN (Reason: Sleep) Qty: 30 RF: 2 atorvastatin 20 mg tablet 20 mg PO DAILY RF: 0 Vivitrol 380 mg suspension,extended rel recon 380 mg IM MONTHLY RF: 0 escitalopram oxalate [Lexapro] 20 mg tablet 20 mg PO DAILY RF: 0 Discharge Orders: Discharge Order (Routine); Ordered 02/01/19 Ordered By: Patric Davalos/Other Patient Handouts: Alcoholism Myths Facts, Alcoholism Info Family Friends Admission Data Admit Date/Time: 01/26/19 01:15 Attending Provider: Patric Ivan Admit Provider: Bryan Collier Primary Care Provider: Mara Rosas Other Providers: [facility] ; Bryan Collier ; Karen Kramer ; Javid Meneses Other Interventions: Discharge Summary Assessment (RN) Last Done: 02/01/19 13:44 DC Date/Time DO NOT enter until pt leaves facility: 02/01/19 14:50
== END 2019-02-01 14:50 | disposition home or self-care (01) | DRG 988 ==
LOC: ED 20:40 → 2S 01-26 01:15 → SUATTDRO 01-26 01:15 → 2S 01-26 01:38 → 3W 01-27 12:15

== ENCOUNTER 2021-01-04 19:19 | Observation (INO) ==
[2021-01-04 20:47] LABS: Basophils # (auto) 0.01 K/uL (0-0.2); Basophils % (auto) 0.2 %; Eosinophils # (auto) 0.21 K/uL (0-0.5); Eosinophils % (auto) 3.8 %; Hematocrit (blood only) 41.1 % (42-52); Hemoglobin 14.6 g/dL (14.0-18.0); Immature Granulocytes # (auto) 0.02 K/uL (0.00-0.02); Immature Granulocytes % (auto) 0.4 %; Lymphocytes # (auto) 1.36 K/uL (1.2-3.4); Lymphocytes % (auto) 24.3 %; Mean Corpuscular Hemoglobin 32.4 pg (25-34); Mean Corpuscular Hgb Conc 35.5 g/dL (32-36); Mean Corpuscular Volume 91.1 fL (80-100); Mean Platelet Volume 11.1 fL (7.4-10.4); Monocytes # (auto) 0.25 K/uL (0.11-0.59); Monocytes % (auto) 4.5 %; Neutrophils # (auto) 3.75 K/uL (1.4-6.5); Neutrophils % (auto) 66.8 %; Platelet Count 212 K/uL (130-400); RDW Coefficient of Variation 12.3 % (11.5-14.5); RDW Standard Deviation 41.1 fL (36.4-46.3); Red Blood Count 4.51 M/uL (4.7-6.1)
[2021-01-04 20:59] LABS: Appearance Urine Clear (Clear); Bilirubin Urine Negative (Negative); Blood Urine Negative (Negative); Color Urine Yellow; Glucose Urine UA 3+ (Negative); Ketones Urine Negative (Negative); Leukocyte Esterase Urine Negative (Negative); Nitrite Urine Negative (Negative); Protein Urine Negative (Negative); Specific Gravity Urine 1.025 (1.000-1.030); Urobilinogen Urine Negative (Negative)
[2021-01-04 21:28] LABS: Albumin Globulin Ratio 0.8 (0.9-2); Albumin Level 3.6 gm/dl (3.4-5.0); BUN Creatinine Ratio 15.3 (10-20); Bilirubin,Total 0.5 mg/dl (0.2-1); Calcium 9.3 mg/dl (8.5-10.1); Creatinine Clr Calc Pharmacy 18.6 ml/min; Est GFR (African American) 23.8 ml/min; Est GFR (Non-African American) 20.5 ml/min; Globulin 4.3 gm/dl (2.5-4.0); Potassium 5.5 mmol/L (3.5-5.1); Total Protein 7.9 gm/dl (6.4-8.2)
[2021-01-04 21:40] LABS: Beta-Hydroxybutyrate 0.98 mg/dl (0.2-2.81)
[2021-01-04] MEDS ORDERED: SODIUM CHLORIDE 0.9% 1000ML 1,000 ML IV ONE (23:45)
--- NOTE | 2021-01-05 01:26 | Emergency Department Note ---
Impression & Plan Uncontrolled type 2 diabetes mellitus, Acute on chronic renal insufficiency, Dehydration ED Provider Note NAME: LEFTY FITCH AGE: 70 SEX: M ARRIVES VIA: Walk-In INFORMANT: Patient, ED PROVIDER(S): Brian Randle MD CHIEF COMPLAINT: Referred. Hyperglycemia, Worsening kidney function. PLAN: Disposition: Admit MEDICAL DECISION MAKING: The patient is a pleasant 70-year-old gentleman with a past medical history of CKD, NIDDM 2 who presents to the emergency department referred from his PCP after having outpatient blood work that showed blood sugar in the 500s and acute on chronic renal insufficiency with creatinine of 2.8 where his previous base line was 1.5-1.8. He reports his outpatient blood work was performed after several weeks ago his blood sugars were noted to be increased from baseline and they have been monitoring these. He reports he has been feeling fatigued and experiencing generalized body aches and pains. He denies any cough, congestion, nausea, vomiting, diarrhea or urinary symptoms. He denies any known COVID-19 exposures. On arrival patient is in no acute distress, afebrile with stable vitals signs. He appears clinically dry. EKG without overt acute ischemia. WBC, hemoglobin and platelet within normal limits. Chemistry without metabolic acidosis. Creatinine 2.97 increased from recent baseline of 1.5-1.8. Initial glucose 550 improving to 400 after IV fluid hydration. Serum osmolality 317 consistent with the patient's clinically dry appearance. LFTs without significant allergy. UA without convincing evidence of infection. COVID-19 PCR was negative. Given the patient's worsening diabetes/hyperglycemia with acute on chronic renal insufficiency the patient was in agreement with plan for admission for further evaluation and management. Case was discussed with Dr. Rodriguez, [facility] hospitalist, who will evaluate the patient for admission. Additional IV fluid hydration was ordered in addition to 10 units of regular IV insulin. Preliminary stat rad report with addendum of CT abd/pelvis describes nonspecific bilateral perinephric stranding as well as nonobstructing nephrolithiasis. Will defer additional management to admitting team. Triage Nursing notes reviewed and agree them. Prior medical records reviewed Vital Signs: reviewed and remarkable for no significant abnormalities Differential diagnosis: Infection, dehydration, metabolic abnormality, hypo/hyperglycemia, electrolyte disturbance, anemia, hypoxia, cardiac sources, intracerebral event, toxicologic, neurologic, as well as other pathologies. ER treatment provided: See below. Diagnostics interpreted by me: ECG: NSR, 72 bpm, no ectopy, no overt ST elevation or depression. Cardiac Monitoring: An order for continuous cardiac monitoring was placed and demonstrated NSR, 72 bpm, no ectopy. Laboratory studies: See below Imaging studies: [facility] Preliminary Findings Only See Final Report For Complete Findings ADDENDUM - Added by Lali Diaz MD on 01/05/2021 3:24 AM (-07:00) CT ABDOMEN & PELVIS Without Contrast: Comparison: 02/28/2009. Minimal left posterior dependent atelectasis, otherwise normal lung parenchyma. Normal cardiac size with coronary artery calcifications. Low-attenuation lesion within the right liver lobe just below the dome of the diaphragm, measuring approximately 2.0 cm, stable in the interval and likely benign. Otherwise normal liver. Normal gallbladder and biliary system. Normal pancreas and spleen. Normal bilateral adrenal glands. Nonspecific bilateral perinephric stranding. Multiple right-sided simple renal cyst, largest seen in the peripelvic region, middle pole measuring 3.5 cm. Additional small hypodense a round structure likely hemorrhagic cyst within the right mid lower renal pole largest measuring 7 mm. Multiple tiny calcifications suggestive of small right-sided intrarenal stones, largest seen in the mid lower pole measuring 4 mm. No right hydronephrosis. On the left, there are multiple left-sided renal stones, largest seen in the lower pole measuring 5.8 mm. There is left lower renal pole exophytic low- attenuation structure measuring 3.5 cm likely cyst.. This is increased in size in the interval and therefore recommend follow-up with ultrasound to confirm simple renal cyst in the nonacute setting. Unremarkable stomach. Nonspecific small bowel. Diverticulosis throughout the colon with no signs of diverticulitis. Normal appendix. No bowel obstruction. Normal urinary bladder. Borderline prostate enlargement. Degenerative disease of the spine. CT ABDOMEN & PELVIS Without Contrast: Radiologist: Lali Diaz MD Study ready at 00:51 and initial results transmitted at 01:07 Consultation(s): Case was discussed with Dr. Rodriguez, [facility] hospitalist, who will evaluate the patient for admission. HPI: The patient is a pleasant 70-year-old gentleman with a past medical history of CKD, NIDDM 2 who presents to the emergency department referred from his PCP after having outpatient blood work that showed blood sugar in the 500s and acute on chronic renal insufficiency with creatinine of 2.8 where his previous baseline was 1.5-1.8. He reports his outpatient blood work was performed after several weeks ago his blood sugars were noted to be increased from baseline and they have been monitoring these. He reports he has been feeling fatigued and experiencing generalized body aches and pains. He denies any cough, congestion, nausea, vomiting, diarrhea or urinary symptoms. He denies any known COVID-19 exposures. ROS: See above HPI for pertinent positives & negatives. A total of 10 systems reviewed and were otherwise negative. PAST MEDICAL HISTORY:See Below PAST SURGICAL HISTORY:See Below FAMILY HISTORY:See Below SOCIAL HISTORY:See Below HOME MEDICATIONS:See Below ALLERGIES:See Below VITALS:See Below PHYSICAL EXAMINATION: GENERAL: Awake, alert, relatively well-appearing, in no distress HENT: Normocephalic, atraumatic. Oropharynx with dry mucous membranes and otherwise unremarkable. EYES: Normal conjunctiva. Sclera non-icteric. NECK: Supple. No nuchal rigidity. FROM. No JVD. RESPIRATORY: Clear to auscultation. CARDIAC: Regular rate, normal rhythm. Extremities warm and well perfused. Pulses equal. ABDOMEN: Soft, non-distended. No tenderness to palpation. No rebound or guarding. No masses. RECTAL: Deferred. MUSCULOSKELETAL: Chest examination reveals no tenderness. The back is symmetrical on inspection without obvious abnormality. There is no CVA tenderness to palpation. No joint edema. LOWER EXTREMITIES: Calves are equal size bilaterally and non-tender. No edema. No discoloration. NEURO: Normal sensorium. No sensory or motor deficits noted. SKIN: No rash or jaundice noted. Brian Randle MD Past Med/Surg History Medical History Acute alcoholic hallucinosis Acute hyperglycemia Acute hypotension Acute kidney injury superimposed on chronic kidney disease JAMES (acute kidney injury) Alcohol dependence "HAS NOT HAD ETOH FOR 1 MONTH" Alcoholism /alcohol abuse Anxiety and depression BPH with obstruction/lower urinary tract symptoms Chronic kidney disease Chronic obstructive pulmonary disease "MILD" Controlled type 2 diabetes mellitus without complication PT DENIES Current smoker Delirium tremens GERD (gastroesophageal reflux disease) Hyperlipidemia Hypomagnesemia Isopropyl alcohol poisoning Lacunar infarction Medical non-compliance Restless leg syndrome Tachycardia TIA (transient ischemic attack) Toxic metabolic encephalopathy Wernicke's encephalopathy Wernickes encephalopathy Surgical History History of cataract surgery RT/LEFT History of colonoscopy History of removal of cyst (03/17/19) Excision of epidermoid cyst, right neck. Dr. Meneses 03/17/19 History of tonsillectomy History of tooth extraction Family History Father , In his 30s Heart disease Mother Cancer Lung cancer Sister Anorexia Grandfather (Maternal) Family history of diabetes mellitus Social History Smoking Status: Current every day smoker Tobacco Type: Cigarettes packs per day: 1; Years Smoked: 50; Cigarettes Per Day: 1 pack; Second Hand Exposure: Yes; Do You Dip or Chew Tobacco: No; Tobacco Cessation Education Requested by Patient: No Hx Alcohol Use: No Hx Substance Use: No Preferred Language: Bangladeshi Communication Ability: Effective Visual Impairment: No Limitations Hearing Ability: Normal Aws Solution Architect Required: No Beliefs That Will Affect Care: None marital status: / Current Living Situation: Alone current occupational status: employed 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 Feels Safe at Home: Yes Safety Concerns: Feels Safe At This Time Childhood Exposure to Second-Hand Smoke: Yes caffeine: Yes Dental Care, Regularly: Yes Physical Activity Frequency: Does not Exercise Seatbelt Use: sometimes Sunscreen Use: Yes Assistive Devices: Cane Allergies Allergies Allergy/AdvReac Type Severity Reaction Status Date / Time Cephalosporins Allergy Mild Rash Verified 01/05/21 01:49 Penicillins Allergy Mild RASH Verified 01/05/21 01:49 Sulfa (Sulfonamide Allergy Mild RASH Verified 01/05/21 01:49 Antibiotics) Home Meds Home Medications Medication Instructions Recorded Confirmed folic acid 1 mg tablet 1 mg PO QAM 07/30/18 01/05/21 cholecalciferol (vitamin D3) 50 50 mcg PO QAM 11/25/19 01/05/21 mcg (2,000 unit) capsule multivitamin with minerals 1 cap PO QAM 01/27/20 01/05/21 acetaminophen 500 mg tablet 1,000 mg PO TID PRN 04/20/20 01/05/21 (Tylenol Extra Strength) doxepin 50 mg capsule 50 - 100 mg PO HS PRN 01/05/21 01/05/21 Previous Rx's Medication Instructions Recorded thiamine HCl (vitamin B1) 250 mg 250 mg PO BID #60 tab 02/01/19 tablet atorvastatin 20 mg tablet 20 mg PO HS #90 tab 02/04/20 lancets (Accu-Chek Fastclix Lancet #100 ea 04/29/20 Drum) pantoprazole 40 mg tablet,delayed 40 mg PO QAM #30 tab 05/03/20 release tamsulosin 0.4 mg capsule 0.4 mg PO HS #90 cap 08/01/20 buspirone 30 mg tablet 15 mg PO BID #30 tab 09/21/20 escitalopram oxalate 20 mg tablet 20 mg PO HS #90 tab 11/14/20 (Lexapro) naltrexone 50 mg tablet 50 mg PO DAILY #30 tab 11/22/20 metformin 500 mg tablet,extended 1,500 mg PO QAM #90 tab 12/02/20 release 24hr blood sugar diagnostic (Accu-Chek #100 ea 12/23/20 Guide test strips) canagliflozin 100 mg tablet 100 mg PO QAM #30 tab 01/04/21 (Invokana) Results & Data (ED) Vital Signs Vital Signs - 24 hr 01/04/21 19:54 01/04/21 23:42 01/05/21 01:00 Temperature 36.8 C Temperature Source Temporal Artery Scan Pulse Rate 85 Pulse Rate [Finger] 64 62 Respiratory Rate 19 18 16 Respiratory Effort / Characteristics Non-Labored Non-Labored Spontaneous Respiratory Depth Normal Normal Respiratory Pattern Regular Blood Pressure 122/84 Blood Pressure [Right Arm] 112/71 115/73 Blood Pressure Mean 96 Blood Pressure Mean [Right Arm] 84 87 Pulse Oximetry 95 97 97 Oxygen Delivery Method Room Air Room Air Room Air Sepsis Recent Fever Within 48 Hours No Sepsis New/Unexplained Change in Mental Status N/A Sepsis Action Taken by Nursing No Action Required Laboratory Data Attestation: I reviewed the patient's lab results. Result diagrams: 01/05/21 06:10 01/05/21 15:06 Lab Results 01/04/21 01/04/21 01/04/21 Range/Units 19:57 20:33 20:33 WBC 5.60 (4.8-10.8) K/uL RBC 4.51 L (4.7-6.1) M/uL Hgb 14.6 (14.0-18.0) g/dL Hct 41.1 L (42-52) % MCV 91.1 (80-100) fL MCH 32.4 (25-34) pg MCHC 35.5 (32-36) g/dL RDW Std Deviation 41.1 (36.4-46.3) fL RDW Coeff of Nadege 12.3 (11.5-14.5) % Plt Count 212 (130-400) K/uL MPV 11.1 H (7.4-10.4) fL Immature Gran % (Auto) 0.4 % Neut % (Auto) 66.8 % Lymph % (Auto) 24.3 % [place] % (Auto) 4.5 % Eos % (Auto) 3.8 % Baso % (Auto) 0.2 % Neut # (Auto) 3.75 (1.4-6.5) K/uL Lymph # (Auto) 1.36 (1.2-3.4) K/uL [place] # (Auto) 0.25 (0.11-0.59) K/uL Eos # (Auto) 0.21 (0-0.5) K/uL Baso # (Auto) 0.01 (0-0.2) K/uL Immature Gran # (Auto) 0.02 (0.00-0.02) K/uL Sodium 130 L (136-145) mmol/L Potassium 5.5 H (3.5-5.1) mmol/L Chloride 98 (98-107) mmol/L Carbon Dioxide 25 (21-32) mmol/L Anion Gap 7.0 (3-11) BUN 45 H (7-18) mg/dl Creatinine 2.97 H (0.6-1.4) mg/dl Est Cr Clr Drug Dosing 18.6 ml/min Est GFR ( Amer) 23.8 ml/min Est GFR (Non-Af Amer) 20.5 ml/min BUN/Creatinine Ratio 15.3 (10-20) Glucose 551 H* (70-99) mg/dl POC Glucose 550 H* (70-99) mg/dl Estimat Average Glucose mg/dl Hemoglobin A1c (4.5-5.6) % Osmolality (280-300) mOsm/kg Calcium 9.3 (8.5-10.1) mg/dl Total Bilirubin 0.5 (0.2-1) mg/dl AST 11 L (15-37) U/L ALT 43 (12-78) U/L Alkaline Phosphatase 402 H (45-117) U/L Total Protein 7.9 (6.4-8.2) gm/dl Albumin 3.6 (3.4-5.0) gm/dl Globulin 4.3 H (2.5-4.0) gm/dl Albumin/Globulin Ratio 0.8 L (0.9-2) Beta-Hydroxybutyric Acd 0.98 (0.2-2.81) mg/dl Procalcitonin (0-0.5) ng/ml Urine Color Urine Appearance (Clear) Urine pH (4.5-7.5) Ur Specific [place] (1.000-1.030) Urine Protein (Negative) Urine Glucose (UA) (Negative) Urine Ketones (Negative) Urine Blood (Negative) Urine Nitrite (Negative) Urine Bilirubin (Negative) Urine Urobilinogen (Negative) Ur Leukocyte Esterase (Negative) Ur Random Sodium mmol/L Ur Random Urea Nitrogn mg/dl COVID-19 Eval Order SARS-CoV-2 (PCR) (Negative) 01/04/21 01/04/21 01/04/21 Range/Units 20:33 20:35 20:35 WBC (4.8-10.8) K/uL RBC (4.7-6.1) M/uL Hgb (14.0-18.0) g/dL Hct (42-52) % MCV (80-100) fL MCH (25-34) pg MCHC (32-36) g/dL RDW Std Deviation (36.4-46.3) fL RDW Coeff of Nadege (11.5-14.5) % Plt Count (130-400) K/uL MPV (7.4-10.4) fL Immature Gran % (Auto) % Neut % (Auto) % Lymph % (Auto) % [place] % (Auto) % Eos % (Auto) % Baso % (Auto) % Neut # (Auto) (1.4-6.5) K/uL Lymph # (Auto) (1.2-3.4) K/uL [place] # (Auto) (0.11-0.59) K/uL Eos # (Auto) (0-0.5) K/uL Baso # (Auto) (0-0.2) K/uL Immature Gran # (Auto) (0.00-0.02) K/uL Sodium (136-145) mmol/L Potassium (3.5-5.1) mmol/L Chloride (98-107) mmol/L Carbon Dioxide (21-32) mmol/L Anion Gap (3-11) BUN (7-18) mg/dl Creatinine (0.6-1.4) mg/dl Est Cr Clr Drug Dosing ml/min Est GFR ( Amer) ml/min Est GFR (Non-Af Amer) ml/min BUN/Creatinine Ratio (10-20) Glucose (70-99) mg/dl POC Glucose (70-99) mg/dl Estimat Average Glucose 346 mg/dl Hemoglobin A1c 13.7 H (4.5-5.6) % Osmolality (280-300) mOsm/kg Calcium (8.5-10.1) mg/dl Total Bilirubin (0.2-1) mg/dl AST (15-37) U/L ALT (12-78) U/L Alkaline Phosphatase (45-117) U/L Total Protein (6.4-8.2) gm/dl Albumin (3.4-5.0) gm/dl Globulin (2.5-4.0) gm/dl Albumin/Globulin Ratio (0.9-2) Beta-Hydroxybutyric Acd (0.2-2.81) mg/dl Procalcitonin (0-0.5) ng/ml Urine Color Yellow Urine Appearance Clear (Clear) Urine pH 5.0 (4.5-7.5) Ur Specific [place] 1.025 (1.000-1.030) Urine Protein Negative (Negative) Urine Glucose (UA) 3+ H (Negative) Urine Ketones Negative (Negative) Urine Blood Negative (Negative) Urine Nitrite Negative (Negative) Urine Bilirubin Negative (Negative) Urine Urobilinogen Negative (Negative) Ur Leukocyte Esterase Negative (Negative) Ur Random Sodium 12 mmol/L Ur Random Urea Nitrogn 344 mg/dl COVID-19 Eval Order SARS-CoV-2 (PCR) (Negative) 09/01/05/21 01/05/21 Range/Units 23:31 00:05 00:05 WBC (4.8-10.8) K/uL RBC (4.7-6.1) M/uL Hgb (14.0-18.0) g/dL Hct (42-52) % MCV (80-100) fL MCH (25-34) pg MCHC (32-36) g/dL RDW Std Deviation (36.4-46.3) fL RDW Coeff of Nadege (11.5-14.5) % Plt Count (130-400) K/uL MPV (7.4-10.4) fL Immature Gran % (Auto) % Neut % (Auto) % Lymph % (Auto) % [place] % (Auto) % Eos % (Auto) % Baso % (Auto) % Neut # (Auto) (1.4-6.5) K/uL Lymph # (Auto) (1.2-3.4) K/uL [place] # (Auto) (0.11-0.59) K/uL Eos # (Auto) (0-0.5) K/uL Baso # (Auto) (0-0.2) K/uL Immature Gran # (Auto) (0.00-0.02) K/uL Sodium (136-145) mmol/L Potassium (3.5-5.1) mmol/L Chloride (98-107) mmol/L Carbon Dioxide (21-32) mmol/L Anion Gap (3-11) BUN (7-18) mg/dl Creatinine (0.6-1.4) mg/dl Est Cr Clr Drug Dosing ml/min Est GFR ( Amer) ml/min Est GFR (Non-Af Amer) ml/min BUN/Creatinine Ratio (10-20) Glucose (70-99) mg/dl POC Glucose 467 H* (70-99) mg/dl Estimat Average Glucose mg/dl Hemoglobin A1c (4.5-5.6) % Osmolality (280-300) mOsm/kg Calcium (8.5-10.1) mg/dl Total Bilirubin (0.2-1) mg/dl AST (15-37) U/L ALT (12-78) U/L Alkaline Phosphatase (45-117) U/L Total Protein (6.4-8.2) gm/dl Albumin (3.4-5.0) gm/dl Globulin (2.5-4.0) gm/dl Albumin/Globulin Ratio (0.9-2) Beta-Hydroxybutyric Acd (0.2-2.81) mg/dl Procalcitonin (0-0.5) ng/ml Urine Color Urine Appearance (Clear) Urine pH (4.5-7.5) Ur Specific [place] (1.000-1.030) Urine Protein (Negative) Urine Glucose (UA) (Negative) Urine Ketones (Negative) Urine Blood (Negative) Urine Nitrite (Negative) Urine Bilirubin (Negative) Urine Urobilinogen (Negative) Ur Leukocyte Esterase (Negative) Ur Random Sodium mmol/L Ur Random Urea Nitrogn mg/dl COVID-19 Eval Order Covid19 at [facility] SARS-CoV-2 (PCR) NEGATIVE (Negative) 01/05/21 01/05/21 01/05/21 Range/Units 00:28 00:28 01:02 WBC (4.8-10.8) K/uL RBC (4.7-6.1) M/uL Hgb (14.0-18.0) g/dL Hct (42-52) % MCV (80-100) fL MCH (25-34) pg MCHC (32-36) g/dL RDW Std Deviation (36.4-46.3) fL RDW Coeff of Nadege (11.5-14.5) % Plt Count (130-400) K/uL MPV (7.4-10.4) fL Immature Gran % (Auto) % Neut % (Auto) % Lymph % (Auto) % [place] % (Auto) % Eos % (Auto) % Baso % (Auto) % Neut # (Auto) (1.4-6.5) K/uL Lymph # (Auto) (1.2-3.4) K/uL [place] # (Auto) (0.11-0.59) K/uL Eos # (Auto) (0-0.5) K/uL Baso # (Auto) (0-0.2) K/uL Immature Gran # (Auto) (0.00-0.02) K/uL Sodium (136-145) mmol/L Potassium (3.5-5.1) mmol/L Chloride (98-107) mmol/L Carbon Dioxide (21-32) mmol/L Anion Gap (3-11) BUN (7-18) mg/dl Creatinine (0.6-1.4) mg/dl Est Cr Clr Drug Dosing ml/min Est GFR ( Amer) ml/min Est GFR (Non-Af Amer) ml/min BUN/Creatinine Ratio (10-20) Glucose (70-99) mg/dl POC Glucose 407 H* (70-99) mg/dl Estimat Average Glucose mg/dl Hemoglobin A1c (4.5-5.6) % Osmolality 317 H (280-300) mOsm/kg Calcium (8.5-10.1) mg/dl Total Bilirubin (0.2-1) mg/dl AST (15-37) U/L ALT (12-78) U/L Alkaline Phosphatase (45-117) U/L Total Protein (6.4-8.2) gm/dl Albumin (3.4-5.0) gm/dl Globulin (2.5-4.0) gm/dl Albumin/Globulin Ratio (0.9-2) Beta-Hydroxybutyric Acd (0.2-2.81) mg/dl Procalcitonin 2.66 H (0-0.5) ng/ml Urine Color Urine Appearance (Clear) Urine pH (4.5-7.5) Ur Specific [place] (1.000-1.030) Urine Protein (Negative) Urine Glucose (UA) (Negative) Urine Ketones (Negative) Urine Blood (Negative) Urine Nitrite (Negative) Urine Bilirubin (Negative) Urine Urobilinogen (Negative) Ur Leukocyte Esterase (Negative) Ur Random Sodium mmol/L Ur Random Urea Nitrogn mg/dl COVID-19 Eval Order SARS-CoV-2 (PCR) (Negative) Administered Medications Acetaminophen (Acetaminophen 325 Mg Tab) 650 mg PO Q4H PRN PRN Reason: pain/fever Stop: 02/04/21 04:05 Last Admin: 01/05/21 05:05 Dose: 650 mg Documented by: [id number] Buspirone HCl (Buspirone 15 Mg Tab) 15 mg PO BID JASWANT Stop: 02/04/21 08:59 Last Admin: 01/05/21 07:46 Dose: 15 mg Documented by: [id number] Folic Acid (Folic Acid 1 Mg Tab) 1 mg PO QAM JASWANT Stop: 02/04/21 08:59 Last Admin: 01/05/21 07:47 Dose: 1 mg Documented by: [id number] Azithromycin 500 mg/ Dextrose 255 mls @ 125 mls/hr IV Q24H JASWANT Stop: 01/12/21 05:59 Last Infusion: 01/05/21 07:08 Dose: 0 mls/hr Documented by: [id number] Admin: 01/05/21 05:05 Dose: 125 mls/hr Documented by: [id number] Sodium Chloride (Nss 1000ml) 1,000 mls @ 125 mls/hr IV .Q8H JASWANT Stop: 01/05/21 21:29 Last Admin: 01/05/21 13:02 Dose: 125 mls/hr Documented by: [id number] Infusion: 01/05/21 13:02 Dose: 125 mls/hr Documented by: [id number] Admin: 01/05/21 05:50 Dose: 125 mls/hr Documented by: [id number] Insulin Aspart (Insulin Aspart 100 Units/Ml 3 Ml Pen) 0 units SC ACHS JASWANT Stop: 02/04/21 07:29 Last Admin: 01/05/21 12:52 Dose: 10 units Documented by: [id number] Cosigned by: [id number] Admin: 01/05/21 08:42 Dose: 14 units Documented by: [id number] Cosigned by: [id number] Insulin Glargine (Insulin Glargine Solostar 100 Units/Ml 3 Ml Pen) 4 units SC BID JASWANT Stop: 02/04/21 08:59 Last Admin: 01/05/21 08:43 Dose: 4 units Documented by: [id number] Cosigned by: [id number] Naltrexone HCl (Naltrexone Hcl 50 Mg Tab) 50 mg PO DAILY JASWANT Stop: 02/04/21 08:59 Last Admin: 01/05/21 07:46 Dose: 50 mg Documented by: [id number] Pantoprazole Sodium (Pantoprazole 40 Mg Tab) 40 mg PO QAM JASWANT Stop: 02/04/21 08:59 Last Admin: 01/05/21 07:46 Dose: 40 mg Documented by: [id number] Thiamine HCl (Thiamine Hcl 50 Mg Tablet) 250 mg PO BID JASWANT Stop: 02/04/21 08:59 Last Admin: 01/05/21 07:46 Dose: 250 mg Documented by: [id number] Vitamin D (Cholecalciferol 1,000 Units 25 Mcg Tab) 2,000 units PO QAM JASWANT Stop: 02/04/21 08:59 Last Admin: 01/05/21 07:47 Dose: 2,000 units Documented by: [id number] Discontinued Medications Albuterol (Albut/Ipratrop 3mg/0.5mg Neb 3 Ml Vial) 3 ml NEB QIDR JASWANT Stop: 02/04/21 06:59 Last Admin: 01/05/21 07:32 Dose: 3 ml Documented by: [id number] Sodium Chloride (Nss 1000ml) 1,000 mls @ 999 mls/hr IV .Q1H1M ONE Stop: 01/05/21 00:45 Last Infusion: 01/05/21 00:58 Dose: 0 mls/hr Documented by: [id number] Admin: 01/04/21 23:54 Dose: 999 mls/hr Documented by: [id number] Sodium Chloride (Nss 1000ml) 1,000 mls @ 999 mls/hr IV .Q1H1M ONE Stop: 01/05/21 02:29 Last Infusion: 01/05/21 02:38 Dose: 0 mls/hr Documented by: [id number] Admin: 01/05/21 01:34 Dose: 999 mls/hr Documented by: [id number] Insulin Human Regular (Novolin-R Insulin Per Unit Charge) 10 units IV NOW STA Stop: 01/05/21 01:30 Last Admin: 01/05/21 01:34 Dose: 10 units Documented by: [id number] Cosigned by: [id number] Imaging Data Radiologist's Impression: Abdomen/Pelvis CT 01/04/21 23:46 CT SCAN OF THE ABDOMEN AND PELVIS WITHOUT CONTRAST CLINICAL HISTORY: b/l lumbar pain, ARF COMPARISON STUDY: February 28, 2009 TECHNIQUE: CT scan of the abdomen and pelvis was performed from the lung bases to the proximal femurs. Images are reviewed in the axial, sagittal, and coronal planes. IV contrast was not administered for this examination. A dose lowering technique was utilized adhering to the principles of ALARA. CT DOSE: 441.34 mGy.cm FINDINGS: Lower chest: Minimal atelectasis is seen at the left base. Liver: The unenhanced liver is normal in size, contour, and attenuation. There is no intrahepatic biliary ductal dilatation. 2.1 cm hypoattenuating lesion is seen in subcapsular aspect of the right liver lobe, in the subdiaphragmatic region (2/9) and was also seen during prior study performed in 2009. Gallbladder: Is fluid-filled without evidence of cholelithiasis. Interval prominence of hypoattenuating lesion at the apex of the gallbladder, might represent diverticulum versus other etiology (3/125). Focal calcification is seen within the nahomy hepatis, could be vascular calcifications. Spleen: Normal in size and attenuation. Pancreas: Is slightly atrophic. There is 1.7 cm hypoattenuating lesion within pancreatic head (3/167), was not definitely seen on prior and might represent simple cyst or neoplastic lesion. Adrenal glands: Unremarkable. Kidneys: Nonenhanced kidneys are normal in size. No evidence of hydronephrosis. Multiple calculi are seen within bilateral renal pelvises, punctate, largest is measuring 4 mm in size and seen on the right. Multiple cysts are seen within right and left kidneys, largest is seen on the right, peripelvic and measured 3.3 cm in size. 3.3 cm soft tissue attenuating lesion is seen at inferior aspect of the left kidney, enlarged since prior study, was measured 1.7 cm during 2009 exam (3/201). Few hemorrhagic cysts are seen, for example 0.8 cm cortical hemorrhagic cyst is seen on the right with attenuation measurement measuring 63 Hounsfield units (3/177) few areas of parenchymal calcifications are seen which might represent calcified cystic ambrose. Evaluation is suboptimal due to lack of IV contrast. Bowel: Bowel loops are nondilated. 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 Appendix is not well seen. Diverticulosis of the sigmoid colon is seen without evidence of diverticulitis. Peritoneum: There is no intraperitoneal free air or abdominal ascites. Vasculature: Abdominal aorta is normal in caliber, tortuous with scattered calcifications of its wall. Adenopathy: Multiple retroperitoneal and mesenteric lymph nodes are seen, measuring less than 1 cm in short axis, nonpathological by CT size criteria. Pelvic viscera: Urinary bladder is adequately filled with urine. Prostate gland is enlarged. Skeletal structures: Mild degenerative changes of the spine. Sclerotic appearance of the right lateral aspect of the L4 might represent compression fracture deformity or degenerative process. Few irregular sclerotic lesions are seen within bilateral iliac bones. IMPRESSION: 1. Sclerotic appearance and possible compression fracture deformity of L4. 2. Nonobstructive nephrolithiasis is seen bilaterally. Multiple bilateral renal cysts, few of them appear to be hemorrhagic cyst. Multiple parenchymal calcifications could represent calcified cystic ambrose. Interval enlargement of the soft tissue lesion at the inferior left renal pole. Evaluation is limited due to lack of IV contrast. Further evaluation with MRI of the abdomen possibly with IV contrast is suggested. 3. Questionable lesion at gallbladder wall and cystic lesion within pancreatic head could also be evaluated on MRI of the abdomen. 4. Diverticulosis of sigmoid colon without evidence of diverticulitis. 5. Stable hypoattenuating lesion within the right lobe of the liver. 6. The rest of findings as above. ACT 112: Positive. There are findings on this exam that require communication between the performing entity and the patient following Patient Test Result Information Act ([place] Act 112) guidelines. The above report was generated using voice recognition software. It may contain grammatical, syntax or spelling errors. Electronically signed by: Gabriella Sanchez DO 01/05/2021 9:41 AM Chest X-Ray 01/05/21 01:59 XR chest 1V portable CLINICAL HISTORY: cough COMPARISON STUDY: July 21, 2020 FINDINGS: No pneumothorax. No pleural effusion. No large infiltrates or consolidative lesions are seen. Cardiomediastinal silhouette is within normal limits in size. No significant pulmonary vascular congestion.. Aorta is calcified. Osseous structures: Degenerative changes of the spine. IMPRESSION: 1. No infiltrates or consolidative lesions. 2. Atherosclerosis. ACT 112: Negative or not required by law. The above report was generated using voice recognition software. It may contain grammatical, syntax or spelling errors. Electronically signed by: Gabriella Sanchez DO 01/05/2021 10:37 AM Discharge Plan Visit Data Chief Complaint: Hyperglycemia Stated Complaint: HIGH BLOOD SUGAR ED Provider: Brian Rnadle Discharge Problem: Uncontrolled type 2 diabetes mellitus, Acute on chronic renal insufficiency, Dehydration Patient Disposition: Admitted As Inpatient Discharge Instructions Interventions: ED Discharge Assessment Last Done: 01/05/21 03:11 Discharge Problem: Uncontrolled type 2 diabetes mellitus Qualifiers: Glycemic state: with hyperglycemia Qualified Code(s): E11.65 - Type 2 diabetes mellitus with hyperglycemia
[2021-01-05] MEDS ORDERED: NovoLIN-R INSULIN PER UNIT CHARGE IV STA (01:29)
[2021-01-05] MEDS ORDERED: SODIUM CHLORIDE 0.9% 1000ML 1,000 ML IV ONE (01:29)
--- NOTE | 2021-01-05 02:10 | History & Physical Report ---
Date of Service January 05, 2021 Assessment & Plan (1) Uncontrolled type 2 diabetes mellitus: Plan: 70 yo M w/ pMHx. of DM II, GERD, CKD IIIb, tobacco, anxiety with depression, HTN, and BPH presenting with abnormal labs ordered by his PCP. Hyperglycemia, in a type II diabetic (A1C 9.4 on 07/22) blood sugar 551 initially which is close to his baseline over the last couple weeks nl. anion gap, beta hydroxybutyric acid initially elevated, since normalized CT a/p: [STAT RAD] renal cyst, liver cyst, perinephric stranding, left sided renal stone without hydronephrosis CXR: similar to prior exam, no clear infiltrate or focal findings admitted for observation on med/surg - IVF X2L in the ER - 10U IV insulin in the ER - added 125/h NSS X2L - held oral agents - SSI ordered - basal rate of 4 BID added - a1c ordered - will likely need aggressive outpatient treatment and potentially initiation of insulin JAMES on CKD IIIb baseline Cr. around 1.6 Cr. currently elevated to 4.5 with a BUN elevated to 45, likely some element of prerenal as the patient is clinically dry and has had increased UOP likely 2/2 hyperglycemia - urine na ordered to evaluate a FENA - hydration as above - recheck AM BMP after hydration Cough acutely worsened of chronic cough concern for CAP vs. bronchitis as cause for worsening blood sugars CXR without clear signs of an opacity potentially 2/2 being dry, could consider another XR after hydrated; procalcitonin elevated at 2.66 - started on Azithromycin - duonebs ordered Tobacco use, 55 pack year history - may benefit from PFT's to evaluate for COPD - at the contemplative/preparation stage of change - discussed options including cold turkey, nicotine replacement and Chantix - continue to support and encourage cessation Hyperkalemia, 5.5 - will recheck in AM after receiving insulin Alcohol use - continue naltrexone HLD - continue statin Anxiety and depression - continue escitalopram Reflux - continue Pantoprazole Code: DNR/DNI Diet: carb consistent DVT: SCD's (2) GERD (gastroesophageal reflux disease): (3) Chronic renal failure, stage 3b: (4) Tobacco dependence: (5) Acute kidney injury: (6) Anxiety with depression: (7) Hypertension: (8) Dyslipidemia: (9) BPH with obstruction/lower urinary tract symptoms: History of Present Illness Chief Complaint: abnormal labs Primary Care Provider: Ethan Romo DO Erick Kahn has a past medical history of DM II, GERD, CKD IIIb, tobacco, anxiety with depression, HTN, BPH presenting with abnormal labs ordered from his PCP. From his PCP note on 01/03 he had an average glucose of 480 and last a1c of 9.3 on 07/22. He checks his blood sugar at home and was in the 400's over the last couple weeks. Prior to this his blood sugars are normally in the 300's - 400's. He has not had any recent illness although notes that his chronic cough has been worse the last couple weeks. He as diagnosed with diabetes in 2018. He has not had any changes in his diet lately and drinks 2 cans of soda a day. He typically only eats one meal a day which can include chicken, pork or spaghetti. He also drinks 30-40 oz of water per day and has been urinating more frequently. He had a DUI in July and has not had any alcoholic drinks since that time. He has smoked a pack a day for 55 years and is interested in quitting. He has not tried to quit in the past. ED course: NSS X2L, 10U insulin Allergies Allergy/AdvReac Type Severity Reaction Status Date / Time Cephalosporins Allergy Mild Rash Verified 01/05/21 01:49 Penicillins Allergy Mild RASH Verified 01/05/21 01:49 Sulfa (Sulfonamide Allergy Mild RASH Verified 01/05/21 01:49 Antibiotics) Home Medications Medication Instructions Recorded Confirmed Type folic acid 1 mg tablet 1 mg PO QAM 07/30/18 01/05/21 History thiamine HCl (vitamin B1) 250 mg 250 mg PO BID #60 tab 02/01/19 01/05/21 Rx tablet cholecalciferol (vitamin D3) 50 50 mcg PO QAM 11/25/19 01/05/21 History mcg (2,000 unit) capsule multivitamin with minerals 1 cap PO QAM 01/27/20 01/05/21 History atorvastatin 20 mg tablet 20 mg PO HS #90 tab 02/04/20 01/05/21 Rx acetaminophen 500 mg tablet 1,000 mg PO TID PRN 04/20/20 01/05/21 History (Tylenol Extra Strength) lancets (Accu-Chek Fastclix Lancet #100 ea 04/29/20 11/22/20 Rx Drum) pantoprazole 40 mg tablet,delayed 40 mg PO QAM #30 tab 05/03/20 01/05/21 Rx release tamsulosin 0.4 mg capsule 0.4 mg PO HS #90 cap 08/01/20 01/05/21 Rx buspirone 30 mg tablet 15 mg PO BID #30 tab 09/21/20 01/05/21 Rx escitalopram oxalate 20 mg tablet 20 mg PO HS #90 tab 11/14/20 01/05/21 Rx (Lexapro) naltrexone 50 mg tablet 50 mg PO DAILY #30 tab 11/22/20 01/05/21 Rx metformin 500 mg tablet,extended 1,500 mg PO QAM #90 tab 12/02/20 01/05/21 Rx release 24hr blood sugar diagnostic (Accu-Chek #100 ea 12/23/20 Rx Guide test strips) canagliflozin 100 mg tablet 100 mg PO QAM #30 tab 01/04/21 01/05/21 Rx (Invokana) doxepin 50 mg capsule 50 - 100 mg PO HS PRN 01/05/21 01/05/21 History Past Med/Surg History Medical History Acute alcoholic hallucinosis Acute hyperglycemia Acute hypotension Acute kidney injury superimposed on chronic kidney disease JAMES (acute kidney injury) Alcohol dependence "HAS NOT HAD ETOH FOR 1 MONTH" Alcoholism /alcohol abuse Anxiety and depression BPH with obstruction/lower urinary tract symptoms Chronic kidney disease Chronic obstructive pulmonary disease "MILD" Controlled type 2 diabetes mellitus without complication PT DENIES Current smoker Delirium tremens GERD (gastroesophageal reflux disease) Hyperlipidemia Hypomagnesemia Isopropyl alcohol poisoning Lacunar infarction Medical non-compliance Restless leg syndrome Tachycardia TIA (transient ischemic attack) Toxic metabolic encephalopathy Wernicke's encephalopathy Wernickes encephalopathy Surgical History History of cataract surgery RT/LEFT History of colonoscopy History of removal of cyst (03/17/19) Excision of epidermoid cyst, right neck. Dr. Meneses 03/17/19 History of tonsillectomy History of tooth extraction Family History Father , In his 30s Heart disease Mother Cancer Lung cancer Sister Anorexia Grandfather (Maternal) Family history of diabetes mellitus Social History Smoking Status: Current every day smoker Tobacco Type: Cigarettes packs per day: 1; Years Smoked: 50; Cigarettes Per Day: 1 pack; Second Hand Exposure: Yes; Do You Dip or Chew Tobacco: No; Tobacco Cessation Education Requested by Patient: No Hx Alcohol Use: No Hx Substance Use: No Preferred Language: [place] Communication Ability: Effective Visual Impairment: No Limitations Hearing Ability: Normal Personal Banking Advisor Required: No Beliefs That Will Affect Care: None marital status: / Current Living Situation: Alone current occupational status: employed 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 [employer] plus Feels Safe at Home: Yes Safety Concerns: Feels Safe At This Time Childhood Exposure to Second-Hand Smoke: Yes caffeine: Yes Dental Care, Regularly: Yes Physical Activity Frequency: Does not Exercise Seatbelt Use: sometimes Sunscreen Use: Yes Assistive Devices: None Review of Systems Review of Systems: Constitutional: denies fevers, chills, nausea, vomiting, diaphoresis, night sweats, weight loss admits generalized weakness and fatigue Head: denies trauma, LOC, confusion Neurologic: denies slurring of speech, focal weakness ENT: denies rhinorrhea, stuffiness, sneezing, sore throat Cardiac: denies chest pain, palpitations Pulm.: denies shortness of breath, trouble breathing admits acutely worse chronic cough GI: denies diarrhea, constipation, bleeding, changes in bowel habits (LBM this morning) : denies dysuria admits urgency and frequency Physical Exam Constitutional: well developed and well nourished; no acute distress Eyes: PERRL, conjunctivae normal, anicteric sclerae ENMT: external ear and nose normal, oropharynx normal Neck: normal visual inspection Respiratory: - diffuse wheezing throughout with good air movement - no increased work of breathing - able to speak in full sentences Cardiovascular: RRR, no murmur, no edema Gastrointestinal (Abdomen): normal bowel sounds, soft, nontender, no hepatosplenomegaly Musculoskeletal: no cyanosis or clubbing, extremities motor strength 5/5 Skin: no rashes, warm and dry Neurologic: no focal motor deficits Psychiatric: A+Ox3, euthymic affect Results & Data Results & Data ([facility]) Vital Signs (Past 12 Hours) Vital Signs Temp Pulse Pulse Resp BP BP Pulse Ox 01/05/21 01:00 62 16 115/73 97 01/04/21 23:42 64 18 112/71 97 01/04/21 19:54 36.8 C 85 19 122/84 95 CBC Results Results Complete Blood Count Results: RBC 4.03 M/uL (4.7-6.1) L 01/05/21 WBC 4.71 K/uL (4.8-10.8) L 01/05/21 Hgb 12.8 g/dL (14.0-18.0) L 01/05/21 Hct 36.9 % (42-52) L 01/05/21 Plt Count 185 K/uL (130-400) 01/05/21 Chemistry (BMP) Results BMP Results: Sodium 130 mmol/L (136-145) L 01/04/21 Potassium 5.5 mmol/L (3.5-5.1) H 01/04/21 Chloride 98 mmol/L (98-107) 01/04/21 BUN 45 mg/dl (7-18) H 01/04/21 Creatinine 2.97 mg/dl (0.6-1.4) H 01/04/21 Glucose 551 mg/dl (70-99) H* 01/04/21 Supervising Physician Co-Signing Physician Notes Agree with above -Tx for hyperglycemia and JAMES with IVF -Monitor for infection with elevated procalcitonin Resident Activity Tracking Resident Involvement: Resident Care Provided Care Provided: Adult Hospital Medicine (1) GERD (gastroesophageal reflux disease) Esophagitis presence: without esophagitis Qualified Code(s): K21.9 - Gastro- esophageal reflux disease without esophagitis (2) Hypertension Hypertension type: essential hypertension Qualified Code(s): I10 - Essential (primary) hypertension
[2021-01-05 02:26] LABS: Sodium Random Urine 12 mmol/L; Urea Nitrogen, Urine Random 344 mg/dl
[2021-01-05] MEDS ORDERED: GLUCOSE 40% GEL 15 GM TUBE PO PRN (04:06)
[2021-01-05] MEDS ORDERED: DOXEPIN HCL 50 MG CAPSULE PO PRN (04:06)
[2021-01-05] MEDS ORDERED: DEXTROSE 50% 50 ML SYRINGE IV PRN (04:06)
[2021-01-05] MEDS ORDERED: CARBOHYDRATES FOR HYPOGLYCEMIA PO PRN (04:06)
[2021-01-05] MEDS ORDERED: POLYETHYLENE (MIRALAX) 17 GM PACK PO PRN (04:06)
[2021-01-05] MEDS ORDERED: GLUCOSE 10 TABS/TUBE PO PRN (04:06)
[2021-01-05] MEDS ORDERED: GLUCAGON FOR INJ 1 MG VIAL SQ PRN (04:06)
[2021-01-05] MEDS ORDERED: ACETAMINOPHEN 325 MG TAB PO PRN (04:06)
[2021-01-05] MEDS: AZITHROMYCIN 500 MG in DEXTROSE 5% 250 ML IV SCH (05:05)
[2021-01-05] MEDS: SODIUM CHLORIDE 0.9% 1000ML 1,000 ML IV SCH ×2 (05:50→13:02)
--- NOTE | 2021-01-05 06:16 | Billing Data ---
Date of Service January 05, 2021 Coding Level of Care Code INT OBSERVATION CARE 50M LVL 2
[2021-01-05 06:22] LABS: Basophils # (auto) 0.02 K/uL (0-0.2); Basophils % (auto) 0.4 %; Eosinophils # (auto) 0.36 K/uL (0-0.5); Eosinophils % (auto) 7.6 %; Hematocrit (blood only) 36.9 % (42-52); Hemoglobin 12.8 g/dL (14.0-18.0); Immature Granulocytes # (auto) 0.01 K/uL (0.00-0.02); Immature Granulocytes % (auto) 0.2 %; Lymphocytes # (auto) 1.71 K/uL (1.2-3.4); Lymphocytes % (auto) 36.3 %; Mean Corpuscular Hemoglobin 31.8 pg (25-34); Mean Corpuscular Hgb Conc 34.7 g/dL (32-36); Mean Corpuscular Volume 91.6 fL (80-100); Mean Platelet Volume 10.9 fL (7.4-10.4); Monocytes # (auto) 0.33 K/uL (0.11-0.59); Neutrophils # (auto) 2.28 K/uL (1.4-6.5); Neutrophils % (auto) 48.5 %; Platelet Count 185 K/uL (130-400); RDW Coefficient of Variation 12.4 % (11.5-14.5); RDW Standard Deviation 41.5 fL (36.4-46.3); Red Blood Count 4.03 M/uL (4.7-6.1); White Blood Count 4.71 K/uL (4.8-10.8)
[2021-01-05] MEDS ORDERED: ALBUT/IPRATROP 3MG/0.5MG NEB 3 ML VIAL NEB SCH (07:00)
[2021-01-05 07:11] LABS: BUN Creatinine Ratio 16.7 (10-20); Calcium 8.5 mg/dl (8.5-10.1); Creatinine Clr Calc Pharmacy 29.2 ml/min; Est GFR (African American) 33.6 ml/min; Potassium 4.3 mmol/L (3.5-5.1)
[2021-01-05 07:31] LABS: Estimated Average Glucose 346 mg/dl; Hemoglobin A1C 13.7 % (4.5-5.6)
[2021-01-05] MEDS: THIAMINE HCL 50 MG TABLET PO SCH ×2 (07:46→20:52)
[2021-01-05] MEDS: NALTREXONE HCL 50 MG TAB PO SCH (07:46)
[2021-01-05] MEDS: PANTOprazole 40 MG TAB PO SCH (07:46)
[2021-01-05] MEDS: busPIRone 15 MG TAB PO SCH ×2 (07:46→20:52)
[2021-01-05] MEDS: FOLIC ACID 1 MG TAB PO SCH (07:47)
[2021-01-05] MEDS: CHOLECALCIFEROL 1,000 UNITS 25 MCG TAB PO SCH (07:47)
[2021-01-05] MEDS: INSULIN ASPART 100 UNITS/ML 3 ML PEN SC SCH ×4 (08:42→20:53)
[2021-01-05] MEDS: INSULIN GLARGINE SOLOSTAR 100 UNITS/ML 3 ML PEN SC SCH ×2 (08:43→20:52)
[2021-01-05] MEDS ORDERED: ALBUT/IPRATROP 3MG/0.5MG NEB 3 ML VIAL NEB PRN (08:53)
--- NOTE | 2021-01-05 09:42 | CT Scan Report ---
CT SCAN OF THE ABDOMEN AND PELVIS WITHOUT CONTRAST CLINICAL HISTORY: b/l lumbar pain, ARF COMPARISON STUDY: February 28, 2009 TECHNIQUE: CT scan of the abdomen and pelvis was performed from the lung bases to the proximal femurs . Images are reviewed in the axial, sagittal, and coronal planes. IV contrast was not administered fo r this examination. A dose lowering technique was utilized adhering to the principles of ALARA. CT DOSE: 441.34 mGy.cm FINDINGS: Lower chest: Minimal atelectasis is seen at the left base. Liver: The unenhanced liver is normal in size, contour, and attenuation. There is no intrahepatic miguelito iary ductal dilatation. 2.1 cm hypoattenuating lesion is seen in subcapsular aspect of the right live r lobe, in the subdiaphragmatic region (2/9) and was also seen during prior study performed in 2008. Gallbladder: Is fluid-filled without evidence of cholelithiasis. Interval prominence of hypoattenuati ng lesion at the apex of the gallbladder, might represent diverticulum versus other etiology (3/125). Focal calcification is seen within the nahomy hepatis, could be vascular calcifications. Spleen: Normal in size and attenuation. Pancreas: Is slightly atrophic. There is 1.7 cm hypoattenuating lesion within pancreatic head (3/167) , was not definitely seen on prior and might represent simple cyst or neoplastic lesion. Adrenal glands: Unremarkable. Kidneys: Nonenhanced kidneys are normal in size. No evidence of hydronephrosis. Multiple calculi are seen within bilateral renal pelvises, punctate, largest is measuring 4 mm in size and seen on the rig ht. Multiple cysts are seen within right and left kidneys, largest is seen on the right, peripelvic and m easured 3.3 cm in size. 3.3 cm soft tissue attenuating lesion is seen at inferior aspect of the left kidney, enlarged since prior study, was measured 1.7 cm during 2009 exam (3/201). Few hemorrhagic cysts are seen, for example 0.8 cm cortical hemorrhagic cyst is seen on the right wit h attenuation measurement measuring 63 Hounsfield units (3/177) few areas of parenchymal calcificatio ns are seen which might represent calcified cystic ambrose. Evaluation is suboptimal due to lack of IV contrast. Bowel: Bowel loops are nondilated. 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 Appendi x is not well seen. Diverticulosis of the sigmoid colon is seen without evidence of diverticulitis. Peritoneum: There is no intraperitoneal free air or abdominal ascites. Vasculature: Abdominal aorta is normal in caliber, tortuous with scattered calcifications of its wall . Adenopathy: Multiple retroperitoneal and mesenteric lymph nodes are seen, measuring less than 1 cm in short axis, nonpathological by CT size criteria. Pelvic viscera: Urinary bladder is adequately filled with urine. Prostate gland is enlarged. Skeletal structures: Mild degenerative changes of the spine. Sclerotic appearance of the right latera l aspect of the L4 might represent compression fracture deformity or degenerative process. Few irregular sclerotic lesions are seen within bilateral iliac bones. IMPRESSION: 1. Sclerotic appearance and possible compression fracture deformity of L4. 2. Nonobstructive nephrolithiasis is seen bilaterally. Multiple bilateral renal cysts, few of them a ppear to be hemorrhagic cyst. Multiple parenchymal calcifications could represent calcified cystic wa lls. Interval enlargement of the soft tissue lesion at the inferior left renal pole. Evaluation is li mited due to lack of IV contrast. Further evaluation with MRI of the abdomen possibly with IV contras t is suggested. 3. Questionable lesion at gallbladder wall and cystic lesion within pancreatic head could also be ev aluated on MRI of the abdomen. 4. Diverticulosis of sigmoid colon without evidence of diverticulitis. 5. Stable hypoattenuating lesion within the right lobe of the liver. 6. The rest of findings as above. ACT 112: Positive. There are findings on this exam that require communication between the performing entity and the patient following Patient Test Result Information Act ([place] Act 112) guidelines. The above report was generated using voice recognition software. It may contain grammatical, syntax o r spelling errors. Electronically signed by: Gabriella Sanchez DO 01/05/2021 9:41 AM
--- NOTE | 2021-01-05 10:39 | XRay Report ---
XR chest 1V portable CLINICAL HISTORY: cough COMPARISON STUDY: July 21, 2020 FINDINGS: No pneumothorax. No pleural effusion. No large infiltrates or consolidative lesions are seen. Cardiomediastinal silhouette is within normal limits in size. No significant pulmonary vascular congestion.. Aorta is calcified. Osseous structures: Degenerative changes of the spine. IMPRESSION: 1. No infiltrates or consolidative lesions. 2. Atherosclerosis. ACT 112: Negative or not required by law. The above report was generated using voice recognition software. It may contain grammatical, syntax o r spelling errors. Electronically signed by: Gabriella Sanchez DO 01/05/2021 10:37 AM
--- NOTE | 2021-01-05 12:54 | Electrocardiogram Report ---
Test Reason : Blood Pressure : / mmHG Vent. Rate : 072 BPM Atrial Rate : 072 BPM P-R Int : 154 ms QRS Dur : 084 ms QT Int : 374 ms P-R-T Axes : 058 000 041 degrees QTc Int : 409 ms Normal sinus rhythm Normal ECG When compared with ECG of 21-JUL-2020 12:50, No significant change was found Confirmed by Stephen Acuna ([id number]) on 01/05/2021 12:53:59 PM Referred By: REFERRED SELF Confirmed By:Stephen Acuna
[2021-01-05 15:35] LABS: Calcium 8.5 mg/dl (8.5-10.1); Creatinine Clr Calc Pharmacy 29.2 ml/min; Est GFR (African American) 33.6 ml/min; Potassium 4.6 mmol/L (3.5-5.1)
--- NOTE | 2021-01-05 16:39 | Hospitalist Progress Note ---
Date of Service January 05, 2021 Assessment & Plan (1) Uncontrolled type 2 diabetes mellitus: Plan: 70 yo M w/ pMHx. of DM II, GERD, CKD IIIb, tobacco, anxiety with depression, HTN, and BPH presenting with abnormal labs ordered by his PCP. Hyperglycemia, in a type II diabetic -A1C 9.4 on 07/22, currently 13.7 -blood sugar 603 on admit --> 261 with insulin -nl. anion gap, beta hydroxybutyric acid initially elevated, since normalized -CT a/p: questionable lesion at gallbladder wall and cystic lesion within pancreatic head, new. Nonobstructive nephrolithiasis b/l, multiple b/l renal cysts, few hemorrhagic cysts. Diverticulosis sigmoid colon w/o diverticulitis. Stable hypoattenuating lesion R lobe liver. -CXR: similar to prior exam, no clear infiltrate or focal findings - recieved IVF X2L in the ER, 01/05 received 24U novolog 4U Lantus - SSI ordered - Patient seen by diabetic education, instructed on insulin administration and BS checking -Considering outpatient regime of 10U lantus daily +/- metformin or sulfonurea depending on kidney function -recommend f/u outpatient to titrate insulin regime JAMES on CKD IIIb -baseline Cr. around 1.6 -Cr. on admit 4.5 with a BUN 45 - FENA 0.3% likely prerenal etilogy - hydration as above Cough acutely worsened of chronic cough -concern for CAP vs. bronchitis as cause for worsening blood sugars -CXR without clear signs of an opacity potentially 2/2 being dry, could consider another XR after hydrated; procalcitonin elevated at 2.66 - started on Azithromycin - duonebs ordered -currently resolved Tobacco use, 55 pack year history - may benefit from PFT's to evaluate for COPD - at the contemplative/preparation stage of change - discussed options including cold turkey, nicotine replacement and Chantix - continue to support and encourage cessation Hyperkalemia -5.5 on admit, currently 4.6 after insulin Alcohol use - continue naltrexone HLD - continue statin Anxiety and depression - continue escitalopram Reflux - continue Pantoprazole FENa: carb consistent Code Status: DNR/DNI DVT PPX: SCDs PT/OT: [] Case Management: [] Dispo: home Veronica Aviles Do PGY 1, FCM (2) GERD (gastroesophageal reflux disease): (3) Chronic renal failure, stage 3b: (4) Tobacco dependence: (5) Acute kidney injury: (6) Anxiety with depression: (7) Hypertension: (8) Dyslipidemia: (9) BPH with obstruction/lower urinary tract symptoms: Admission and Anticipated Discharge Date Admission Date: January 05, 2021 Supervising Physician Co-Signing Physician Notes Resident Physician Supervision Note: I independently interviewed and examined the patient and verified the white history and physical, reviewed labs and image studies and agree with resident Dr. Aviles findings and care plan. Subjective 70yo Male PMH DM2, GERD, CKD 3b, tobacco use disorder, anxiety/depression, HTN, BPH sent here by PCP for abnormal labs glucose 600. Patient states at least 4 weeks ago his blood sugar was around 300, as of 2 weeks ago it jessica to 400, would change by 20 with metformin and increase greatly with food. 2 weeks ago his PCP asked him to do frequent blood sugar checks before and after meals and medication, he was compliant with BS checks. PCP also prescribed him a medication to help control his blood sugar, he never picked it up. Patient says he has been on 1500 Metformin daily for a long time, is compliant with medication. Patient denied any recent stressors, change in diet, medication, i njuries. Patient seen at bedside, comfortable. He denies chest pain SOB nausea vomitting diarrhea constipation. Patient would like to go home. Review of Systems Review of Systems: Negative fever chills Negative headache dizziness Negative chest pain palpitations SOB Negative nausea vomitting diarrhea constipation Negative numbness tingling rash swelling Physical Exam Physical Exam: General: Well appearing, age appropriate Heart: RRR, +S1 S2, no murmurs/gallops/rubs Lungs: cta b/l, no wheezes/rales/rhonchi Abd: soft, NT/ND, +BS Extremities: no swelling, no rashes Results & Data Results & Data ([facility]) Vital Signs (Past 12 Hours) Vital Signs Temp Pulse Resp BP Pulse Ox 01/05/21 15:56 36.9 C 67 16 150/80 H 95 01/05/21 07:56 36.6 C 60 16 103/66 94 01/05/21 07:32 59 L 17 93 Laboratory Results 01/05/21 01/05/21 01/05/21 Range/Units 16:17 15:06 11:55 WBC (4.8-10.8) K/uL RBC (4.7-6.1) M/uL Hgb (14.0-18.0) g/dL Hct (42-52) % MCV (80-100) fL MCH (25-34) pg MCHC (32-36) g/dL RDW Std Deviation (36.4-46.3) fL RDW Coeff of Nadege (11.5-14.5) % Plt Count (130-400) K/uL MPV (7.4-10.4) fL Immature Gran % (Auto) % Neut % (Auto) % Lymph % (Auto) % Wink[place] % (Auto) % Eos % (Auto) % Baso % (Auto) % Neut # (Auto) (1.4-6.5) K/uL Lymph # (Auto) (1.2-3.4) K/uL Winkler # (Auto) (0.11-0.59) K/uL Eos # (Auto) (0-0.5) K/uL Baso # (Auto) (0-0.2) K/uL Immature Gran # (Auto) (0.00-0.02) K/uL Sodium 141 (136-145) mmol/L Potassium 4.6 (3.5-5.1) mmol/L Chloride 112 H (98-107) mmol/L Carbon Dioxide 22 (21-32) mmol/L Anion Gap 7.0 (3-11) BUN 29 H (7-18) mg/dl Creatinine 2.23 H (0.6-1.4) mg/dl Est Cr Clr Drug Dosing 29.2 ml/min Est GFR ( Amer) 33.6 ml/min Est GFR (Non-Af Amer) 29.0 ml/min BUN/Creatinine Ratio 13.0 (10-20) Glucose 261 H (70-99) mg/dl POC Glucose 267 H 260 H (70-99) mg/dl Estimat Average Glucose mg/dl Hemoglobin A1c (4.5-5.6) % Osmolality (280-300) mOsm/kg Calcium 8.5 (8.5-10.1) mg/dl Total Bilirubin (0.2-1) mg/dl AST (15-37) U/L ALT (12-78) U/L Alkaline Phosphatase (45-117) U/L Total Protein (6.4-8.2) gm/dl Albumin (3.4-5.0) gm/dl Globulin (2.5-4.0) gm/dl Albumin/Globulin Ratio (0.9-2) CA 19-9 Antigen Beta-Hydroxybutyric Acd (0.2-2.81) mg/dl Procalcitonin (0-0.5) ng/ml Urine Color Urine Appearance (Clear) Urine pH (4.5-7.5) Ur Specific [place] (1.000-1.030) Urine Protein (Negative) Urine Glucose (UA) (Negative) Urine Ketones (Negative) Urine Blood (Negative) Urine Nitrite (Negative) Urine Bilirubin (Negative) Urine Urobilinogen (Negative) Ur Leukocyte Esterase (Negative) Ur Random Creatinine mg/dl Ur Random Sodium mmol/L Ur Random Urea Nitrogn mg/dl COVID-19 Eval Order SARS-CoV-2 (PCR) (Negative) Hepatitis C Ab Screen (Neg) 01/05/21 01/05/21 01/05/21 Range/Units 07:54 07:42 06:10 WBC (4.8-10.8) K/uL RBC (4.7-6.1) M/uL Hgb (14.0-18.0) g/dL Hct (42-52) % MCV (80-100) fL MCH (25-34) pg MCHC (32-36) g/dL RDW Std Deviation (36.4-46.3) fL RDW Coeff of Nadege (11.5-14.5) % Plt Count (130-400) K/uL MPV (7.4-10.4) fL Immature Gran % (Auto) % Neut % (Auto) % Lymph % (Auto) % Winkler % (Auto) % Eos % (Auto) % Baso % (Auto) % Neut # (Auto) (1.4-6.5) K/uL Lymph # (Auto) (1.2-3.4) K/uL Winkler # (Auto) (0.11-0.59) K/uL Eos # (Auto) (0-0.5) K/uL Baso # (Auto) (0-0.2) K/uL Immature Gran # (Auto) (0.00-0.02) K/uL Sodium (136-145) mmol/L Potassium (3.5-5.1) mmol/L Chloride (98-107) mmol/L Carbon Dioxide (21-32) mmol/L Anion Gap (3-11) BUN (7-18) mg/dl Creatinine (0.6-1.4) mg/dl Est Cr Clr Drug Dosing ml/min Est GFR ( Amer) ml/min Est GFR (Non-Af Amer) ml/min BUN/Creatinine Ratio (10-20) Glucose (70-99) mg/dl POC Glucose 318 H* (70-99) mg/dl Estimat Average Glucose mg/dl Hemoglobin A1c (4.5-5.6) % Osmolality (280-300) mOsm/kg Calcium (8.5-10.1) mg/dl Total Bilirubin (0.2-1) mg/dl AST (15-37) U/L ALT (12-78) U/L Alkaline Phosphatase (45-117) U/L Total Protein (6.4-8.2) gm/dl Albumin (3.4-5.0) gm/dl Globulin (2.5-4.0) gm/dl Albumin/Globulin Ratio (0.9-2) CA 19-9 Antigen Beta-Hydroxybutyric Acd (0.2-2.81) mg/dl Procalcitonin (0-0.5) ng/ml Urine Color Urine Appearance (Clear) Urine pH (4.5-7.5) Ur Specific [place] (1.000-1.030) Urine Protein (Negative) Urine Glucose (UA) (Negative) Urine Ketones (Negative) Urine Blood (Negative) Urine Nitrite (Negative) Urine Bilirubin (Negative) Urine Urobilinogen (Negative) Ur Leukocyte Esterase (Negative) Ur Random Creatinine 102.0 mg/dl Ur Random Sodium mmol/L Ur Random Urea Nitrogn mg/dl COVID-19 Eval Order SARS-CoV-2 (PCR) (Negative) Hepatitis C Ab Screen Neg (Neg) 01/05/21 01/05/21 01/05/21 Range/Units 06:10 06:10 04:10 WBC 4.71 L (4.8-10.8) K/uL RBC 4.03 L (4.7-6.1) M/uL Hgb 12.8 L (14.0-18.0) g/dL Hct 36.9 L (42-52) % MCV 91.6 (80-100) fL MCH 31.8 (25-34) pg MCHC 34.7 (32-36) g/dL RDW Std Deviation 41.5 (36.4-46.3) fL RDW Coeff of Nadege 12.4 (11.5-14.5) % Plt Count 185 (130-400) K/uL MPV 10.9 H (7.4-10.4) fL Immature Gran % (Auto) 0.2 % Neut % (Auto) 48.5 % Lymph % (Auto) 36.3 % Winkler % (Auto) 7.0 % Eos % (Auto) 7.6 % Baso % (Auto) 0.4 % Neut # (Auto) 2.28 (1.4-6.5) K/uL Lymph # (Auto) 1.71 (1.2-3.4) K/uL Winkler # (Auto) 0.33 (0.11-0.59) K/uL Eos # (Auto) 0.36 (0-0.5) K/uL Baso # (Auto) 0.02 (0-0.2) K/uL Immature Gran # (Auto) 0.01 (0.00-0.02) K/uL Sodium 135 L (136-145) mmol/L Potassium 4.3 D (3.5-5.1) mmol/L Chloride 107 (98-107) mmol/L Carbon Dioxide 24 (21-32) mmol/L Anion Gap 4.0 (3-11) BUN 37 H (7-18) mg/dl Creatinine 2.23 H D (0.6-1.4) mg/dl Est Cr Clr Drug Dosing 29.2 ml/min Est GFR ( Amer) 33.6 ml/min Est GFR (Non-Af Amer) 29.0 ml/min BUN/Creatinine Ratio 16.7 (10-20) Glucose 300 H (70-99) mg/dl POC Glucose 244 H (70-99) mg/dl Estimat Average Glucose mg/dl Hemoglobin A1c (4.5-5.6) % Osmolality (280-300) mOsm/kg Calcium 8.5 (8.5-10.1) mg/dl Total Bilirubin (0.2-1) mg/dl AST (15-37) U/L ALT (12-78) U/L Alkaline Phosphatase (45-117) U/L Total Protein (6.4-8.2) gm/dl Albumin (3.4-5.0) gm/dl Globulin (2.5-4.0) gm/dl Albumin/Globulin Ratio (0.9-2) CA 19-9 Antigen Beta-Hydroxybutyric Acd (0.2-2.81) mg/dl Procalcitonin (0-0.5) ng/ml Urine Color Urine Appearance (Clear) Urine pH (4.5-7.5) Ur Specific [place] (1.000-1.030) Urine Protein (Negative) Urine Glucose (UA) (Negative) Urine Ketones (Negative) Urine Blood (Negative) Urine Nitrite (Negative) Urine Bilirubin (Negative) Urine Urobilinogen (Negative) Ur Leukocyte Esterase (Negative) Ur Random Creatinine mg/dl Ur Random Sodium mmol/L Ur Random Urea Nitrogn mg/dl COVID-19 Eval Order SARS-CoV-2 (PCR) (Negative) Hepatitis C Ab Screen (Neg) 01/05/21 01/05/21 01/05/21 Range/Units 02:42 01:02 00:28 WBC (4.8-10.8) K/uL RBC (4.7-6.1) M/uL Hgb (14.0-18.0) g/dL Hct (42-52) % MCV (80-100) fL MCH (25-34) pg MCHC (32-36) g/dL RDW Std Deviation (36.4-46.3) fL RDW Coeff of Nadege (11.5-14.5) % Plt Count (130-400) K/uL MPV (7.4-10.4) fL Immature Gran % (Auto) % Neut % (Auto) % Lymph % (Auto) % Winkler % (Auto) % Eos % (Auto) % Baso % (Auto) % Neut # (Auto) (1.4-6.5) K/uL Lymph # (Auto) (1.2-3.4) K/uL Winkler # (Auto) (0.11-0.59) K/uL Eos # (Auto) (0-0.5) K/uL Baso # (Auto) (0-0.2) K/uL Immature Gran # (Auto) (0.00-0.02) K/uL Sodium (136-145) mmol/L Potassium (3.5-5.1) mmol/L Chloride (98-107) mmol/L Carbon Dioxide (21-32) mmol/L Anion Gap (3-11) BUN (7-18) mg/dl Creatinine (0.6-1.4) mg/dl Est Cr Clr Drug Dosing ml/min Est GFR ( Amer) ml/min Est GFR (Non-Af Amer) ml/min BUN/Creatinine Ratio (10-20) Glucose (70-99) mg/dl POC Glucose 274 H 407 H* (70-99) mg/dl Estimat Average Glucose mg/dl Hemoglobin A1c (4.5-5.6) % Osmolality (280-300) mOsm/kg Calcium (8.5-10.1) mg/dl Total Bilirubin (0.2-1) mg/dl AST (15-37) U/L ALT (12-78) U/L Alkaline Phosphatase (45-117) U/L Total Protein (6.4-8.2) gm/dl Albumin (3.4-5.0) gm/dl Globulin (2.5-4.0) gm/dl Albumin/Globulin Ratio (0.9-2) CA 19-9 Antigen Pending Beta-Hydroxybutyric Acd (0.2-2.81) mg/dl Procalcitonin (0-0.5) ng/ml Urine Color Urine Appearance (Clear) Urine pH (4.5-7.5) Ur Specific [place] (1.000-1.030) Urine Protein (Negative) Urine Glucose (UA) (Negative) Urine Ketones (Negative) Urine Blood (Negative) Urine Nitrite (Negative) Urine Bilirubin (Negative) Urine Urobilinogen (Negative) Ur Leukocyte Esterase (Negative) Ur Random Creatinine mg/dl Ur Random Sodium mmol/L Ur Random Urea Nitrogn mg/dl COVID-19 Eval Order SARS-CoV-2 (PCR) (Negative) Hepatitis C Ab Screen (Neg) 01/05/21 01/05/21 01/05/21 Range/Units 00:28 00:28 00:05 WBC (4.8-10.8) K/uL RBC (4.7-6.1) M/uL Hgb (14.0-18.0) g/dL Hct (42-52) % MCV (80-100) fL MCH (25-34) pg MCHC (32-36) g/dL RDW Std Deviation (36.4-46.3) fL RDW Coeff of Nadege (11.5-14.5) % Plt Count (130-400) K/uL MPV (7.4-10.4) fL Immature Gran % (Auto) % Neut % (Auto) % Lymph % (Auto) % [place]ink[place] % (Auto) % Eos % (Auto) % Baso % (Auto) % Neut # (Auto) (1.4-6.5) K/uL Lymph # (Auto) (1.2-3.4) K/uL Winkler # (Auto) (0.11-0.59) K/uL Eos # (Auto) (0-0.5) K/uL Baso # (Auto) (0-0.2) K/uL Immature Gran # (Auto) (0.00-0.02) K/uL Sodium (136-145) mmol/L Potassium (3.5-5.1) mmol/L Chloride (98-107) mmol/L Carbon Dioxide (21-32) mmol/L Anion Gap (3-11) BUN (7-18) mg/dl Creatinine (0.6-1.4) mg/dl Est Cr Clr Drug Dosing ml/min Est GFR ( Amer) ml/min Est GFR (Non-Af Amer) ml/min BUN/Creatinine Ratio (10-20) Glucose (70-99) mg/dl POC Glucose (70-99) mg/dl Estimat Average Glucose mg/dl Hemoglobin A1c (4.5-5.6) % Osmolality 317 H (280-300) mOsm/kg Calcium (8.5-10.1) mg/dl Total Bilirubin (0.2-1) mg/dl AST (15-37) U/L ALT (12-78) U/L Alkaline Phosphatase (45-117) U/L Total Protein (6.4-8.2) gm/dl Albumin (3.4-5.0) gm/dl Globulin (2.5-4.0) gm/dl Albumin/Globulin Ratio (0.9-2) CA 19-9 Antigen Beta-Hydroxybutyric Acd (0.2-2.81) mg/dl Procalcitonin 2.66 H (0-0.5) ng/ml Urine Color Urine Appearance (Clear) Urine pH (4.5-7.5) Ur Specific [place] (1.000-1.030) Urine Protein (Negative) Urine Glucose (UA) (Negative) Urine Ketones (Negative) Urine Blood (Negative) Urine Nitrite (Negative) Urine Bilirubin (Negative) Urine Urobilinogen (Negative) Ur Leukocyte Esterase (Negative) Ur Random Creatinine mg/dl Ur Random Sodium mmol/L Ur Random Urea Nitrogn mg/dl COVID-19 Eval Order SARS-CoV-2 (PCR) NEGATIVE (Negative) Hepatitis C Ab Screen (Neg) 01/05/21 01/04/21 01/04/21 Range/Units 00:05 23:31 20:35 WBC (4.8-10.8) K/uL RBC (4.7-6.1) M/uL Hgb (14.0-18.0) g/dL Hct (42-52) % MCV (80-100) fL MCH (25-34) pg MCHC (32-36) g/dL RDW Std Deviation (36.4-46.3) fL RDW Coeff of Nadege (11.5-14.5) % Plt Count (130-400) K/uL MPV (7.4-10.4) fL Immature Gran % (Auto) % Neut % (Auto) % Lymph % (Auto) % [place]ink[place] % (Auto) % Eos % (Auto) % Baso % (Auto) % Neut # (Auto) (1.4-6.5) K/uL Lymph # (Auto) (1.2-3.4) K/uL Wink[place] # (Auto) (0.11-0.59) K/uL Eos # (Auto) (0-0.5) K/uL Baso # (Auto) (0-0.2) K/uL Immature Gran # (Auto) (0.00-0.02) K/uL Sodium (136-145) mmol/L Potassium (3.5-5.1) mmol/L Chloride (98-107) mmol/L Carbon Dioxide (21-32) mmol/L Anion Gap (3-11) BUN (7-18) mg/dl Creatinine (0.6-1.4) mg/dl Est Cr Clr Drug Dosing ml/min Est GFR ( Amer) ml/min Est GFR (Non-Af Amer) ml/min BUN/Creatinine Ratio (10-20) Glucose (70-99) mg/dl POC Glucose 467 H* (70-99) mg/dl Estimat Average Glucose mg/dl Hemoglobin A1c (4.5-5.6) % Osmolality (280-300) mOsm/kg Calcium (8.5-10.1) mg/dl Total Bilirubin (0.2-1) mg/dl AST (15-37) U/L ALT (12-78) U/L Alkaline Phosphatase (45-117) U/L Total Protein (6.4-8.2) gm/dl Albumin (3.4-5.0) gm/dl Globulin (2.5-4.0) gm/dl Albumin/Globulin Ratio (0.9-2) CA 19-9 Antigen Beta-Hydroxybutyric Acd (0.2-2.81) mg/dl Procalcitonin (0-0.5) ng/ml Urine Color Urine Appearance (Clear) Urine pH (4.5-7.5) Ur Specific [place] (1.000-1.030) Urine Protein (Negative) Urine Glucose (UA) (Negative) Urine Ketones (Negative) Urine Blood (Negative) Urine Nitrite (Negative) Urine Bilirubin (Negative) Urine Urobilinogen (Negative) Ur Leukocyte Esterase (Negative) Ur Random Creatinine mg/dl Ur Random Sodium 12 mmol/L Ur Random Urea Nitrogn 344 mg/dl COVID-19 Eval Order Covid19 at [facility] SARS-CoV-2 (PCR) (Negative) Hepatitis C Ab Screen (Neg) 01/04/21 01/04/21 01/04/21 Range/Units 20:35 20:33 20:33 WBC (4.8-10.8) K/uL RBC (4.7-6.1) M/uL Hgb (14.0-18.0) g/dL Hct (42-52) % MCV (80-100) fL MCH (25-34) pg MCHC (32-36) g/dL RDW Std Deviation (36.4-46.3) fL RDW Coeff of Nadege (11.5-14.5) % Plt Count (130-400) K/uL MPV (7.4-10.4) fL Immature Gran % (Auto) % Neut % (Auto) % Lymph % (Auto) % [place] % (Auto) % Eos % (Auto) % Baso % (Auto) % Neut # (Auto) (1.4-6.5) K/uL Lymph # (Auto) (1.2-3.4) K/uL Wink[place] # (Auto) (0.11-0.59) K/uL Eos # (Auto) (0-0.5) K/uL Baso # (Auto) (0-0.2) K/uL Immature Gran # (Auto) (0.00-0.02) K/uL Sodium 130 L (136-145) mmol/L Potassium 5.5 H (3.5-5.1) mmol/L Chloride 98 (98-107) mmol/L Carbon Dioxide 25 (21-32) mmol/L Anion Gap 7.0 (3-11) BUN 45 H (7-18) mg/dl Creatinine 2.97 H (0.6-1.4) mg/dl Est Cr Clr Drug Dosing 18.6 ml/min Est GFR ( Amer) 23.8 ml/min Est GFR (Non-Af Amer) 20.5 ml/min BUN/Creatinine Ratio 15.3 (10-20) Glucose 551 H* (70-99) mg/dl POC Glucose (70-99) mg/dl Estimat Average Glucose 346 mg/dl Hemoglobin A1c 13.7 H (4.5-5.6) % Osmolality (280-300) mOsm/kg Calcium 9.3 (8.5-10.1) mg/dl Total Bilirubin 0.5 (0.2-1) mg/dl AST 11 L (15-37) U/L ALT 43 (12-78) U/L Alkaline Phosphatase 402 H (45-117) U/L Total Protein 7.9 (6.4-8.2) gm/dl Albumin 3.6 (3.4-5.0) gm/dl Globulin 4.3 H (2.5-4.0) gm/dl Albumin/Globulin Ratio 0.8 L (0.9-2) CA 19-9 Antigen Beta-Hydroxybutyric Acd 0.98 (0.2-2.81) mg/dl Procalcitonin (0-0.5) ng/ml Urine Color Yellow Urine Appearance Clear (Clear) Urine pH 5.0 (4.5-7.5) Ur Specific [place] 1.025 (1.000-1.030) Urine Protein Negative (Negative) Urine Glucose (UA) 3+ H (Negative) Urine Ketones Negative (Negative) Urine Blood Negative (Negative) Urine Nitrite Negative (Negative) Urine Bilirubin Negative (Negative) Urine Urobilinogen Negative (Negative) Ur Leukocyte Esterase Negative (Negative) Ur Random Creatinine mg/dl Ur Random Sodium mmol/L Ur Random Urea Nitrogn mg/dl COVID-19 Eval Order SARS-CoV-2 (PCR) (Negative) Hepatitis C Ab Screen (Neg) 01/04/21 01/04/21 Range/Units 20:33 19:57 WBC 5.60 (4.8-10.8) K/uL RBC 4.51 L (4.7-6.1) M/uL Hgb 14.6 (14.0-18.0) g/dL Hct 41.1 L (42-52) % MCV 91.1 (80-100) fL MCH 32.4 (25-34) pg MCHC 35.5 (32-36) g/dL RDW Std Deviation 41.1 (36.4-46.3) fL RDW Coeff of Nadege 12.3 (11.5-14.5) % Plt Count 212 (130-400) K/uL MPV 11.1 H (7.4-10.4) fL Immature Gran % (Auto) 0.4 % Neut % (Auto) 66.8 % Lymph % (Auto) 24.3 % Winkler % (Auto) 4.5 % Eos % (Auto) 3.8 % Baso % (Auto) 0.2 % Neut # (Auto) 3.75 (1.4-6.5) K/uL Lymph # (Auto) 1.36 (1.2-3.4) K/uL Winkler # (Auto) 0.25 (0.11-0.59) K/uL Eos # (Auto) 0.21 (0-0.5) K/uL Baso # (Auto) 0.01 (0-0.2) K/uL Immature Gran # (Auto) 0.02 (0.00-0.02) K/uL Sodium (136-145) mmol/L Potassium (3.5-5.1) mmol/L Chloride (98-107) mmol/L Carbon Dioxide (21-32) mmol/L Anion Gap (3-11) BUN (7-18) mg/dl Creatinine (0.6-1.4) mg/dl Est Cr Clr Drug Dosing ml/min Est GFR ( Amer) ml/min Est GFR (Non-Af Amer) ml/min BUN/Creatinine Ratio (10-20) Glucose (70-99) mg/dl POC Glucose 550 H* (70-99) mg/dl Estimat Average Glucose mg/dl Hemoglobin A1c (4.5-5.6) % Osmolality (280-300) mOsm/kg Calcium (8.5-10.1) mg/dl Total Bilirubin (0.2-1) mg/dl AST (15-37) U/L ALT (12-78) U/L Alkaline Phosphatase (45-117) U/L Total Protein (6.4-8.2) gm/dl Albumin (3.4-5.0) gm/dl Globulin (2.5-4.0) gm/dl Albumin/Globulin Ratio (0.9-2) CA 19-9 Antigen Beta-Hydroxybutyric Acd (0.2-2.81) mg/dl Procalcitonin (0-0.5) ng/ml Urine Color Urine Appearance (Clear) Urine pH (4.5-7.5) Ur Specific [place] (1.000-1.030) Urine Protein (Negative) Urine Glucose (UA) (Negative) Urine Ketones (Negative) Urine Blood (Negative) Urine Nitrite (Negative) Urine Bilirubin (Negative) Urine Urobilinogen (Negative) Ur Leukocyte Esterase (Negative) Ur Random Creatinine mg/dl Ur Random Sodium mmol/L Ur Random Urea Nitrogn mg/dl COVID-19 Eval Order SARS-CoV-2 (PCR) (Negative) Hepatitis C Ab Screen (Neg) Diagnostic Findings Impressions Abdomen/Pelvis CT 01/04/21 23:46 CT SCAN OF THE ABDOMEN AND PELVIS WITHOUT CONTRAST CLINICAL HISTORY: b/l lumbar pain, ARF COMPARISON STUDY: February 28, 2009 TECHNIQUE: CT scan of the abdomen and pelvis was performed from the lung bases to the proximal femurs. Images are reviewed in the axial, sagittal, and coronal planes. IV contrast was not administered for this examination. A dose lowering technique was utilized adhering to the principles of ALARA. CT DOSE: 441.34 mGy.cm FINDINGS: Lower chest: Minimal atelectasis is seen at the left base. Liver: The unenhanced liver is normal in size, contour, and attenuation. There is no intrahepatic biliary ductal dilatation. 2.1 cm hypoattenuating lesion is seen in subcapsular aspect of the right liver lobe, in the subdiaphragmatic region (2/9) and was also seen during prior study performed in 2008. Gallbladder: Is fluid-filled without evidence of cholelithiasis. Interval prominence of hypoattenuating lesion at the apex of the gallbladder, might represent diverticulum versus other etiology (3/125). Focal calcification is seen within the nahomy hepatis, could be vascular calcifications. Spleen: Normal in size and attenuation. Pancreas: Is slightly atrophic. There is 1.7 cm hypoattenuating lesion within pancreatic head (3/167), was not definitely seen on prior and might represent simple cyst or neoplastic lesion. Adrenal glands: Unremarkable. Kidneys: Nonenhanced kidneys are normal in size. No evidence of hydronephrosis. Multiple calculi are seen within bilateral renal pelvises, punctate, largest is measuring 4 mm in size and seen on the right. Multiple cysts are seen within right and left kidneys, largest is seen on the right, peripelvic and measured 3.3 cm in size. 3.3 cm soft tissue attenuating lesion is seen at inferior aspect of the left kidney, enlarged since prior study, was measured 1.7 cm during 2009 exam (3/201). Few hemorrhagic cysts are seen, for example 0.8 cm cortical hemorrhagic cyst is seen on the right with attenuation measurement measuring 63 Hounsfield units (3/177) few areas of parenchymal calcifications are seen which might represent calcified cystic ambrose. Evaluation is suboptimal due to lack of IV contrast. Bowel: Bowel loops are nondilated. 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 Appendix is not well seen. Diverticulosis of the sigmoid colon is seen without evidence of diverticulitis. Peritoneum: There is no intraperitoneal free air or abdominal ascites. Vasculature: Abdominal aorta is normal in caliber, tortuous with scattered calcifications of its wall. Adenopathy: Multiple retroperitoneal and mesenteric lymph nodes are seen, measuring less than 1 cm in short axis, nonpathological by CT size criteria. Pelvic viscera: Urinary bladder is adequately filled with urine. Prostate gland is enlarged. Skeletal structures: Mild degenerative changes of the spine. Sclerotic ap pearance of the right lateral aspect of the L4 might represent compression fracture deformity or degenerative process. Few irregular sclerotic lesions are seen within bilateral iliac bones. IMPRESSION: 1. Sclerotic appearance and possible compression fracture deformity of L4. 2. Nonobstructive nephrolithiasis is seen bilaterally. Multiple bilateral renal cysts, few of them appear to be hemorrhagic cyst. Multiple parenchymal calcifications could represent calcified cystic ambrose. Interval enlargement of the soft tissue lesion at the inferior left renal pole. Evaluation is limited due to lack of IV contrast. Further evaluation with MRI of the abdomen possibly with IV contrast is suggested. 3. Questionable lesion at gallbladder wall and cystic lesion within pancreatic head could also be evaluated on MRI of the abdomen. 4. Diverticulosis of sigmoid colon without evidence of diverticulitis. 5. Stable hypoattenuating lesion within the right lobe of the liver. 6. The rest of findings as above. ACT 112: Positive. There are findings on this exam that require communication between the performing entity and the patient following Patient Test Result Information Act ([place] Act 112) guidelines. The above report was generated using voice recognition software. It may contain grammatical, syntax or spelling errors. Electronically signed by: Gabriella Sanchez DO 01/05/2021 9:41 AM Chest X-Ray 01/05/21 01:59 XR chest 1V portable CLINICAL HISTORY: cough COMPARISON STUDY: July 21, 2020 FINDINGS: No pneumothorax. No pleural effusion. No large infiltrates or consolidative lesions are seen. Cardiomediastinal silhouette is within normal limits in size. No significant pulmonary vascular congestion.. Aorta is calcified. Osseous structures: Degenerative changes of the spine. IMPRESSION: 1. No infiltrates or consolidative lesions. 2. Atherosclerosis. ACT 112: Negative or not required by law. The above report was generated using voice recognition software. It may contain grammatical, syntax or spelling errors. Electronically signed by: Gabriella Sanchez DO 01/05/2021 10:37 AM Medications Administered Current Inpatient Medications Acetaminophen (Acetaminophen 325 Mg Tab) 650 mg PO Q4H PRN PRN Reason: pain/fever Stop: 02/04/21 04:05 Last Admin: 01/05/21 05:05 Dose: 650 mg Documented by: Albuterol (Albut/Ipratrop 3mg/0.5mg Neb 3 Ml Vial) 3 ml NEB QIDR PRN PRN Reason: sob Stop: 02/04/21 06:59 Atorvastatin Calcium (Atorvastatin 20 Mg Tab) 20 mg PO HS JASWANT Stop: 02/04/21 20:59 Buspirone HCl (Buspirone 15 Mg Tab) 15 mg PO BID JASWANT Stop: 02/04/21 08:59 Last Admin: 01/05/21 07:46 Dose: 15 mg Documented by: Dextrose (Dextrose 50% 50 Ml Syringe) 25 - 50 ml IV UD PRN; Protocol PRN Reason: Hypoglycemia Protocol Stop: 02/04/21 04:05 Doxepin HCl (Doxepin Hcl 50 Mg Capsule) 50 - 100 mg PO HS PRN PRN Reason: sleep Stop: 02/04/21 04:05 Escitalopram Oxalate (Escitalopram Oxalate 20 Mg Tab) 20 mg PO HS JASWANT Stop: 02/04/21 20:59 Folic Acid (Folic Acid 1 Mg Tab) 1 mg PO QAM JASWANT Stop: 02/04/21 08:59 Last Admin: 01/05/21 07:47 Dose: 1 mg Documented by: Glucagon (Glucagon For Inj 1 Mg Vial) 1 mg SQ UD PRN; Protocol PRN Reason: Hypoglycemia Protocol Stop: 02/04/21 04:05 Glucose (Glucose 10 Tabs/Tube) 4 - 8 tabs PO UD PRN; Protocol PRN Reason: Hypoglycemia Protocol Stop: 02/04/21 04:05 Glucose (Glucose 40% Gel 15 Gm Tube) 15 - 30 gm PO UD PRN; Protocol PRN Reason: Hypoglycemia Protocol Stop: 02/04/21 04:05 Azithromycin 500 mg/ Dextrose 255 mls @ 125 mls/hr IV Q24H JASWANT Stop: 01/12/21 05:59 Last Infusion: 01/05/21 07:08 Dose: Infused Documented by: Sodium Chloride (Nss 1000ml) 1,000 mls @ 125 mls/hr IV .Q8H JASWANT Stop: 01/05/21 21:29 Last Admin: 01/05/21 13:02 Dose: 125 mls/hr Documented by: Insulin Aspart (Insulin Aspart 100 Units/Ml 3 Ml Pen) 0 units SC ACHS [facility] Stop: 02/04/21 07:29 Last Admin: 01/05/21 12:52 Dose: 10 units Documented by: Insulin Glargine (Insulin Glargine Solostar 100 Units/Ml 3 Ml Pen) 4 units SC BID [facility] Stop: 02/04/21 08:59 Last Admin: 01/05/21 08:43 Dose: 4 units Documented by: Miscellaneous (Carbohydrates For Hypoglycemia ) 15 - 30 gm PO UD PRN PRN Reason: Hypoglycemia Protocol Stop: 02/04/21 04:05 Naltrexone HCl (Naltrexone Hcl 50 Mg Tab) 50 mg PO DAILY [facility] Stop: 02/04/21 08:59 Last Admin: 01/05/21 07:46 Dose: 50 mg Documented by: Pantoprazole Sodium (Pantoprazole 40 Mg Tab) 40 mg PO QAM [facility] Stop: 02/04/21 08:59 Last Admin: 01/05/21 07:46 Dose: 40 mg Documented by: Polyethylene Glycol (Polyethylene (Miralax) 17 Gm Pack) 17 gm PO DAILY PRN PRN Reason: Constipation Stop: 02/04/21 04:05 Tamsulosin HCl (Tamsulosin Hcl 0.4 Mg Cap) 0.4 mg PO HS [facility] Stop: 02/04/21 20:59 Thiamine HCl (Thiamine Hcl 50 Mg Tablet) 250 mg PO BID [facility] Stop: 02/04/21 08:59 Last Admin: 01/05/21 07:46 Dose: 250 mg Documented by: Vitamin D (Cholecalciferol 1,000 Units 25 Mcg Tab) 2,000 units PO QAM [facility] Stop: 02/04/21 08:59 Last Admin: 01/05/21 07:47 Dose: 2,000 units Documented by: Resident Activity Tracking Resident Involvement: Resident Care Provided Care Provided: Adult Hospital Medicine (1) GERD (gastroesophageal reflux disease) Esophagitis presence: without esophagitis Qualified Code(s): K21.9 - Gastro- esophageal reflux disease without esophagitis (2) Hypertension Hypertension type: essential hypertension Qualified Code(s): I10 - Essential (primary) hypertension
--- NOTE | 2021-01-05 19:22 | Anesthesiology Consultation ---
Date of Service January 05, 2021 Assessment & Plan (1) Encounter for pre-operative examination: Chart Review Chart Review: direct entry midwife initiated History Surgery Operation Date: 01/06/21 08:20 Proposed Procedures p Endoscopic Ultrasonography Upper - Anthony Gracia MD s Endoscopic Retrograde Cholangiopancreatography - Anthony Gracia MD Height/Weight Height: 5 ft 7 in Weight: 69.4 kg Allergies Allergy/AdvReac Type Severity Reaction Status Date / Time Cephalosporins Allergy Mild Rash Verified 01/05/21 01:49 Penicillins Allergy Mild RASH Verified 01/05/21 01:49 Sulfa (Sulfonamide Allergy Mild RASH Verified 01/05/21 01:49 Antibiotics) Medications Home Medications Medication Instructions Recorded Confirmed Last Taken folic acid 1 mg tablet 1 mg PO QAM 07/30/18 01/05/21 07/21/20 thiamine HCl (vitamin B1) 250 mg 250 mg PO BID #60 tab 02/01/19 01/05/21 07/21/20 tablet cholecalciferol (vitamin D3) 50 50 mcg PO QAM 11/25/19 01/05/21 07/21/20 mcg (2,000 unit) capsule multivitamin with minerals 1 cap PO QAM 01/27/20 01/05/21 07/21/20 atorvastatin 20 mg tablet 20 mg PO HS #90 tab 02/04/20 01/05/21 07/20/20 acetaminophen 500 mg tablet 1,000 mg PO TID PRN 04/20/20 01/05/21 Unknown (Tylenol Extra Strength) lancets (Accu-Chek Fastclix Lancet #100 ea 04/29/20 11/22/20 Unknown Drum) pantoprazole 40 mg tablet,delayed 40 mg PO QAM #30 tab 05/03/20 01/05/21 07/21/20 release tamsulosin 0.4 mg capsule 0.4 mg PO HS #90 cap 08/01/20 01/05/21 Unknown buspirone 30 mg tablet 15 mg PO BID #30 tab 09/21/20 01/05/21 Unknown escitalopram oxalate 20 mg tablet 20 mg PO HS #90 tab 11/14/20 01/05/21 Unknown (Lexapro) naltrexone 50 mg tablet 50 mg PO DAILY #30 tab 11/22/20 01/05/21 Unknown metformin 500 mg tablet,extended 1,500 mg PO QAM #90 tab 12/02/20 01/05/21 Unknown release 24hr blood sugar diagnostic (Accu-Chek #100 ea 12/23/20 Unknown Guide test strips) canagliflozin 100 mg tablet 100 mg PO QAM #30 tab 01/04/21 01/05/21 Unknown (Invokana) doxepin 50 mg capsule 50 - 100 mg PO HS PRN 01/05/21 01/05/21 Unknown Active Medications Generic Name Dose Route Start Last Admin Trade Name Freq PRN Reason Stop Dose Admin Acetaminophen 650 mg 01/05/21 04:06 01/05/21 05:05 Acetaminophen 325 Mg Tab PO 02/04/21 04:05 650 mg Q4H PRN Administration pain/fever Buspirone HCl 15 mg 01/05/21 09:00 01/05/21 07:46 Buspirone 15 Mg Tab PO 02/04/21 08:59 15 mg BID JASWANT Administration Folic Acid 1 mg 01/05/21 09:00 01/05/21 07:47 Folic Acid 1 Mg Tab PO 02/04/21 08:59 1 mg QAM JASWANT Administration Azithromycin 500 mg/ Dextrose 255 mls @ 125 mls/hr 01/05/21 06:00 01/05/21 07:08 IV 01/12/21 05:59 Infused Q24H JASWANT Infusion Sodium Chloride 1,000 mls @ 125 mls/hr 01/05/21 05:30 01/05/21 13:02 Nss 1000ml IV 01/05/21 21:29 125 mls/hr .Q8H JASWANT Administration Insulin Aspart 0 units 01/05/21 07:30 01/05/21 18:14 Insulin Aspart 100 Units/Ml 3 Ml Pen SC 02/04/21 07:29 12 units ACHS JASWANT Administration Insulin Glargine 4 units 01/05/21 09:00 01/05/21 08:43 Insulin Glargine Solostar 100 Units/Ml 3 Ml Pen SC 02/04/21 08:59 4 units BID JASWANT Administration Naltrexone HCl 50 mg 01/05/21 09:00 01/05/21 07:46 Naltrexone Hcl 50 Mg Tab PO 02/04/21 08:59 50 mg DAILY JASWANT Administration Pantoprazole Sodium 40 mg 01/05/21 09:00 09/23/21 07:46 Pantoprazole 40 Mg Tab PO 02/04/21 08:59 40 mg QAM JASWANT Administration Thiamine HCl 250 mg 01/05/21 09:00 01/05/21 07:46 Thiamine Hcl 50 Mg Tablet PO 02/04/21 08:59 250 mg BID JASWANT Administration Vitamin D 2,000 units 01/05/21 09:00 01/05/21 07:47 Cholecalciferol 1,000 Units 25 Mcg Tab PO 02/04/21 08:59 2,000 units QAM JASWANT Administration Past Medical History Medical History Acute alcoholic hallucinosis Acute hyperglycemia Acute hypotension Acute kidney injury superimposed on chronic kidney disease JAMES (acute kidney injury) Alcohol dependence "HAS NOT HAD ETOH FOR 1 MONTH" Alcoholism /alcohol abuse Anxiety and depression BPH with obstruction/lower urinary tract symptoms Chronic kidney disease Chronic obstructive pulmonary disease "MILD" Controlled type 2 diabetes mellitus without complication PT DENIES Current smoker Delirium tremens GERD (gastroesophageal reflux disease) Hyperlipidemia Hypomagnesemia Isopropyl alcohol poisoning Lacunar infarction Medical non-compliance Restless leg syndrome Tachycardia TIA (transient ischemic attack) Toxic metabolic encephalopathy Wernicke's encephalopathy Wernickes encephalopathy Past Family History Family History Father , In his 30s Heart disease Mother Cancer Lung cancer Sister Anorexia Grandfather (Maternal) Family history of diabetes mellitus Past Surgical History Surgical History History of cataract surgery RT/LEFT History of colonoscopy History of removal of cyst (03/17/19) Excision of epidermoid cyst, right neck. Dr. Meneses 03/17/19 History of tonsillectomy History of tooth extraction Social History Smoking Status: Current every day smoker tobacco type: cigarettes Smoking cigarettes per day: 1 pack Do You Dip or Chew Tobacco: No Hx Alcohol Use: No Alcohol type: hard liquor alcohol intake frequency: a few times a week Hx Substance Use: No substance use type: does not use Substance Use Type Other:: CBD oil Last Used Substance: Hours (ago) Physical Exam Vital Signs Last Vital Signs Temp 98.2 F 01/05/21 18:56 Pulse 64 01/05/21 18:56 Resp 16 01/05/21 18:56 BP 132/78 01/05/21 18:56 Pulse Ox 95 01/05/21 18:56 Testing Laboratory Results 01/05/21 06:10 01/05/21 15:06 Hemoglobin A1c 13.7 % (4.5-5.6) H 01/04/21 20:33 Urine Color Yellow 01/04/21 20:35 Urine Appearance Clear (Clear) 01/04/21 20:35 Urine pH 5.0 (4.5-7.5) 01/04/21 20:35 Ur Specific [place] 1.025 (1.000-1.030) 01/04/21 20:35 Urine Protein Negative (Negative) 01/04/21 20:35 Urine Glucose (UA) 3+ (Negative) H 01/04/21 20:35 Urine Ketones Negative (Negative) 01/04/21 20:35 Urine Nitrite Negative (Negative) 01/04/21 20:35 Ur Leukocyte Esterase Negative (Negative) 01/04/21 20:35 01/05/21 01/05/21 01/05/21 16:17 11:55 07:54 POC Glucose 267 H 260 H 318 H* Laboratory Tests 01/05/21 00:05 SARS-CoV-2 (PCR) NEGATIVE Electrocardiogram Date: 01/04/21 Normal sinus rhythm, rate 72 bpm Normal ECG When compared with ECG of 21-JUL-2020 12:50, No significant change was found Confirmed by Stephen Acuna ([id number]) on 01/05/2021 12:53:59 PM Chest X-Ray Date: 01/05/21 IMPRESSION: 1. No infiltrates or consolidative lesions. 2. Atherosclerosis.
[2021-01-05] MEDS ORDERED: ESCITALOPRAM OXALATE 20 MG TAB PO SCH (21:00)
[2021-01-05] MEDS ORDERED: ATORVASTATIN 20 MG TAB PO SCH (21:00)
[2021-01-05] MEDS ORDERED: TAMSULOSIN HCL 0.4 MG CAP PO SCH (21:00)
[2021-01-06] MEDS ORDERED: Nursing to Pharmacy Communication SCH ×2 (00:45→16:00)
[2021-01-06] MEDS: INSULIN ASPART 100 UNITS/ML 3 ML PEN SC SCH ×2 (05:36→12:57)
[2021-01-06] MEDS: AZITHROMYCIN 500 MG in DEXTROSE 5% 250 ML IV SCH (06:06)
[2021-01-06 08:05] LABS: BUN Creatinine Ratio 13.3 (10-20); Calcium 9.1 mg/dl (8.5-10.1); Creatinine Clr Calc Pharmacy 42.3 ml/min; Est GFR (African American) 52.6 ml/min; Est GFR (Non-African American) 45.4 ml/min; Potassium 4.6 mmol/L (3.5-5.1)
[2021-01-06] MEDS: busPIRone 15 MG TAB PO SCH (08:18)
[2021-01-06] MEDS: THIAMINE HCL 50 MG TABLET PO SCH (08:19)
[2021-01-06] MEDS: NALTREXONE HCL 50 MG TAB PO SCH (08:19)
[2021-01-06] MEDS: PANTOprazole 40 MG TAB PO SCH (08:19)
[2021-01-06] MEDS: FOLIC ACID 1 MG TAB PO SCH (08:19)
[2021-01-06] MEDS: CHOLECALCIFEROL 1,000 UNITS 25 MCG TAB PO SCH (08:19)
[2021-01-06] MEDS: INSULIN GLARGINE SOLOSTAR 100 UNITS/ML 3 ML PEN SC SCH (08:20)
--- NOTE | 2021-01-06 11:43 | History & Physical Bridge Note ---
Date of Service January 06, 2021 History & Physical Bridge Note I have examined the patient, reviewed the History & Physical and in the interval since the performance of the History & Physical I have noted the following changes of clinical significance: no changes noted EUS for abnormal CT scan Patient was explained in detail regarding risks, benefits, limitations and alternatives of the above endoscopic procedure. Risks of intravenous sedation used for procedure were also explained. Risks include, but not limited to perforation, bleeding, infection, respiratory distress, cardiac arrest and . Patient is also aware about the possibility of missed lesion. Patient's questions were answered. The patient verbalized understanding the information and agreed to undergo the procedure.
[2021-01-06] MEDS ORDERED: fentaNYL citrate 100 MCG/2 ML VIAL ONE (11:58)
[2021-01-06] MEDS ORDERED: ePHEDrine sulfate 50 MG/ML AMP IV PRN (12:14)
[2021-01-06] MEDS ORDERED: ATROPINE SULFATE 0.1 MG/ML 10ML SYR IV PRN (12:14)
[2021-01-06] MEDS ORDERED: ALBUTEROL HFA INHALER 8.5 GM ONE (12:24)
--- NOTE | 2021-01-06 13:10 | Discharge Summary ---
Date of Service January 06, 2021 Admission HPI Per Admitting Provider Erick Kahn has a past medical history of DM II, GERD, CKD IIIb, tobacco, anxiety with depression, HTN, BPH presenting with abnormal labs ordered from his PCP. From his PCP note on 01/03 he had an average glucose of 480 and last a1c of 9.3 on 07/22. He checks his blood sugar at home and was in the 400's over the last couple weeks. Prior to this his blood sugars are normally in the 300's - 400's. He has not had any recent illness although notes that his chronic cough has been worse the last couple weeks. He as diagnosed with diabetes in 2018. He has not had any changes in his diet lately and drinks 2 cans of soda a day. He typically only eats one meal a day which can include chicken, pork or spaghetti. He also drinks 30-40 oz of water per day and has been urinating more frequently. He had a DUI in July and has not had any alcoholic drinks since that time. He has smoked a pack a day for 55 years and is interested in quitting. He has not tried to quit in the past. ED course: NSS X2L, 10U insulin Admission Exam Per Admitting Provider Constitutional: well developed and well nourished; no acute distress Eyes: PERRL, conjunctivae normal, anicteric sclerae ENMT: external ear and nose normal, oropharynx normal Neck: normal visual inspection Respiratory: - diffuse wheezing throughout with good air movement - no increased work of breathing - able to speak in full sentences Cardiovascular: RRR, no murmur, no edema Gastrointestinal (Abdomen): normal bowel sounds, soft, nontender, no hepatosplenomegaly Musculoskeletal: no cyanosis or clubbing, extremities motor strength 5/5 Skin: no rashes, warm and dry Neurologic: no focal motor deficits Psychiatric: A+Ox3, euthymic affect Principal Diagnosis Hyperglycemia Discharge Exam General: Well appearing, age appropriate Heart: RRR, +S1 S2, no murmurs/gallops/rubs Lungs: cta b/l, no wheezes/rales/rhonchi Abd: soft, NT/ND, +BS Extremities: no swelling, no rashes Discharge Data Allergies Allergy/AdvReac Type Severity Reaction Status Date / Time Cephalosporins Allergy Mild Rash Verified 01/05/21 01:49 Penicillins Allergy Mild RASH Verified 01/05/21 01:49 Sulfa (Sulfonamide Allergy Mild RASH Verified 01/05/21 01:49 Antibiotics) Consultations 01/05/21 01:17 ED Decision to Admit Stat 01/05/21 16:10 Consult Gastroenterology Routine Procedures Performed Operation Date: 01/06/21 08:20 <No data on this case meets the specified criteria> Ordered Studies 01/04/21 23:46 CT abd pelvis wo con Urgent 01/06/21 07:41 US upper EUS PACS images Routine 01/06/21 11:30 FL ERCP biliary ductal Routine Diabetes Follow up Diabetes Follow-up Needed for HgbA1c >9% Hospital Course (1) Uncontrolled type 2 diabetes mellitus: 70 yo M w/ pMHx. of DM II, GERD, CKD IIIb, tobacco, anxiety with depression, HTN, and BPH presenting with abnormal labs ordered by his PCP. Hyperglycemia, in a type II diabetic A1C 9.4 on 07/22, currently 13.7. Blood sugar 603 on admit, recieved IVF and insulin --> BS 139 with insulin by 01/06. Normal anion gap, beta hydroxybutyric acid initially elevated, since normalized. CXR: similar to prior exam, no clear infiltrate or focal findings. Likely with worsening insulin resistance. Patient seen by diabetic education, instructed on insulin administration and BS checking. Patient started on outpatient regime of 10U lantus daily + home metformin. Patient to follow up with PCP to titrate insulin regime. Pancreatic lesion without any GI symptoms. CT a/p: questionable lesion at gallbladder wall and cystic lesion within pancreatic head, new. Nonobstructive nephrolithiasis b/l, multiple b/l renal cysts, few hemorrhagic cysts. Diverticulosis sigmoid colon w/o diverticulitis. Stable hypoattenuating lesion R lobe liver. -Underwent EUS - 12mm Gallbladder polyp and sludge - Recommend surgery referral for ? cholecystectomy - Left lobe ?Hemangiomas - consider MRI liver protocol - 17 mm cyst in pancreatic head and no worrisome features likely an IPMN - Needs Surveillance MRI pancreas protocol in 6mths. JAMES on CKD IIIb Baseline Cr. around 1.6, Cr. on admit 4.5 with a BUN 45. FENA 0.3% likely prerenal etilogy. Patient received IVF and insulin. Current Cr 1.54, BUN 21. Cough acutely worsened of chronic cough -concern for CAP vs. bronchitis as cause for worsening blood sugars -CXR without clear signs of an opacity potentially 2/2 being dry, could consider another XR after hydrated; procalcitonin elevated at 2.66 - started on Azithromycin - duonebs ordered -currently resolved Tobacco use, 55 pack year history May benefit from PFT's to evaluate for COPD. At the contemplative/preparation stage of change. Discussed options including cold turkey, nicotine replacement and Chantix. Continue to support and encourage cessation Hyperkalemia 5.5 on admit, currently 4.6 after insulin Alcohol use Continue naltrexone HLD Continue statin Anxiety and depression Continue escitalopram Reflux Continue Pantoprazole (2) GERD (gastroesophageal reflux disease): (3) Chronic renal failure, stage 3b: (4) Tobacco dependence: (5) Acute kidney injury: (6) Anxiety with depression: (7) Hypertension: (8) Dyslipidemia: (9) BPH with obstruction/lower urinary tract symptoms: Total Time Total Time Spent Total Time Spent (In Minutes): see attending attestation Discharge Plan Discharge Items Patient Disposition: Home - Self-Care Reason For Visit: HYPERGLYCEMIA Discharge Diagnosis: Hyperglycemia Activity: Resume your previous activity Non-emergency contact: Primary Care Provider Call non-emergency contact if: your symptoms worsen and you have a fever Follow-up/Referrals: Ethan Romo DO [Primary Care Provider] - 01/12/21 11:30 am Diet: Regular and Carb Consistent or DM2 Addtl Attending Provider Instructions: You were admitted to the hospital for hyperglycemia, your blood sugar was at 603. You were also found to have an acute kidney injury. You were treated with insulin and fluids. Your blood sugar has gone down, and your kidneys are recovering. At this time, your diabetes is not well controlled on your current medication regime. We will add a medication called Lantus which is a type of insulin, please inject 10 units once a day in the morning. Please remember to check your blood sugars daily. If your blood sugar goes below 70, please drink juice immediately. Please take both Lantus and your metformin daily, and follow up with your PCP. We found an incidental lesion on your pancreas on imaging. It has been evaluated by the hair boiler and was found to be a 1.7cm cyst of the pancreatic head with no worrisome features. We recommend you repeat an MRI of the pancreas in 6 months. Please follow with your PCP. A discharge summary will be sent to your primary care physician to ensure continuity of care. Please bring this discharge summary with you to your next office appointment so that your provider can review it at that time. Follow-up appointments: Make a follow-up appointment with your PCP within the next week. It is very important that you follow up with them shortly after discharge from the hospital. Keep all your follow-up appointments as already scheduled. If you cannot make an appointment, notify your provider. Medications: Your medication list has been reviewed and reconciled upon discharge to ensure accuracy and continuity of care. An updated list of all your medications is included with your hospital discharge paperwork. Please review this list closely, and make note of any changes. * We sent a new medication called Lantus to your pharmacy. Take Lantus 10 units daily at bedtime. Take your medications as instructed; do not skip a dose of your medicines. Make sure all of your doctors know every medicine you are taking (including xlft-uil-vycwpiu medicines, vitamins, and supplements). Call your primary care provider before taking any new medicines (including cqbd-ysc-aiekxyq medicines, vitamins, and supplements), because some of these may interact with your current medications, or may make your symptoms worse. Tell your primary care provider if you cannot afford your medications. CONTACT YOUR PRIMARY CARE PROVIDER if you experience any of the following: lethargy, nausea, abdominal pain, difficulty breathing Difficulty following your treatment plan, or difficulty taking medications CALL 911 OR GO TO THE EMERGENCY DEPARTMENT if you experience any of the following: Sudden, severe abdominal pain or nausea/vomiting Severe chest pain, or chest pain that radiates (moves) to your jaw or arm Sudden, severe shortness of breath or difficulty breathing Thank you for allowing us to participate in your care. Pending Studies at Discharge: Yes Studies:: CA19-9 labs Stand-Alone Forms: My [employer], Smoking Cessation Medications and DC Order Prescriptions: New insulin glargine 100 unit/mL (3 mL) insulin pen 10 unit subcut DAILY Qty: 3 RF: 0 (DME) pen needle, diabetic 32 gauge x 5/32" needle See Rx Instructions .Route Qty: 50 RF: 0 Continued cholecalciferol (vitamin D3) 50 mcg (2,000 unit) capsule 50 mcg PO QAM RF: 0 atorvastatin 20 mg tablet 20 mg PO HS Qty: 90 RF: 3 pantoprazole 40 mg tablet,delayed release (DR/EC) 40 mg PO QAM Qty: 30 RF: 3 tamsulosin 0.4 mg capsule 0.4 mg PO HS Qty: 90 RF: 1 buspirone 30 mg tablet 15 mg PO BID Qty: 30 RF: 5 escitalopram oxalate [Lexapro] 20 mg tablet 20 mg PO HS Qty: 90 RF: 1 (DME) Accu-Chek Guide test strips Strip See Rx Instructions .ROUTE .MEDSUPPLY Qty: 100 RF: 2 Invokana 100 mg tablet 100 mg PO QAM Qty: 30 RF: 2 metformin 500 mg tablet extended release 24hr 1,500 mg PO QAM Qty: 90 RF: 4 (DME) lancets [Accu-Chek Fastclix Lancet Drum] Misc See Rx Instructions .ROUTE .MEDSUPPLY Qty: 100 RF: 1 naltrexone 50 mg tablet 50 mg PO DAILY Qty: 30 RF: 0 thiamine HCl (vitamin B1) 250 mg tablet 250 mg PO BID Qty: 60 RF: 0 multivitamin with minerals capsule 1 cap PO QAM RF: 0 acetaminophen [Tylenol Extra Strength] 500 mg tablet 1,000 mg PO TID PRN (Reason: Fever Or Pain) RF: 0 folic acid 1 mg Tablet 1 mg PO QAM RF: 0 doxepin 50 mg capsule 50 - 100 mg PO HS PRN (Reason: sleep) RF: 0 Discharge Orders: Discharge Order (Routine); Ordered 01/06/21 Ordered By: Veronica Davalos/Other Patient Handouts: Planning to Quit Smoking, Health Effects of Smoking Admission Data Admit Date/Time: 01/05/21 02:20 Attending Provider: Fiordaliza Finn Admit Provider: Alvaro Aparicio Primary Care Provider: Ethan Romo Other Providers: Loni Rodriguez ; Tu Chong Other Interventions: Discharge Summary Assessment (RN) Last Done: 01/06/21 16:38 Supervising Physician Co-Signing Physician Notes Resident Physician Supervision Note: I independently interviewed and examined the patient and verified the white history and physical, reviewed labs and image studies and agree with resident Kali Aviles findings and care plan. Resident Activity Tracking Resident Involvement: Resident Care Provided Care Provided: Adult [facility] Medicine
[2021-01-06] MEDS ORDERED: SUCCINYLCHOLINE CHLORIDE 20 MG/ML 10 ML VIAL IV ONE (13:36)
[2021-01-06] MEDS ORDERED: LIDOCAINE 2% 2 ML VIAL/AMP(20MG/ML) INFIL ONE (13:36)
[2021-01-06] MEDS ORDERED: PROPOFOL IV EMULSION 10 MG/ML 20 ML VIAL IV ONE (13:36)
[2021-01-06] MEDS ORDERED: ONDANSETRON INJ 2 MG/ML 2 ML VIAL ONE (13:36)
[2021-01-06] MEDS ORDERED: LARYING-O-JET KIT (LTA) ONE (13:36)
[2021-01-06] MEDS ORDERED: ePHEDrine sulfate 50 MG/ML AMP ONE (13:49)
[2021-01-06] MEDS ORDERED: PHENYLEPHRINE HCL 10 MG/ML VIAL ONE (13:49)
--- NOTE | 2021-01-06 14:04 | Operative Report ---
Post Operative Report Pre & Post Diagnosis Operation Date: 01/06/21 08:20 Pre-Op Diagnosis: HYPERGLYCEMIA Post-Op Diagnosis: HYPERGLYCEMIA I identified the patient and participated in the time-out.: Yes Procedure Operation Date: 01/06/21 08:20 Actual Procedures p Endoscopic Ultrasonography Upper(Not Applicable) - Anthony Gracia MD Surgeon Anthony Gracia MD [employer] Compliance Manager None Estimated Blood Loss 0 Findings See Below (Pancreatic cyst, possible GB polyp) Specimens None Description of Procedure EUS I attest to the content of the Intraoperative Record and any orders documented therein. Any exceptions are noted below.
--- NOTE | 2021-01-06 14:18 | GI REPORT ---
Patient Name: Erick Kahn Procedure Date: 01/06/2021 1:35 PM Date of : 1950 Admit Type: Inpatient Age: 70 Gender: Male Attending MD: Anthony Gracia MD Procedure: Upper EUS Providers: Anthony Gracia MD Referring MD: Tu Wesley Case, DO Indications: Suspected mass in pancreas on CT scan Medicines: General Anesthesia Complications: No immediate complications. Estimated Blood Loss: Estimated blood loss: none. Procedure: Pre-Anesthesia Assessment: - Prior to the procedure, a History and Physical was performed, and patient medications, allergies and sensitivities were reviewed. The patient's tolerance of previous anesthesia was reviewed. - The risks and benefits of the procedure and the sedation options and risks were discussed with the patient. All questions were answered and informed consent was obtained. - Patient identification and proposed procedure were verified prior to the procedure by the physician and the nurse. The procedure was verified in the procedure room. - Pre-procedure physical examination revealed no contraindications to sedation. After obtaining informed consent, the endoscope was passed under direct vision. Throughout the procedure, the patient's blood pressure, pulse, and oxygen saturations were monitored continuously. The Endosonoscope was introduced through the mouth, and advanced to the second part of duodenum. The upper EUS was accomplished without difficulty. The patient tolerated the procedure well. Findings: ENDOSONOGRAPHIC FINDING: : There was no sign of significant endosonographic abnormality in the ampulla. No masses were identified. There was no sign of significant endosonographic abnormality in the common bile duct. The maximum diameter of the duct was 4 mm. No stones and no biliary sludge were identified. A hyperechoic polyp was identified endosonographically in the gallbladder. Sludge was also seen. A lesion was found in the left lobe of the liver. The lesion was heterogenous. The lesion measured 12 mm in maximal cross-sectional diameter. ? Hemangioma. Pancreatic parenchymal abnormalities were noted in the entire pancreas. These consisted of hyperechoic strands and hyperechoic foci. PD measured 2 mm in maximum diameter. An anechoic lesion suggestive of a cyst was identified in the pancreatic head. The lesion measured 17 mm in maximal cross-sectional diameter. There was a single compartment without septae. The outer wall of the lesion was thin. There was no associated mass. There was no internal debris within the fluid-filled cavity. FNA could not be done due to position behind the GDA. ENDOSCOPIC FINDING: : There was a large lipoma in the third portion of the duodenum. Impression: - There was no sign of significant pathology in the ampulla. - There was no sign of significant pathology in the common bile duct. - A 12 mm polyp was found in the gallbladder. Sludge seen. - A lesion was found in the left lobe of the liver. The lesion was heterogenous. The lesion measured 12 mm. Likely a Hemangioma. - A 17 mm cyst was seen in the pancreatic head with no worrisome features, likely an IPMN. - Pancreatic parenchymal abnormalities consisting of hyperechoic strands and hyperechoic foci were noted in the entire pancreas. Recommendation: - Return patient to hospital [facility] for ongoing care. - Obtain MRI Liver protocol. - Refer to surgery for cholecystectomy. - Surveillance MRI pancreas protocol in 6 months. Anthony Gracia MD 01/06/2021 2:18:33 PM This report has been signed electronically. Note Initiated On: 01/06/2021 1:35 PM Number of Addenda: 0 I attest to the content of the Intraoperative Record and orders documented therein, exceptions below {[id number]}
--- NOTE | 2021-01-06 15:05 | Anesthesiology Progress Note ---
Date of Service January 06, 2021 Anesthesia Post Procedure Vital Signs Vital Signs: Temp Pulse Pulse Pulse Resp BP BP 01/06/21 14:55 74 12 124/65 01/06/21 14:45 36.7 C 74 18 125/80 01/06/21 14:35 75 14 117/69 01/06/21 14:25 72 18 114/65 01/06/21 14:15 77 16 120/70 01/06/21 14:08 36.5 C 88 17 149/103 H 01/06/21 10:37 36.9 C 70 70 18 144/77 H 144/77 H 01/06/21 08:13 36.8 C 67 16 125/77 01/06/21 00:00 36.8 C 62 16 115/72 01/05/21 18:56 36.8 C 64 16 132/78 01/05/21 15:56 36.9 C 67 16 150/80 H Pulse Ox 01/06/21 14:55 95 01/06/21 14:45 94 01/06/21 14:35 95 01/06/21 14:25 98 01/06/21 14:15 98 01/06/21 14:08 99 01/06/21 10:37 94 01/06/21 08:13 95 01/06/21 00:00 96 01/05/21 18:56 95 01/05/21 15:56 95 Pain Intensity Back: Pain Intensity: 8 Transfer of Care Handoff Completed per policy Notes Mental Status: alert / awake / arousable and participated in evaluation Patient Amnestic to Procedure: Yes Nausea / Vomiting: adequately controlled Pain: adequately controlled Airway Patency, RR, SpO2: stable & adequate BP & HR: stable & adequate Hydration State: stable & adequate Anesthetic Complications: no major complications apparent and Pt Satisfied with anesthetic care
[2021-01-06] MEDS ORDERED: INSULIN ASPART 100 UNITS/ML 3 ML PEN SC SCH (16:30)
== END 2021-01-06 16:57 | disposition home or self-care (01) ==
LOC: ED 19:19 → 3N 19:19 → SUATTDRO 01-05 02:20 → 3N 01-05 03:11
DX: Z79.84 Long term (current) use of oral hypoglycemic drugs; Z11.59 Encounter for screening for other viral diseases; R97.20 Elevated prostate specific antigen [PSA]; D69.6 Thrombocytopenia, unspecified; E11.22 Type 2 diabetes mellitus with diabetic chronic kidney disease; F17.210 Nicotine dependence, cigarettes, uncomplicated; K86.2 Cyst of pancreas; G45.9 Transient cerebral ischemic attack, unspecified; Z00.00 Encounter for general adult medical examination without abnormal findings; Z88.0 Allergy status to penicillin; E11.65 Type 2 diabetes mellitus with hyperglycemia; D72.829 Elevated white blood cell count, unspecified; N18.32 Chronic kidney disease, stage 3b; N17.9 Acute kidney failure, unspecified; J44.9 Chronic obstructive pulmonary disease, unspecified; K76.9 Liver disease, unspecified; N40.1 Benign prostatic hyperplasia with lower urinary tract symptoms; I12.9 Hypertensive chronic kidney disease with stage 1 through stage 4 chronic kidney disease, or unspecified chronic kidney disease; Z88.8 Allergy status to other drugs, medicaments and biological substances; K21.9 Gastro-esophageal reflux disease without esophagitis; D64.9 Anemia, unspecified; K82.4 Cholesterolosis of gallbladder; E86.0 Dehydration; Z86.73 Personal history of transient ischemic attack (TIA), and cerebral infarction without residual deficits; E78.5 Hyperlipidemia, unspecified; Z79.899 Other long term (current) drug therapy; Z12.5 Encounter for screening for malignant neoplasm of prostate

== ENCOUNTER 2021-01-24 14:02 | Observation (INO) ==
[2021-01-24] MEDS ORDERED: SODIUM CHLORIDE 0.9% 1000ML 1,000 ML IV SCH ×2 (14:30)
[2021-01-24 14:53] LABS: Base Excess VBG -0.8 mEq/L; pH VBG 7.38 (7.36-7.41)
[2021-01-24 14:54] LABS: Basophils # (auto) 0.01 K/uL (0-0.2); Basophils % (auto) 0.2 %; Eosinophils # (auto) 0.16 K/uL (0-0.5); Eosinophils % (auto) 2.7 %; Hematocrit (blood only) 45.3 % (42-52); Hemoglobin 15.6 g/dL (14.0-18.0); Lymphocytes # (auto) 1.39 K/uL (1.2-3.4); Lymphocytes % (auto) 23.6 %; Mean Corpuscular Hgb Conc 34.4 g/dL (32-36); Mean Platelet Volume 11.2 fL (7.4-10.4); Monocytes % (auto) 6.8 %; Neutrophils # (auto) 3.92 K/uL (1.4-6.5); Neutrophils % (auto) 66.7 %; Platelet Count 187 K/uL (130-400); RDW Coefficient of Variation 12.4 % (11.5-14.5); RDW Standard Deviation 42.1 fL (36.4-46.3); Red Blood Count 4.87 M/uL (4.7-6.1); White Blood Count 5.88 K/uL (4.8-10.8)
--- NOTE | 2021-01-24 14:58 | XRay Report ---
XR chest 1V portable HISTORY: 70 years-old Male weakness acute weakness COMPARISON: Chest radiograph 01/05/2021 TECHNIQUE: Portable AP view of the chest FINDINGS: Mild asymmetric right hilar prominence is likely projectional. The cardiac silhouette is within kassy l limits. Calcified plaque of the thoracic aortic arch. No pneumothorax, pleural effusion, airspace c onsolidation and/or overt pulmonary edema. Degenerative changes of the shoulders and spine. Mild conv ex right curvature of the thoracolumbar junction. IMPRESSION: No acute process. ACT 112: Negative or not required by law. The above report was generated using voice recognition software. It may contain grammatical, syntax o r spelling errors. Electronically signed by: Luiz Andersen M.D. 01/24/2021 2:57 PM
[2021-01-24 15:16] LABS: Alanine Aminotransferase 32 U/L (12-78); Albumin Globulin Ratio 0.9 (0.9-2); Albumin Level 3.5 gm/dl (3.4-5.0); Aspartate Aminotransferase 16 U/L (15-37); BUN Creatinine Ratio 9.6 (10-20); Bilirubin,Total 0.7 mg/dl (0.2-1); Blood Urea Nitrogen 25 mg/dl (7-18); Calcium 9.5 mg/dl (8.5-10.1); Carbon Dioxide 24 mmol/L (21-32); Chloride 100 mmol/L (98-107); Est GFR (African American) 27.7 ml/min; Est GFR (Non-African American) 23.9 ml/min; Globulin 3.9 gm/dl (2.5-4.0); Glucose 586 mg/dl (70-99); Magnesium 2.1 mg/dl (1.8-2.4); Potassium 4.4 mmol/L (3.5-5.1); Sodium 135 mmol/L (136-145); Total Protein 7.4 gm/dl (6.4-8.2)
[2021-01-24 15:19] LABS: Alkaline Phosphatase 247 U/L (45-117); Troponin I < 0.015 ng/ml (0-0.045)
[2021-01-24] MEDS ORDERED: SODIUM CHLORIDE 0.9% 1000ML 1,000 ML IV ONE (15:22)
[2021-01-24 15:27] LABS: Beta-Hydroxybutyrate 4.07 mg/dl (0.2-2.81)
[2021-01-24] MEDS ORDERED: INSULIN REGULAR 250 UNITS in SODIUM CHLORIDE 0.9% 247.5 ML IV SCH ×3 (15:45→22:18)
[2021-01-24] MEDS ORDERED: STAT IV Infusion **Titration per Protocol STA ×5 (15:45→17:10)
[2021-01-24] MEDS ORDERED: INSULIN PROTOCOL GOAL RANGE ONE ×2 (15:45→16:05)
[2021-01-24] MEDS ORDERED: MODERATE STRESS LEVEL ONE (16:06)
[2021-01-24] MEDS ORDERED: NovoLIN-R BOLUS FROM BAG IV ONE (16:15)
[2021-01-24] MEDS ORDERED: INSULIN ASPART 100 UNITS/ML 3 ML PEN SC SCH ×2 (16:30)
--- NOTE | 2021-01-24 17:03 | History & Physical Report ---
Date of Service January 24, 2021 Assessment & Plan (1) Hyperglycemia due to diabetes mellitus: Plan: Patient's syncopal episodes likely secondary to significant hyperglycemia with borderline ketoacidosis. Admit to a PCU bed Start insulin drip as noted I did review patient's recent primary care visit from 01/12. At that time his Lantus had been increased from 10 to 15 units with instructions to increase further based on blood sugar. It appears the patient was somewhat compliant with this as he was on 16 units today. However, I suspect the patient require further insulin in this and will likely need mealtime dosing as well. For now, check a hemoglobin A1c. Continue insulin drip, titrate down to Lantus dosing when sugars are more controlled. Patient may benefit from diabetic station, both here and as an outpatient (2) Chronic renal failure, stage 3b: Plan: Appears to be an acute component his creatinine is elevated 2.62 Will continue gentle IV hydration with blood sugars elevated Hold Metformin for now (3) Dyslipidemia: Plan: Check fasting lipid panel Atorvastatin 20 mg daily as per outpatient (4) GERD (gastroesophageal reflux disease): Plan: Continue pantoprazole as per outpatient (5) Tobacco dependence: Plan: Start nicotine patch 21 mg daily History of Present Illness Chief Complaint: syncope Primary Care Provider: Ethan Romo, This is a 70-year-old male with past medical history of insulin-dependent diabetes mellitus, IPMN, stage IIIb CKD that presents status post syncope. Patient is long-term, I can provide limited history but does not have recollection of a syncopal episode. Per the patient, he woke up this morning. He took his blood sugar and found it was over 400. He tells me he took 16 units of insulin, he was not clear what kind insulin this was but from his description it sounds to be his Lantus. He also took 3 tablets of Metformin. He tells me he left the house around 1130 and went to meet his friend at [employer]. There he had a Whopper. Is up in the early afternoon and there is also coffee which he added sugar to. Per ER signout, patient did not look well and was urged by a friend to come to the emergency room. He apparently had a very brief syncopal episode lasting approximately 5 seconds. In the emergency room, his blood sugar was found to be 586 on his BMP. He has a anion gap of 11. He did have a beta-hydroxbutyric acid level 4.07. Patient is being started on an insulin drip when I arrived to interview him. At the time my evaluation patient did not appear to be in any distress. Vitals are otherwise stable. Of note, patient has an echo monitor. He tells me his previous DUI. He tells me he has not had an alcoholic beverage since July of this year. He does continue to smoke was agreeable to a nicotine patch. Allergies Allergy/AdvReac Type Severity Reaction Status Date / Time Cephalosporins Allergy Mild Rash Verified 01/24/21 15:49 Penicillins Allergy Mild RASH Verified 01/24/21 15:49 Sulfa (Sulfonamide Allergy Mild RASH Verified 01/24/21 15:49 Antibiotics) Home Medications Medication Instructions Recorded Confirmed Type folic acid 1 mg tablet 1 mg PO QAM 07/30/18 01/24/21 History thiamine HCl (vitamin B1) 250 mg 250 mg PO BID #60 tab 02/01/19 01/24/21 Rx tablet cholecalciferol (vitamin D3) 50 50 mcg PO QAM 11/25/19 01/24/21 History mcg (2,000 unit) capsule multivitamin with minerals 1 cap PO QAM 01/27/20 01/24/21 History atorvastatin 20 mg tablet 20 mg PO HS #90 tab 02/04/20 01/24/21 Rx acetaminophen 500 mg tablet 1,000 mg PO TID PRN 04/20/20 01/24/21 History (Tylenol Extra Strength) lancets (Accu-Chek Fastclix Lancet #100 ea 04/29/20 01/12/21 Rx Drum) pantoprazole 40 mg tablet,delayed 40 mg PO QAM #30 tab 05/03/20 01/24/21 Rx release tamsulosin 0.4 mg capsule 0.4 mg PO HS #90 cap 08/01/20 01/24/21 Rx buspirone 30 mg tablet 15 mg PO BID #30 tab 09/21/20 01/24/21 Rx escitalopram oxalate 20 mg tablet 20 mg PO HS #90 tab 11/14/20 01/24/21 Rx (Lexapro) metformin 500 mg tablet,extended 1,500 mg PO QAM #90 tab 12/02/20 01/24/21 Rx release 24hr blood sugar diagnostic (Accu-Chek #100 ea 12/23/20 01/12/21 Rx Guide test strips) doxepin 50 mg capsule 50 - 100 mg PO HS PRN 01/05/21 01/24/21 History pen needle, diabetic 32 gauge x #50 ea 01/06/21 01/12/21 Rx /" naltrexone 50 mg tablet 50 mg PO DAILY PRN tab 01/12/21 01/24/21 History insulin glargine 100 unit/mL (3 16 unit SUBCUT DAILY 01/24/21 01/24/21 History mL) subcutaneous pen Past Med/Surg History Medical History Acute alcoholic hallucinosis Alcohol dependence "HAS NOT HAD ETOH FOR 1 MONTH" Anxiety and depression BPH with obstruction/lower urinary tract symptoms Chronic obstructive pulmonary disease "MILD" Chronic renal failure, stage 3b Controlled type 2 diabetes mellitus without complication PT DENIES Current smoker Delirium tremens Encephalopathy acute GERD (gastroesophageal reflux disease) Gout of left foot Hyperlipidemia Hypomagnesemia Isopropyl alcohol poisoning Lacunar infarction Medical non-compliance Pneumonia due to COVID-19 virus Restless leg syndrome TIA (transient ischemic attack) Toxic metabolic encephalopathy Wernicke's encephalopathy Surgical History History of cataract surgery RT/LEFT History of colonoscopy History of removal of cyst (03/17/19) Excision of epidermoid cyst, right neck. Dr. Meneses 03/17/19 History of tonsillectomy History of tooth extraction Family History Father , In his 30s Heart disease Mother Cancer Lung cancer Sister Anorexia Grandfather (Maternal) Family history of diabetes mellitus Social History Smoking Status: Current every day smoker Tobacco Type: Cigarettes packs per day: 1; Years Smoked: 50; Cigarettes Per Day: 1 pack; Second Hand Exposure: Yes; Hx Alcohol Use: No Hx Substance Use: No Preferred Language: Beninese Communication Ability: Effective Visual Impairment: No Limitations Hearing Ability: Normal Pearl Restorer Required: No Beliefs That Will Affect Care: None marital status: / Current Living Situation: Alone current occupational status: employed 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 Feels Safe at Home: Yes Childhood Exposure to Second-Hand Smoke: Yes caffeine: Yes Dental Care, Regularly: Yes Physical Activity Frequency: Does not Exercise Seatbelt Use: sometimes Sunscreen Use: Yes Assistive Devices: None Review of Systems Constitutional: no fever, no chills, no weakness, no weight loss and no weight gain Eyes: as per Subjective / HPI Respiratory: no cough, no chest congestion, no dyspnea and no dyspnea on exertion Cardiovascular: no chest pain, no orthopnea, no palpitations, no lightheadedness and no edema Gastrointestinal: no abdominal pain, no nausea, no vomiting, no constipation and no diarrhea/loose stools Musculoskeletal: no back pain, no neck pain, no joint pain, no stiffness and no myalgia Integumentary: no rash Neurologic: + syncope; no gait abnormality, no unsteadiness, no falls, no generalized weakness and no seizure-like activity Physical Exam Constitutional: cooperative; no acute distress Neck: trachea midline, no thyromegaly Respiratory: normal respiratory effort Auscultation: lungs clear to auscultation bilaterally; no crackles, no rales, no rhonchi and no wheezes Cardiovascular: Rate/Rhythm: regular rate and regular rhythm Heart Sounds: normal S1 and normal S2 Gastrointestinal (Abdomen): Inspection/Auscultation: abdomen normal to inspection Percussion/Palpation: abdomen soft; abdomen nontender, no guarding, abdomen not rigid and no hepatosplenomegaly Skin: no rashes, warm and dry Results & Data Results & Data ([facility]) Vital Signs (Past 12 Hours) Vital Signs Temp Pulse Pulse Resp BP BP Pulse Ox 01/24/21 16:00 70 15 101/65 94 01/24/21 15:50 67 14 98 01/24/21 15:40 70 19 98/64 L 97 01/24/21 15:30 72 18 97 01/24/21 15:20 81 83 16 94/60 L 86/61 L 96 01/24/21 15:12 95 01/24/21 15:10 80 19 98 01/24/21 15:00 83 18 86/61 L 01/24/21 14:50 88 19 98 01/24/21 14:40 95 H 20 01/24/21 14:30 101 H 21 10/12/21 14:26 102 H 18 97 01/24/21 14:12 36.6 C 115 H 16 79/59 L 98 Laboratory Results Laboratory Results WBC 5.88 K/uL (4.8-10.8) 01/24/21 14:39 RBC 4.87 M/uL (4.7-6.1) 01/24/21 14:39 Hgb 15.6 g/dL (14.0-18.0) 01/24/21 14:39 Hct 45.3 % (42-52) 01/24/21 14:39 MCV 93.0 fL (80-100) 01/24/21 14:39 MCH 32.0 pg (25-34) 01/24/21 14:39 MCHC 34.4 g/dL (32-36) 01/24/21 14:39 RDW Std Deviation 42.1 fL (36.4-46.3) 01/24/21 14:39 RDW Coeff of Nadege 12.4 % (11.5-14.5) 01/24/21 14:39 Plt Count 187 K/uL (130-400) 01/24/21 14:39 MPV 11.2 fL (7.4-10.4) H 01/24/21 14:39 Immature Gran % (Auto) 0.0 % 01/24/21 14:39 Neut % (Auto) 66.7 % 01/24/21 14:39 Lymph % (Auto) 23.6 % 01/24/21 14:39 [place] % (Auto) 6.8 % 01/24/21 14:39 Eos % (Auto) 2.7 % 01/24/21 14:39 Baso % (Auto) 0.2 % 01/24/21 14:39 Neut # (Auto) 3.92 K/uL (1.4-6.5) 01/24/21 14:39 Lymph # (Auto) 1.39 K/uL (1.2-3.4) 01/24/21 14:39 [place] # (Auto) 0.40 K/uL (0.11-0.59) 01/24/21 14:39 Eos # (Auto) 0.16 K/uL (0-0.5) 01/24/21 14:39 Baso # (Auto) 0.01 K/uL (0-0.2) 01/24/21 14:39 Immature Gran # (Auto) 0.00 K/uL (0.00-0.02) 01/24/21 14:39 VBG pH 7.38 (7.36-7.41) 01/24/21 14:39 VBG pCO2 42 mmHg (38-50) 01/24/21 14:39 VBG pO2 40 mmHg 01/24/21 14:39 VBG HCO3 24 mmol/L 01/24/21 14:39 VBG O2 Saturation 74.0 % 01/24/21 14:39 VBG Base Excess -0.8 mEq/L 01/24/21 14:39 Barometric Pressure 733.8 mm/Hg 01/24/21 14:39 Sodium 135 mmol/L (136-145) L 01/24/21 14:39 Potassium 4.4 mmol/L (3.5-5.1) 01/24/21 14:39 Chloride 100 mmol/L (98-107) 01/24/21 14:39 Carbon Dioxide 24 mmol/L (21-32) 01/24/21 14:39 Anion Gap 11.0 (3-11) 01/24/21 14:39 BUN 25 mg/dl (7-18) H 01/24/21 14:39 Creatinine 2.62 mg/dl (0.6-1.4) H 01/24/21 14:39 Est Cr Clr Drug Dosing Not Reportable 01/24/21 14:39 Est GFR ( Amer) 27.7 ml/min 01/24/21 14:39 Est GFR (Non-Af Amer) 23.9 ml/min 01/24/21 14:39 BUN/Creatinine Ratio 9.6 (10-20) L 01/24/21 14:39 Glucose 586 mg/dl (70-99) H* 01/24/21 14:39 POC Glucose 575 mg/dl (70-99) H* 01/24/21 14:20 Lactate 3.4 mmol/L (0.4-2.0) H* 01/24/21 14:39 Calcium 9.5 mg/dl (8.5-10.1) 01/24/21 14:39 Magnesium 2.1 mg/dl (1.8-2.4) 01/24/21 14:39 Total Bilirubin 0.7 mg/dl (0.2-1) 01/24/21 14:39 AST 16 U/L (15-37) 01/24/21 14:39 ALT 32 U/L (12-78) 01/24/21 14:39 Alkaline Phosphatase 247 U/L (45-117) H 01/24/21 14:39 Troponin I < 0.015 ng/ml (0-0.045) 01/24/21 14:39 Total Protein 7.4 gm/dl (6.4-8.2) 01/24/21 14:39 Albumin 3.5 gm/dl (3.4-5.0) 01/24/21 14:39 Globulin 3.9 gm/dl (2.5-4.0) 01/24/21 14:39 Albumin/Globulin Ratio 0.9 (0.9-2) 01/24/21 14:39 Beta-Hydroxybutyric Acd 4.07 mg/dl (0.2-2.81) H 01/24/21 14:39 TSH 2.210 uIu/ml (0.300-4.500) 01/24/21 14:39 COVID-19 Eval Order Covid19 at [facility] 01/24/21 14:45 SARS-CoV-2 (PCR) NEGATIVE (Negative) 01/24/21 14:45 Impressions Chest X-Ray 01/24/21 14:25 XR chest 1V portable HISTORY: 70 years-old Male weakness acute weakness COMPARISON: Chest radiograph 01/05/2021 TECHNIQUE: Portable AP view of the chest FINDINGS: Mild asymmetric right hilar prominence is likely projectional. The cardiac silhouette is within normal limits. Calcified plaque of the thoracic aortic arch. No pneumothorax, pleural effusion, airspace consolidation and/or overt pulmonary edema. Degenerative changes of the shoulders and spine. Mild convex right curvature of the thoracolumbar junction. IMPRESSION: No acute process. ACT 112: Negative or not required by law. The above report was generated using voice recognition software. It may contain grammatical, syntax or spelling errors. Electronically signed by: Luiz Andersen M.D. 01/24/2021 2:57 PM PG Care Time/CCT Total # of Minutes Spent Total Time Spent with Patient: Total time spent is greater than 50% in coordination of care (as documented) at patient's floor/unit and/or counseling patient: Coding Level of Care Code INT OBSERVATION CARE 71M LVL 3 Diagnoses Chronic renal failure, stage 3b N18.32 Dyslipidemia E78.5 GERD (gastroesophageal reflux disease) K21.9 Esophagitis presence: without esophagitis Tobacco dependence F17.200 Hyperglycemia due to diabetes mellitus E11.65 (1) GERD (gastroesophageal reflux disease) Esophagitis presence: without esophagitis Qualified Code(s): K21.9 - Gastro- esophageal reflux disease without esophagitis
[2021-01-24 19:59] LABS: Appearance Urine Clear (Clear); Bacteria Urine Automated Negative (Negative); Bilirubin Urine Negative (Negative); Blood Urine Negative (Negative); Color Urine Yellow; Glucose Urine UA 3+ (Negative); Ketones Urine Negative (Negative); Leukocyte Esterase Urine Negative (Negative); Nitrite Urine Negative (Negative); Protein Urine 2+ (Negative); RBC Urine Automated 0-4 /hpf (0-4); Urobilinogen Urine Negative (Negative); pH Urine 5.5 (4.5-7.5)
[2021-01-24] MEDS ORDERED: ONDANSETRON INJ 2 MG/ML 2 ML VIAL IV PRN (22:18)
[2021-01-24] MEDS ORDERED: PHARMACY GLYCEMIC MGMT CONSULT PRN (23:09)
[2021-01-24 23:38] LABS: BUN Creatinine Ratio 13.3 (10-20); Calcium 8.4 mg/dl (8.5-10.1); Creatinine Clr Calc Pharmacy 33.6 ml/min; Est GFR (African American) 39.8 ml/min; Est GFR (Non-African American) 34.3 ml/min; Magnesium 2.1 mg/dl (1.8-2.4); Phosphorus 4.3 mg/dl (2.5-4.9); Potassium 3.9 mmol/L (3.5-5.1)
[2021-01-25] MEDS: busPIRone 15 MG TAB PO SCH ×3 (00:13→20:38)
[2021-01-25] MEDS: ESCITALOPRAM OXALATE 20 MG TAB PO SCH ×2 (00:13→20:38)
[2021-01-25] MEDS: TAMSULOSIN HCL 0.4 MG CAP PO SCH ×2 (00:13→20:37)
[2021-01-25] MEDS: INSULIN GLARGINE SOLOSTAR 100 UNITS/ML 3 ML PEN SC SCH ×3 (00:14→20:45)
[2021-01-25] MEDS: HEPARIN SOD 5,000 UNIT/0.5 ML VIAL SQ SCH ×3 (00:14→20:38)
[2021-01-25] MEDS: ATORVASTATIN 20 MG TAB PO SCH ×2 (00:14→20:37)
[2021-01-25] MEDS: INSULIN ASPART 100 UNITS/ML 3 ML PEN SC SCH ×6 (00:24→20:44)
[2021-01-25] MEDS ORDERED: SODIUM CHLORIDE 0.9% 1000ML 1,000 ML IV SCH (01:00)
[2021-01-25] MEDS ORDERED: Nursing to Pharmacy Communication SCH (05:15)
[2021-01-25] MEDS ORDERED: INSULIN ASPART 100 UNITS/ML 3 ML PEN SC SCH ×2 (06:00→07:30)
[2021-01-25] MEDS: NICOTINE 21 MG/24 HR TDSY TD SCH (08:07)
[2021-01-25] MEDS: THIAMINE HCL 50 MG TABLET PO SCH (08:07)
[2021-01-25] MEDS: CHOLECALCIFEROL 1,000 UNITS 25 MCG TAB PO SCH (08:10)
[2021-01-25] MEDS: DOXEPIN HCL 50 MG CAPSULE PO PRN (08:10)
[2021-01-25] MEDS: FOLIC ACID 1 MG TAB PO SCH (08:10)
[2021-01-25] MEDS: CEROVITE ADV FORMULA TAB PO SCH (08:10)
[2021-01-25] MEDS: PANTOprazole 40 MG TAB PO SCH (08:11)
[2021-01-25 08:15] LABS: Basophils # (auto) 0.02 K/uL (0-0.2); Basophils % (auto) 0.4 %; Eosinophils # (auto) 0.26 K/uL (0-0.5); Eosinophils % (auto) 5.5 %; Hematocrit (blood only) 37.1 % (42-52); Hemoglobin 12.4 g/dL (14.0-18.0); Lymphocytes # (auto) 1.86 K/uL (1.2-3.4); Lymphocytes % (auto) 39.2 %; Mean Corpuscular Hemoglobin 31.2 pg (25-34); Mean Corpuscular Hgb Conc 33.4 g/dL (32-36); Mean Corpuscular Volume 93.2 fL (80-100); Monocytes # (auto) 0.25 K/uL (0.11-0.59); Monocytes % (auto) 5.3 %; Neutrophils # (auto) 2.36 K/uL (1.4-6.5); Neutrophils % (auto) 49.6 %; Platelet Count 158 K/uL (130-400); RDW Coefficient of Variation 12.5 % (11.5-14.5); RDW Standard Deviation 42.8 fL (36.4-46.3); Red Blood Count 3.98 M/uL (4.7-6.1); White Blood Count 4.75 K/uL (4.8-10.8)
[2021-01-25 08:19] LABS: Estimated Average Glucose 355 mg/dl
[2021-01-25 08:34] LABS: BUN Creatinine Ratio 14.8 (10-20); Calcium 8.1 mg/dl (8.5-10.1); Creatinine Clr Calc Pharmacy 35.4 ml/min; Est GFR (African American) 42.4 ml/min; Est GFR (Non-African American) 36.6 ml/min; Magnesium 1.9 mg/dl (1.8-2.4); Potassium 4.4 mmol/L (3.5-5.1)
[2021-01-25] MEDS ORDERED: INSULIN GLARGINE SOLOSTAR 100 UNITS/ML 3 ML PEN SQ SCH (09:00)
--- NOTE | 2021-01-25 12:17 | Electrocardiogram Report ---
Test Reason : Blood Pressure : / mmHG Vent. Rate : 094 BPM Atrial Rate : 094 BPM P-R Int : 152 ms QRS Dur : 088 ms QT Int : 360 ms P-R-T Axes : 059 -05 059 degrees QTc Int : 450 ms Normal sinus rhythm Normal ECG When compared with ECG of 04-JAN-2021 20:28, No significant change was found Confirmed by Sanchez Reynaga ([id number]) on 01/25/2021 12:17:10 PM Referred By: Mara Rosas Confirmed By:Sanchez Reynaga
--- NOTE | 2021-01-25 15:12 | Pharmacy Report ---
Pharmacy Glycemic Short Note 2 - Date of Service January 25, 2021 - Glycemic Short BSG Results (Last 24 hours): 01/24/21 01/24/21 01/24/21 14:39 17:25 17:26 Glucose 586 H* POC Glucose 423 H* 418 H* 01/24/21 01/24/21 01/24/21 18:30 18:31 19:31 Glucose POC Glucose 345 H* 364 H* 283 H 01/24/21 01/24/21 01/24/21 20:33 21:40 22:47 Glucose 148 H POC Glucose 232 H 161 H 01/24/21 01/25/21 01/25/21 23:26 00:23 04:08 Glucose POC Glucose 146 H 135 H 188 H 01/25/21 01/25/21 01/25/21 07:12 07:47 11:20 Glucose 203 H POC Glucose 188 H 194 H OUTPATIENT ANTIDIABETIC REGIMEN: * Lantus 16 units daily * metformin XR 1500 mg daily ASSESSMENT: * Mr Kahn is a 70 y/o M with a PMH of T2DM on Lantus 16 units daily and metformin. * Patient admitted with blood sugars > 500 mg/dL. Patient was initially started on insulin infusion which was discontinued by midnight. * Fasting blood sugar today was 188 mg/dL. HbA1C is 14% so will not pursue aggr essive BSG reduction. * Start with Lantus 8 units BID with higher dose of 12 units available for BSG > 160 mg/dL. * Weight-based stress of 3 Novolog as patient appears to be carbohydrate sensitive. PLAN FOR INPATIENT GLYCEMIC CONTROL: * Hold outpatient oral diabetes medications * Basal insulin * Lantus 8 units SQ BID (12 units if blood sugar >160 mg/dL) * Bolus insulin * NovoLog per scale ACHS or Q6hrs while NPO * Goal Range: Low 120 mg/dL - High 160 mg/dL * Correction Factor: 20 mg/dL/unit * Nutritional / Prandial insulin per carb ratio of 1 unit per 7 grams CHO consumed PLAN FOR DISCHARGE: * TBD
--- NOTE | 2021-01-25 16:48 | Hospitalist Progress Note ---
Date of Service January 25, 2021 Assessment & Plan (1) Hyperglycemia due to diabetes mellitus: Plan: Erick is a 70-year-old male with a history of uncontrolled insulin-dependent type 2 diabetes mellitus, tobacco dependence, GERD, TIA, anxiety/depression, and BPH who presented with fatigue and? Syncopal episodes suspected due to severe hyperglycemia and borderline ketoacidosis. He was admitted and clinically improved on an insulin drip, is currently having diabetes management adjustments as noted below. Type 2 diabetes mellitus, uncontrolled, acute hyperglycemic episode, diabetic ketoacidosis Serum glucose of 603 on admission, elevated lactate, beta hydroxy butyrate 4.07 Anion gap borderline on admission (11), down trended A1c 14.0%, A1c of 13% in December Improved glycemic control with downtrending glucose on insulin GTT converted to basal/bolus, pharmacy glycemic management Discussed outpatient plan with patient at length. Patient is agreeable to trial of basal/bolus insulin which at this point would likely be of greatest efficacy to him. If basal bolus regimens are cost prohibitive may consider 70/30 insulin, however this is likely to give suboptimal control and patient appears to be able to comprehend and manage a basal bolus regimen with education. Pending estimation of 24-hour insulin needs and insulin sensitivity BMP daily Appears euvolemic on assessment Creatinine downtrending (2) Chronic renal failure, stage 3b: Plan: Unclear recent baseline, appears to be 1.41.6 Acutely elevated to 2.61 admission, downtrending currently 1.84 Metformin held, creatinine clearance currently 35, GFR36 If GFR remains 3045 dose reduce to maximum of 500 mg twice daily with outpatient follow-up of kidney function If creatinine trends near/below 30 discontinue Metformin at discharge (3) Dyslipidemia: Plan: Atorvastatin 20 mg daily (4) GERD (gastroesophageal reflux disease): Plan: Continue pantoprazole as per outpatient (5) Tobacco dependence: Plan: Start nicotine patch 21 mg daily (6) Uncontrolled type 2 diabetes mellitus: (7) Ketoacidosis due to diabetes: Admission and Anticipated Discharge Date Admission Date: January 24, 2021 Roshan Gutierrez is seen at the bedside this morning in afternoon. He reports he feels well, continues to have some fatigue but improved from prior. He reports the thing is noticed most in the past couple of weeks is increasing fatigue. Discussed his understanding of his diabetes and the plan moving forward. He reports that his normal blood sugars are around 2 or 300, and that he has been on multiple pills and a long-acting insulin that is slowly been increasing. Reports he would prefer pills for his blood sugar if possible. He is not aware of what his A1c is or has been. Discussed normal A1c, diabetic A1c goals, and his recurrent A1c is greater than 13 and the effect on his eyes and small vessel disease, and coronary risk. Patient able to verbalize back understanding of his diabetes and the effect on his small vessels and health condition, and on his current hospitalization. Discussed insulin as being necessary especially given his very high A1c, and concerned that his Metformin while an excellent diabetes medicine, may have to be decreased or discontinued due to his kidney function. Patient is agreeable to try basal bolus insulin and believes that he is able to check his sugars and could adjust a sliding scale based on his meals. Extended discussion was had both by provider and by dietary educator regarding meals and effect on blood sugar. No additional questions or concerns at time of visit. Review of Systems Review of Systems: All systems reviewed & are unremarkable except as noted in Subjective Physical Exam Physical Exam: General: A&Ox3. NAD. Cooperative. HEENT: Atraumatic, normocephalic. Visual acuity and hearing grossly intact Pulm: CTAB A&P. -wheezes, -rales, -rhonchi. Symmetrical chest rise. No increase work of breathing. No respiratory distress. Cardiac: RRR, -mrg. Radial pulses intact and symmetrical. Abdominal: Nontender, nondistended, soft. BS present. Results & Data Results & Data ([facility]) Vital Signs (Past 12 Hours) Vital Signs Temp Pulse Pulse Resp BP Pulse Ox 01/25/21 16:00 36.4 C L 65 16 144/89 H 95 01/25/21 11:52 37.0 C 65 18 108/71 92 01/25/21 07:27 62 01/25/21 07:11 36.6 C 63 20 108/62 95 PG Care Time/CCT Total # of Minutes Spent Total Time Spent with Patient: Total time spent is greater than 50% in coordination of care (as documented) at patient's floor/unit and/or counseling patient: Coding Level of Care Code 85739 Subseq Hosp Care Lvl 3 Diagnoses Hyperglycemia due to diabetes mellitus E11.65 Chronic renal failure, stage 3b N18.32 Dyslipidemia E78.5 GERD (gastroesophageal reflux disease) K21.9 Esophagitis presence: without esophagitis Tobacco dependence F17.200 Uncontrolled type 2 diabetes mellitus E11.65 Glycemic state: with hyperglycemia Ketoacidosis due to diabetes E11.10 (1) GERD (gastroesophageal reflux disease) Esophagitis presence: without esophagitis Qualified Code(s): K21.9 - Gastro- esophageal reflux disease without esophagitis (2) Uncontrolled type 2 diabetes mellitus Glycemic state: with hyperglycemia Qualified Code(s): E11.65 - Type 2 diabetes mellitus with hyperglycemia
[2021-01-26] MEDS: busPIRone 15 MG TAB PO SCH (08:02)
[2021-01-26] MEDS: HEPARIN SOD 5,000 UNIT/0.5 ML VIAL SQ SCH (08:02)
[2021-01-26] MEDS: FOLIC ACID 1 MG TAB PO SCH (08:03)
[2021-01-26] MEDS: DOXEPIN HCL 50 MG CAPSULE PO PRN (08:03)
[2021-01-26] MEDS: THIAMINE HCL 50 MG TABLET PO SCH (08:03)
[2021-01-26] MEDS: CHOLECALCIFEROL 1,000 UNITS 25 MCG TAB PO SCH (08:03)
[2021-01-26] MEDS: PANTOprazole 40 MG TAB PO SCH (08:03)
[2021-01-26] MEDS: INSULIN ASPART 100 UNITS/ML 3 ML PEN SC SCH ×2 (08:03→12:17)
[2021-01-26] MEDS: CEROVITE ADV FORMULA TAB PO SCH (08:03)
[2021-01-26] MEDS: NICOTINE 21 MG/24 HR TDSY TD SCH (08:03)
[2021-01-26] MEDS: INSULIN GLARGINE SOLOSTAR 100 UNITS/ML 3 ML PEN SC SCH (08:05)
[2021-01-26 10:40] LABS: BUN Creatinine Ratio 12.4 (10-20); Calcium 8.8 mg/dl (8.5-10.1); Creatinine Clr Calc Pharmacy 40.5 ml/min; Est GFR (African American) 49.8 ml/min
--- NOTE | 2021-01-26 12:43 | Discharge Summary ---
Date of Service January 26, 2021 Admission HPI Per Admitting Provider This is a 70-year-old male with past medical history of insulin-dependent diabetes mellitus, IPMN, stage IIIb CKD that presents status post syncope. Patient is long-term, I can provide limited history but does not have recollection of a syncopal episode. Per the patient, he woke up this morning. He took his blood sugar and found it was over 400. He tells me he took 16 units of insulin, he was not clear what ki nd insulin this was but from his description it sounds to be his Lantus. He also took 3 tablets of Metformin. He tells me he left the house around 1130 and [facility] There he had a Whopper. Is up in the early afternoon and there is also coffee which he added sugar to. Per ER signout, patient did not look well and was urged by a friend to come to the emergency room. He apparently had a very brief syncopal episode lasting approximately 5 seconds. In the emergency room, his blood sugar was found to be 586 on his BMP. He has a anion gap of 11. He did have a beta-hydroxbutyric acid level 4.07. Patient is being started on an insulin drip when I arrived to interview him. At the time my evaluation patient did not appear to be in any distress. Vitals are ot herwise stable. Of note, patient has an echo monitor. He tells me his previous DUI. He tells me he has not had an alcoholic beverage since July of this year. He does continue to smoke was agreeable to a nicotine patch. Admission Exam Per Admitting Provider Constitutional: cooperative; no acute distress Neck: trachea midline, no thyromegaly Respiratory: normal respiratory effort Auscultation: lungs clear to auscultation bilaterally; no crackles, no rales, no rhonchi and no wheezes Cardiovascular: Rate/Rhythm: regular rate and regular rhythm Heart Sounds: normal S1 and normal S2 Gastrointestinal (Abdomen): Inspection/Auscultation: abdomen normal to inspection Percussion/Palpation: abdomen soft; abdomen nontender, no guarding, abdomen not rigid and no hepatosplenomegaly Skin: no rashes, warm and dry Principal Diagnosis Hyperglycemia, borderline DKA Discharge Exam General: A&Ox3. NAD. Cooperative. HEENT: Atraumatic, normocephalic. Visual acuity and hearing grossly intact Pulm: CTAB A&P. -wheezes, -rales, -rhonchi. Symmetrical chest rise. No increase work of breathing. No respiratory distress. Cardiac: RRR, -mrg. Radial pulses intact and symmetrical. Abdominal: Nontender, nondistended, soft. BS present. Discharge Data Allergies Allergy/AdvReac Type Severity Reaction Status Date / Time Cephalosporins Allergy Mild Rash Verified 01/24/21 15:49 Penicillins Allergy Mild RASH Verified 01/24/21 15:49 Sulfa (Sulfonamide Allergy Mild RASH Verified 01/24/21 15:49 Antibiotics) Consultations 01/24/21 15:47 ED Decision to Admit Stat Diabetes Follow up Diabetes Follow-up Needed for HgbA1c >9% Hospital Course (1) Hyperglycemia due to diabetes mellitus: Erick is a 70-year-old male with a history of uncontrolled insulin- dependent type 2 diabetes mellitus, tobacco dependence, GERD, TIA, anxi ety/depression, and BPH who presented with fatigue and? Syncopal episodes suspected due to severe hyperglycemia and borderline ketoacidosis. He was admitted and clinically improved on an insulin drip, and was switched to basal bolus as noted below. To do as outpatient 1. Close PCP follow-up for hyperglycemia management. Patient switched from basal to basal bolus regimen 2. BMP recheck for kidney function. Metformin dose reduced to 500 twice daily due to reduced GFR 3. Basal bolus adjustments as needed. With an A1c of 14 on admission, uncontrolled DM Type 2 diabetes mellitus, uncontrolled, acute hyperglycemic episode, diabetic ketoacidosis Serum glucose of 603 on admission, elevated lactate, beta hydroxy butyrate 4.07 Anion gap borderline on admission (11), down trended A1c 14.0%, A1c of 13% in December Improved glycemic control with downtrending glucose on insulin GTT converted to basal/bolus, pharmacy glycemic management Discussed outpatient plan with patient at length. Patient is agreeable to trial of basal/bolus insulin which at this point would likely be of greatest efficacy to him. If basal bolus regimens are cost prohibitive may consider 70/30 insulin, however this is likely to give suboptimal control and patient appears to be able to comprehend and manage a basal bolus regimen with education. Cost of as part was checked with pharmacy at discharge, was less than $20, basal bolus insulin was pursued. Discharged on Lantus 20 units daily, sliding scale aspart 5 per meals with +/-2 units per meal based on carb content in size. Dissipate patient will likely need more insulin, but was relatively sensitive during admission and the majority of his sugar is likely dietary in nature. This was discussed with him at length, but may benefit from additional carb counting and adjustment rather than static adjustments as outpatient. Creatinine returned to normal baseline, but GFR was still between 30 and 45 so Metformin was dose reduced (2) Chronic renal failure, stage 3b: Unclear recent baseline, appears to be 1.41.6 Acutely elevated to 2.61 admission, downtrending currently 1.84 Metformin held, creatinine returned to baseline, Metformin dose reduced for reduced GFR on discharge (3) Dyslipidemia: Atorvastatin 20 mg daily (4) GERD (gastroesophageal reflux disease): Continue pantoprazole as per outpatient (5) Tobacco dependence: Start nicotine patch 21 mg daily (6) Uncontrolled type 2 diabetes mellitus: (7) Ketoacidosis due to diabetes: Total Time Total Time Spent Total Time Spent (In Minutes): Time spent day of discharge including direct patient care, patient counseling, coordination of care, review of labs and images 90 minutes Discharge Plan Discharge Items Patient Disposition: Home - Self-Care Reason For Visit: HYPERGLYCEMIA Discharge Diagnosis: Hyperglycemia, borderline diabetic ketoacidosis Activity: Resume your previous activity Non-emergency contact: Primary Care Provider Call non-emergency contact if: you have any medication questions, your symptoms worsen and you have a fever Follow-up/Referrals: Ethan Romo, DO [Primary Care Provider] - Diet: Carb Consistent or DM2 Addtl Attending Provider Instructions: You were seen in the hospital for fatigue and concern for presyncope due to severe elevations in blood sugar (hyperglycemia). You are found to have severe uncontrolled diabetes. Severe uncontrolled diabetes puts you at high risk of heart attack and stroke, and causes progressive distraction of small blood vessels which can lead to various organ damage including vision damage, neuropathy, and limb damage. Insulin control regimens were discussed with you, it is been recommended that you pursue a basal bolus insulin regimen detailed below. You have been continued on a long-acting insulin, called insulin glargine (Lantus). Please take Lantus 20units daily in the morning every day. Your outpatient doctor will help you make adjustments to this insulin dose as needed, do not skip this insulin dose. You have been prescribed a short acting insulin, called insulin aspart. Please take insulin aspart 6 with meals (breakfast, lunch, and dinner). As discussed with you during admission if you have a high sugar/high carb meal you can increase this by 1 or 2 units to 7-8 units total . If you have a healthy meal with less sugar/carbs such as fish or broccoli you may decrease this by 1 or 2 units to 4-5units total. Please check your blood sugars 2 hours after meals, this will give you an idea of how well your insulin is matching your meals. Your goal 2 hour post-meal sugar goal is less than 160 but not lower than 80. If your blood sugars are above 300 please recheck them within 1 to 2 hours after taking insulin. If they remain high on more than 3 consecutive checks please contact your primary care physician for advice, or return to the emergency department for evaluation. Your dose of Metformin has been changed as your kidney function had decreased during admission. While your creatinine was at baseline at time of discharge your GFR (a filtration measure of your kidneys) indicated that your 1500 once daily dose was too high. Instead please take Metformin 500 mg (1 tablet) twice daily. Please discuss a follow-up BMP with your outpatient provider at your follow-up appointment. Overuse or overdose of insulin can cause very low blood sugar which can in turn cause serious side effects including lightheadedness, dizziness, fatigue, passing out, and other symptoms. If you experience the symptoms, or concern for low blood sugar, please check your blood sugar. If it is less than 80 please drink a small cup of orange juice or take a glucose tab and contact your primary care physician for recommendations, or call 911 for evaluation in the emergency department if you are very concerned. Diet is a critically important part of diabetes control. In order to improve your blood sugar control please maintain a consistent, healthy diet with low carbohydrates and low sugars. Simple substitutions such as drinking water or sugar-free drink alternatives can greatly reduce the amount of sugar in your diet. Your A1c was extremely high during admission, at 14%. This is a 3-month average blood sugar. A normal A1c should be less than 5.6%, the goal A1c for diabetes is less than 7%. Any number over 10% is uncontrolled, and likely causing accelerated and progressive damage to the body placing her at increased risk for heart attack, stroke, neuropathy, limb damage, and vision loss. You should have regular A1c's checked as an outpatient by her primary care physician to follow your progress with diabetes control.. A followup appointment is being scheduled for you with your PCP Dr. Romo. You should be seen seen within 1 week. You should receive a call to confirm this appointment. If you do not receive a call within 48 hours to confirm this appointment, or need to change this appointment, please call the provider's office at [phone]. If you develop any new or worsening symptoms including fever, chills, sweats, chest pain, chest pressure, difficulty breathing, uncontrolled nausea/vomiting, rash, wheezing, passing out or nearly passing out, bleeding, black/bloody bowel movements, or other new or concerning symptoms please call your primary care physician at [phone], or call 911 for re-evaluation in the emergency department if you are very concerned. Pending Studies at Discharge: Yes (Follow-up BMP, A1c, routine BSG measurements) Stand-Alone Forms: [facility], Smoking Cessation Medications and DC Order Prescriptions: New insulin aspart U-100 100 unit/mL (3 mL) insulin pen 1 sliding scale dose subcut USEASDIRECTD 30 Days Qty: 15 RF: 0 Continued cholecalciferol (vitamin D3) 50 mcg (2,000 unit) capsule 50 mcg PO QAM RF: 0 atorvastatin 20 mg tablet 20 mg PO HS Qty: 90 RF: 3 pantoprazole 40 mg tablet,delayed release (DR/EC) 40 mg PO QAM Qty: 30 RF: 3 tamsulosin 0.4 mg capsule 0.4 mg PO HS Qty: 90 RF: 1 buspirone 30 mg tablet 15 mg PO BID Qty: 30 RF: 5 escitalopram oxalate [Lexapro] 20 mg tablet 20 mg PO HS Qty: 90 RF: 1 (DME) Accu-Chek Guide test strips Strip See Rx Instructions .ROUTE .MEDSUPPLY Qty: 100 RF: 2 naltrexone 50 mg tablet 50 mg PO DAILY PRN (Reason: .treat alcohol/opioid addiction ) RF: 0 (DME) lancets [Accu-Chek Fastclix Lancet Drum] Misc See Rx Instructions .ROUTE .MEDSUPPLY Qty: 100 RF: 1 thiamine HCl (vitamin B1) 250 mg tablet 250 mg PO BID Qty: 60 RF: 0 multivitamin with minerals capsule 1 cap PO QAM RF: 0 acetaminophen [Tylenol Extra Strength] 500 mg tablet 1,000 mg PO TID PRN (Reason: Fever Or Pain) RF: 0 folic acid 1 mg Tablet 1 mg PO QAM RF: 0 doxepin 50 mg capsule 50 - 100 mg PO HS PRN (Reason: sleep) RF: 0 (DME) pen needle, diabetic 32 gauge x 5/32" needle See Rx Instructions .Route Qty: 50 RF: 0 Changed metformin 500 mg tablet extended release 24hr 500 mg PO BID Qty: 90 RF: 4 insulin glargine 100 unit/mL (3 mL) insulin pen 20 unit subcut DAILY Qty: 0 RF: 0 Discharge Orders: Discharge Order (Routine); Ordered 01/26/21 Ordered By: Grady Duncan Admission Data Admit Date/Time: 01/24/21 17:10 Attending Provider: Grady Duncan Admit Provider: Jaime Roca Primary Care Provider: Ethan Romo Other Providers: Jaime Roca Coding Level of Care Code D/C DAY MANAGEMENT >30 MINS Diagnoses Hyperglycemia due to diabetes mellitus E11.65 Chronic renal failure, stage 3b N18.32 Dyslipidemia E78.5 GERD (gastroesophageal reflux disease) K21.9 Esophagitis presence: without esophagitis Tobacco dependence F17.200 Uncontrolled type 2 diabetes mellitus E11.65 Glycemic state: with hyperglycemia Ketoacidosis due to diabetes E11.10
--- NOTE | 2021-01-28 18:10 | Emergency Department Note ---
Impression & Plan Hyperglycemia, Acute hypotension, JAMES (acute kidney injury) ED Provider Note CHIEF COMPLAINT: Hyperglycemia HISTORY OF PRESENT ILLNESS: This 70-year-old male patient presents to the emergency department with complaints of hyperglycemia. The patient has been on insulin but has been unable to get his blood sugars under control. Today the patient's blood sugars were noted to be 540 at home and he was referred to the emergency department by his doctor. Patient denies any vomiting or diarrhea. He has been able to keep up with his food and fluids. He states he has been taking his insulin and other medications as directed. Patient currently denies any chest pain, shortness of breath, abdominal pain, nausea or vomiting. He denies any recent Covid exposures. REVIEW OF SYSTEMS: A review of systems was performed with positives and pertinent negatives listed in the history of present illness. 10 systems were reviewed and are otherwise negative. ALLERGIES: see below MEDICATIONS: see below PMH: see below SOCIAL HISTORY: see below DDx: Infection, dehydration, metabolic abnormality, hypo/hyperglycemia, electrolyte disturbance, anemia, hypoxia, cardiac sources, intracerebral event, toxicologic, neurologic, as well as other pathologies. PHYSICAL EXAM: Vital signs reviewed. Noted to be hypotensive General: Chronically ill-appearing 70-year-old male, in no significant distress. HEENT: No scleral icterus, PERRLA, neck supple. Atraumatic. Dry mucous membranes. Cardiovascular: Tachycardic but regular, no extra sounds. Pulmonary: Clear to auscultation bilaterally, normal work of breathing. Abdomen: Soft, nontender, nondistended, positive bowel sounds. Musculoskeletal: Atraumatic, no peripheral edema. Neurologic: Patient awake alert and oriented x 3, speech is clear Skin: Warm, dry, no rash EMERGENCY DEPARTMENT COURSE/MDM: This patient was evaluated and appeared to be in no significant distress. IV access was obtained and laboratory work was drawn. Patient was noted to be markedly hyperglycemic. He is also hypotensive. Aggressive IV hydration was initiated with improvement in both the patient's heart rate and blood pressure. Patient is also noted to have acute on chronic renal insufficiency. Likely exacerbated by his prerenal state. Patient is not significantly acidotic although given his unstable vital signs and IV insulin drip was ordered for tight glucose management. MONITORING: An order for cardiac monitoring was placed and the patient is noted to be in a sinus tachycardia at 115 beats per minute. RADIOLOGY: See below EKG: Normal sinus rhythm at [address] segment change. Normal axis. Normal QT interval. No PVC, no PAC. I have personally spent 50 minutes of critical care time in the direct management of this patient. This was a life/limb threatening event. This 50 minutes is in excess of all separately billable procedures. DISPOSITION: Inpatient evaluation. Past Med/Surg History Medical History Acute alcoholic hallucinosis Alcohol dependence "HAS NOT HAD ETOH FOR 1 MONTH" Anxiety and depression BPH with obstruction/lower urinary tract symptoms Chronic obstructive pulmonary disease "MILD" Chronic renal failure, stage 3b Controlled type 2 diabetes mellitus without complication PT DENIES Current smoker Delirium tremens Encephalopathy acute GERD (gastroesophageal reflux disease) Gout of left foot Hyperlipidemia Hypomagnesemia Isopropyl alcohol poisoning Lacunar infarction Medical non-compliance Pneumonia due to COVID-19 virus Restless leg syndrome TIA (transient ischemic attack) Toxic metabolic encephalopathy Wernicke's encephalopathy Surgical History History of cataract surgery RT/LEFT History of colonoscopy History of removal of cyst (03/17/19) Excision of epidermoid cyst, right neck. Dr. Meneses 03/17/19 History of tonsillectomy History of tooth extraction Family History Father , In his 30s Heart disease Mother Cancer Lung cancer Sister Anorexia Grandfather (Maternal) Family history of diabetes mellitus Social History Smoking Status: Heavy tobacco smoker Tobacco Type: Cigarettes packs per day: 1; Years Smoked: 50; Cigarettes Per Day: 1 pack; Second Hand Exposure: Yes; Hx Alcohol Use: No (quit 6 months ago) Hx Substance Use: No Preferred Language: Georgian Communication Ability: Effective Visual Impairment: No Limitations Hearing Ability: Normal Stem Cutter Required: No Beliefs That Will Affect Care: None marital status: / Current Living Situation: Alone current occupational status: employed 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 [employer] Feels Safe at Home: Yes Childhood Exposure to Second-Hand Smoke: Yes caffeine: Yes Dental Care, Regularly: Yes Physical Activity Frequency: Does not Exercise Seatbelt Use: sometimes Sunscreen Use: Yes Assistive Devices: None Allergies Allergies Allergy/AdvReac Type Severity Reaction Status Date / Time Cephalosporins Allergy Mild Rash Verified 01/24/21 15:49 Penicillins Allergy Mild RASH Verified 01/24/21 15:49 Sulfa (Sulfonamide Allergy Mild RASH Verified 01/24/21 15:49 Antibiotics) Home Meds Home Medications Medication Instructions Recorded Confirmed folic acid 1 mg tablet 1 mg PO QAM 07/30/18 01/30/21 cholecalciferol (vitamin D3) 50 50 mcg PO QAM 11/25/19 01/30/21 mcg (2,000 unit) capsule multivitamin with minerals 1 cap PO QAM 01/27/20 01/30/21 acetaminophen 500 mg tablet 1,000 mg PO TID PRN 04/20/20 01/30/21 (Tylenol Extra Strength) doxepin 50 mg capsule 50 - 100 mg PO HS PRN 01/05/21 01/30/21 naltrexone 50 mg tablet 50 mg PO DAILY PRN tab 01/12/21 01/30/21 Previous Rx's Medication Instructions Recorded thiamine HCl (vitamin B1) 250 mg 250 mg PO BID #60 tab 02/01/19 tablet atorvastatin 20 mg tablet 20 mg PO HS #90 tab 02/04/20 tamsulosin 0.4 mg capsule 0.4 mg PO HS #90 cap 08/01/20 buspirone 30 mg tablet 15 mg PO BID #30 tab 09/21/20 escitalopram oxalate 20 mg tablet 20 mg PO HS #90 tab 11/14/20 (Lexapro) pen needle, diabetic 32 gauge x #50 ea 01/06/21" blood sugar diagnostic (Accu-Chek #300 ea 01/26/21 Guide test strips) insulin glargine 100 unit/mL (3 20 unit SUBCUT DAILY #0 ml 01/26/21 mL) subcutaneous pen lancets (Accu-Chek Fastclix Lancet #300 ea 01/26/21 Drum) metformin 500 mg tablet,extended 500 mg PO BID #90 tab 01/26/21 release 24hr insulin aspart U-100 100 unit/mL 1 sliding scale dose SUBCUT 01/27/21 (3 mL) subcutaneous pen USEASDIRECTD #15 ml pantoprazole 40 mg tablet,delayed 40 mg PO QAM #30 tab 01/30/21 release Results & Data (ED) Home Medications Current Medication List: was personally reviewed by me Laboratory Data Attestation: I reviewed the patient's lab results. Result diagrams: 01/25/21 07:12 01/26/21 09:55 Lab Results 01/24/21 01/24/21 01/24/21 Range/Units 14:20 14:39 14:39 WBC (4.8-10.8) K/uL RBC (4.7-6.1) M/uL Hgb (14.0-18.0) g/dL Hct (42-52) % MCV (80-100) fL MCH (25-34) pg MCHC (32-36) g/dL RDW Std Deviation (36.4-46.3) fL RDW Coeff of Nadege (11.5-14.5) % Plt Count (130-400) K/uL MPV (7.4-10.4) fL Immature Gran % (Auto) % Neut % (Auto) % Lymph % (Auto) % [place] % (Auto) % Eos % (Auto) % Baso % (Auto) % Neut # (Auto) (1.4-6.5) K/uL Lymph # (Auto) (1.2-3.4) K/uL [place] # (Auto) (0.11-0.59) K/uL Eos # (Auto) (0-0.5) K/uL Baso # (Auto) (0-0.2) K/uL Immature Gran # (Auto) (0.00-0.02) K/uL VBG pH (7.36-7.41) VBG pCO2 (38-50) mmHg VBG pO2 mmHg VBG HCO3 mmol/L VBG O2 Saturation % VBG Base Excess mEq/L Barometric Pressure mm/Hg Sodium 135 L (136-145) mmol/L Potassium 4.4 (3.5-5.1) mmol/L Chloride 100 (98-107) mmol/L Carbon Dioxide 24 (21-32) mmol/L Anion Gap 11.0 (3-11) BUN 25 H (7-18) mg/dl Creatinine 2.62 H (0.6-1.4) mg/dl Est Cr Clr Drug Dosing Not Reportable Est GFR ( Amer) 27.7 ml/min Est GFR (Non-Af Amer) 23.9 ml/min BUN/Creatinine Ratio 9.6 L (10-20) Glucose 586 H* (70-99) mg/dl POC Glucose 575 H* (70-99) mg/dl Lactate 3.4 H* (0.4-2.0) mmol/L Calcium 9.5 (8.5-10.1) mg/dl Magnesium 2.1 (1.8-2.4) mg/dl Total Bilirubin 0.7 (0.2-1) mg/dl AST 16 (15-37) U/L ALT 32 (12-78) U/L Alkaline Phosphatase 247 H (45-117) U/L Troponin I < 0.015 (0-0.045) ng/ml Total Protein 7.4 (6.4-8.2) gm/dl Albumin 3.5 (3.4-5.0) gm/dl Globulin 3.9 (2.5-4.0) gm/dl Albumin/Globulin Ratio 0.9 (0.9-2) Beta-Hydroxybutyric Acd 4.07 H (0.2-2.81) mg/dl TSH 2.210 (0.300-4.500) uIu/ml COVID-19 Eval Order SARS-CoV-2 (PCR) (Negative) 01/24/21 01/24/21 01/24/21 Range/Units 14:39 14:39 14:45 WBC 5.88 (4.8-10.8) K/uL RBC 4.87 (4.7-6.1) M/uL Hgb 15.6 (14.0-18.0) g/dL Hct 45.3 (42-52) % MCV 93.0 (80-100) fL MCH 32.0 (25-34) pg MCHC 34.4 (32-36) g/dL RDW Std Deviation 42.1 (36.4-46.3) fL RDW Coeff of Nadege 12.4 (11.5-14.5) % Plt Count 187 (130-400) K/uL MPV 11.2 H (7.4-10.4) fL Immature Gran % (Auto) 0.0 % Neut % (Auto) 66.7 % Lymph % (Auto) 23.6 % [place] % (Auto) 6.8 % Eos % (Auto) 2.7 % Baso % (Auto) 0.2 % Neut # (Auto) 3.92 (1.4-6.5) K/uL Lymph # (Auto) 1.39 (1.2-3.4) K/uL [place] # (Auto) 0.40 (0.11-0.59) K/uL Eos # (Auto) 0.16 (0-0.5) K/uL Baso # (Auto) 0.01 (0-0.2) K/uL Immature Gran # (Auto) 0.00 (0.00-0.02) K/uL VBG pH 7.38 (7.36-7.41) VBG pCO2 42 (38-50) mmHg VBG pO2 40 mmHg VBG HCO3 24 mmol/L VBG O2 Saturation 74.0 % VBG Base Excess -0.8 mEq/L Barometric Pressure 733.8 mm/Hg Sodium (136-145) mmol/L Potassium (3.5-5.1) mmol/L Chloride (98-107) mmol/L Carbon Dioxide (21-32) mmol/L Anion Gap (3-11) BUN (7-18) mg/dl Creatinine (0.6-1.4) mg/dl Est Cr Clr Drug Dosing Est GFR ( Amer) ml/min Est GFR (Non-Af Amer) ml/min BUN/Creatinine Ratio (10-20) Glucose (70-99) mg/dl POC Glucose (70-99) mg/dl Lactate (0.4-2.0) mmol/L Calcium (8.5-10.1) mg/dl Magnesium (1.8-2.4) mg/dl Total Bilirubin (0.2-1) mg/dl AST (15-37) U/L ALT (12-78) U/L Alkaline Phosphatase (45-117) U/L Troponin I (0-0.045) ng/ml Total Protein (6.4-8.2) gm/dl Albumin (3.4-5.0) gm/dl Globulin (2.5-4.0) gm/dl Albumin/Globulin Ratio (0.9-2) Beta-Hydroxybutyric Acd (0.2-2.81) mg/dl TSH (0.300-4.500) uIu/ml COVID-19 Eval Order Covid19 at [facility] SARS-CoV-2 (PCR) (Negative) 01/24/21 01/24/21 Range/Units 14:45 16:46 WBC (4.8-10.8) K/uL RBC (4.7-6.1) M/uL Hgb (14.0-18.0) g/dL Hct (42-52) % MCV (80-100) fL MCH (25-34) pg MCHC (32-36) g/dL RDW Std Deviation (36.4-46.3) fL RDW Coeff of Nadege (11.5-14.5) % Plt Count (130-400) K/uL MPV (7.4-10.4) fL Immature Gran % (Auto) % Neut % (Auto) % Lymph % (Auto) % [place] % (Auto) % Eos % (Auto) % Baso % (Auto) % Neut # (Auto) (1.4-6.5) K/uL Lymph # (Auto) (1.2-3.4) K/uL [place] # (Auto) (0.11-0.59) K/uL Eos # (Auto) (0-0.5) K/uL Baso # (Auto) (0-0.2) K/uL Immature Gran # (Auto) (0.00-0.02) K/uL VBG pH (7.36-7.41) VBG pCO2 (38-50) mmHg VBG pO2 mmHg VBG HCO3 mmol/L VBG O2 Saturation % VBG Base Excess mEq/L Barometric Pressure mm/Hg Sodium (136-145) mmol/L Potassium (3.5-5.1) mmol/L Chloride (98-107) mmol/L Carbon Dioxide (21-32) mmol/L Anion Gap (3-11) BUN (7-18) mg/dl Creatinine (0.6-1.4) mg/dl Est Cr Clr Drug Dosing Est GFR ( Amer) ml/min Est GFR (Non-Af Amer) ml/min BUN/Creatinine Ratio (10-20) Glucose (70-99) mg/dl POC Glucose (70-99) mg/dl Lactate 3.3 H* (0.4-2.0) mmol/L Calcium (8.5-10.1) mg/dl Magnesium (1.8-2.4) mg/dl Total Bilirubin (0.2-1) mg/dl AST (15-37) U/L ALT (12-78) U/L Alkaline Phosphatase (45-117) U/L Troponin I (0-0.045) ng/ml Total Protein (6.4-8.2) gm/dl Albumin (3.4-5.0) gm/dl Globulin (2.5-4.0) gm/dl Albumin/Globulin Ratio (0.9-2) Beta-Hydroxybutyric Acd (0.2-2.81) mg/dl TSH (0.300-4.500) uIu/ml COVID-19 Eval Order SARS-CoV-2 (PCR) NEGATIVE (Negative) Administered Medications Discontinued Medications Atorvastatin Calcium (Atorvastatin 20 Mg Tab) 20 mg PO HS JASWANT Stop: 02/23/21 22:17 Last Admin: 01/25/21 20:37 Dose: 20 mg Documented by: [id number] Admin: 01/25/21 00:14 Dose: 20 mg Documented by: [id number] Buspirone HCl (Buspirone 15 Mg Tab) 15 mg PO BID JASWANT Stop: 02/23/21 22:17 Last Admin: 01/26/21 08:02 Dose: 15 mg Documented by: [id number] Admin: 01/25/21 20:38 Dose: 15 mg Documented by: [id number] Admin: 01/25/21 08:13 Dose: 15 mg Documented by: [id number] Admin: 01/25/21 00:13 Dose: 15 mg Documented by: [id number] Doxepin HCl (Doxepin Hcl 50 Mg Capsule) 50 mg PO HS PRN PRN Reason: sleep Stop: 02/23/21 22:17 Last Admin: 01/26/21 08:03 Dose: 50 mg Documented by: [id number] Admin: 01/25/21 08:10 Dose: 50 mg Documented by: [id number] Escitalopram Oxalate (Escitalopram Oxalate 20 Mg Tab) 20 mg PO HS JASWANT Stop: 02/23/21 22:17 Last Admin: 01/25/21 20:38 Dose: 20 mg Documented by: [id number] Admin: 01/25/21 00:13 Dose: 20 mg Documented by: [id number] Folic Acid (Folic Acid 1 Mg Tab) 1 mg PO QAM JASWANT Stop: 02/24/21 08:59 Last Admin: 01/26/21 08:03 Dose: 1 mg Documented by: [id number] Admin: 01/25/21 08:10 Dose: 1 mg Documented by: [id number] Heparin Sodium (Porcine) (Heparin Sod 5,000 Unit/0.5 Ml Vial) 5,000 units SQ Q12 JASWANT Stop: 02/23/21 22:17 Last Admin: 01/26/21 08:02 Dose: 5,000 units Documented by: [id number] Admin: 01/25/21 20:38 Dose: 5,000 units Documented by: [id number] Admin: 01/25/21 08:07 Dose: 5,000 units Documented by: [id number] Admin: 01/25/21 00:14 Dose: 5,000 units Documented by: [id number] Sodium Chloride (Nss 1000ml) 1,000 mls @ 999 mls/hr IV .Q1H1M JASWANT Stop: 01/24/21 15:30 Last Infusion: 01/24/21 16:27 Dose: 0 mls/hr Documented by: [id number] Admin: 01/24/21 14:47 Dose: 999 mls/hr Documented by: [id number] Sodium Chloride (Nss 1000ml) 1,000 mls @ 125 mls/hr IV .Q8H JASWANT Stop: 01/24/21 22:29 Last Infusion: 01/24/21 22:06 Dose: 0 mls/hr Documented by: [id number] Admin: 01/24/21 15:37 Dose: 125 mls/hr Documented by: [id number] Sodium Chloride (Nss 1000ml) 1,000 mls @ 999 mls/hr IV .Q1H1M ONE Stop: 01/24/21 16:22 Last Infusion: 01/24/21 16:35 Dose: 0 mls/hr Documented by: [id number] Admin: 01/24/21 15:31 Dose: 999 mls/hr Documented by: [id number] Insulin Human Regular 250 (units/ Sodium Chloride) 250 mls @ 1.4 mls/hr IV .Q24H JASWANT; Protocol Stop: 02/23/21 15:44 Last Titration: 01/24/21 23:21 Dose: 0 units/hr, 0 mls/hr Documented by: [id number] Cosigned by: [id number] Titration: 01/24/21 22:34 Dose: 0.8 units/hr, 0.8 mls/hr Documented by: [id number] Cosigned by: [id number] Titration: 01/24/21 22:22 Dose: 1.4 units/hr, 1.4 mls/hr Documented by: [id number] Cosigned by: [id number] Titration: 01/24/21 20:36 Dose: 1.4 units/hr, 1.4 mls/hr Documented by: [id number] Cosigned by: [id number] Titration: 01/24/21 19:36 Dose: 1.8 units/hr, 1.8 mls/hr Documented by: [id number] Cosigned by: [id number] Titration: 01/24/21 18:30 Dose: 2.2 units/hr, 2.2 mls/hr Documented by: [id number] Cosigned by: [id number] Titration: 01/24/21 17:31 Dose: 2.2 units/hr, 2.2 mls/hr Documented by: [id number] Cosigned by: [id number] Admin: 01/24/21 16:27 Dose: 1.8 units/hr, 1.8 mls/hr Documented by: [id number] Cosigned by: [id number] Sodium Chloride (Nss 1000ml) 1,000 mls @ 125 mls/hr IV .Q8H JASWANT Stop: 01/25/21 08:59 Last Infusion: 01/25/21 09:05 Dose: 0 mls/hr Documented by: [id number] Admin: 01/25/21 01:36 Dose: 125 mls/hr Documented by: [id number] Insulin Aspart (Insulin Aspart 100 Units/Ml 3 Ml Pen) 0 units SC 0100,0400 JASWANT; Protocol Stop: 01/25/21 04:01 Last Admin: 01/25/21 04:10 Dose: 1 units Documented by: [id number] Cosigned by: [id number] Admin: 01/25/21 00:24 Dose: Not Given Documented by: [id number] Cosigned by: [id number] Insulin Aspart (Insulin Aspart 100 Units/Ml 3 Ml Pen) 0 units SC ACHS JASWANT; Protocol Stop: 02/24/21 07:29 Last Admin: 01/26/21 12:17 Dose: 11 units Documented by: [id number] Cosigned by: [id number] Admin: 01/26/21 08:03 Dose: 10 units Documented by: [id number] Cosigned by: [id number] Admin: 01/25/21 20:44 Dose: 5 units Documented by: [id number] Cosigned by: [id number] Admin: 01/25/21 16:55 Dose: 5 units Documented by: [id number] Cosigned by: [id number] Admin: 01/25/21 11:47 Dose: 6 units Documented by: [id number] Cosigned by: [id number] Admin: 01/25/21 08:07 Dose: 9 units Documented by: [id number] Cosigned by: [id number] Insulin Glargine (Insulin Glargine Solostar 100 Units/Ml 3 Ml Pen) 8 units SC BID JASWANT Stop: 02/23/21 23:14 Last Admin: 01/25/21 08:08 Dose: 8 units Documented by: [id number] Cosigned by: [id number] Admin: 01/25/21 00:14 Dose: 8 units Documented by: [id number] Cosigned by: [id number] Insulin Glargine (Insulin Glargine Solostar 100 Units/Ml 3 Ml Pen) 0 units SC BID JASWANT; Protocol Stop: 02/24/21 20:59 Last Admin: 01/26/21 08:05 Dose: 12 units Documented by: [id number] Cosigned by: [id number] Admin: 01/25/21 20:45 Dose: 12 units Documented by: [id number] Cosigned by: [id number] Insulin Human Regular (Novolin-R Bolus From Bag) 2 units IV ONE ONE Stop: 01/24/21 16:16 Last Admin: 01/24/21 16:28 Dose: 2 units Documented by: [id number] Cosigned by: [id number] Miscellaneous (Insulin Protocol Goal Range ) 1 ea N/A ONE ONE Stop: 01/24/21 16:06 Last Admin: 01/24/21 16:29 Dose: 1 ea Documented by: [id number] Miscellaneous (Moderate Stress Level ) 1 ea N/A ONE ONE Stop: 01/24/21 16:07 Last Admin: 01/24/21 16:28 Dose: 1 ea Documented by: [id number] Miscellaneous (Stat Iv Infusion Titration Per Protocol) 1 ea N/A NOW STA Stop: 01/24/21 17:11 Last Admin: 01/25/21 00:16 Dose: Not Given Documented by: [id number] Miscellaneous (Stat Iv Infusion Titration Per Protocol) 1 ea N/A NOW STA Stop: 01/24/21 17:11 Last Admin: 01/25/21 00:15 Dose: Not Given Documented by: [id number] Miscellaneous (Remove Nicoderm Patch) 1 ea N/A DAILY@0859 [facility] Stop: 02/24/21 08:58 Last Admin: 01/26/21 08:04 Dose: 1 ea Documented by: [id number] Admin: 01/25/21 08:06 Dose: Not Given Documented by: [id number] Multivitamins/Minerals (Cerovite Adv Formula Tab) 1 tab PO [facility] Stop: 02/24/21 08:59 Last Admin: 01/26/21 08:03 Dose: 1 tab Documented by: [id number] Admin: 01/25/21 08:10 Dose: 1 tab Documented by: [id number] Nicotine (Nicotine 21 Mg/24 Hr Tdsy) 21 mg TD [facility] Stop: 02/24/21 08:59 Last Admin: 01/26/21 08:03 Dose: 21 mg Documented by: [id number] Admin: 01/25/21 08:07 Dose: 21 mg Documented by: [id number] Pantoprazole Sodium (Pantoprazole 40 Mg Tab) 40 mg PO [facility] Stop: 02/24/21 08:59 Last Admin: 01/26/21 08:03 Dose: 40 mg Documented by: [id number] Admin: 01/25/21 08:11 Dose: 40 mg Documented by: [id number] Tamsulosin HCl (Tamsulosin Hcl 0.4 Mg Cap) 0.4 mg PO HS [facility] Stop: 02/23/21 22:17 Last Admin: 01/25/21 20:37 Dose: 0.4 mg Documented by: [id number] Admin: 01/25/21 00:13 Dose: 0.4 mg Documented by: [id number] Thiamine HCl (Thiamine Hcl 50 Mg Tablet) 100 mg PO DAILY [facility] Stop: 02/24/21 08:59 Last Admin: 01/26/21 08:03 Dose: 100 mg Documented by: [id number] Admin: 01/25/21 08:07 Dose: 100 mg Documented by: [id number] Vitamin D (Cholecalciferol 1,000 Units 25 Mcg Tab) 2,000 units PO [facility] Stop: 02/24/21 08:59 Last Admin: 01/26/21 08:03 Dose: 2,000 units Documented by: [id number] Admin: 01/25/21 08:10 Dose: 2,000 units Documented by: [id number] Discharge Plan Visit Data Chief Complaint: Hyperglycemia Stated Complaint: HIGH SUGAR LEVEL - 540,REF BY DOC Discharge Problem: Hyperglycemia, Acute hypotension, JAMES (acute kidney injury) Patient Disposition: Admitted As Inpatient Discharge Instructions Interventions: ED Discharge Assessment Last Done: 01/24/21 22:08
== END 2021-01-26 14:34 | disposition home or self-care (01) ==
LOC: ED 14:02 → 2S 14:02 → SUATTDRO 17:10 → 2S 22:08